=== PATIENT | female | born 1935 | race Caucasian/White ===

== ENCOUNTER 2020-02-12 13:34 | Inpatient (IN) | payer OTHER ==
--- NOTE | 2020-02-12 14:19 | PDOC ---
History of Present Illness - General Chief Complaint: Altered Mental Status Stated Complaint: Altered Mental Status Time Seen by Provider: 02/12/20 13:43 - History of Present Illness Initial Comments: 02/12/20 14:18 HPI: 85 y/o F with hx of Parkinson's, Alzheimer's, HLD, HTN, CAD, CHF, CKD, liver disease and DM and recent aortic valve replacement at [facility] on 01/25/20 DCd on with hospital course c/b by intubation and PNA presenting from [facility] with 2 days of AMS and lethargy. Patient reported to have PNa and being treated with ceftriaxone. No other collateral info can be obtained. PMHx: as noted above ROS: as noted SHx: Denies tobacco use; no alcohol use; no rec drugs Allergies: NKDA ROS: unable to obtain 2/2 mental stauts PE: GENERAL: obtunded, grimacing to pain HEAD: No signs of trauma, normocephalic, atraumatic EYES: EOMI, sclera anicteric, conjunctiva clear, PERRLA ENT: Auricles normal inspection, hearing grossly normal, nares patent, oropharynx clear without exudates. Moist mucosa NECK: Normal ROM, no lymphadenopathy LUNGS: +increased work of breathing, with intermittent apnic episodes followed by tachypnea, symmetrical chest rise, clear to auscultation bilaterally, no wheezes, crackles or rhonchi HEART: Regular rate, regular rhythm, normal S1 and S2, no murmur, peripheral pulses 2+ and equal bilaterally. ABDOMEN: Soft, suprapubic fullness. No guarding, no rebound. No masses. No CVAT MUSCULOSKELETAL: FROM NEUROLOGICAL: unresponsive SKIN: Warm, Dry, normal turgor, no rashes or lesions noted Past History - Medical History Allergies/Adverse Reactions: Allergies Allergy/AdvReac Type Severity Reaction Status Date / Time pregabalin [From Lyrica] Allergy Verified 02/12/20 13:40 Home Medications: Ambulatory Orders Carvedilol Phosphate [Coreg Cr] 40 mg PO DAILY 08/27/13 Gabapentin 100 mg PO TID 08/27/13 Losartan/Hydrochlorothiazide [Losartan-Hctz 100-25 mg Tab] 1 tab PO DAILY 08/27/13 Saxagliptin HCl [Onglyza] 5 mg PO DAILY 08/27/13 metFORMIN HCL [Glucophage] 1,000 mg PO BID 08/27/13 Acetaminophen [Tylenol .Regular Strength -] 650 mg PO Q6H PRN #0 tablet 09/02/13 Atorvastatin Ca [Lipitor] 40 mg PO HS #0 tablet 09/02/13 Levothyroxine [Synthroid -] 50 mcg PO DAILY@0700 #0 tablet 09/02/13 Insulin Regular [Novolin R Vial -] 0 units SQ TID 09/05/13 Magnesium Oxide 400 mg PO BID 09/05/13 Memantine HCl [Namenda -] 5 mg PO BID 09/05/13 Saccharomyces Boulardii [Florastor] 250 mg PO BID 09/05/13 Allopurinol [Zyloprim -] 100 mg PO DAILY 02/12/20 Amlodipine Besylate [Norvasc -] 5 mg PO DAILY 02/12/20 Aspirin 81 mg PO 02/12/20 Atorvastatin Ca [Lipitor] 20 mg PO HS 02/12/20 Bisacodyl 5 mg PO 02/12/20 Ceftriaxone 1 G/50 ml Premix [Ceftriaxone 1 gm-D5w Bag] 1 gm IV 02/12/20 Clopidogrel Bisulfate [Clopidogrel] 75 mg PO 02/12/20 Furosemide [Lasix -] 20 mg PO DAILY 02/12/20 Glimepiride 4 mg PO 02/12/20 Pantoprazole Sodium [Protonix -] 20 mg PO DAILY 02/12/20 Polyethylene Glycol 3350 17 gm PO 02/12/20 Senna [place] Extract [Senna] 176 mg PO 02/12/20 Vitamin B Complex 1 each PO 02/12/20 Cardiac Disorders: Yes (non obstructive CAD) COPD: No Diabetes: Yes HTN: Yes Hypercholesterolemia: Yes Thyroid Disease: Yes (hypo) Other medical history: cardiac cath done recently w/no stents 02/04/2020 - Surgical History Abdominal Surgery: Yes (HERNIA REPAIR) Appendectomy: Yes - Immunization History Immunization Up to Date: No - Psycho-Social/Smoking History Smoking Status: No Smoking History: Unknown if ever smoked Have you smoked in the past 12 months: No Number of Cigarettes Smoked Daily: 0 Information on smoking cessation initiated: No - Substance Abuse Hx (Audit-C & DAST Scrn) How often the patient has a drink containing alcohol: Never Score: In Men: 4 or > Positive; In Women: 3 or > Positive: 0 Screen Result (Pos requires Nsg. Audit-10AR): Negative In the last yr the pt used illegal drug/Rx for NonMed reason: No Score: Yes response is considered Positive: 0 Screen Result (Positive result requires Nsg. DAST-10): Negative *Physical Exam - Vital Signs Last Vital Signs Temp Pulse Resp BP Pulse Ox 111 H 32 H 128/81 99 02/12/20 13:35 02/12/20 13:35 02/12/20 13:35 02/12/20 13:35 ED Treatment Course - LABORATORY CBC & Chemistry Diagram: 02/12/20 14:00 02/12/20 18:00 - ADDITIONAL ORDERS Additional order review: Laboratory Results 02/12/20 13:51 POC Glucometer 199 02/12/20 13:51 POC Glucometer 199 - RADIOLOGY Radiology Studies Ordered: Category Date Time Status HEAD CT WITHOUT CONTRAST [CT] Stat CT Scan 02/12/20 13:58 Ordered CHEST X-RAY PORTABLE* [RAD] Stat Radiology 02/12/20 13:57 Ordered Medical Decision Making - Medical Decision Making 02/12/20 19:19 85 y/o F with hx of Parkinson's, Alzheimer's, HLD, HTN, CAD, CHF, CKD, liver disease and DM and recent aortic valve replacement at [facility] on 01/25/20 DCd on with hospital course c/b by intubation and PNA presenting from [facility] with 2 days of AMS and lethargy. VSS, AF. PE with suprapubic fullness and lethargic with labored breathing -sepsis order set with CT head; grajeda -ivf, tylenol 02/12/20 19:20 grajeda with 2L urine 02/12/20 19:20 Laboratory Tests 02/12/20 02/12/20 02/12/20 14:00 14:00 14:00 WBC 11.0 H VBG pH Sodium 163 H* Creatinine 4.6 H Troponin I 0.36 H B-Natriuretic Peptide 2016.4 H 02/12/20 17:20 WBC VBG pH 7.192 L* Sodium Creatinine Troponin I B-Natriuretic Peptide elevated Na renal failure with Cr 4.6 acidiosis; will put on bipap admitted to icu signed out to ngt team Discharge - Discharge Information Problems reviewed: Yes Clinical Impression/Diagnosis: Tyrosinemia, Acidosis, Urinary retention, AMS (altered mental status) Condition: Guarded - Follow up/Referral - Patient Discharge Instructions - Post Discharge Activity
--- NOTE | 2020-02-12 14:21 | PDOC ---
Attending Attestation - Resident Resident Name: Emilee Choi - ED Attending Attestation I have performed the following: I have examined & evaluated the patient, The case was reviewed & discussed with the resident, I agree w/resident's findings & plan, Exceptions are as noted - HPI HPI: 02/12/20 14:54 The patient is a 85y/o F with a PMH of Parkinson's, Alzheimer's, HLD, HTN, CAD, CHF, CKD, liver disease and DM, recent TAVR who presents to the ED BIBA from [facility] for AMS and lethargy x2 days. Per [facility] the patient has been on abx for the past 2 day. Pt was COVID negative on 02/05/20. Pt is a poor historian and unable to contribute to further history. Allergies: Pregabalin PCP: Dr. Calvo/ Dr. Canseco - Physicial Exam PE: Agree with resident exam, with exception that pt is resposive to loud voice and noxious stimuli - Critical Care Time Total Critical Care Time: 60 Critical Care Statement: The care of this patient involved high complexity decision making to prevent further life threatening deterioration of the patient's condition and/or to evaluate & treat vital organ system(s) failure or risk of failure. - Medical Decision Making 85yo F with MMP including recent TAVR, dementia presents from the ED with AMS and lethargy On arrival to ED, pt is lethargic, responsive to only loud voice and noxious stimuli Has intermittent apneic episodes for a few seconds but quickly resumes normal respirations with 100% O2 sat Initial blood gas mildly acidotic but after repeating blood gas, pt found to be developing hypercarbic resp failure Family unsure about intubation initially (pt has had recent decline since TAVR) but amenable to placing pt on bipap Of note, pt found to be retaining urine, quickly voiding 1.5L after grajeda placement at which point grajeda was clamped COncern for UTI, even though UA negative here as pt has been on ceftriaxone at [facility] for leukocytosis. UA negative likely due to partial tx with ctx ICU team evaluating Will attempt trial of bipap, repeat a blood gas, and if no improvement in hypercarbia, pt will likely need intubation Case signed out to Dr. Davila pending trial of bipap. This clinical encounter is taking place during a federal and state health care emergency attributable to the novel Berry Virus pandemic. The [place] of the Department of Health and Human Services has declared, pursuant to the Public Health Service Act 319F-3 (42 U.S.C. 247d-6d), that a covered persons activities related to medical countermeasures against COVID-19 will be immune from liability under Federal and State law. Discharge - Discharge Information Problems reviewed: Yes Clinical Impression/Diagnosis: Tyrosinemia, Acidosis, Urinary retention, AMS (altered mental status) Condition: Improved Disposition: LONGTERM FACILITY - Follow up/Referral - Patient Discharge Instructions - Post Discharge Activity
[2020-02-12 14:31] LABS: VENOUS BASE EXCESS -2.5 mmol/L (-2-2); VENOUS O2 SATURATION 48.4 % (70-80); VENOUS PCO2 49.3 mmHg (38-52); VENOUS PH 7.306 (7.310-7.410)
[2020-02-12] MEDS ORDERED: ACETAMINOPHEN 1000 MG/100 ML VIAL (NON FORMULARY) IVPB ONE (14:32)
[2020-02-12] MEDS ORDERED: ACETAMINOPHEN INJECTION 100 ML IVPB ONE (14:44)
[2020-02-12 14:59] LABS: BASO % 0.7 % (0-2.0); EOS % 0.1 % (0-4.5); HEMATOCRIT 34.9 % (32.4-45.2); HEMOGLOBIN 10.2 GM/dL (10.7-15.3); MCH 25.4 pg (25.7-33.7); MCHC 29.2 g/dl (32.0-36.0); MEAN CELL VOLUME 86.9 fl (80-96); MEAN PLT VOLUME 8.9 fl (7.5-11.1); MONO % 7.6 % (3.8-10.2); NEUT % 74.6 % (42.8-82.8); PLATELET COUNT 408 K/MM3 (134-434); RBC 4.01 M/mm3 (3.60-5.2); RDW 20.4 % (11.6-15.6)
[2020-02-12 15:01] LABS: INR 1.11 (0.83-1.09); PROTHROMBIN TIME (PATIENT) 13.1 SEC (9.7-13.0)
[2020-02-12 15:03] LABS: ACTIVATED PTT 27.2 SECONDS (25.2-36.5)
[2020-02-12 15:07] LABS: ALBUMIN 3.4 g/dl (3.4-5.0); BILIRUBIN,TOTAL 0.4 mg/dL (0.2-1); BLOOD UREA NITROGEN 97.1 mg/dL (7-18); CALCIUM 8.4 mg/dL (8.5-10.1); CREATININE 4.6 mg/dL (0.55-1.3); POTASSIUM 4.8 mmol/L (3.5-5.1); TOT PROT 8.3 g/dl (6.4-8.2)
[2020-02-12 15:29] LABS: EPI CELLS 6 /uL (0-25.1); HYALINE CASTS 1 /uL (0-3.1); PH,URINE 5.5 (5.0-8.0); URINE APPEARANCE CLEAR; URINE BACTERIA 8 /uL (0-1359); URINE BILIRUBIN NEGATIVE (NEGATIVE); URINE COLOR YELLOW; URINE GLUCOSE (UA) NEGATIVE (NEGATIVE); URINE KETONE NEGATIVE (NEGATIVE); URINE LEUK ESTERASE NEGATIVE (NEGATIVE); URINE NITRITE NEGATIVE (NEGATIVE); URINE PROTEIN 2+ (NEGATIVE); URINE RBC 30 /uL (0-23.9); URINE UROBILINOGEN 0.2 mg/dL (0.2-1.0); URINE WBC 3 /uL (0-25.8)
[2020-02-12] MEDS: SODIUM CHLORIDE 0.45% 1,000 ML IV SCH (16:04)
--- NOTE | 2020-02-12 16:15 | CONSULT ---
Consult Consult Specialty:: Nephrology Reason for Consultation:: KYLER - History of Present Illness Chief Complaint: sent in for lethargy History of Present Illness: Pt is an 85 year old female with pmhx of parkinsons, dementia, hld, htn, cad, chf, ckd, dm and recent TAVR who was sent in for lethargy and altered mental status. Her son is at bedside and was able to assist with history. She is lethargic and unable to give history. She normally is able to converse. Chart and records were reviewed. Her son says that her renal function was normal on discharge from the hospital. Grajeda was placed and she was found to have urinary obstruction. 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) - Alcohol/Substance Use Hx Alcohol Use: No - Smoking History Smoking history: Unknown if ever smoked Have you smoked in the past 12 months: No Aproximately how many cigarettes per day: 0 Home Medications - Allergies Allergies/Adverse Reactions: Allergies Allergy/AdvReac Type Severity Reaction Status Date / Time pregabalin [From Lyrica] Allergy Verified 02/12/20 13:40 - Home Medications Home Medications: Ambulatory Orders Carvedilol Phosphate [Coreg Cr] 40 mg PO DAILY 08/27/13 Gabapentin 100 mg PO TID 08/27/13 Losartan/Hydrochlorothiazide [Losartan-Hctz 100-25 mg Tab] 1 tab PO DAILY 08/27/13 Saxagliptin HCl [Onglyza] 5 mg PO DAILY 08/27/13 metFORMIN HCL [Glucophage] 1,000 mg PO BID 08/27/13 Acetaminophen [Tylenol .Regular Strength -] 650 mg PO Q6H PRN #0 tablet 09/02/13 Amlodipine Besylate [Norvasc -] 2.5 mg PO DAILY #0 tablet 09/02/13 Atorvastatin Ca [Lipitor] 40 mg PO HS #0 tablet 09/02/13 Levothyroxine [Synthroid -] 50 mcg PO DAILY@0700 #0 tablet 09/02/13 Insulin Regular [Novolin R Vial -] 0 units SQ TID 09/05/13 Magnesium Oxide 400 mg PO BID 09/05/13 Memantine HCl [Namenda -] 5 mg PO BID 09/05/13 Saccharomyces Boulardii [Florastor] 250 mg PO BID 09/05/13 Family Medical History Family History: Unable to Obtain Review of Systems Unable to obtain ROS, reason: lethargy Physical Exam Vital Signs: Vital Signs Temperature 99.6 F 02/12/20 16:00 Pulse Rate 110 H 02/12/20 16:00 Respiratory Rate 32 H 02/12/20 16:00 Blood Pressure 144/68 02/12/20 16:00 O2 Sat by Pulse Oximetry (%) 100 02/12/20 16:00 Constitutional: Yes: Calm, Cachectic Eyes: Yes: Conjunctiva Clear Cardiovascular: Yes: Tachycardia, S1, S2 Respiratory: Yes: On Venti-Mask Gastrointestinal: Yes: Soft Renal/: Yes: Grajeda Present Labs: CBC, BMP 02/12/20 14:00 02/12/20 14:00 Imaging - Results Chest X-ray: Report Reviewed Cat Scan: Report Reviewed Problem List - Problems (1) KYLER (acute kidney injury) Code(s): N17.9 - ACUTE KIDNEY FAILURE, UNSPECIFIED (2) Hypernatremia Code(s): E87.0 - HYPEROSMOLALITY AND HYPERNATREMIA (3) Altered mental state Code(s): R41.82 - ALTERED MENTAL STATUS, UNSPECIFIED Assessment/Plan Current Medications Generic Name Dose Route Start Last Admin Trade Name Freq PRN Reason Stop Dose Admin Sodium Chloride 1,000 mls @ 100 mls/hr 02/12/20 16:00 02/12/20 16:04 1/2 Normal Saline IV 100 mls/hr [facility] Administration Laboratory Tests 02/12/20 02/12/20 02/12/20 14:00 14:00 14:00 WBC 11.0 H Hgb 10.2 L Sodium Potassium BUN Creatinine Random Glucose Troponin I 0.36 H B-Natriuretic Peptide Urine Protein 2+ H 02/12/20 14:00 WBC Hgb Sodium 163 H* Potassium 4.8 BUN 97.1 H Creatinine 4.6 H Random Glucose 225 H Troponin I B-Natriuretic Peptide 2016.4 H Urine Protein Impression 1. KYLER 2. urinary obstruction 3. hypernatremia 4. altered mental status 5. dm 6. hx htn 7. cad 8. chf 9. ckd 10/ s/p tavr Plan - grajeda in place - monitor urine output and monitor for post obstructive diuresis - cont 1/2 ns and monitor sodium - avoid a change of greater than 8 meq in 24 hours - kyler likely in part from obstruction - renal ultrasound - check urine lytes and internal controls consultant - check pts weight in order to calc free water defecit - monitor pulse ox - discussed with family - discussed with ICU team
--- NOTE | 2020-02-12 16:19 | EKG ---
Test Reason : Blood Pressure : / mmHG Vent. Rate : 108 BPM Atrial Rate : 108 BPM P-R Int : 130 ms QRS Dur : 124 ms QT Int : 384 ms P-R-T Axes : 050 -39 117 degrees QTc Int : 514 ms SINUS TACHYCARDIA LEFT AXIS DEVIATION LEFT BUNDLE BRANCH BLOCK ABNORMAL ECG WHEN COMPARED WITH ECG OF 05-SEP-2013 03:33, VENT. RATE HAS INCREASED BY 40 BPM QRS DURATION HAS DECREASED Confirmed by JONI GAINES MD ([id number]) on 02/12/2020 4:19:11 PM Referred By: Confirmed By:JONI GAINES MD
[2020-02-12] MEDS ORDERED: VANCOMYCIN 1 GM in D5W (PRE-DOCKED) 1,000 MG/250 ML IVPB ONE (17:22)
[2020-02-12] MEDS ORDERED: VANCOMYCIN 1 GRAM (PRE-DOCKED) 1,000 MG/250 ML BAG IVPB ONE (17:44)
[2020-02-12 18:21] LABS: VENOUS BASE EXCESS -4.2 mmol/L (-2-2); VENOUS O2 SATURATION 98.7 % (70-80); VENOUS PCO2 66.4 mmHg (38-52)
[2020-02-12 18:26] LABS: VENOUS PH 7.192 (7.310-7.410)
[2020-02-12 18:54] LABS: BLOOD UREA NITROGEN 100.7 mg/dL (7-18); CREATININE 4.5 mg/dL (0.55-1.3); POTASSIUM 5.3 mmol/L (3.5-5.1)
--- NOTE | 2020-02-12 18:55 | CONSULT ---
Consultation: REQUESTING PROVIDER: CONSULT REQUEST: We have been asked to medically evaluate this patient for (specify). HISTORY OF PRESENT ILLNESS: Per patient's son: patient was taken to surgery for aortic valve replacement on January 26 2020 at [facility]. Patient did not recover from anesthesia and remaine d intubated and barely responsive. Post extubation patient remained groggy but was able to identify her relatives. Was also treated with abx for pneumonia during her ICU stay. On February 03 she was transferred to the floors and on February 04 she was transferred to [facility] rehabilitation facility after passing a swallow evaluation. Events at rehab facility are unclear since family was unable to visit patient. Also, after I spoke to facility hx remains unclear but per son the patient received another round of abx for pneumonia. There was never any treatment for a UTI. Son was also unaware of any liver disease or other heart disease. Before surgery, patient was at baseline: could walk with assistance "20 baby steps", able to eat/drink/urinate/defecate independently, hold "some" conversation, recognize people by name. When outside patient used transport chair due to her fall risk. Today, patient was brought in to the ED from the rehab facility due to continued AMS and fever. 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 Dawson PCP - [phone] Dr. Cartagena accounting administrative assistant - [phone] Dr. Mednoza Neurologist - [phone], Meds - metamorphine 1000mg one tab BID - oglyza 5mg q tab BID - carvedilil 1 tab daily 40mg - amlodipine 2.5mg 1 tab daily - losartan 100mg 1 dily - HCTZ 25mg 1 daily - glimepiride 2mg 1 daily - memantine 14mg 1 daily - lipitor 20mg 1 daily - ASA 81mg daily - zyloprin 1 tab 100mg PRN for gout SurgHx - aortic heart walve replacement 2019 - shoulder surgery -15-20 years ago - shingles 5y ago - hospitalized then in rehab 60 days - eye surgery FamHx - sister in same state: dementia and difficulties walking Social Hx denied tobacco, drugs, EtOH lives with and sister REVIEW OF SYSTEMS: patient was non-responsive. PHYSICAL EXAMINATION Vital Signs - 24 hr 02/12/20 02/12/20 02/12/20 13:35 13:50 14:00 Temperature 101.1 F H Pulse Rate 111 H Pulse Rate [ Apical] Respiratory 32 H Rate Blood Pressure 128/81 Blood Pressure [Right Arm] O2 Sat by Pulse 99 86 L Oximetry (%) 02/12/20 02/12/20 14:56 16:00 Temperature 99.6 F Pulse Rate Pulse Rate [ 110 H 110 H Apical] Respiratory 36 H 32 H Rate Blood Pressure Blood Pressure 141/70 144/68 [Right Arm] O2 Sat by Pulse 100 100 Oximetry (%) GENERAL: patient was non-resonive. HEAD: Normal with no signs of trauma. LUNGS: Breath sounds equal, clear to auscultation bilaterally, no wheezes, no crackles, mild accessory muscle use. HEART: Regular rate and rhythm, S1, S2, faint systolic murmur. ABDOMEN: Soft, nondistended, hypoactive bowel sounds, no hepatosplenomegaly, reducible hernia on R hemiabdomen, multiple scattered caicedo angiomas, echhymosis on L hemiabdomen, seborrheic keratosis on both L and R breast. EXTREMITIES: 2+ pulses, warm, well-perfused, no edema. SKIN: Warm, dry, normal turgor, no other rashes or lesions noted Laboratory Results - last 24 hr 02/12/20 02/12/20 02/12/20 13:51 14:00 14:00 WBC RBC Hgb Hct MCV MCH MCHC RDW Plt Count MPV Absolute Neuts (auto) Neutrophils % Lymphocytes % Monocytes % Eosinophils % Basophils % Nucleated RBC % PT with INR 13.10 H INR 1.11 H PTT (Actin FS) 27.2 VBG pH POC VBG pCO2 POC VBG pO2 VBG HCO3 VBG O2 Sat (Chris) VBG Base Excess Sodium Potassium Chloride Carbon Dioxide Anion Gap BUN Creatinine Est GFR (CKD-EPI)AfAm Est GFR (CKD-EPI)NonAf POC Glucometer 199 Random Glucose Lactic Acid Calcium Total Bilirubin AST ALT Alkaline Phosphatase Troponin I 0.36 H B-Natriuretic Peptide Total Protein Albumin Urine Color Urine Appearance Urine pH Ur Specific [place] Urine Protein Urine Glucose (UA) Urine Ketones Urine Blood Urine Nitrite Urine Bilirubin Urine Urobilinogen Ur Leukocyte Esterase Urine WBC (Auto) Urine RBC (Auto) Urine Casts (Auto) U Epithel Cells (Auto) Urine Bacteria (Auto) 02/12/20 02/12/20 02/12/20 14:00 14:00 14:00 WBC 11.0 H RBC 4.01 Hgb 10.2 L Hct 34.9 MCV 86.9 MCH 25.4 L MCHC 29.2 L RDW 20.4 H Plt Count 408 D MPV 8.9 Absolute Neuts (auto) 8.2 H Neutrophils % 74.6 D Lymphocytes % 17.0 D Monocytes % 7.6 Eosinophils % 0.1 D Basophils % 0.7 Nucleated RBC % 0 PT with INR INR PTT (Actin FS) VBG pH 7.306 L POC VBG pCO2 49.3 POC VBG pO2 28.9 VBG HCO3 24.0 VBG O2 Sat (Chris) 48.4 L VBG Base Excess -2.5 L Sodium Potassium Chloride Carbon Dioxide Anion Gap BUN Creatinine Est GFR (CKD-EPI)AfAm Est GFR (CKD-EPI)NonAf POC Glucometer Random Glucose Lactic Acid Calcium Total Bilirubin AST ALT Alkaline Phosphatase Troponin I B-Natriuretic Peptide Total Protein Albumin Urine Color Yellow Urine Appearance Clear Urine pH 5.5 Ur Specific [place] 1.017 Urine Protein 2+ H Urine Glucose (UA) Negative Urine Ketones Negative Urine Blood Negative Urine Nitrite Negative Urine Bilirubin Negative Urine Urobilinogen 0.2 Ur Leukocyte Esterase Negative Urine WBC (Auto) 3 Urine RBC (Auto) 30 Urine Casts (Auto) 1 U Epithel Cells (Auto) 6 Urine Bacteria (Auto) 8 02/12/20 02/12/20 02/12/20 14:00 14:00 17:20 WBC RBC Hgb Hct MCV MCH MCHC RDW Plt Count MPV Absolute Neuts (auto) Neutrophils % Lymphocytes % Monocytes % Eosinophils % Basophils % Nucleated RBC % PT with INR INR PTT (Actin FS) VBG pH 7.192 L* POC VBG pCO2 66.4 H POC VBG pO2 171.1 H VBG HCO3 24.9 VBG O2 Sat (Chris) 98.7 H VBG Base Excess -4.2 L Sodium 163 H* Potassium 4.8 Chloride 129 H Carbon Dioxide 27 Anion Gap 6 L BUN 97.1 H Creatinine 4.6 H Est GFR (CKD-EPI)AfAm 9.40 Est GFR (CKD-EPI)NonAf 8.11 POC Glucometer Random Glucose 225 H Lactic Acid 1.4 Calcium 8.4 L Total Bilirubin 0.4 AST 25 ALT 28 Alkaline Phosphatase 64 Troponin I B-Natriuretic Peptide 2016.4 H Total Protein 8.3 H Albumin 3.4 Urine Color Urine Appearance Urine pH Ur Specific [place] Urine Protein Urine Glucose (UA) Urine Ketones Urine Blood Urine Nitrite Urine Bilirubin Urine Urobilinogen Ur Leukocyte Esterase Urine WBC (Auto) Urine RBC (Auto) Urine Casts (Auto) U Epithel Cells (Auto) Urine Bacteria (Auto) Active Medications Generic Name Dose Route Start Last Admin Trade Name Freq PRN Reason Stop Dose Admin Sodium Chloride 1,000 mls @ 100 mls/hr 02/12/20 16:00 02/12/20 16:04 1 Normal Saline IV 100 mls/hr ASDIR [facility] Administration ASSESSMENT/PLAN: Code status/Family conversation: Telephone conversation with son Parrish. He reports that his mother does not have a health care proxy but he is her acting health care surrogate. Does not want chest compression attempted but would like a trial of intubation. He stated that he was more comfotable of a terminal extubation that not attempting intubation. His conversation was witnessed by TIGHT ROPE WALKER Jasbir. The son will come to the unit tomorrow to complete the paperwork. 85yo F with PMHx of HTN, DM2 with LE peripheral neuropathy, mild dementia, CKD, HF, and recent aortic valve replacement at [facility] who was brought to the ED catie to AMS and fever. ED course was remarkable for worsening MS, respiratory acidosis, hypernatremia, and urinary retention. In the ICU, patient was sedated and intubated due to persistent hypercarbic respiratory acidosis. #neuro AMS Parkinson's dementia - continue home dose dementia meds - head CT negative #cardio HTN recent aortic valve replacement HFrEF (30%) elevated troponin I -- demand ischemia in setting of sepsis prolongued QTC -continue home dose ASA, plavix, statin - trend trops - EKG with old LBBB - avoid QT prolonging agents - cardiology consulted #pulm acute hypercapneic respiratory failure #ID sepsis - ediology to be determined, liekly urinary source - febrile, tachypneic, tachycardic - ED course: IVF, olfirmev, vaco, sozyn - leukocytosis resolving - started on ceftriaxone @ [facility] - r/o COVID (low suspicion) - follow up cultures - ID consulted #Endo DM2, peripheral neuropathy - ISS, BGM, ACHS #GI continue home pantoprazole (clarification about reflux?) #renal urinary retention + abdominal distension KYLER on CKD hyperkalemia hypernatremia -1/2 NS @ 100 - 2L output s/p Oliveros placement (pre-renal vs. post-renal KYLER) - monitor sodium q12h - nephro consulted - kiney/renal US - CT a/p unrevealing of infectious source - moniotr I/Os, daily weights #Heme - trend H&H #FEN -1/2 NS @ 100 - NPO - replete lytes PRN #PPX - DVT: SQH DNR Dispo: We will continue to follow the patient. Thank you for this consultative opportunity. Visit type - Emergency Visit Emergency Visit: Yes ED Registration Date: 02/12/20 Care time: The patient presented to the Emergency Department on the above date and was hospitalized for further evaluation of their emergent condition. - New Patient This patient is new to me today: Yes Date on this admission: 02/15/20 - Critical Care Critical Care patient: Yes Total Critical Care Time (in minutes): 36 Critical Care Statement: The care of this patient involved high complexity decision making to prevent further life threatening deterioration of the patient's condition and/or to evaluate & treat vital organ system(s) failure or risk of failure. ATTENDING PHYSICIAN STATEMENT I saw and evaluated the patient. I reviewed the resident's note and discussed the case with the resident. I agree with the resident's findings and plan as documented. SUBJECTIVE: OBJECTIVE: ASSESSMENT AND PLAN:
[2020-02-12 20:51] LABS: ARTERIAL BLD GAS O2 SATURATION 96.3 mmHg (95-98); ARTERIAL BLOOD GAS PO2 106.2 mmHg (80-100)
[2020-02-12 20:55] LABS: ALLENS TEST POSITIVE
[2020-02-12 20:56] LABS: VENT MODE S/T; VENT RATE 12
[2020-02-12 20:59] LABS: ARTERIAL BLOOD GAS pH 7.171 (7.350-7.450)
[2020-02-12] MEDS: MUPIROCIN 2% TOPICAL OINTMENT FOR DECOLONIZATION NS SCH (21:49)
[2020-02-12] MEDS: CHLORHEXIDINE GLUCONATE 4% CLEANSER FOR DECOLONIZATION TP SCH (21:49)
[2020-02-12] MEDS: HEPARIN NA (PORCINE) 5,000 UNITS/ML 1ML VIAL SQ SCH (21:49)
[2020-02-12 22:51] LABS: VENOUS BASE EXCESS -7.1 mmol/L (-2-2); VENOUS O2 SATURATION 73.8 % (70-80); VENOUS PCO2 69.6 mmHg (38-52)
[2020-02-12 22:53] LABS: VENOUS PH 7.127 (7.310-7.410)
[2020-02-12] MEDS ORDERED: RAPID SEQUENCE INTUBATION KIT NR ONE (23:07)
[2020-02-12] MEDS ORDERED: ETOMIDATE 20 MG/10 ML AMPUL IVPUSH ONE (23:18)
[2020-02-12] MEDS ORDERED: ROCURONIUM BROMIDE 50 MG/5 ML VIAL IVPUSH ONE (23:18)
[2020-02-12] MEDS ORDERED: ROCURONIUM BROMIDE 50 MG/5 ML VIAL IV ONE (23:18)
[2020-02-12 23:22] LABS: BLOOD UREA NITROGEN 95.9 mg/dL (7-18); CALCIUM 7.8 mg/dL (8.5-10.1); CREATININE 4.5 mg/dL (0.55-1.3); POTASSIUM 5.1 mmol/L (3.5-5.1)
--- NOTE | 2020-02-12 23:38 | PROC ---
Procedure Note Procedure: PROCEDURE NOTE: Endotracheal Intubation PROCEDURE [employer] OPERATOR SUPERVISOR: Ino Callahan M.D., PGY3 ATTENDING PHYSICIAN: Dr. Wan of anesthesia service was in attendance; Case was discussed and need for intubation agreed upon via telephone with ICU Attending Dr. Redding INDICATION: Hypercarbic respiratory failure CONSENT: The procedure emergent and performed with implied permission. PROCEDURE SUMMARY: A time out was performed. My hands were washed immediately prior to the procedure. I wore a mask with protective eyewear, gown, and gloves throughout the procedure. The patient was placed on continuous cardiac and pulse oximetry monitoring. Rapid Sequence Intubation was conducted. The patient received E tomidate for induction and Rocuronium for adequate paralysis. Using a GlideScope for video laryngoscopy and an endotracheal tube (size 7.0) with stylet, the patient was intubated on the 1st attempt. The stylet was removed and cuff balloon was inflated. Appropriate endotracheal tube position was confirmed by direct visualization of vocal cord passage, fogging of the tube, CO2 return on continuous waveform capnography, and symmetric breath sounds. The tube was secured at 22 cm at the lips. Post intubation chest x-ray is pending at this time. COMPLICATIONS: None.
[2020-02-12] MEDS ORDERED: FENTANYL NS IVPB 500 MCG/100 ML BAG IVPB SCH (23:45)
[2020-02-12] MEDS ORDERED: MIDAZOLAM HCL 2 MG/2 ML SINGLE DOSE VIAL IVPUSH ONE (23:53)
[2020-02-12] MEDS ORDERED: MIDAZOLAM HCL 2 MG/2 ML SINGLE DOSE VIAL ONE (23:54)
[2020-02-13] MEDS ORDERED: MIDAZOLAM HCL 2 MG/2 ML SINGLE DOSE VIAL IVPUSH ONE (00:20)
--- NOTE | 2020-02-13 00:29 | PN ---
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 (short form) - Note 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: ICU Night Float 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: Pt found unresponsive while on BPAP. STAT VBG revealed persistent hypercarbic respiratory acidosis. Case discussed with ICU Attending Dr. Redding via telephone. Pt no longer BPAP candidate. Acidosis not likely to improve with high flow. Decisi on was made to intubate the pt. Please see separate procedure note. PCO2 on VBG was 70. Initial EtCO2 after intubation was 45. Will target EtCO2 of 30 and f/u post-intubation ABG. Pts son Parrish was contacted via telephone and made aware of the intubation. Noted pt was started on Ceftriaxone on 02/10 for elevated WBC. Recent labs requested from [facility]. Concern for acute cystitis causing urinary retention and dehydration. Ordered Ceftriaxone. Home meds reviewed and ordered as appropriate. Ino Callahan M.D., PGY3 ICU Service 13 February 2020
[2020-02-13 00:58] LABS: ARTERIAL BLD GAS O2 SATURATION 98.6 mmHg (95-98); ARTERIAL BLOOD GAS BASE EXCESS -2.8 mmol/L (-2-2); ARTERIAL BLOOD GAS PO2 142.5 mmHg (80-100); ARTERIAL BLOOD GAS pH 7.306 (7.350-7.450)
[2020-02-13 00:59] LABS: ALLENS TEST POSITIVE
[2020-02-13 01:00] LABS: VENT MODE A/C; VENT RATE 16
[2020-02-13] MEDS: DEXMEDETOMIDINE IN 0.9 % NACL 400 MCG/100 ML VIAL IVPB SCH (01:00)
[2020-02-13] MEDS ORDERED: BISACODYL 5 MG TABLET.DR (FP) PO SCH (01:45)
[2020-02-13 06:39] LABS: ARTERIAL BLD GAS O2 SATURATION 98.3 mmHg (95-98); ARTERIAL BLOOD GAS BASE EXCESS -4.1 mmol/L (-2-2); ARTERIAL BLOOD GAS PO2 123.3 mmHg (80-100); ARTERIAL BLOOD GAS pH 7.344 (7.350-7.450)
[2020-02-13] MEDS: HEPARIN NA (PORCINE) 5,000 UNITS/ML 1ML VIAL SQ SCH ×3 (06:42→21:14)
[2020-02-13 06:48] LABS: ALLENS TEST POSITIVE
[2020-02-13 06:49] LABS: VENT MODE A/C; VENT RATE 16
[2020-02-13] MEDS ORDERED: LEVOTHYROXINE NA 50 MCG TABLET (FP) PO SCH (07:00)
[2020-02-13 07:10] LABS: BASO % 0.6 % (0-2.0); EOS % 0.6 % (0-4.5); HEMATOCRIT 27.9 % (32.4-45.2); LYMPH % 20.6 % (8-40); MCH 25.5 pg (25.7-33.7); MCHC 28.9 g/dl (32.0-36.0); MEAN CELL VOLUME 88.2 fl (80-96); MEAN PLT VOLUME 8.8 fl (7.5-11.1); MONO % 6.6 % (3.8-10.2); NEUT % 71.6 % (42.8-82.8); PLATELET COUNT 272 K/MM3 (134-434); RBC 3.16 M/mm3 (3.60-5.2); RDW 20.1 % (11.6-15.6); WHITE BLOOD COUNT 9.6 K/mm3 (4.0-10.0)
[2020-02-13 07:38] LABS: ALBUMIN 2.9 g/dl (3.4-5.0); BILIRUBIN,TOTAL 0.8 mg/dL (0.2-1); CALCIUM 7.5 mg/dL (8.5-10.1); CREATININE 4.4 mg/dL (0.55-1.3); PHOSPHOROUS 8.3 mg/dL (2.5-4.9); POTASSIUM 4.1 mmol/L (3.5-5.1); TOT PROT 6.8 g/dl (6.4-8.2)
[2020-02-13] MEDS: INSULIN SLIDING SCALE (NOVOLOG) 1 VIAL SQ SCH ×4 (07:45→21:26)
[2020-02-13] MEDS ORDERED: SODIUM CHLORIDE 0.45% 1,000 ML IV SCH ×2 (08:00→08:03)
[2020-02-13 08:10] LABS: URINE UREA NITROGEN 796 mg/dL (350-1000)
[2020-02-13] MEDS ORDERED: CEFTRIAXONE 1 GM in DEXTROSE 5%-WATER - 50 ML IVPB SCH (10:00)
[2020-02-13] MEDS ORDERED: [UNRECOGNIZED DRUG - OTHER] IV SCH (10:00)
[2020-02-13] MEDS ORDERED: CEFTRIAXONE 1,000 MG in DEXTROSE 5%-WATER - 50 ML IVPB SCH (10:00)
[2020-02-13] MEDS ORDERED: CEFTRIAXONE 1 GM/50 ML IV SCH (10:00)
[2020-02-13] MEDS ORDERED: cefTRIAXone SODIUM 1 GM VIAL ONE (10:09)
[2020-02-13] MEDS ORDERED: DEXTROSE 5%-WATER - 50 ML IVPB ONE ×3 (10:09→16:12)
[2020-02-13] MEDS ORDERED: PT OWN MED DRAWER 7, Y5N ONE (10:09)
[2020-02-13] MEDS: POLYETHYLENE GLYCOL 3350 119 GM BTL PO SCH ×2 (10:14→21:16)
[2020-02-13] MEDS: CLOPIDOGREL BISULFATE 75 MG TABLET (FP) PO SCH (10:14)
[2020-02-13] MEDS: PANTOPRAZOLE 20 MG TABLET PO SCH (10:14)
[2020-02-13] MEDS: ASPIRIN 81 MG CHEWABLE TABLETS PO SCH (10:14)
[2020-02-13] MEDS: ALLOPURINOL 100 MG TABLET (FP) PO SCH (10:15)
[2020-02-13] MEDS: LEVOTHYROXINE SODIUM 100 MCG VIAL IVPUSH SCH (10:15)
[2020-02-13] MEDS: MUPIROCIN 2% TOPICAL OINTMENT FOR DECOLONIZATION NS SCH ×2 (10:15→21:16)
--- NOTE | 2020-02-13 10:22 | PN ---
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 (short form) - Note 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: ID consult dictated 85 yo female sent from [place] with change in mental status and lethrgy s/p recent TAVR- history of parkinsonsons disease and CKD stage 4 recent TAVR 01/25- was hospitalized from 01/24 to 02/03 at [facility]- TAVR performed on 01/25, she was intubatd and treated with vanco/cefepime 01/26, switched to unasyn, extubated 01/27. she developed kyler (ckd stage 4 at baseline), she completed 5 days of unasyn , had swallowing evaluation and noted to have oropharyngeal dysphagia at baseline ct scan done during admission showed severe parenchymal volume loss and chronic microvascular ischemic changes she was started on ceftriaxone on 02/10 at the [place] in the ED noted to be in renal failure with urinary retention, intubated for hypercapneic resp failure now on vent sedated acute resp failure- hypercapneic resp falure KYLER/CKD r/o pneumonia-bibasilar infiltrates s/p TAVR 01/25 Parkinsons disease cultures- blood, urine, sputum urinary antige given vanco last night switch to zosyn over 35 minutes spent on the care of this critically ill ICU patient Problem List - Problems (1) Acute respiratory failure with hypoxia and hypercarbia Code(s): J96.01 - ACUTE RESPIRATORY FAILURE WITH HYPOXIA; J96.02 - ACUTE RESPIRATORY FAILURE WITH HYPERCAPNIA (2) Acute kidney injury superimposed on chronic kidney disease Code(s): N17.9 - ACUTE KIDNEY FAILURE, UNSPECIFIED; N18.9 - CHRONIC KIDNEY DISEASE, UNSPECIFIED (3) Aspiration pneumonia Code(s): J69.0 - PNEUMONITIS DUE TO INHALATION OF FOOD AND VOMIT (4) H/O aortic valve replacement Code(s): Z95.2 - PRESENCE OF PROSTHETIC HEART VALVE (5) Parkinson disease Code(s): G20 - PARKINSON'S DISEASE
[2020-02-13] MEDS: MEMANTINE HCL 5 MG TABLET (UD) PO SCH (10:27)
[2020-02-13] MEDS ORDERED: PIPERACILLIN/TAZOBACTAM 2.25 GM VIAL IVPB ONE ×2 (11:15→16:12)
[2020-02-13] MEDS: PIPERACILLIN/TAZOB 2.25 GM 2.25 GM in DEXTROSE 5%-WATER - 50 ML IVPB SCH ×2 (11:18→17:14)
--- NOTE | 2020-02-13 12:10 | CON.CARD ---
Cardiology Consult (text) - Consultation Consultation Note: cc: ams hx from charts, pt intubated/sedated hpi: 85 f hx dementia, parkinsons, ckd (baseline cr 1.9), syst chf (lvef 33%), htn, hld, dm, non obs cad on cath 09/2019, s/p tavr 01/2020 at [facility] [place]. Intubated now. Being evaluated for sepsis. pmh: per hpi psh: tavr social: no tob fam: unknown ros: unable to obtain 09/07 ams meds: Ambulatory Orders Acetaminophen [Tylenol .Regular Strength -] 650 mg PO Q6H PRN #0 tablet 09/02/13 Levothyroxine [Synthroid -] 50 mcg PO DAILY@0700 #0 tablet 09/02/13 Memantine HCl [Namenda -] 5 mg PO BID 09/05/13 Allopurinol [Zyloprim -] 100 mg PO DAILY 02/12/20 Amlodipine Besylate [Norvasc -] 5 mg PO DAILY 02/12/20 Aspirin 81 mg PO DAILY 02/12/20 Atorvastatin Ca [Lipitor] 20 mg PO HS 02/12/20 Bisacodyl 5 mg PO PRN 02/12/20 Ceftriaxone 1 G/50 ml Premix [Ceftriaxone 1 gm-D5w Bag] 1 gm IV DAILY 02/12/20 Clopidogrel Bisulfate [Clopidogrel] 75 mg PO DAILY 02/12/20 Furosemide [Lasix -] 20 mg PO DAILY 02/12/20 Glimepiride 4 mg PO DAILY 02/12/20 Pantoprazole Sodium [Protonix -] 20 mg PO DAILY 02/12/20 Polyethylene Glycol 3350 17 gm PO BID 02/12/20 Senna [place] Extract [Senna] 176 mg PO HS 02/12/20 Vitamin B Complex 1 each PO DAILY 02/12/20 pE: Vital Signs Temp 98.1 F 02/12/20 20:18 Pulse 76 02/13/20 10:43 Resp 17 02/13/20 11:28 BP 116/62 02/13/20 10:43 Pulse Ox 100 02/13/20 11:32 Intake & Output 02/12/20 02/13/20 02/13/20 23:59 11:59 23:59 Intake Total 100 Output Total 1700 Balance -1600 Weight 129 lb 130 lb Intake: IVPB 100 Output: Urine 1700 Oliveros 1700 Other: Voiding Method Diaper Diaper Height 5 ft 4 in Body Mass Index (BMI) 22.1 Weight Measurement Method Built in [facility] nad no jvd intubated sedated cta bl anteriorly, vented rrr s1s2 no mrg abd nd pos bs no jaundice diaphoresis pos dp pt no le e/c/c Laboratory Last Values WBC 9.6 K/mm3 (4.0-10.0) 02/13/20 05:28 RBC 3.16 M/mm3 (3.60-5.2) L 02/13/20 05:28 Hgb 8.0 GM/dL (10.7-15.3) L 02/13/20 05:28 Hct 27.9 % (32.4-45.2) L D 02/13/20 05:28 MCV 88.2 fl (80-96) 02/13/20 05:28 MCH 25.5 pg (25.7-33.7) L 02/13/20 05:28 MCHC 28.9 g/dl (32.0-36.0) L 02/13/20 05:28 RDW 20.1 % (11.6-15.6) H 02/13/20 05:28 Plt Count 272 K/MM3 (134-434) D 02/13/20 05:28 MPV 8.8 fl (7.5-11.1) 02/13/20 05:28 Absolute Neuts (auto) 6.9 K/mm3 (1.5-8.0) 02/13/20 05:28 Neutrophils % 71.6 % (42.8-82.8) 02/13/20 05:28 Lymphocytes % 20.6 % (8-40) D 02/13/20 05:28 Monocytes % 6.6 % (3.8-10.2) 02/13/20 05:28 Eosinophils % 0.6 % (0-4.5) D 02/13/20 05:28 Basophils % 0.6 % (0-2.0) 02/13/20 05:28 Nucleated RBC % 0 % (0-0) 02/13/20 05:28 PT with INR 13.10 SEC (9.7-13.0) H 02/12/20 14:00 INR 1.11 (0.83-1.09) H 02/12/20 14:00 PTT (Actin FS) 27.2 SECONDS (25.2-36.5) 02/12/20 14:00 Anticoagulation Therapy No Result Required. 02/13/20 06:15 Puncture Site Right radial 02/13/20 06:15 Patient Temperature No Result Required. 02/13/20 06:15 ABG pH 7.344 (7.350-7.450) L 02/13/20 06:15 ABG pCO2 39.90 mmHg (35-45) 02/13/20 06:15 ABG pO2 123.3 mmHg (80-100) H 02/13/20 06:15 ABG HCO3 21.2 mmol/L (22-27) L 02/13/20 06:15 ABG O2 Sat (Measured) 98.3 mmHg (95-98) H 02/13/20 06:15 ABG O2 Content No Result Required. 02/13/20 06:15 ABG Base Excess -4.1 mmol/L (-2-2) L 02/13/20 06:15 Prabhjot Test Positive 02/13/20 06:15 VBG pH 7.127 (7.310-7.410) L* 02/12/20 22:30 POC VBG pCO2 69.6 mmHg (38-52) H 02/12/20 22:30 POC VBG pO2 51.8 mmHg (28-48) H 02/12/20 22:30 VBG HCO3 22.5 mmol/L (23-29) L 02/12/20 22:30 VBG O2 Sat (Chris) 73.8 % (70-80) 02/12/20 22:30 VBG Base Excess -7.1 mmol/L (-2-2) L 02/12/20 22:30 Patient On Oxygen Yes 02/13/20 06:15 O2 Delivery Device Vent 02/13/20 06:15 Oxygen Flow Rate 40% 02/13/20 06:15 Vent Mode A/c 02/13/20 06:15 Vent Rate 16 02/13/20 06:15 Mechanical Rate No Result Required. 02/13/20 06:15 PEEP 5.0 cmH2O 02/13/20 06:15 Pressure Support Vent 330 02/13/20 06:15 Sodium 160 mmol/L (136-145) H 02/13/20 05:28 Potassium 4.1 mmol/L (3.5-5.1) 02/13/20 05:28 Chloride 128 mmol/L (98-107) H 02/13/20 05:28 Carbon Dioxide 23 mmol/L (21-32) 02/13/20 05:28 Anion Gap 10 MMOL/L (8-16) 02/13/20 05:28 BUN 105.0 mg/dL (7-18) H* 02/13/20 05:28 Creatinine 4.4 mg/dL (0.55-1.3) H 02/13/20 05:28 Est GFR (CKD-EPI)AfAm 9.92 02/13/20 05:28 Est GFR (CKD-EPI)NonAf 8.56 02/13/20 05:28 POC Glucometer 142 UNITS (80-120) 02/13/20 11:13 Random Glucose 159 mg/dL (74-106) H 02/13/20 05:28 Lactic Acid 0.8 mmol/L (0.4-2.0) 02/12/20 22:30 Calcium 7.5 mg/dL (8.5-10.1) L 02/13/20 05:28 Phosphorus 8.3 mg/dL (2.5-4.9) H 02/13/20 05:28 Magnesium 3.0 mg/dL (1.8-2.4) H 02/13/20 05:28 Ferritin 143.0 ng/ml (8-388) 02/13/20 05:28 Total Bilirubin 0.8 mg/dL (0.2-1) 02/13/20 05:28 AST 20 U/L (15-37) 02/13/20 05:28 ALT 22 U/L (13-61) 02/13/20 05:28 Alkaline Phosphatase 51 U/L (45-117) 02/13/20 05:28 LD Total 313 U/L (84-246) H 02/13/20 05:28 Troponin I 0.35 ng/ml (0.00-0.05) H 02/13/20 05:28 C-Reactive Protein < 0.3 MG/DL (0.00-0.3) 02/13/20 05:28 B-Natriuretic Peptide 2016.4 pg/ml (5-450) H 02/12/20 14:00 Total Protein 6.8 g/dl (6.4-8.2) 02/13/20 05:28 Albumin 2.9 g/dl (3.4-5.0) L 02/13/20 05:28 Thyroxine (T4) 4.9 ug/dl (4.5-13.9) 02/13/20 05:28 Urine Color Yellow 02/12/20 14:00 Urine Appearance Clear 02/12/20 14:00 Urine pH 5.5 (5.0-8.0) 02/12/20 14:00 Ur Specific [place] 1.017 (1.010-1.035) 02/12/20 14:00 Urine Protein 2+ (NEGATIVE) H 02/12/20 14:00 Urine Glucose (UA) Negative (NEGATIVE) 02/12/20 14:00 Urine Ketones Negative (NEGATIVE) 02/12/20 14:00 Urine Blood Negative (NEGATIVE) 02/12/20 14:00 Urine Nitrite Negative (NEGATIVE) 02/12/20 14:00 Urine Bilirubin Negative (NEGATIVE) 02/12/20 14:00 Urine Urobilinogen 0.2 mg/dL (0.2-1.0) 02/12/20 14:00 Ur Leukocyte Esterase Negative (NEGATIVE) 02/12/20 14:00 Urine WBC (Auto) 3 /uL (0-25.8) 02/12/20 14:00 Urine RBC (Auto) 30 /uL (0-23.9) 02/12/20 14:00 Urine Casts (Auto) 1 /uL (0-3.1) 02/12/20 14:00 U Epithel Cells (Auto) 6 /uL (0-25.1) 02/12/20 14:00 Urine Bacteria (Auto) 8 /uL (0-1359) 02/12/20 14:00 Ur Random Creatinine 169.0 mg/dL (30-150) H 02/13/20 05:45 Ur Random Sodium 18 MMOL/L (40-220) L 02/13/20 05:45 Ur Random Potassium 73.0 MMOL/L (25-125) 02/13/20 05:45 Ur Random Chloride < 11 MMOL/L (110-250) L 02/13/20 05:45 Ur Random Urea Nitrogn 796 mg/dL (350-1000) 02/13/20 05:45 tele: sr cxr: bibasilar changes echo 01/2020: lvef 33%, nl rv, no sig valve path, mild phtn ecg: 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 ams, resp failure, sepsis: -intubated, wean per crit care -infectious w/u kody on ckd: -baseline cr 1.9, now in 4s -cont ivfs, monitor cr. given chf hx monitor vol status closely. chronic syst chf: -fluids as above -holding po lasix (was on 20 qod) htn: -holding meds, bp on lower side, monitor for now cad: -non obs cad on recent cath -borderline trop elevation here with flat trend, not c/w acs, likely from kody, sepsis -cont dapt, statin as s/p tavr: -recent tavr with post op echo 01/2020 showing good valve fcn -cont dapt for 6 mos post tavr
--- NOTE | 2020-02-13 13:06 | PN ---
Teaching Attending Note Name of Resident: Ida Amaya ATTENDING PHYSICIAN STATEMENT I saw and evaluated the patient. I reviewed the resident's note and discussed the case with the resident. I agree with the resident's findings and plan as documented. SUBJECTIVE: Patient seen and examined in the ICU. Intubated and sedated. No pressors. Good urine output. Intake & Output 02/10/20 02/11/20 02/12/20 02/13/20 23:59 23:59 23:59 23:59 Intake Total 100 Output Total 1700 Balance -1600 Weight 129 lb 130 lb Last Vital Signs Temp Pulse Resp BP Pulse Ox 98.1 F 74 22 H 103/56 L 100 02/12/20 20:18 02/13/20 12:00 02/13/20 12:00 02/13/20 12:00 02/13/20 11:32 Active Medications Allopurinol (Zyloprim -) 100 mg PO DAILY [facility] Last Admin: 02/13/20 10:15 Dose: 100 mg Documented by: Aspirin (Asa -) 81 mg PO DAILY [facility] Last Admin: 02/13/20 10:14 Dose: 81 mg Documented by: Atorvastatin Calcium (Lipitor -) 20 mg PO HS [facility] Bisacodyl (Dulcolax -) 5 mg PO PRN [facility] Chlorhexidine Gluconate (Hibiclens For Decolonization -) 1 applic TP HS [facility] Last Admin: 02/12/20 21:49 Dose: 1 applic Documented by: Clopidogrel Bisulfate (Plavix -) 75 mg PO DAILY [facility] Last Admin: 02/13/20 10:14 Dose: 75 mg Documented by: Heparin Sodium (Porcine) (Heparin -) 5,000 unit SQ TID [facility] Last Admin: 02/13/20 06:42 Dose: 5,000 unit Documented by: Sodium Chloride (1/2 Normal Saline) 1,000 mls @ 100 mls/hr IV ASDIR [facility] Last Admin: 02/12/20 16:04 Dose: 100 mls/hr Documented by: Fentanyl (Sublimaze Ivpb) 500 mcg in 100 mls @ 16.329 mls/hr IVPB TITR [facility]; Protocol Dexmedetomidine/Sodium Chloride (Precedex 400 Mcg/100 Ml Inject) 400 mcg in 100 mls @ 4.082 mls/hr IVPB TITR [facility] Last Infusion: 02/13/20 06:43 Dose: 0.3 mcg/kg/hr, 6.124 mls/hr Documented by: Sodium Chloride (1/2 Normal Saline) 1,000 mls @ 150 mls/hr IV ASDIR [facility] Last Admin: 02/13/20 08:09 Dose: 150 mls/hr Documented by: Piperacillin Sod/Tazobactam (Sod 2.25 gm/ Dextrose) 50 mls @ 100 mls/hr IVPB Q8H-IV [facility]; Protocol Last Admin: 02/13/20 11:18 Dose: 100 mls/hr Documented by: Insulin Aspart (Novolog Vial Sliding Scale -) 1 vial SQ ACHS [facility]; Protocol Last Admin: 02/13/20 11:14 Dose: Not Given Documented by: Levothyroxine Sodium (Synthroid -) 50 mcg PO DAILY@0700 [facility] Levothyroxine Sodium (Synthroid Injection -) 40 mcg IVPUSH DAILY [facility] Last Admin: 02/13/20 10:15 Dose: 40 mcg Documented by: Memantine (Namenda -) 5 mg PO DAILY [facility] Last Admin: 02/13/20 10:27 Dose: 5 mg Documented by: Mupirocin (Bactroban Ointment (For Decolonization) -) 1 applic NS BID [facility] Stop: 02/17/20 21:59 Last Admin: 02/13/20 10:15 Dose: 1 applic Documented by: Pantoprazole Sodium (Protonix -) 20 mg PO DAILY [facility] Last Admin: 02/13/20 10:14 Dose: 20 mg Documented by: Polyethylene Glycol (Miralax (For Daily Use) -) 17 gm PO BID [facility] Last Admin: 02/13/20 10:14 Dose: 17 gm Documented by: GENERAL: Intubated and sedated HEAD: Normal with no signs of trauma. EYES: sclera anicteric, conjunctiva clear. EARS, NOSE, THROAT: Ears normal, nares patent, oropharynx clear without exudates. Moist mucous membranes. NECK: Normal range of motion, supple without lymphadenopathy, JVD, or masses. LUNGS: Vented, few scattered rhonchi HEART: Regular rate and rhythm, normal S1 and S2 without murmur, rub or gallop. ABDOMEN: Soft, nontender, not distended, normoactive bowel sounds, no guarding, no rebound, no masses. No hepatomegaly or splenomegaly. MUSCULOSKELETAL: No bony deformities or tenderness. No CVA tenderness. UPPER EXTREMITIES: 2+ pulses, warm, well-perfused. No cyanosis. No clubbing. Cap refill <2 seconds. No peripheral edema. LOWER EXTREMITIES: 2+ pulses, warm, well-perfused. No calf tenderness. No peripheral edema. NEUROLOGICAL: Sedated PSYCHIATRIC: Sedated SKIN: Warm, dry, normal turgor, no rashes or lesions noted. Laboratory Results - last 24 hr 02/12/20 02/12/20 02/12/20 13:51 14:00 14:00 WBC RBC Hgb Hct MCV MCH MCHC RDW Plt Count MPV Absolute Neuts (auto) Neutrophils % Lymphocytes % Monocytes % Eosinophils % Basophils % Nucleated RBC % PT with INR 13.10 H INR 1.11 H PTT (Actin FS) 27.2 Anticoagulation Therapy Puncture Site Patient Temperature ABG pH ABG pCO2 ABG pO2 ABG HCO3 ABG O2 Sat (Measured) ABG O2 Content ABG Base Excess Prabhjot Test VBG pH POC VBG pCO2 POC VBG pO2 VBG HCO3 VBG O2 Sat (Chris) VBG Base Excess Patient On Oxygen O2 Delivery Device Oxygen Flow Rate Vent Mode Vent Rate Mechanical Rate PEEP Pressure Support Vent Sodium Potassium Chloride Carbon Dioxide Anion Gap BUN Creatinine Est GFR (CKD-EPI)AfAm Est GFR (CKD-EPI)NonAf POC Glucometer 199 Random Glucose Lactic Acid Calcium Phosphorus Magnesium Ferritin Total Bilirubin AST ALT Alkaline Phosphatase LD Total Troponin I 0.36 H C-Reactive Protein B-Natriuretic Peptide Total Protein Albumin Thyroxine (T4) Urine Color Urine Appearance Urine pH Ur Specific [place] Urine Protein Urine Glucose (UA) Urine Ketones Urine Blood Urine Nitrite Urine Bilirubin Urine Urobilinogen Ur Leukocyte Esterase Urine WBC (Auto) Urine RBC (Auto) Urine Casts (Auto) U Epithel Cells (Auto) Urine Bacteria (Auto) Ur Random Creatinine Ur Random Sodium Ur Random Potassium Ur Random Chloride Ur Random Urea Nitrogn 02/12/20 02/12/20 02/12/20 14:00 14:00 14:00 WBC 11.0 H RBC 4.01 Hgb 10.2 L Hct 34.9 MCV 86.9 MCH 25.4 L MCHC 29.2 L RDW 20.4 H Plt Count 408 D MPV 8.9 Absolute Neuts (auto) 8.2 H Neutrophils % 74.6 D Lymphocytes % 17.0 D Monocytes % 7.6 Eosinophils % 0.1 D Basophils % 0.7 Nucleated RBC % 0 PT with INR INR PTT (Actin FS) Anticoagulation Therapy Puncture Site Patient Temperature ABG pH ABG pCO2 ABG pO2 ABG HCO3 ABG O2 Sat (Measured) ABG O2 Content ABG Base Excess Prabhjot Test VBG pH 7.306 L POC VBG pCO2 49.3 POC VBG pO2 28.9 VBG HCO3 24.0 VBG O2 Sat (Chris) 48.4 L VBG Base Excess -2.5 L Patient On Oxygen O2 Delivery Device Oxygen Flow Rate Vent Mode Vent Rate Mechanical Rate PEEP Pressure Support Vent Sodium Potassium Chloride Carbon Dioxide Anion Gap BUN Creatinine Est GFR (CKD-EPI)AfAm Est GFR (CKD-EPI)NonAf POC Glucometer Random Glucose Lactic Acid Calcium Phosphorus Magnesium Ferritin Total Bilirubin AST ALT Alkaline Phosphatase LD Total Troponin I C-Reactive Protein B-Natriuretic Peptide Total Protein Albumin Thyroxine (T4) Urine Color Yellow Urine Appearance Clear Urine pH 5.5 Ur Specific [place] 1.017 Urine Protein 2+ H Urine Glucose (UA) Negative Urine Ketones Negative Urine Blood Negative Urine Nitrite Negative Urine Bilirubin Negative Urine Urobilinogen 0.2 Ur Leukocyte Esterase Negative Urine WBC (Auto) 3 Urine RBC (Auto) 30 Urine Casts (Auto) 1 U Epithel Cells (Auto) 6 Urine Bacteria (Auto) 8 Ur Random Creatinine Ur Random Sodium Ur Random Potassium Ur Random Chloride Ur Random Urea Nitrogn 02/12/20 02/12/20 02/12/20 14:00 14:00 17:20 WBC RBC Hgb Hct MCV MCH MCHC RDW Plt Count MPV Absolute Neuts (auto) Neutrophils % Lymphocytes % Monocytes % Eosinophils % Basophils % Nucleated RBC % PT with INR INR PTT (Actin FS) Anticoagulation Therapy Puncture Site Patient Temperature ABG pH ABG pCO2 ABG pO2 ABG HCO3 ABG O2 Sat (Measured) ABG O2 Content ABG Base Excess Prabhjot Test VBG pH 7.192 L* POC VBG pCO2 66.4 H POC VBG pO2 171.1 H VBG HCO3 24.9 VBG O2 Sat (Chris) 98.7 H VBG Base Excess -4.2 L Patient On Oxygen O2 Delivery Device Oxygen Flow Rate Vent Mode Vent Rate Mechanical Rate PEEP Pressure Support Vent Sodium 163 H* Potassium 4.8 Chloride 129 H Carbon Dioxide 27 Anion Gap 6 L BUN 97.1 H Creatinine 4.6 H Est GFR (CKD-EPI)AfAm 9.40 Est GFR (CKD-EPI)NonAf 8.11 POC Glucometer Random Glucose 225 H Lactic Acid 1.4 Calcium 8.4 L Phosphorus Magnesium Ferritin Total Bilirubin 0.4 AST 25 ALT 28 Alkaline Phosphatase 64 LD Total Troponin I C-Reactive Protein B-Natriuretic Peptide 2016.4 H Total Protein 8.3 H Albumin 3.4 Thyroxine (T4) Urine Color Urine Appearance Urine pH Ur Specific [place] Urine Protein Urine Glucose (UA) Urine Ketones Urine Blood Urine Nitrite Urine Bilirubin Urine Urobilinogen Ur Leukocyte Esterase Urine WBC (Auto) Urine RBC (Auto) Urine Casts (Auto) U Epithel Cells (Auto) Urine Bacteria (Auto) Ur Random Creatinine Ur Random Sodium Ur Random Potassium Ur Random Chloride Ur Random Urea Nitrogn 02/12/20 02/12/20 02/12/20 18:00 20:25 22:30 WBC RBC Hgb Hct MCV MCH MCHC RDW Plt Count MPV Absolute Neuts (auto) Neutrophils % Lymphocytes % Monocytes % Eosinophils % Basophils % Nucleated RBC % PT with INR INR PTT (Actin FS) Anticoagulation Therapy No Result Required. Puncture Site Right radial Patient Temperature No Result Required. ABG pH 7.171 L* ABG pCO2 63.50 H ABG pO2 106.2 H ABG HCO3 22.7 ABG O2 Sat (Measured) 96.3 ABG O2 Content No Result Required. ABG Base Excess -6.0 L Prabhjot Test Positive VBG pH 7.127 L* POC VBG pCO2 69.6 H POC VBG pO2 51.8 H VBG HCO3 22.5 L VBG O2 Sat (Chris) 73.8 VBG Base Excess -7.1 L Patient On Oxygen Yes O2 Delivery Device Bipap Oxygen Flow Rate 40% Vent Mode S/t Vent Rate 12 Mechanical Rate No Result Required. PEEP No Result Required. Pressure Support Vent 12/5 Sodium 159 H Potassium 5.3 H Chloride 129 H Carbon Dioxide 26 Anion Gap 5 L BUN 100.7 H Creatinine 4.5 H Est GFR (CKD-EPI)AfAm 9.65 Est GFR (CKD-EPI)NonAf 8.33 POC Glucometer Random Glucose 204 H Lactic Acid Calcium 8.0 L Phosphorus Magnesium Ferritin Total Bilirubin AST ALT Alkaline Phosphatase LD Total Troponin I C-Reactive Protein B-Natriuretic Peptide Total Protein Albumin Thyroxine (T4) Urine Color Urine Appearance Urine pH Ur Specific [place] Urine Protein Urine Glucose (UA) Urine Ketones Urine Blood Urine Nitrite Urine Bilirubin Urine Urobilinogen Ur Leukocyte Esterase Urine WBC (Auto) Urine RBC (Auto) Urine Casts (Auto) U Epithel Cells (Auto) Urine Bacteria (Auto) Ur Random Creatinine Ur Random Sodium Ur Random Potassium Ur Random Chloride Ur Random Urea Nitrogn 02/12/20 02/12/20 02/13/20 22:30 22:30 00:00 WBC RBC Hgb Hct MCV MCH MCHC RDW Plt Count MPV Absolute Neuts (auto) Neutrophils % Lymphocytes % Monocytes % Eosinophils % Basophils % Nucleated RBC % PT with INR INR PTT (Actin FS) Anticoagulation Therapy No Result Required. Puncture Site Right radial Patient Temperature No Result Required. ABG pH 7.306 L ABG pCO2 48.30 H ABG pO2 142.5 H ABG HCO3 23.6 ABG O2 Sat (Measured) 98.6 H ABG O2 Content No Result Required. ABG Base Excess -2.8 L Prabhjot Test Positive VBG pH POC VBG pCO2 POC VBG pO2 VBG HCO3 VBG O2 Sat (Chris) VBG Base Excess Patient On Oxygen Yes O2 Delivery Device Vent Oxygen Flow Rate 60% Vent Mode A/c Vent Rate 16 Mechanical Rate Yes PEEP 5.0 Pressure Support Vent 330 Sodium 158 H Potassium 5.1 Chloride 126 H Carbon Dioxide 27 Anion Gap 5 L BUN 95.9 H Creatinine 4.5 H Est GFR (CKD-EPI)AfAm 9.65 Est GFR (CKD-EPI)NonAf 8.33 POC Glucometer Random Glucose 225 H Lactic Acid 0.8 Calcium 7.8 L Phosphorus Magnesium Ferritin Total Bilirubin AST ALT Alkaline Phosphatase LD Total Troponin I 0.58 H C-Reactive Protein B-Natriuretic Peptide Total Protein Albumin Thyroxine (T4) Urine Color Urine Appearance Urine pH Ur Specific [place] Urine Protein Urine Glucose (UA) Urine Ketones Urine Blood Urine Nitrite Urine Bilirubin Urine Urobilinogen Ur Leukocyte Esterase Urine WBC (Auto) Urine RBC (Auto) Urine Casts (Auto) U Epithel Cells (Auto) Urine Bacteria (Auto) Ur Random Creatinine Ur Random Sodium Ur Random Potassium Ur Random Chloride Ur Random Urea Nitrogn 02/13/20 02/13/20 02/13/20 05:28 05:28 05:28 WBC 9.6 RBC 3.16 L Hgb 8.0 L Hct 27.9 L D MCV 88.2 MCH 25.5 L MCHC 28.9 L RDW 20.1 H Plt Count 272 D MPV 8.8 Absolute Neuts (auto) 6.9 Neutrophils % 71.6 Lymphocytes % 20.6 D Monocytes % 6.6 Eosinophils % 0.6 D Basophils % 0.6 Nucleated RBC % 0 PT with INR INR PTT (Actin FS) Anticoagulation Therapy Puncture Site Patient Temperature ABG pH ABG pCO2 ABG pO2 ABG HCO3 ABG O2 Sat (Measured) ABG O2 Content ABG Base Excess Prabhjot Test VBG pH POC VBG pCO2 POC VBG pO2 VBG HCO3 VBG O2 Sat (Chris) VBG Base Excess Patient On Oxygen O2 Delivery Device Oxygen Flow Rate Vent Mode Vent Rate Mechanical Rate PEEP Pressure Support Vent Sodium 160 H Potassium 4.1 Chloride 128 H Carbon Dioxide 23 Anion Gap 10 BUN 105.0 H* Creatinine 4.4 H Est GFR (CKD-EPI)AfAm 9.92 Est GFR (CKD-EPI)NonAf 8.56 POC Glucometer Random Glucose 159 H Lactic Acid Calcium 7.5 L Phosphorus 8.3 H Magnesium 3.0 H Ferritin 143.0 Total Bilirubin 0.8 AST 20 ALT 22 Alkaline Phosphatase 51 LD Total 313 H Troponin I C-Reactive Protein < 0.3 B-Natriuretic Peptide Total Protein 6.8 Albumin 2.9 L Thyroxine (T4) 4.9 Urine Color Urine Appearance Urine pH Ur Specific [place] Urine Protein Urine Glucose (UA) Urine Ketones Urine Blood Urine Nitrite Urine Bilirubin Urine Urobilinogen Ur Leukocyte Esterase Urine WBC (Auto) Urine RBC (Auto) Urine Casts (Auto) U Epithel Cells (Auto) Urine Bacteria (Auto) Ur Random Creatinine Ur Random Sodium Ur Random Potassium Ur Random Chloride Ur Random Urea Nitrogn 02/13/20 02/13/20 02/13/20 05:28 05:45 06:15 WBC RBC Hgb Hct MCV MCH MCHC RDW Plt Count MPV Absolute Neuts (auto) Neutrophils % Lymphocytes % Monocytes % Eosinophils % Basophils % Nucleated RBC % PT with INR INR PTT (Actin FS) Anticoagulation Therapy No Result Required. Puncture Site Right radial Patient Temperature No Result Required. ABG pH 7.344 L ABG pCO2 39.90 ABG pO2 123.3 H ABG HCO3 21.2 L ABG O2 Sat (Measured) 98.3 H ABG O2 Content No Result Required. ABG Base Excess -4.1 L Prabhjot Test Positive VBG pH POC VBG pCO2 POC VBG pO2 VBG HCO3 VBG O2 Sat (Chris) VBG Base Excess Patient On Oxygen Yes O2 Delivery Device Vent Oxygen Flow Rate 40% Vent Mode A/c Vent Rate 16 Mechanical Rate No Result Required. PEEP 5.0 Pressure Support Vent 330 Sodium Potassium Chloride Carbon Dioxide Anion Gap BUN Creatinine Est GFR (CKD-EPI)AfAm Est GFR (CKD-EPI)NonAf POC Glucometer Random Glucose Lactic Acid Calcium Phosphorus Magnesium Ferritin Total Bilirubin AST ALT Alkaline Phosphatase LD Total Troponin I 0.35 H C-Reactive Protein B-Natriuretic Peptide Total Protein Albumin Thyroxine (T4) Urine Color Urine Appearance Urine pH Ur Specific [place] Urine Protein Urine Glucose (UA) Urine Ketones Urine Blood Urine Nitrite Urine Bilirubin Urine Urobilinogen Ur Leukocyte Esterase Urine WBC (Auto) Urine RBC (Auto) Urine Casts (Auto) U Epithel Cells (Auto) Urine Bacteria (Auto) Ur Random Creatinine 169.0 H Ur Random Sodium 18 L Ur Random Potassium 73.0 Ur Random Chloride < 11 L Ur Random Urea Nitrogn 796 02/13/20 02/13/20 07:50 11:13 WBC RBC Hgb Hct MCV MCH MCHC RDW Plt Count MPV Absolute Neuts (auto) Neutrophils % Lymphocytes % Monocytes % Eosinophils % Basophils % Nucleated RBC % PT with INR INR PTT (Actin FS) Anticoagulation Therapy Puncture Site Patient Temperature ABG pH ABG pCO2 ABG pO2 ABG HCO3 ABG O2 Sat (Measured) ABG O2 Content ABG Base Excess Prabhjot Test VBG pH POC VBG pCO2 POC VBG pO2 VBG HCO3 VBG O2 Sat (Chris) VBG Base Excess Patient On Oxygen O2 Delivery Device Oxygen Flow Rate Vent Mode Vent Rate Mechanical Rate PEEP Pressure Support Vent Sodium Potassium Chloride Carbon Dioxide Anion Gap BUN Creatinine Est GFR (CKD-EPI)AfAm Est GFR (CKD-EPI)NonAf POC Glucometer 133 142 Random Glucose Lactic Acid Calcium Phosphorus Magnesium Ferritin Total Bilirubin AST ALT Alkaline Phosphatase LD Total Troponin I C-Reactive Protein B-Natriuretic Peptide Total Protein Albumin Thyroxine (T4) Urine Color Urine Appearance Urine pH Ur Specific [place] Urine Protein Urine Glucose (UA) Urine Ketones Urine Blood Urine Nitrite Urine Bilirubin Urine Urobilinogen Ur Leukocyte Esterase Urine WBC (Auto) Urine RBC (Auto) Urine Casts (Auto) U Epithel Cells (Auto) Urine Bacteria (Auto) Ur Random Creatinine Ur Random Sodium Ur Random Potassium Ur Random Chloride Ur Random Urea Nitrogn ASSESSMENT/PLAN: Acute Hypercapneic and Hypoxic Respiratory Failure ARF due to Obstructive Uropathy Metabolic Encephalopathy Parkinson's dementia HTN Recent TAVR HFrEF (30%) Elevated troponin I -- demand ischemia in settin gof sepsis Prolonged QTC Sepsis AC Mode of vent Sedation vacation to assess mental status ABX per ID Strict I & O Continue IVF resuscitation ASA Plavix Statin Follow cultures VTE prophylaxis Require ICU monitoring Dr Renteria Critical care time spent in reviewing chart, evaluating patient and formulating plan - 36 minutes.
--- NOTE | 2020-02-13 14:56 | PN ---
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, Physician History of Present Illness: Pt seen and examined at bedside. She is in the ICU. Pt is now intubated. - Current Medication List Current Medications: Active Medications Allopurinol (Zyloprim -) 100 mg PO DAILY [facility] Last Admin: 02/13/20 10:15 Dose: 100 mg Documented by: Aspirin (Asa -) 81 mg PO DAILY [facility] Last Admin: 02/13/20 10:14 Dose: 81 mg Documented by: Atorvastatin Calcium (Lipitor -) 20 mg PO HS [facility] Bisacodyl (Dulcolax -) 5 mg PO PRN [facility] Chlorhexidine Gluconate (Hibiclens For Decolonization -) 1 applic TP HS [facility] Last Admin: 02/12/20 21:49 Dose: 1 applic Documented by: Clopidogrel Bisulfate (Plavix -) 75 mg PO DAILY [facility] Last Admin: 02/13/20 10:14 Dose: 75 mg Documented by: Heparin Sodium (Porcine) (Heparin -) 5,000 unit SQ TID [facility] Last Admin: 02/13/20 06:42 Dose: 5,000 unit Documented by: Sodium Chloride (1/2 Normal Saline) 1,000 mls @ 100 mls/hr IV ASDIR [facility] Last Admin: 02/12/20 16:04 Dose: 100 mls/hr Documented by: Fentanyl (Sublimaze Ivpb) 500 mcg in 100 mls @ 16.329 mls/hr IVPB TITR [facility]; Protocol Dexmedetomidine/Sodium Chloride (Precedex 400 Mcg/100 Ml Inject) 400 mcg in 100 mls @ 4.082 mls/hr IVPB TITR [facility] Last Infusion: 02/13/20 06:43 Dose: 0.3 mcg/kg/hr, 6.124 mls/hr Documented by: Sodium Chloride (1/2 Normal Saline) 1,000 mls @ 150 mls/hr IV ASDIR [facility] Last Admin: 02/13/20 08:09 Dose: 150 mls/hr Documented by: Piperacillin Sod/Tazobactam (Sod 2.25 gm/ Dextrose) 50 mls @ 100 mls/hr IVPB Q8H-IV [facility]; Protocol Last Admin: 02/13/20 11:18 Dose: 100 mls/hr Documented by: Insulin Aspart (Novolog Vial Sliding Scale -) 1 vial SQ ACHS [facility]; Protocol Last Admin: 02/13/20 11:14 Dose: Not Given Documented by: Levothyroxine Sodium (Synthroid -) 50 mcg PO DAILY@0700 [facility] Levothyroxine Sodium (Synthroid Injection -) 40 mcg IVPUSH DAILY [facility] Last Admin: 02/13/20 10:15 Dose: 40 mcg Documented by: Memantine (Namenda -) 5 mg PO DAILY [facility] Last Admin: 02/13/20 10:27 Dose: 5 mg Documented by: Mupirocin (Bactroban Ointment (For Decolonization) -) 1 applic NS BID [facility] Stop: 02/17/20 21:59 Last Admin: 02/13/20 10:15 Dose: 1 applic Documented by: Pantoprazole Sodium (Protonix -) 20 mg PO DAILY [facility] Last Admin: 02/13/20 10:14 Dose: 20 mg Documented by: Polyethylene Glycol (Miralax (For Daily Use) -) 17 gm PO BID [facility] Last Admin: 02/13/20 10:14 Dose: 17 gm Documented by: - Objective Vital Signs: Vital Signs Temperature 98.1 F 02/12/20 20:18 Pulse Rate 74 02/13/20 12:00 Respiratory Rate 22 H 02/13/20 12:00 Blood Pressure 103/56 L 02/13/20 12:00 O2 Sat by Pulse Oximetry (%) 100 02/13/20 11:32 Constitutional: Yes: Calm Eyes: Yes: Conjunctiva Clear Cardiovascular: Yes: S1, S2 Respiratory: Yes: Mechanically Ventilated Gastrointestinal: Yes: Soft Genitourinary: Yes: Oliveros Present Musculoskeletal: Yes: Muscle Weakness Edema: No Integumentary: Yes: WNL Neurological: Yes: Lethargy Labs: CBC, BMP 02/13/20 05:28 02/13/20 05:28 INR, PTT INR 1.11 (0.83-1.09) H 02/12/20 14:00 - ....Imaging Chest X-ray: Report Reviewed Problem List - Problems (1) KYLER (acute kidney injury) Code(s): N17.9 - ACUTE KIDNEY FAILURE, UNSPECIFIED (2) Hypernatremia Code(s): E87.0 - HYPEROSMOLALITY AND HYPERNATREMIA (3) Altered mental state Code(s): R41.82 - ALTERED MENTAL STATUS, UNSPECIFIED Assessment/Plan Current Medications Generic Name Dose Route Start Last Admin Trade Name Jewell PRN Reason Stop Dose Admin Allopurinol 100 mg 02/13/20 10:00 02/13/20 10:15 Zyloprim - PO 100 mg DAILY [facility] Administration Aspirin 81 mg 02/13/20 10:00 02/13/20 10:14 Asa - PO 81 mg DAILY [facility] Administration Atorvastatin Calcium 20 mg 02/13/20 22:00 Lipitor - PO HS [facility] Bisacodyl 5 mg 02/13/20 01:45 Dulcolax - PO PRN [facility] Chlorhexidine Gluconate 1 applic 02/12/20 22:00 02/12/20 21:49 Hibiclens For Decolonization - TP 1 applic HS [facility] Administration Clopidogrel Bisulfate 75 mg 02/13/20 10:00 02/13/20 10:14 Plavix - PO 75 mg DAILY [facility] Administration Heparin Sodium (Porcine) 5,000 unit 02/12/20 22:00 02/13/20 06:42 Heparin - SQ 5,000 unit TID [facility] Administration Sodium Chloride 1,000 mls @ 100 mls/hr 02/12/20 16:00 02/12/20 16:04 1/2 Normal Saline IV 100 mls/hr ASDIR [facility] Administration Fentanyl 500 mcg in 100 mls @ 16.329 mls/hr 02/12/20 23:45 Sublimaze Ivpb IVPB TITR [facility] Protocol 1 MCG/KG/HR Dexmedetomidine/Sodium Chloride 400 mcg in 100 mls @ 4.082 mls/hr 02/13/20 0 0:30 02/13/20 06:43 Precedex 400 Mcg/100 Ml Inject IVPB 0.3 mcg/kg/hr TITR [facility] 6.124 mls/hr Infusion 0.2 MCG/KG/HR Sodium Chloride 1,000 mls @ 150 mls/hr 02/13/20 08:03 02/13/20 08:09 1/2 Normal Saline IV 150 mls/hr ASDIR [facility] Administration Piperacillin Sod/Tazobactam 50 mls @ 100 mls/hr 02/13/20 10:30 02/13/20 11:18 Sod 2.25 gm/ Dextrose IVPB 100 mls/hr Q8H-IV [facility] Administration Protocol Insulin Aspart 1 vial 02/13/20 07:00 02/13/20 11:14 Novolog Vial Sliding Scale - SQ Not Given ACHS [facility] Protocol Levothyroxine Sodium 50 mcg 02/13/20 07:00 Synthroid - PO DAILY@0700 [facility] Levothyroxine Sodium 40 mcg 02/13/20 10:00 02/13/20 10:15 Synthroid Injection - IVPUSH 40 mcg DAILY [facility] Administration Memantine 5 mg 02/13/20 10:00 02/13/20 10:27 Namenda - PO 5 mg DAILY [facility] Administration Mupirocin 1 applic 02/12/20 22:00 02/13/20 10:15 Bactroban Ointment (For Decolonization) - NS 02/17/20 21:59 1 applic BID [facility] Administration Pantoprazole Sodium 20 mg 02/13/20 10:00 02/13/20 10:14 Protonix - PO 20 mg DAILY [facility] Administration Polyethylene Glycol 17 gm 02/13/20 10:00 02/13/20 10:14 Miralax (For Daily Use) - PO 17 gm BID [facility] Administration Impression 1. KYLER 2. urinary obstruction 3. hypernatremia 4. altered mental status 5. dm 6. hx htn 7. cad 8. chf 9. ckd 10/ s/p tavr Plan - cont hypotonic fluids - unclear why fluids were stopped overnight - cont feeds with free water - avoid change in sodium of greater than 8 meq in 24 hours - monitor for post obstructive diuresis - monitor renal function - discussed with ICU team - her total free water deficit is about 3.8 liters - renal ultrasound reviewed - daily cxr
[2020-02-13] MEDS: SODIUM CHLORIDE 0.45% 1,000 ML IV SCH ×2 (15:31→19:40)
--- NOTE | 2020-02-13 16:10 | CONS ---
DATE OF CONSULTATION: DATE OF DICTATION: 02/13/2020 CHIEF COMPLAINT/HISTORY OF PRESENT ILLNESS: This is an 85-year-old female who was [facility] with change in mental status and lethargy, status post recent TAVR. She has a history of Parkinson's disease and CKD stage 4 as well. She had a recent TAVR done January 25. She was hospitalized from the to February 03 at [facility]. The TAVR was performed on the . She was intubated for the procedure. She was extubated on the . She was originally treated with vancomycin and cefepime and then Unasyn for 5 days. While there, she developed KYLER. As well, she had some change in mental status, had a CAT scan that showed severe parenchymal volume loss and chronic microvascular ischemic changes. She had a swallowing evaluation, was noted to have oropharyngeal dysphagia at baseline. She was started on a puree diet and discharged to the [facility]. At the [facility] on the she was started on ceftriaxone. In the ER she was noted to be in renal failure with urinary retention; 2 L of urine was removed when the Oliveros was placed. She was intubated for hypercapnic respiratory failure. She is now on the ventilator and sedated. I am asked to see her for possible sepsis. PAST MEDICAL HISTORY: Notable for Parkinson's disease, dementia, hypertension, hyperlipidemia, CHF, CKD, diabetes. She has a history of COPD. She has had herpes zoster in the past. She has a history of gout as well, according to the patient's son. PAST SURGICAL HISTORY: Notable for the recent TAVR. SOCIAL HISTORY: There is no history of cigarette or substance use. She has 2 children. ALLERGIES: PREGABALIN. PRIMARY CARE PHYSICIAN: Esequiel Dawson MD MARKETING DEVELOPMENT REPRESENTATIVE: Danny Saez MD NEUROLOGIST: Bridger Kellogg MD MEDICATIONS: Her medications at the [facility] include atorvastatin; ceftriaxone, which was started on the ; Synthroid; glimepiride; Norvasc; vitamin B; senna; Zyloprim; Protonix; Namenda; Lasix; Plavix; aspirin. REVIEW OF SYSTEMS: Not available. FAMILY HISTORY: Not available as well. PHYSICAL EXAMINATION: General: She is intubated. Vital Signs: T-max was 101.1 on admission. Her pulse is 74. Blood pressure is 103/56. Respiratory rate is 22. She is saturating 100% on 40% FiO2. HEENT: She is normocephalic. She is orally intubated. She is sedated. Respiratory: Her lungs have diminished breath sounds at the bases. Heart: Regular rate and rhythm. Abdomen: Soft, nontender. Extremities: Without edema. Genitourinary: Oliveros is in place. LABORATORY: Her white count on admission was 11, this morning is 9.6. Hemoglobin is 8. Platelets are 272. Her BUN is 105 and creatinine 44. On admission they were 97 and 4.6. Sodium of 160, chloride of 128. Magnesium is 3. Troponin is 0.35. Urinalysis has 3 white cells. COVID PCR is pending. Cultures are pending. SUMMARY: This is an 85-year-old woman admitted with acute respiratory failure secondary to hypercapnia, acute kidney injury on top of chronic kidney disease, possible pneumonia, a chest x-ray with bibasilar infiltrates, recent TAVR January 25, and Parkinson's disease. Aspiration as well is a possibility for her pneumonia. Cultures have been sent, blood and urine. Would add sputum and urinary antigens. She was given vancomycin last night. Would stop her ceftriaxone and switch to Zosyn given her recent admission to the hospital for her TAVR. She would qualify as hospital-acquired pneumonia. Over 35 minutes were spent in the care of this critically ill patient. DMITRY NEGRETE M.D. [id number]
--- NOTE | 2020-02-13 17:38 | PN ---
Physical Exam: SUBJECTIVE: Patient seen and examined. Intubated overnight and sedated. Was on minimal vent settings 16/330/40/5. OBJECTIVE: Vital Signs Period Temp Pulse Resp BP Sys/Coyne Pulse Ox Last 24 Hr 98.1 F-98.1 F 66-100 16-30 100-128/51-68 99-100 GENERAL: Sedated and intubated HEAD: Normal with no signs of trauma. LUNGS: Breath sounds equal, clear to auscultation bilaterally, no wheezes, no crackles, mild accessory muscle use. HEART: Regular rate and rhythm, S1, S2, faint systolic murmur. ABDOMEN: Soft, nondistended, hypoactive bowel sounds, no hepatosplenomegaly, reducible hernia on R hemiabdomen, multiple scattered caicedo angiomas, echhymosis on L hemiabdomen, seborrheic keratosis on both L and R breast. EXTREMITIES: 2+ pulses, warm, well-perfused, no edema. SKIN: Warm, dry, normal turgor, no other rashes or lesions noted Laboratory Results - last 24 hr 02/12/20 02/12/20 02/12/20 17:20 18:00 20:25 WBC RBC Hgb Hct MCV MCH MCHC RDW Plt Count MPV Absolute Neuts (auto) Neutrophils % Lymphocytes % Monocytes % Eosinophils % Basophils % Nucleated RBC % Anticoagulation Therapy No Result Required. Puncture Site Right radial Patient Temperature No Result Required. ABG pH 7.171 L* ABG pCO2 63.50 H ABG pO2 106.2 H ABG HCO3 22.7 ABG O2 Sat (Measured) 96.3 ABG O2 Content No Result Required. ABG Base Excess -6.0 L Prabhjot Test Positive VBG pH 7.192 L* POC VBG pCO2 66.4 H POC VBG pO2 171.1 H VBG HCO3 24.9 VBG O2 Sat (Chris) 98.7 H VBG Base Excess -4.2 L Patient On Oxygen Yes O2 Delivery Device Bipap Oxygen Flow Rate 40% Vent Mode S/t Vent Rate 12 Mechanical Rate No Result Required. PEEP No Result Required. Pressure Support Vent 12/5 Sodium 159 H Potassium 5.3 H Chloride 129 H Carbon Dioxide 26 Anion Gap 5 L BUN 100.7 H Creatinine 4.5 H Est GFR (CKD-EPI)AfAm 9.65 Est GFR (CKD-EPI)NonAf 8.33 POC Glucometer Random Glucose 204 H Lactic Acid Calcium 8.0 L Phosphorus Magnesium Ferritin Total Bilirubin AST ALT Alkaline Phosphatase LD Total Troponin I C-Reactive Protein Total Protein Albumin Thyroxine (T4) Ur Random Creatinine Ur Random Sodium Ur Random Potassium Ur Random Chloride Ur Random Urea Nitrogn 02/12/20 02/12/20 02/12/20 22:30 22:30 22:30 WBC RBC Hgb Hct MCV MCH MCHC RDW Plt Count MPV Absolute Neuts (auto) Neutrophils % Lymphocytes % Monocytes % Eosinophils % Basophils % Nucleated RBC % Anticoagulation Therapy Puncture Site Patient Temperature ABG pH ABG pCO2 ABG pO2 ABG HCO3 ABG O2 Sat (Measured) ABG O2 Content ABG Base Excess Prabhjot Test VBG pH 7.127 L* POC VBG pCO2 69.6 H POC VBG pO2 51.8 H VBG HCO3 22.5 L VBG O2 Sat (Chris) 73.8 VBG Base Excess -7.1 L Patient On Oxygen O2 Delivery Device Oxygen Flow Rate Vent Mode Vent Rate Mechanical Rate PEEP Pressure Support Vent Sodium 158 H Potassium 5.1 Chloride 126 H Carbon Dioxide 27 Anion Gap 5 L BUN 95.9 H Creatinine 4.5 H Est GFR (CKD-EPI)AfAm 9.65 Est GFR (CKD-EPI)NonAf 8.33 POC Glucometer Random Glucose 225 H Lactic Acid 0.8 Calcium 7.8 L Phosphorus Magnesium Ferritin Total Bilirubin AST ALT Alkaline Phosphatase LD Total Troponin I 0.58 H C-Reactive Protein Total Protein Albumin Thyroxine (T4) Ur Random Creatinine Ur Random Sodium Ur Random Potassium Ur Random Chloride Ur Random Urea Nitrogn 02/13/20 02/13/20 02/13/20 00:00 05:28 05:28 WBC 9.6 RBC 3.16 L Hgb 8.0 L Hct 27.9 L D MCV 88.2 MCH 25.5 L MCHC 28.9 L RDW 20.1 H Plt Count 272 D MPV 8.8 Absolute Neuts (auto) 6.9 Neutrophils % 71.6 Lymphocytes % 20.6 D Monocytes % 6.6 Eosinophils % 0.6 D Basophils % 0.6 Nucleated RBC % 0 Anticoagulation Therapy No Result Required. Puncture Site Right radial Patient Temperature No Result Required. ABG pH 7.306 L ABG pCO2 48.30 H ABG pO2 142.5 H ABG HCO3 23.6 ABG O2 Sat (Measured) 98.6 H ABG O2 Content No Result Required. ABG Base Excess -2.8 L Prabhjot Test Positive VBG pH POC VBG pCO2 POC VBG pO2 VBG HCO3 VBG O2 Sat (Chris) VBG Base Excess Patient On Oxygen Yes O2 Delivery Device Vent Oxygen Flow Rate 60% Vent Mode A/c Vent Rate 16 Mechanical Rate Yes PEEP 5.0 Pressure Support Vent 330 Sodium 160 H Potassium 4.1 Chloride 128 H Carbon Dioxide 23 Anion Gap 10 BUN 105.0 H* Creatinine 4.4 H Est GFR (CKD-EPI)AfAm 9.92 Est GFR (CKD-EPI)NonAf 8.56 POC Glucometer Random Glucose 159 H Lactic Acid Calcium 7.5 L Phosphorus 8.3 H Magnesium 3.0 H Ferritin Total Bilirubin 0.8 AST 20 ALT 22 Alkaline Phosphatase 51 LD Total 313 H Troponin I C-Reactive Protein Total Protein 6.8 Albumin 2.9 L Thyroxine (T4) 4.9 Ur Random Creatinine Ur Random Sodium Ur Random Potassium Ur Random Chloride Ur Random Urea Nitrogn 02/13/20 02/13/20 02/13/20 05:28 05:28 05:45 WBC RBC Hgb Hct MCV MCH MCHC RDW Plt Count MPV Absolute Neuts (auto) Neutrophils % Lymphocytes % Monocytes % Eosinophils % Basophils % Nucleated RBC % Anticoagulation Therapy Puncture Site Patient Temperature ABG pH ABG pCO2 ABG pO2 ABG HCO3 ABG O2 Sat (Measured) ABG O2 Content ABG Base Excess Prabhjot Test VBG pH POC VBG pCO2 POC VBG pO2 VBG HCO3 VBG O2 Sat (Chris) VBG Base Excess Patient On Oxygen O2 Delivery Device Oxygen Flow Rate Vent Mode Vent Rate Mechanical Rate PEEP Pressure Support Vent Sodium Potassium Chloride Carbon Dioxide Anion Gap BUN Creatinine Est GFR (CKD-EPI)AfAm Est GFR (CKD-EPI)NonAf POC Glucometer Random Glucose Lactic Acid Calcium Phosphorus Magnesium Ferritin 143.0 Total Bilirubin AST ALT Alkaline Phosphatase LD Total Troponin I 0.35 H C-Reactive Protein < 0.3 Total Protein Albumin Thyroxine (T4) Ur Random Creatinine 169.0 H Ur Random Sodium 18 L Ur Random Potassium 73.0 Ur Random Chloride < 11 L Ur Random Urea Nitrogn 796 02/13/20 02/13/20 02/13/20 06:15 07:50 11:13 WBC RBC Hgb Hct MCV MCH MCHC RDW Plt Count MPV Absolute Neuts (auto) Neutrophils % Lymphocytes % Monocytes % Eosinophils % Basophils % Nucleated RBC % Anticoagulation Therapy No Result Required. Puncture Site Right radial Patient Temperature No Result Required. ABG pH 7.344 L ABG pCO2 39.90 ABG pO2 123.3 H ABG HCO3 21.2 L ABG O2 Sat (Measured) 98.3 H ABG O2 Content No Result Required. ABG Base Excess -4.1 L Prabhjot Test Positive VBG pH POC VBG pCO2 POC VBG pO2 VBG HCO3 VBG O2 Sat (Chris) VBG Base Excess Patient On Oxygen Yes O2 Delivery Device Vent Oxygen Flow Rate 40% Vent Mode A/c Vent Rate 16 Mechanical Rate No Result Required. PEEP 5.0 Pressure Support Vent 330 Sodium Potassium Chloride Carbon Dioxide Anion Gap BUN Creatinine Est GFR (CKD-EPI)AfAm Est GFR (CKD-EPI)NonAf POC Glucometer 133 142 Random Glucose Lactic Acid Calcium Phosphorus Magnesium Ferritin Total Bilirubin AST ALT Alkaline Phosphatase LD Total Troponin I C-Reactive Protein Total Protein Albumin Thyroxine (T4) Ur Random Creatinine Ur Random Sodium Ur Random Potassium Ur Random Chloride Ur Random Urea Nitrogn 02/13/20 15:27 WBC RBC Hgb Hct MCV MCH MCHC RDW Plt Count MPV Absolute Neuts (auto) Neutrophils % Lymphocytes % Monocytes % Eosinophils % Basophils % Nucleated RBC % Anticoagulation Therapy Puncture Site Patient Temperature ABG pH ABG pCO2 ABG pO2 ABG HCO3 ABG O2 Sat (Measured) ABG O2 Content ABG Base Excess Prabhjot Test VBG pH POC VBG pCO2 POC VBG pO2 VBG HCO3 VBG O2 Sat (Chris) VBG Base Excess Patient On Oxygen O2 Delivery Device Oxygen Flow Rate Vent Mode Vent Rate Mechanical Rate PEEP Pressure Support Vent Sodium Potassium Chloride Carbon Dioxide Anion Gap BUN Creatinine Est GFR (CKD-EPI)AfAm Est GFR (CKD-EPI)NonAf POC Glucometer 146 Random Glucose Lactic Acid Calcium Phosphorus Magnesium Ferritin Total Bilirubin AST ALT Alkaline Phosphatase LD Total Troponin I C-Reactive Protein Total Protein Albumin Thyroxine (T4) Ur Random Creatinine Ur Random Sodium Ur Random Potassium Ur Random Chloride Ur Random Urea Nitrogn Active Medications Generic Name Dose Route Start Last Admin Trade Name Freq PRN Reason Stop Dose Admin Allopurinol 100 mg 02/13/20 10:00 02/13/20 10:15 Zyloprim - PO 100 mg DAILY MITRA Administration Aspirin 81 mg 02/13/20 10:00 02/13/20 10:14 Asa - PO 81 mg DAILY MITRA Administration Atorvastatin Calcium 20 mg 02/13/20 22:00 Lipitor - PO HS MITRA Bisacodyl 5 mg 02/13/20 01:45 Dulcolax - PO PRN MITRA Chlorhexidine Gluconate 1 applic 02/12/20 22:00 02/12/20 21:49 Hibiclens For Decolonization - TP 1 applic HS MITRA Administration Clopidogrel Bisulfate 75 mg 02/13/20 10:00 02/13/20 10:14 Plavix - PO 75 mg DAILY MITRA Administration Heparin Sodium (Porcine) 5,000 unit 02/12/20 22:00 02/13/20 13:55 Heparin - SQ 5,000 unit TID MITRA Administration Sodium Chloride 1,000 mls @ 100 mls/hr 02/12/20 16:00 02/13/20 15:31 1/2 Normal Saline IV 100 mls/hr ASDIR MITRA Administration Fentanyl 500 mcg in 100 mls @ 16.329 mls/hr 02/12/20 23:45 Sublimaze Ivpb IVPB TITR MITRA Protocol 1 MCG/KG/HR Dexmedetomidine/Sodium Chloride 400 mcg in 100 mls @ 4.082 mls/hr 02/13/20 00:30 02/13/20 06:43 Precedex 400 Mcg/100 Ml Inject IVPB 0.3 mcg/kg/hr TITR MITRA 6.124 mls/hr Infusion 0.2 MCG/KG/HR Sodium Chloride 1,000 mls @ 150 mls/hr 02/13/20 08:03 02/13/20 08:09 1/2 Normal Saline IV 150 mls/hr ASDIR MITRA Administration Piperacillin Sod/Tazobactam 50 mls @ 100 mls/hr 02/13/20 10:30 02/13/20 17:14 Sod 2.25 gm/ Dextrose IVPB 100 mls/hr Q8H-IV MITRA Administration Protocol Insulin Aspart 1 vial 02/13/20 07:00 02/13/20 15:29 Novolog Vial Sliding Scale - SQ Not Given ACHS [facility] Protocol Levothyroxine Sodium 50 mcg 02/13/20 07:00 Synthroid - PO DAILY@0700 MITRA Levothyroxine Sodium 40 mcg 02/13/20 10:00 02/13/20 10:15 Synthroid Injection - IVPUSH 40 mcg DAILY MITRA Administration Memantine 5 mg 02/13/20 10:00 02/13/20 10:27 Namenda - PO 5 mg DAILY MITRA Administration Mupirocin 1 applic 02/12/20 22:00 02/13/20 10:15 Bactroban Ointment (For Decolonization) - NS 02/17/20 21:59 1 applic BID MITRA Administration Pantoprazole Sodium 20 mg 02/13/20 10:00 02/13/20 10:14 Protonix - PO 20 mg DAILY MITRA Administration Polyethylene Glycol 17 gm 02/13/20 10:00 02/13/20 10:14 Miralax (For Daily Use) - PO 17 gm BID MITRA Administration ASSESSMENT/PLAN: 85yo F with PMHx of HTN, DM2 with LE peripheral neuropathy, mild dementia, CKD, HF and recent aortic valve replacement at [facility] who was brought to the ED catie to AMS and fever. ED course was remarkable for worsening MS, respiratory acidosis, hypernatremia, and urinary retention. In the ICU, patient was sedated and intubated due to persistent hypercarbic respiratory acidosis. Overnight, repeat ABGs improved (pH 7.3), patient was hemodynamically stable, on half NS 150cc/h, urine 1700cc, and tolerated sedation vacation. #neuro AMS Parkinson's dementia - tolerating sedation vacation - continue monitoring for agitation - continue home dose dementia meds - head CT negative #cardio HTN recent aortic valve replacement HFrEF (30%) elevated troponin I -- demand ischemia in setting of sepsis prolonged QTC -continue home dose ASA, plavix, statin - trend trops - EKG with old LBBB - avoid QT prolonging agents - cardiology consulted #pulm acute hypercapneic respiratory failure - continue trending ABGs - vent settings are minimal 16/330/40 - can consider extubation in the near future #ID sepsis - ediology likely urinary source -- urine culture growing pseudomonas and strep - febrile, tachypneic, tachycardic - ED course: IVF, olfirmev, vaco, sozyn - leukocytosis resolving - started on ceftriaxone at [facility] - r/o COVID (low suspicion, tested negative 02/05/2020) - follow up cultures - ID consulted #Endo DM2, peripheral neuropathy - ISS, BGM, ACHS #GI continue home pantoprazole (clarification about reflux?) #renal urinary retention + abdominal distension KYLER on CKD hyperkalemia hypernatremia -1/2 NS @ 100 - 2L output s/p Oliveros placement (pre-renal vs. post-renal KYLER) - monitor sodium q12h - nephro consulted - kiney/renal US - CT a/p unrevealing of infectious source - moniotr I/Os, daily weights #Heme - trend H&H #FEN -1/2 NS @ 100 - NPO - replete lytes PRN #PPX - DVT: SQH DNR Dispo continue ICU monitoring Visit type - Emergency Visit Emergency Visit: Yes ED Registration Date: 02/12/20 Care time: The patient presented to the Emergency Department on the above date and was hospitalized for further evaluation of their emergent condition. - New Patient This patient is new to me today: No - Critical Care Critical Care patient: Yes Total Critical Care Time (in minutes): 36 Critical Care Statement: The care of this patient involved high complexity decision making to prevent further life threatening deterioration of the patient's condition and/or to evaluate & treat vital organ system(s) failure or risk of failure. ATTENDING PHYSICIAN STATEMENT I saw and evaluated the patient. I reviewed the resident's note and discussed the case with the resident. I agree with the resident's findings and plan as documented. SUBJECTIVE: OBJECTIVE: ASSESSMENT AND PLAN:
[2020-02-13 18:06] LABS: BASO % 0.7 % (0-2.0); EOS % 0.9 % (0-4.5); HEMATOCRIT 25.2 % (32.4-45.2); HEMOGLOBIN 7.5 GM/dL (10.7-15.3); MCH 25.9 pg (25.7-33.7); MCHC 29.8 g/dl (32.0-36.0); MEAN CELL VOLUME 86.9 fl (80-96); MEAN PLT VOLUME 8.6 fl (7.5-11.1); MONO % 5.5 % (3.8-10.2); NEUT % 75.9 % (42.8-82.8); PLATELET COUNT 207 K/MM3 (134-434); RDW 19.2 % (11.6-15.6); WHITE BLOOD COUNT 8.6 K/mm3 (4.0-10.0)
[2020-02-13 18:35] LABS: ALBUMIN 2.6 g/dl (3.4-5.0); BILIRUBIN,TOTAL 0.3 mg/dL (0.2-1); BLOOD UREA NITROGEN 99.4 mg/dL (7-18); CALCIUM 7.1 mg/dL (8.5-10.1); TOT PROT 6.4 g/dl (6.4-8.2)
[2020-02-13] MEDS: CHLORHEXIDINE GLUCONATE 4% CLEANSER FOR DECOLONIZATION TP SCH (21:14)
[2020-02-13] MEDS: ATORVASTATIN CA 20 MG TABLET (FP) PO SCH (21:14)
[2020-02-14 00:53] LABS: BLOOD UREA NITROGEN 100.7 mg/dL (7-18); CREATININE 3.9 mg/dL (0.55-1.3); POTASSIUM 4.1 mmol/L (3.5-5.1)
[2020-02-14] MEDS: DEXMEDETOMIDINE IN 0.9 % NACL 400 MCG/100 ML VIAL IVPB SCH (01:18)
[2020-02-14] MEDS ORDERED: PIPERACILLIN/TAZOBACTAM 2.25 GM VIAL IVPB ONE ×3 (01:22→17:08)
[2020-02-14] MEDS ORDERED: DEXTROSE 5%-WATER - 50 ML IVPB ONE ×3 (01:22→17:08)
[2020-02-14] MEDS: PIPERACILLIN/TAZOB 2.25 GM 2.25 GM in DEXTROSE 5%-WATER - 50 ML IVPB SCH ×3 (01:23→17:09)
[2020-02-14] MEDS: HEPARIN NA (PORCINE) 5,000 UNITS/ML 1ML VIAL SQ SCH ×3 (05:41→21:07)
[2020-02-14] MEDS: INSULIN SLIDING SCALE (NOVOLOG) 1 VIAL SQ SCH ×4 (06:13→21:10)
[2020-02-14 06:59] LABS: BASO % 0.5 % (0-2.0); EOS % 1.2 % (0-4.5); HEMATOCRIT 24.8 % (32.4-45.2); HEMOGLOBIN 7.5 GM/dL (10.7-15.3); LYMPH % 18.8 % (8-40); MCH 26.1 pg (25.7-33.7); MCHC 30.2 g/dl (32.0-36.0); MEAN CELL VOLUME 86.4 fl (80-96); MEAN PLT VOLUME 8.6 fl (7.5-11.1); MONO % 6.5 % (3.8-10.2); PLATELET COUNT 178 K/MM3 (134-434); RBC 2.87 M/mm3 (3.60-5.2); RDW 19.4 % (11.6-15.6); WHITE BLOOD COUNT 8.2 K/mm3 (4.0-10.0)
[2020-02-14 07:24] LABS: ALBUMIN 2.4 g/dl (3.4-5.0); BILIRUBIN,TOTAL 0.3 mg/dL (0.2-1); BLOOD UREA NITROGEN 99.4 mg/dL (7-18); CREATININE 3.7 mg/dL (0.55-1.3); MAGNESIUM 2.6 mg/dL (1.8-2.4); PHOSPHOROUS 7.6 mg/dL (2.5-4.9); POTASSIUM 4.2 mmol/L (3.5-5.1); TOT PROT 5.9 g/dl (6.4-8.2)
[2020-02-14] MEDS ORDERED: PT OWN MED DRAWER 7, Y5N ONE (08:54)
[2020-02-14] MEDS: LEVOTHYROXINE SODIUM 100 MCG VIAL IVPUSH SCH (08:59)
[2020-02-14] MEDS: CLOPIDOGREL BISULFATE 75 MG TABLET (FP) PO SCH (09:00)
[2020-02-14] MEDS: MEMANTINE HCL 5 MG TABLET (UD) PO SCH (09:00)
[2020-02-14] MEDS: ALLOPURINOL 100 MG TABLET (FP) PO SCH (09:00)
[2020-02-14] MEDS: PANTOPRAZOLE 20 MG TABLET PO SCH (09:00)
[2020-02-14] MEDS: ASPIRIN 81 MG CHEWABLE TABLETS PO SCH (09:00)
[2020-02-14] MEDS: POLYETHYLENE GLYCOL 3350 119 GM BTL PO SCH ×2 (09:01→21:07)
[2020-02-14] MEDS: MUPIROCIN 2% TOPICAL OINTMENT FOR DECOLONIZATION NS SCH ×2 (09:01→21:06)
--- NOTE | 2020-02-14 10:27 | PN ---
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 (short form) - Note 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: remains intubated and sedated Vital Signs Period Temp Pulse Resp BP Sys/Coyne Pulse Ox Last 24 Hr 96.2 F-98.5 F 52-76 14-22 94-111/42-56 95-100 cor-rrr lungs decreased bs at bases abd soft,nt ext no edema CBC, BMP 02/14/20 06:20 02/14/20 06:20 Microbiology 02/13/20 12:00 Sputum - Endotrachea Suction/Ventilator Sputum Culture - Preliminary NORMAL RESPIRATORY HORACIO 02/13/20 12:00 Urine For Antigen Detection Legionella Antigen - Final 02/13/20 12:00 Urine For Antigen Detection Streptococcus pneumoniae Antigen (M - Final 02/12/20 14:00 Blood - Peripheral Venous Blood Culture - Preliminary NO GROWTH OBTAINED AFTER 24 HOURS, INCUBATION TO CONTINUE FOR 4 DAYS. 02/12/20 14:00 Blood - Peripheral Venous Blood Culture - Preliminary NO GROWTH OBTAINED AFTER 24 HOURS, INCUBATION TO CONTINUE FOR 4 DAYS. 02/12/20 14:00 Urine - Urine Oliveros Urine Culture - Final NO GROWTH OBTAINED a/p acute resp failure- hypercapneic resp falure KYLER/CKD r/o pneumonia-bibasilar infiltrates s/p TAVR 01/25 Parkinsons disease continue zosyn f/u cultures overall prognosis is poor
--- NOTE | 2020-02-14 11:11 | EKG ---
Test Reason : Blood Pressure : / mmHG Vent. Rate : 057 BPM Atrial Rate : 057 BPM P-R Int : 140 ms QRS Dur : 136 ms QT Int : 548 ms P-R-T Axes : 052 -38 109 degrees QTc Int : 533 ms SINUS BRADYCARDIA LEFT AXIS DEVIATION LEFT BUNDLE BRANCH BLOCK ABNORMAL ECG WHEN COMPARED WITH ECG OF 12-FEB-2020 20:13, VENT. RATE HAS DECREASED BY 41 BPM T WAVE AMPLITUDE HAS DECREASED IN ANTERIOR LEADS Confirmed by JONI GAINES MD ([id number]) on 02/14/2020 11:11:18 AM Referred By: Confirmed By:JONI GAINES MD
--- NOTE | 2020-02-14 11:13 | PN ---
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, Physician Chief Complaint: Acute kidney injury History of Present Illness: Seen and examined in the ICU awake s/p extubation this morning making urine vitals stable pt not answering questions but alert - Current Medication List Current Medications: Active Medications Allopurinol (Zyloprim -) 100 mg PO DAILY [facility] Last Admin: 02/14/20 09:00 Dose: 100 mg Documented by: Aspirin (Asa -) 81 mg PO DAILY [facility] Last Admin: 02/14/20 09:00 Dose: 81 mg Documented by: Atorvastatin Calcium (Lipitor -) 20 mg PO HS [facility] Last Admin: 02/13/20 21:14 Dose: 20 mg Documented by: Bisacodyl (Dulcolax -) 5 mg PO PRN [facility] Chlorhexidine Gluconate (Hibiclens For Decolonization -) 1 applic TP [facility] Last Admin: 02/13/20 21:14 Dose: 1 applic Documented by: Clopidogrel Bisulfate (Plavix -) 75 mg PO DAILY [facility] Last Admin: 02/14/20 09:00 Dose: 75 mg Documented by: Heparin Sodium (Porcine) (Heparin -) 5,000 unit SQ TID [facility] Last Admin: 02/14/20 05:41 Dose: 5,000 unit Documented by: Fentanyl (Sublimaze Ivpb) 500 mcg in 100 mls @ 16.329 mls/hr IVPB TITR [facility]; Protocol Dexmedetomidine/Sodium Chloride (Precedex 400 Mcg/100 Ml Inject) 400 mcg in 100 mls @ 4.082 mls/hr IVPB TITR [facility] Last Admin: 02/14/20 01:18 Dose: Not Given Documented by: Piperacillin Sod/Tazobactam (Sod 2.25 gm/ Dextrose) 50 mls @ 100 mls/hr IVPB Q8H-IV [facility]; Protocol Last Admin: 02/14/20 09:00 Dose: 100 mls/hr Documented by: Sodium Chloride (1/2 Normal Saline) 1,000 mls @ 100 mls/hr IV ASDIR [facility] Last Admin: 02/13/20 19:40 Dose: 100 mls/hr Documented by: Insulin Aspart (Novolog Vial Sliding Scale -) 1 vial SQ ACHS [facility]; Protocol Last Admin: 02/14/20 06:13 Dose: Not Given Documented by: Levothyroxine Sodium (Synthroid -) 50 mcg PO DAILY@0700 [facility] Levothyroxine Sodium (Synthroid Injection -) 40 mcg IVPUSH DAILY [facility] Last Admin: 02/14/20 08:59 Dose: 40 mcg Documented by: Memantine (Namenda -) 5 mg PO DAILY [facility] Last Admin: 02/14/20 09:00 Dose: 5 mg Documented by: Mupirocin (Bactroban Ointment (For Decolonization) -) 1 applic NS BID [facility] Stop: 02/17/20 21:59 Last Admin: 02/14/20 09:01 Dose: 1 applic Documented by: Pantoprazole Sodium (Protonix -) 20 mg PO DAILY [facility] Last Admin: 02/14/20 09:00 Dose: 20 mg Documented by: Polyethylene Glycol (Miralax (For Daily Use) -) 17 gm PO BID [facility] Last Admin: 02/14/20 09:01 Dose: 17 gm Documented by: - Objective Vital Signs: Vital Signs Temperature 96.2 F L 02/14/20 06:00 Pulse Rate 60 02/14/20 10:00 Respiratory Rate 20 02/14/20 10:00 Blood Pressure 102/45 L 02/14/20 10:00 O2 Sat by Pulse Oximetry (%) 100 02/14/20 09:00 Constitutional: Yes: No Distress Neck: Yes: Supple Cardiovascular: Yes: Regular Rate and Rhythm Respiratory: Yes: Diminished, On Venti-Mask Gastrointestinal: Yes: Soft Extremities: No: Cold, Cyanosis Edema: No Neurological: Yes: Alert Labs: CBC, BMP 02/14/20 06:20 02/14/20 06:20 INR, PTT INR 1.11 (0.83-1.09) H 02/12/20 14:00 Assessment/Plan Impression 1. KYLER 2. urinary obstruction 3. hypernatremia 4. altered mental status 5. dm 6. hx htn 7. cad 8. chf 9. ckd 10/ s/p tavr Plan Renal function gradually improving. No acidosis/hyperkaleia to warrant HAND CLOTH EXAMINER Continue 1/2 NS Add free water via NGT trend renal function and electrolytes daily Monitor urine output Khadar Restrepo DO
--- NOTE | 2020-02-14 11:15 | PN ---
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 (short form) - Note 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: Seen and examined in the ICU afebrile, BP stable Extubated this AM to Venti-mask 35% Active Medications Allopurinol (Zyloprim -) 100 mg PO DAILY [facility] Last Admin: 02/14/20 09:00 Dose: 100 mg Documented by: Aspirin (Asa -) 81 mg PO DAILY [facility] Last Admin: 02/14/20 09:00 Dose: 81 mg Documented by: Atorvastatin Calcium (Lipitor -) 20 mg PO HS [facility] Last Admin: 02/13/20 21:14 Dose: 20 mg Documented by: Bisacodyl (Dulcolax -) 5 mg PO PRN [facility] Chlorhexidine Gluconate (Hibiclens For Decolonization -) 1 applic TP HS [facility] Last Admin: 02/13/20 21:14 Dose: 1 applic Documented by: Clopidogrel Bisulfate (Plavix -) 75 mg PO DAILY [facility] Last Admin: 02/14/20 09:00 Dose: 75 mg Documented by: Heparin Sodium (Porcine) (Heparin -) 5,000 unit SQ TID [facility] Last Admin: 02/14/20 05:41 Dose: 5,000 unit Documented by: Fentanyl (Sublimaze Ivpb) 500 mcg in 100 mls @ 16.329 mls/hr IVPB TITR [facility]; Protocol Dexmedetomidine/Sodium Chloride (Precedex 400 Mcg/100 Ml Inject) 400 mcg in 100 mls @ 4.082 mls/hr IVPB TITR [facility] Last Admin: 02/14/20 01:18 Dose: Not Given Documented by: Piperacillin Sod/Tazobactam (Sod 2.25 gm/ Dextrose) 50 mls @ 100 mls/hr IVPB Q8H-IV [facility]; Protocol Last Admin: 02/14/20 09:00 Dose: 100 mls/hr Documented by: Sodium Chloride (1/2 Normal Saline) 1,000 mls @ 100 mls/hr IV ASDIR [facility] Last Admin: 02/13/20 19:40 Dose: 100 mls/hr Documented by: Insulin Aspart (Novolog Vial Sliding Scale -) 1 vial SQ ACHS [facility]; Protocol Last Admin: 02/14/20 06:13 Dose: Not Given Documented by: Levothyroxine Sodium (Synthroid -) 50 mcg PO DAILY@0700 [facility] Levothyroxine Sodium (Synthroid Injection -) 40 mcg IVPUSH DAILY [facility] Last Admin: 02/14/20 08:59 Dose: 40 mcg Documented by: Memantine (Namenda -) 5 mg PO DAILY [facility] Last Admin: 02/14/20 09:00 Dose: 5 mg Documented by: Mupirocin (Bactroban Ointment (For Decolonization) -) 1 applic NS BID [facility] Stop: 02/17/20 21:59 Last Admin: 02/14/20 09:01 Dose: 1 applic Documented by: Pantoprazole Sodium (Protonix -) 20 mg PO DAILY [facility] Last Admin: 02/14/20 09:00 Dose: 20 mg Documented by: Polyethylene Glycol (Miralax (For Daily Use) -) 17 gm PO BID [facility] Last Admin: 02/14/20 09:01 Dose: 17 gm Documented by: Vital Signs Period Temp Pulse Resp BP Sys/Coyne Pulse Ox Last 24 Hr 96.2 F-98.5 F 52-76 14-22 94-111/42-56 95-100 Intake & Output 02/11/20 02/12/20 02/13/20 02/14/20 23:59 23:59 23:59 23:59 Intake Total 100 1600 1204 Output Total 1700 300 600 Balance -1600 1300 604 Weight 58.513 kg 59.6 kg 57.788 kg Exam: awake, tracking, agitated at times HEENT: PERRL, no JVD CV: RRR Pulm: CTA Ext: WWP, no edema Neuro: awake, tracking, not following commands, PRETTY spont ABG Results ABG pH 7.344 (7.350-7.450) L 02/13/20 06:15 ABG HCO3 21.2 mmol/L (22-27) L 02/13/20 06:15 ABG O2 Sat (Measured) 98.3 mmHg (95-98) H 02/13/20 06:15 ABG O2 Content No Result Required. 02/13/20 06:15 ABG Base Excess -4.1 mmol/L (-2-2) L 02/13/20 06:15 CBC, BMP 02/14/20 06:20 02/14/20 06:20 ASSESSMENT/PLAN: Acute Hypercapneic and Hypoxic Respiratory Failure ARF due to Obstructive Uropathy Metabolic Encephalopathy Parkinson's dementia HTN Recent TAVR HFrEF (30%) Elevated troponin I -- demand ischemia in settin gof sepsis Prolonged QTC Sepsis - s/p extubation - O2 for sat 90-95% - ABX per ID - Strict I & O -Renal following Continue IVF resuscitation - ASA Plavix, Statin - Follow cultures - VTE prophylaxis - Cont ICU montioring, if resp status stable tomorrow can transfer to floor [facility] Pulm/CCM CCT: 45m
--- NOTE | 2020-02-14 11:33 | PN ---
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 (short form) - Note 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: s: remains intubated, sedated Current Medications Generic Name Dose Route Start Last Admin Trade Name Freq PRN Reason Stop Dose Admin Allopurinol 100 mg 02/13/20 10:00 02/14/20 09:00 Zyloprim - PO 100 mg DAILY [facility] Administration Aspirin 81 mg 02/13/20 10:00 02/14/20 09:00 Asa - PO 81 mg DAILY [facility] Administration Atorvastatin Calcium 20 mg 02/13/20 22:00 02/13/20 21:14 Lipitor - PO 20 mg HS [facility] Administration Bisacodyl 5 mg 02/13/20 01:45 Dulcolax - PO PRN [facility] Chlorhexidine Gluconate 1 applic 02/12/20 22:00 02/13/20 21:14 Hibiclens For Decolonization - TP 1 applic HS [facility] Administration Clopidogrel Bisulfate 75 mg 02/13/20 10:00 02/14/20 09:00 Plavix - PO 75 mg DAILY [facility] Administration Heparin Sodium (Porcine) 5,000 unit 02/12/20 22:00 02/14/20 05:41 Heparin - SQ 5,000 unit TID [facility] Administration Fentanyl 500 mcg in 100 mls @ 16.329 mls/hr 02/12/20 23:45 Sublimaze Ivpb IVPB TITR [facility] Protocol 1 MCG/KG/HR Dexmedetomidine/Sodium Chloride 400 mcg in 100 mls @ 4.082 mls/hr 02/13/20 00:30 02/14/20 01:18 Precedex 400 Mcg/100 Ml Inject IVPB Not Given TITR [facility] 0.2 MCG/KG/HR Piperacillin Sod/Tazobactam 50 mls @ 100 mls/hr 02/13/20 10:30 02/14/20 09:00 Sod 2.25 gm/ Dextrose IVPB 100 mls/hr Q8H-IV [facility] Administration Protocol Sodium Chloride 1,000 mls @ 100 mls/hr 02/13/20 18:41 02/13/20 19:40 1/2 Normal Saline IV 100 mls/hr ASDIR [facility] Administration Insulin Aspart 1 vial 02/13/20 07:00 02/14/20 06:13 Novolog Vial Sliding Scale - SQ Not Given ACHS [facility] Protocol Levothyroxine Sodium 50 mcg 02/13/20 07:00 Synthroid - PO DAILY@0700 [facility] Levothyroxine Sodium 40 mcg 02/13/20 10:00 02/14/20 08:59 Synthroid Injection - IVPUSH 40 mcg DAILY [facility] Administration Memantine 5 mg 02/13/20 10:00 02/14/20 09:00 Namenda - PO 5 mg DAILY [facility] Administration Mupirocin 1 applic 02/12/20 22:00 02/14/20 09:01 Bactroban Ointment (For Decolonization) - NS 02/17/20 21:59 1 applic BID [facility] Administration Pantoprazole Sodium 20 mg 02/13/20 10:00 02/14/20 09:00 Protonix - PO 20 mg DAILY [facility] Administration Polyethylene Glycol 17 gm 02/13/20 10:00 02/14/20 09:01 Miralax (For Daily Use) - PO 17 gm BID [facility] Administration Vital Signs Temp 96.2 F L 02/14/20 06:00 Pulse 60 02/14/20 10:00 Resp 20 02/14/20 10:00 BP 102/45 L 02/14/20 10:00 Pulse Ox 100 02/14/20 09:00 Intake & Output 02/13/20 02/13/20 02/14/20 11:59 23:59 11:59 Intake Total 1600 1204 Output Total 300 600 Balance 1300 604 Weight 130 lb 131 lb 6.328 oz 127 lb 6.4 oz Intake: IV 1500 1154 1/2 Normal Saline 1,941 324 4885 ml @ 100 mls/hr IV ASDIR [facility] Rx#:[id number] 1/2 Normal Saline 1,000 900 ml @ 150 mls/hr IV ASDIR [facility] Rx#:[id number] PRECEDEX 400 MCG/100 ML 54 INJECT 400 mcg In 100 ml @ 0.2 MCG/KG/HR 4.082 mls /hr IVPB TITR [facility] Rx#: [id number] IVPB 100 50 Output: Urine 300 600 Oliveros 300 600 Other: Voiding Method Diaper Diaper Diaper Bowel Movement No nad no jvd intubated sedated cta bl anteriorly, vented rrr s1s2 no mrg abd nd pos bs no jaundice diaphoresis pos dp pt no le e/c/c Laboratory Last Values WBC 8.2 K/mm3 (4.0-10.0) 02/14/20 06:20 RBC 2.87 M/mm3 (3.60-5.2) L 02/14/20 06:20 Hgb 7.5 GM/dL (10.7-15.3) L 02/14/20 06:20 Hct 24.8 % (32.4-45.2) L 02/14/20 06:20 MCV 86.4 fl (80-96) 02/14/20 06:20 MCH 26.1 pg (25.7-33.7) 02/14/20 06:20 MCHC 30.2 g/dl (32.0-36.0) L 02/14/20 06:20 RDW 19.4 % (11.6-15.6) H 02/14/20 06:20 Plt Count 178 K/MM3 (134-434) 02/14/20 06:20 MPV 8.6 fl (7.5-11.1) 02/14/20 06:20 Absolute Neuts (auto) 6.0 K/mm3 (1.5-8.0) 02/14/20 06:20 Neutrophils % 73.0 % (42.8-82.8) 02/14/20 06:20 Lymphocytes % 18.8 % (8-40) 02/14/20 06:20 Monocytes % 6.5 % (3.8-10.2) 02/14/20 06:20 Eosinophils % 1.2 % (0-4.5) 02/14/20 06:20 Basophils % 0.5 % (0-2.0) 02/14/20 06:20 Nucleated RBC % 1 % (0-0) H 02/14/20 06:20 PT with INR 13.10 SEC (9.7-13.0) H 02/12/20 14:00 INR 1.11 (0.83-1.09) H 02/12/20 14:00 PTT (Actin FS) 27.2 SECONDS (25.2-36.5) 02/12/20 14:00 Anticoagulation Therapy No Result Required. 02/13/20 06:15 Puncture Site Right radial 02/13/20 06:15 Patient Temperature No Result Required. 02/13/20 06:15 ABG pH 7.344 (7.350-7.450) L 02/13/20 06:15 ABG pCO2 39.90 mmHg (35-45) 02/13/20 06:15 ABG pO2 123.3 mmHg (80-100) H 02/13/20 06:15 ABG HCO3 21.2 mmol/L (22-27) L 02/13/20 06:15 ABG O2 Sat (Measured) 98.3 mmHg (95-98) H 02/13/20 06:15 ABG O2 Content No Result Required. 02/13/20 06:15 ABG Base Excess -4.1 mmol/L (-2-2) L 02/13/20 06:15 Prabhjot Test Positive 02/13/20 06:15 VBG pH 7.127 (7.310-7.410) L* 02/12/20 22:30 POC VBG pCO2 69.6 mmHg (38-52) H 02/12/20 22:30 POC VBG pO2 51.8 mmHg (28-48) H 02/12/20 22:30 VBG HCO3 22.5 mmol/L (23-29) L 02/12/20 22:30 VBG O2 Sat (Chris) 73.8 % (70-80) 02/12/20 22:30 VBG Base Excess -7.1 mmol/L (-2-2) L 02/12/20 22:30 Patient On Oxygen Yes 02/13/20 06:15 O2 Delivery Device Vent 02/13/20 06:15 Oxygen Flow Rate 40% 02/13/20 06:15 Vent Mode A/c 02/13/20 06:15 Vent Rate 16 02/13/20 06:15 Mechanical Rate No Result Required. 02/13/20 06:15 PEEP 5.0 cmH2O 02/13/20 06:15 Pressure Support Vent 330 02/13/20 06:15 Sodium 155 mmol/L (136-145) H 02/14/20 06:20 Potassium 4.2 mmol/L (3.5-5.1) 02/14/20 06:20 Chloride 125 mmol/L (98-107) H 02/14/20 06:20 Carbon Dioxide 19 mmol/L (21-32) L 02/14/20 06:20 Anion Gap 11 MMOL/L (8-16) 02/14/20 06:20 BUN 99.4 mg/dL (7-18) H 07/11/20 06:20 Creatinine 3.7 mg/dL (0.55-1.3) H 02/14/20 06:20 Est GFR (CKD-EPI)AfAm 12.23 02/14/20 06:20 Est GFR (CKD-EPI)NonAf 10.55 02/14/20 06:20 POC Glucometer 118 UNITS (80-120) 02/14/20 05:32 Random Glucose 127 mg/dL (74-106) H 02/14/20 06:20 Lactic Acid 0.8 mmol/L (0.4-2.0) 02/12/20 22:30 Calcium 7.0 mg/dL (8.5-10.1) L 02/14/20 06:20 Phosphorus 7.6 mg/dL (2.5-4.9) H 02/14/20 06:20 Magnesium 2.6 mg/dL (1.8-2.4) H 02/14/20 06:20 Ferritin 143.0 ng/ml (8-388) 02/13/20 05:28 Total Bilirubin 0.3 mg/dL (0.2-1) 02/14/20 06:20 AST 66 U/L (15-37) H 02/14/20 06:20 ALT 26 U/L (13-61) 02/14/20 06:20 Alkaline Phosphatase 45 U/L (45-117) 02/14/20 06:20 LD Total 313 U/L (84-246) H 02/13/20 05:28 Troponin I 0.35 ng/ml (0.00-0.05) H 02/13/20 05:28 C-Reactive Protein < 0.3 MG/DL (0.00-0.3) 02/13/20 05:28 B-Natriuretic Peptide 2016.4 pg/ml (5-450) H 02/12/20 14:00 Total Protein 5.9 g/dl (6.4-8.2) L 02/14/20 06:20 Albumin 2.4 g/dl (3.4-5.0) L 02/14/20 06:20 TSH 0.73 uIU/ml (0.358-3.74) 02/14/20 06:20 Thyroxine (T4) 4.9 ug/dl (4.5-13.9) 02/13/20 05:28 Urine Color Yellow 02/12/20 14:00 Urine Appearance Clear 02/12/20 14:00 Urine pH 5.5 (5.0-8.0) 02/12/20 14:00 Ur Specific [place] 1.017 (1.010-1.035) 02/12/20 14:00 Urine Protein 2+ (NEGATIVE) H 02/12/20 14:00 Urine Glucose (UA) Negative (NEGATIVE) 02/12/20 14:00 Urine Ketones Negative (NEGATIVE) 02/12/20 14:00 Urine Blood Negative (NEGATIVE) 02/12/20 14:00 Urine Nitrite Negative (NEGATIVE) 02/12/20 14:00 Urine Bilirubin Negative (NEGATIVE) 02/12/20 14:00 Urine Urobilinogen 0.2 mg/dL (0.2-1.0) 02/12/20 14:00 Ur Leukocyte Esterase Negative (NEGATIVE) 02/12/20 14:00 Urine WBC (Auto) 3 /uL (0-25.8) 02/12/20 14:00 Urine RBC (Auto) 30 /uL (0-23.9) 02/12/20 14:00 Urine Casts (Auto) 1 /uL (0-3.1) 02/12/20 14:00 U Epithel Cells (Auto) 6 /uL (0-25.1) 02/12/20 14:00 Urine Bacteria (Auto) 8 /uL (0-1359) 02/12/20 14:00 Ur Random Creatinine 169.0 mg/dL (30-150) H 02/13/20 05:45 Ur Random Sodium 18 MMOL/L (40-220) L 02/13/20 05:45 Ur Random Potassium 73.0 MMOL/L (25-125) 02/13/20 05:45 Ur Random Chloride < 11 MMOL/L (110-250) L 02/13/20 05:45 Ur Random Urea Nitrogn 796 mg/dL (350-1000) 02/13/20 05:45 Random Vancomycin 9.9 ug/ml (5-26) 02/14/20 06:20 tele: sr, sinus marleen 40s-50s, no pathologic bradycardia or pauses cxr: bibasilar changes echo 01/2020: lvef 33%, nl rv, no sig valve path, mild phtn ecg: 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 ams, resp failure, sepsis: -intubated, wean per crit care -infectious w/u kody on ckd: -baseline cr 1.9, now in 4s on admit -cont ivfs, monitor cr, improving. given chf hx monitor vol status closely. chronic syst chf: -fluids as above -holding po lasix (was on 20 qod) htn: -holding meds, bp on lower side, monitor for now cad: -non obs cad on recent cath -borderline trop elevation here with flat trend, not c/w acs, likely from kody, sepsis -cont dapt, statin as s/p tavr: -recent tavr with post op echo 01/2020 showing good valve fcn -cont dapt for 6 mos post tavr bradycardia: -ecg and tele showing sinus marleen, no pathologic bradycardia/pauses seen on tele. possibly related to sedation. cont tele.
--- NOTE | 2020-02-14 11:36 | EKG ---
Test Reason : Blood Pressure : / mmHG Vent. Rate : 098 BPM Atrial Rate : 098 BPM P-R Int : 130 ms QRS Dur : 134 ms QT Int : 412 ms P-R-T Axes : 071 -39 102 degrees QTc Int : 525 ms NORMAL SINUS RHYTHM LEFT AXIS DEVIATION LEFT BUNDLE BRANCH BLOCK ABNORMAL ECG WHEN COMPARED WITH ECG OF 12-FEB-2020 13:55, NO SIGNIFICANT CHANGE WAS FOUND Confirmed by JONI GAINES MD ([id number]) on 02/14/2020 11:35:45 AM Referred By: Confirmed By:JONI GAINES MD
[2020-02-14] MEDS: SODIUM CHLORIDE 0.45% 1,000 ML IV SCH (21:06)
[2020-02-14] MEDS: CHLORHEXIDINE GLUCONATE 4% CLEANSER FOR DECOLONIZATION TP SCH (21:07)
[2020-02-14] MEDS: ATORVASTATIN CA 20 MG TABLET (FP) PO SCH (21:07)
[2020-02-15] MEDS ORDERED: PIPERACILLIN/TAZOBACTAM 2.25 GM VIAL IVPB ONE (00:18)
[2020-02-15] MEDS ORDERED: DEXTROSE 5%-WATER - 50 ML IVPB ONE ×2 (00:18→10:38)
[2020-02-15] MEDS: PIPERACILLIN/TAZOB 2.25 GM 2.25 GM in DEXTROSE 5%-WATER - 50 ML IVPB SCH (01:01)
[2020-02-15] MEDS: HEPARIN NA (PORCINE) 5,000 UNITS/ML 1ML VIAL SQ SCH (05:51)
[2020-02-15] MEDS: INSULIN SLIDING SCALE (NOVOLOG) 1 VIAL SQ SCH ×4 (06:20→21:29)
--- NOTE | 2020-02-15 07:29 | PN ---
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 (short form) - Note 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: 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: CCM/PULM Seen and examined in the ICU afebrile, BP stable Up for tx to tele Extubated (02/13), currently on RA Active Medications Allopurinol (Zyloprim -) 100 mg PO DAILY [facility] Last Admin: 02/14/20 09:00 Dose: 100 mg Documented by: Aspirin (Asa -) 81 mg PO DAILY [facility] Last Admin: 02/14/20 09:00 Dose: 81 mg Documented by: Atorvastatin Calcium (Lipitor -) 20 mg PO HS [facility] Last Admin: 02/14/20 21:07 Dose: Not Given Documented by: Bisacodyl (Dulcolax -) 5 mg PO PRN [facility] Chlorhexidine Gluconate (Hibiclens For Decolonization -) 1 applic TP [facility] Last Admin: 02/14/20 21:07 Dose: 1 applic Documented by: Clopidogrel Bisulfate (Plavix -) 75 mg PO DAILY [facility] Last Admin: 02/14/20 09:00 Dose: 75 mg Documented by: Heparin Sodium (Porcine) (Heparin -) 5,000 unit SQ TID [facility] Last Admin: 02/15/20 05:51 Dose: 5,000 unit Documented by: Fentanyl (Sublimaze Ivpb) 500 mcg in 100 mls @ 16.329 mls/hr IVPB TITR [facility]; Protocol Piperacillin Sod/Tazobactam (Sod 2.25 gm/ Dextrose) 50 mls @ 100 mls/hr IVPB Q8H-IV [facility]; Protocol Last Admin: 02/15/20 01:01 Dose: 100 mls/hr Documented by: Sodium Chloride (1/2 Normal Saline) 1,000 mls @ 100 mls/hr IV ASDIR [facility] Last Admin: 02/14/20 21:06 Dose: 100 mls/hr Documented by: Insulin Aspart (Novolog Vial Sliding Scale -) 1 vial SQ ACHS [facility]; Protocol Last Admin: 02/15/20 06:20 Dose: Not Given Documented by: Levothyroxine Sodium (Synthroid -) 50 mcg PO DAILY@0700 [facility] Levothyroxine Sodium (Synthroid Injection -) 40 mcg IVPUSH DAILY [facility] Last Admin: 02/14/20 08:59 Dose: 40 mcg Documented by: Memantine (Namenda -) 5 mg PO DAILY [facility] Last Admin: 02/14/20 09:00 Dose: 5 mg Documented by: Mupirocin (Bactroban Ointment (For Decolonization) -) 1 applic NS BID [facility] Stop: 02/17/20 21:59 Last Admin: 02/14/20 21:06 Dose: 1 applic Documented by: Pantoprazole Sodium (Protonix -) 20 mg PO DAILY [facility] Last Admin: 02/14/20 09:00 Dose: 20 mg Documented by: Polyethylene Glycol (Miralax (For Daily Use) -) 17 gm PO BID [facility] Last Admin: 02/14/20 21:07 Dose: Not Given Documented by: Vital Signs Period Temp Pulse Resp BP Sys/Coyne Pulse Ox Last 24 Hr 97 F-97.7 F 54-64 14-32 102-147/44-83 100-100 Intake & Output 02/12/20 02/13/20 02/14/20 02/15/20 23:59 23:59 23:59 23:59 Intake Total 100 1600 2604 1200 Output Total 5077 706 6332 500 Balance -1600 1300 1104 700 Weight 58.513 kg 59.6 kg 57.606 kg 58.423 kg Exam: awake, not in distress HEENT: PERRL, no JVD CV: RRR Pulm: CTA Ext: WWP, no edema Neuro: awake, alert to name CBC, BMP 02/15/20 09:05 02/15/20 09:05 Microbiology 02/12/20 14:00 Blood - Peripheral Venous Blood Culture - Preliminary NO GROWTH OBTAINED AFTER 48 HOURS, INCUBATION TO CONTINUE FOR 3 DAYS. 02/12/20 14:00 Blood - Peripheral Venous Blood Culture - Preliminary NO GROWTH OBTAINED AFTER 48 HOURS, INCUBATION TO C ONTINUE FOR 3 DAYS. 02/13/20 12:00 Sputum - Endotrachea Suction/Ventilator Gram Stain - Final 02/13/20 12:00 Sputum - Endotrachea Suction/Ventilator Sputum Culture - Preliminary NORMAL RESPIRATORY HORACIO 02/13/20 12:00 Urine For Antigen Detection Legionella Antigen - Final 02/13/20 12:00 Urine For Antigen Detection Streptococcus pneumoniae Antigen (M - Final 02/12/20 14:00 Urine - Urine Oliveros Urine Culture - Final NO GROWTH OBTAINED ASSESSMENT/PLAN: Acute Hypercapneic and Hypoxic Respiratory Failure ARF due to Obstructive Uropathy Metabolic Encephalopathy Parkinson's dementia HTN Recent TAVR HFrEF (30%) Elevated troponin I -- demand ischemia in setting of sepsis Prolonged QTC Sepsis Hypernatremia - Titrate FiO2 for sat 90-95% - Continue ABX as per ID - Appreciate ID recs - Strict I & O - Trend and replete electrolytes, keep K>4, Mg>2 - 1 g Calcium gluconate (corrected Ca 7.7) - Switch IVF to D5 1/3 NS at 100 ml/hr due to persistent hyperchloremia and hypernatremia - Renal following Continue IVF resuscitation - ASA Plavix, Statin - D/c Heparin SQ - Follow cultures - VTE prophylaxis - Swallow eval Dispo: DNR/DNI, transfer to telemetry Yuly Shaikh ACNP Pulm/CCM
--- NOTE | 2020-02-15 09:27 | PN ---
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 (short form) - Note 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: extubated yesterday NAD lethargic Vital Signs Period Temp Pulse Resp BP Sys/Coyne Pulse Ox Last 24 Hr 97 F-97.7 F 55-64 14-32 102-147/44-83 96-100 cor-rrr llungs decreased bs at bases abd soft,nt ext no edema CBC, BMP 02/14/20 06:20 02/14/20 06:20 Microbiology 02/12/20 14:00 Blood - Peripheral Venous Blood Culture - Preliminary NO GROWTH OBTAINED AFTER 48 HOURS, INCUBATION TO CONTINUE FOR 3 DAYS. 02/12/20 14:00 Blood - Peripheral Venous Blood Culture - Preliminary NO GROWTH OBTAINED AFTER 48 HOURS, INCUBATION TO CONTINUE FOR 3 DAYS. 02/13/20 12:00 Sputum - Endotrachea Suction/Ventilator Gram Stain - Final 02/13/20 12:00 Sputum - Endotrachea Suction/Ventilator Sputum Culture - Preliminary NORMAL RESPIRATORY BELLA 02/13/20 12:00 Urine For Antigen Detection Legionella Antigen - Final 02/13/20 12:00 Urine For Antigen Detection Streptococcus pneumoniae Antigen (M - Final 02/12/20 14:00 Urine - Urine Oliveros Urine Culture - Final NO GROWTH OBTAINED a/p acute resp failure- hypercapneic resp falure -extubated, doing well KYLER/CKD r/o pneumonia-bibasilar infiltrates s/p TAVR 01/25 Parkinsons disease sputum normal bella, switch to rocephin day #3 antiibotics
[2020-02-15 09:40] LABS: HEMATOCRIT 23.5 % (32.4-45.2); HEMOGLOBIN 7.2 GM/dL (10.7-15.3); MCH 26.1 pg (25.7-33.7); MCHC 30.9 g/dl (32.0-36.0); MEAN CELL VOLUME 84.5 fl (80-96); MEAN PLT VOLUME 8.9 fl (7.5-11.1); PLATELET COUNT 186 K/MM3 (134-434); RBC 2.78 M/mm3 (3.60-5.2); RDW 19.5 % (11.6-15.6); WHITE BLOOD COUNT 8.1 K/mm3 (4.0-10.0)
[2020-02-15 10:00] LABS: ALBUMIN 2.3 g/dl (3.4-5.0); BILIRUBIN,TOTAL 0.4 mg/dL (0.2-1); BLOOD UREA NITROGEN 72.1 mg/dL (7-18); CREATININE 2.9 mg/dL (0.55-1.3); MAGNESIUM 2.2 mg/dL (1.8-2.4); PHOSPHOROUS 4.3 mg/dL (2.5-4.9); POTASSIUM 3.1 mmol/L (3.5-5.1); TOT PROT 5.7 g/dl (6.4-8.2)
[2020-02-15] MEDS ORDERED: CEFTRIAXONE 1 GM in DEXTROSE 5%-WATER - 50 ML IVPB SCH (10:00)
[2020-02-15 10:02] LABS: CALCIUM 6.7 mg/dL (8.5-10.1)
[2020-02-15] MEDS ORDERED: CALCIUM GLUCONATE 10% - 1,000 MG/10 ML VIAL IVPB ONE (10:04)
[2020-02-15] MEDS ORDERED: DEXTROSE 5%-1/3 NS - 500 ML IV SCH ×2 (10:15→15:48)
--- NOTE | 2020-02-15 10:16 | PN ---
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, Physician Chief Complaint: Acute kidney injury History of Present Illness: Seen and examined in the ICU awake but not talking on NC O2 making urine, UO 1500 vitals stable - Current Medication List Current Medications: Active Medications Allopurinol (Zyloprim -) 100 mg PO DAILY [facility] Last Admin: 02/14/20 09:00 Dose: 100 mg Documented by: Aspirin (Asa -) 81 mg PO DAILY [facility] Last Admin: 02/14/20 09:00 Dose: 81 mg Documented by: Atorvastatin Calcium (Lipitor -) 20 mg PO HS [facility] Last Admin: 02/14/20 21:07 Dose: Not Given Documented by: Bisacodyl (Dulcolax -) 5 mg PO PRN [facility] Chlorhexidine Gluconate (Hibiclens For Decolonization -) 1 applic TP HS [facility] Last Admin: 02/14/20 21:07 Dose: 1 applic Documented by: Clopidogrel Bisulfate (Plavix -) 75 mg PO DAILY [facility] Last Admin: 02/14/20 09:00 Dose: 75 mg Documented by: Ceftriaxone Sodium 1 gm/ (Dextrose) 50 mls @ 200 mls/hr IVPB DAILY [facility]; Protocol Metronidazole (Flagyl 500mg Premixed Ivpb -) 500 mg in 100 mls @ 100 mls/hr IVPB Q8H-IV [facility] Potassium Chloride (Potassium Chloride 10 Meq Premix Ivpb -) 10 meq in 100 mls @ 100 mls/hr IVPB Q60M [facility] Stop: 02/15/20 13:14 Dextrose/Sodium Chloride (D5-1/3ns -) 500 mls @ 100 mls/hr IV ASDIR [facility] Insulin Aspart (Novolog Vial Sliding Scale -) 1 vial SQ ACHS [facility]; Protocol Last Admin: 02/15/20 06:20 Dose: Not Given Documented by: Levothyroxine Sodium (Synthroid Injection -) 40 mcg IVPUSH DAILY [facility] Last Admin: 02/14/20 08:59 Dose: 40 mcg Documented by: Memantine (Namenda -) 5 mg PO DAILY [facility] Last Admin: 02/14/20 09:00 Dose: 5 mg Documented by: Mupirocin (Bactroban Ointment (For Decolonization) -) 1 applic NS BID [facility] Stop: 02/17/20 21:59 Last Admin: 02/14/20 21:06 Dose: 1 applic Documented by: Pantoprazole Sodium (Protonix -) 20 mg PO DAILY [facility] Last Admin: 02/14/20 09:00 Dose: 20 mg Documented by: Polyethylene Glycol (Miralax (For Daily Use) -) 17 gm PO BID [facility] Last Admin: 02/14/20 21:07 Dose: Not Given Documented by: - Objective Vital Signs: Vital Signs Temperature 97.7 F 02/15/20 06:00 Pulse Rate 63 02/15/20 08:00 Respiratory Rate 26 H 02/15/20 08:00 Blood Pressure 147/57 L 02/15/20 08:00 O2 Sat by Pulse Oximetry (%) 96 02/15/20 08:51 Constitutional: Yes: No Distress HENT: Yes: Atraumatic Neck: Yes: Supple Cardiovascular: Yes: Regular Rate and Rhythm Respiratory: Yes: Regular Gastrointestinal: Yes: Soft Extremities: No: Cyanosis Edema: No Labs: CBC, BMP 02/15/20 09:05 02/15/20 09:05 INR, PTT INR 1.11 (0.83-1.09) H 02/12/20 14:00 Assessment/Plan Impression 1. KYLER 2. urinary obstruction 3. hypernatremia 4. altered mental status 5. dm 6. hx htn 7. cad 8. chf 9. ckd 10/ s/p tavr Plan Renal function gradually improving. BP at goal No acidosis/hyperkaleia to warrant CHECK CASHIER Change IVF to D5 1/3 NS as serum sodium remains elevated NGT was discontinued and pt is not tolerating oral diet trend renal function and electrolytes daily Monitor urine output Khadar Restrepo DO
[2020-02-15] MEDS ORDERED: cefTRIAXone SODIUM 1 GM VIAL ONE (10:37)
[2020-02-15] MEDS: ALLOPURINOL 100 MG TABLET (FP) PO SCH (11:03)
[2020-02-15] MEDS: PANTOPRAZOLE 20 MG TABLET PO SCH (11:03)
[2020-02-15] MEDS: ASPIRIN 81 MG CHEWABLE TABLETS PO SCH (11:03)
[2020-02-15] MEDS: CLOPIDOGREL BISULFATE 75 MG TABLET (FP) PO SCH (11:03)
[2020-02-15] MEDS: KCL 10 MEQ IVPB 10 MEQ/100 ML INFUS.BAG IVPB SCH ×3 (11:04→12:54)
[2020-02-15] MEDS: MUPIROCIN 2% TOPICAL OINTMENT FOR DECOLONIZATION NS SCH (11:05)
[2020-02-15] MEDS ORDERED: PT OWN MED DRAWER 7, Y5N ONE (11:06)
[2020-02-15] MEDS: LEVOTHYROXINE SODIUM 100 MCG VIAL IVPUSH SCH (11:07)
[2020-02-15] MEDS: MEMANTINE HCL 5 MG TABLET (UD) PO SCH (11:07)
[2020-02-15] MEDS: POLYETHYLENE GLYCOL 3350 119 GM BTL PO SCH ×2 (11:15→21:29)
--- NOTE | 2020-02-15 11:16 | PN ---
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 (short form) - Note 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: s: extubated, confused, off sedation Current Medications Generic Name Dose Route Start Last Admin Trade Name Freq PRN Reason Stop Dose Admin Allopurinol 100 mg 02/13/20 10:00 02/15/20 11:03 Zyloprim - PO 100 mg DAILY MITRA Administration Aspirin 81 mg 02/13/20 10:00 02/15/20 11:03 Asa - PO 81 mg DAILY MITRA Administration Atorvastatin Calcium 20 mg 02/13/20 22:00 02/14/20 21:07 Lipitor - PO Not Given HS MITRA Bisacodyl 5 mg 02/13/20 01:45 Dulcolax - PO PRN MITRA Chlorhexidine Gluconate 1 applic 02/12/20 22:00 02/14/20 21:07 Hibiclens For Decolonization - TP 1 applic HS MITRA Administration Clopidogrel Bisulfate 75 mg 02/13/20 10:00 02/15/20 11:03 Plavix - PO 75 mg DAILY MITRA Administration Ceftriaxone Sodium 1 gm/ 50 mls @ 200 mls/hr 02/15/20 10:00 02/15/20 11:04 Dextrose IVPB 200 mls/hr DAILY MITRA Administration Protocol Metronidazole 500 mg in 100 mls @ 100 mls/hr 02/15/20 10:00 02/15/20 11:05 Flagyl 500mg Premixed Ivpb - IVPB 100 mls/hr Q8H-IV MITRA Administration Potassium Chloride 10 meq in 100 mls @ 100 mls/hr 02/15/20 10:15 02/15/20 11:04 Potassium Chloride 10 Meq Premix Ivpb - IVPB 02/15/20 13:14 100 mls/hr Q60M MITRA Administration Dextrose/Sodium Chloride 500 mls @ 100 mls/hr 02/15/20 10:15 D5-1/3ns - IV ASDIR MITRA Insulin Aspart 1 vial 02/13/20 07:00 02/15/20 06:20 Novolog Vial Sliding Scale - SQ Not Given ACHS MITRA Protocol Levothyroxine Sodium 40 mcg 02/13/20 10:00 02/15/20 11:07 Synthroid Injection - IVPUSH 40 mcg DAILY MITRA Administration Memantine 5 mg 02/13/20 10:00 02/15/20 11:07 Namenda - PO 5 mg DAILY MITRA Administration Mupirocin 1 applic 02/12/20 22:00 02/15/20 11:05 Bactroban Ointment (For Decolonization) - NS 02/17/20 21:59 1 applic BID MITRA Administration Pantoprazole Sodium 20 mg 02/13/20 10:00 02/15/20 11:03 Protonix - PO 20 mg DAILY MITRA Administration Polyethylene Glycol 17 gm 02/13/20 10:00 02/14/20 21:07 Miralax (For Daily Use) - PO Not Given BID MITRA Vital Signs Period Temp Pulse Resp BP Sys/Coyne Pulse Ox Last 24 Hr 97 F-97.7 F 55-64 14-32 111-150/44-83 96-100 nad no jvd cta bl rrr s1s2 no mrg abd nd pos bs no jaundice diaphoresis pos dp pt no le e/c/c awake, confused Laboratory Last Values WBC 8.1 K/mm3 (4.0-10.0) 02/15/20 09:05 RBC 2.78 M/mm3 (3.60-5.2) L 02/15/20 09:05 Hgb 7.2 GM/dL (10.7-15.3) L 02/15/20 09:05 Hct 23.5 % (32.4-45.2) L 02/15/20 09:05 MCV 84.5 fl (80-96) 02/15/20 09:05 MCH 26.1 pg (25.7-33.7) 02/15/20 09:05 MCHC 30.9 g/dl (32.0-36.0) L 02/15/20 09:05 RDW 19.5 % (11.6-15.6) H 02/15/20 09:05 Plt Count 186 K/MM3 (134-434) 02/15/20 09:05 MPV 8.9 fl (7.5-11.1) 02/15/20 09:05 Absolute Neuts (auto) 6.0 K/mm3 (1.5-8.0) 02/14/20 06:20 Neutrophils % 73.0 % (42.8-82.8) 02/14/20 06:20 Lymphocytes % 18.8 % (8-40) 02/14/20 06:20 Monocytes % 6.5 % (3.8-10.2) 02/14/20 06:20 Eosinophils % 1.2 % (0-4.5) 02/14/20 06:20 Basophils % 0.5 % (0-2.0) 02/14/20 06:20 Nucleated RBC % 1 % (0-0) H 02/14/20 06:20 PT with INR 13.10 SEC (9.7-13.0) H 02/12/20 14:00 INR 1.11 (0.83-1.09) H 02/12/20 14:00 PTT (Actin FS) 27.2 SECONDS (25.2-36.5) 02/12/20 14:00 Anticoagulation Therapy No Result Required. 02/13/20 06:15 Puncture Site Right radial 02/13/20 06:15 Patient Temperature No Result Required. 02/13/20 06:15 ABG pH 7.344 (7.350-7.450) L 02/13/20 06:15 ABG pCO2 39.90 mmHg (35-45) 02/13/20 06:15 ABG pO2 123.3 mmHg (80-100) H 02/13/20 06:15 ABG HCO3 21.2 mmol/L (22-27) L 02/13/20 06:15 ABG O2 Sat (Measured) 98.3 mmHg (95-98) H 02/13/20 06:15 ABG O2 Content No Result Required. 02/13/20 06:15 ABG Base Excess -4.1 mmol/L (-2-2) L 02/13/20 06:15 Prabhjot Test Positive 02/13/20 06:15 VBG pH 7.127 (7.310-7.410) L* 02/12/20 22:30 POC VBG pCO2 69.6 mmHg (38-52) H 02/12/20 22:30 POC VBG pO2 51.8 mmHg (28-48) H 02/12/20 22:30 VBG HCO3 22.5 mmol/L (23-29) L 02/12/20 22:30 VBG O2 Sat (Chris) 73.8 % (70-80) 02/12/20 22:30 VBG Base Excess -7.1 mmol/L (-2-2) L 02/12/20 22:30 Patient On Oxygen Yes 02/13/20 06:15 O2 Delivery Device Vent 02/13/20 06:15 Oxygen Flow Rate 40% 02/13/20 06:15 Vent Mode A/c 02/13/20 06:15 Vent Rate 16 02/13/20 06:15 Mechanical Rate No Result Required. 02/13/20 06:15 PEEP 5.0 cmH2O 02/13/20 06:15 Pressure Support Vent 330 02/13/20 06:15 Sodium 151 mmol/L (136-145) H 02/15/20 09:05 Potassium 3.1 mmol/L (3.5-5.1) L 02/15/20 09:05 Chloride 122 mmol/L (98-107) H 02/15/20 09:05 Carbon Dioxide 19 mmol/L (21-32) L 02/15/20 09:05 Anion Gap 10 MMOL/L (8-16) 02/15/20 09:05 BUN 72.1 mg/dL (7-18) H 02/15/20 09:05 Creatinine 2.9 mg/dL (0.55-1.3) H 02/15/20 09:05 Est GFR (CKD-EPI)AfAm 16.42 02/15/20 09:05 Est GFR (CKD-EPI)NonAf 14.17 02/15/20 09:05 POC Glucometer 110 UNITS (80-120) 02/15/20 06:01 Random Glucose 89 mg/dL (74-106) 02/15/20 09:05 Lactic Acid 0.8 mmol/L (0.4-2.0) 02/12/20 22:30 Calcium 6.7 mg/dL (8.5-10.1) L* 02/15/20 09:05 Phosphorus 4.3 mg/dL (2.5-4.9) 02/15/20 09:05 Magnesium 2.2 mg/dL (1.8-2.4) 02/15/20 09:05 Ferritin 143.0 ng/ml (8-388) 02/13/20 05:28 Total Bilirubin 0.4 mg/dL (0.2-1) 02/15/20 09:05 AST 59 U/L (15-37) H 02/15/20 09:05 ALT 28 U/L (13-61) 02/15/20 09:05 Alkaline Phosphatase 46 U/L (45-117) 02/15/20 09:05 LD Total 313 U/L (84-246) H 02/13/20 05:28 Troponin I 0.35 ng/ml (0.00-0.05) H 02/13/20 05:28 C-Reactive Protein < 0.3 MG/DL (0.00-0.3) 02/13/20 05:28 B-Natriuretic Peptide 2016.4 pg/ml (5-450) H 02/12/20 14:00 Total Protein 5.7 g/dl (6.4-8.2) L 02/15/20 09:05 Albumin 2.3 g/dl (3.4-5.0) L 02/15/20 09:05 TSH 0.73 uIU/ml (0.358-3.74) 02/14/20 06:20 Thyroxine (T4) 4.9 ug/dl (4.5-13.9) 02/13/20 05:28 Urine Color Yellow 02/12/20 14:00 Urine Appearance Clear 02/12/20 14:00 Urine pH 5.5 (5.0-8.0) 02/12/20 14:00 Ur Specific [place] 1.017 (1.010-1.035) 02/12/20 14:00 Urine Protein 2+ (NEGATIVE) H 02/12/20 14:00 Urine Glucose (UA) Negative (NEGATIVE) 02/12/20 14:00 Urine Ketones Negative (NEGATIVE) 02/12/20 14:00 Urine Blood Negative (NEGATIVE) 02/12/20 14:00 Urine Nitrite Negative (NEGATIVE) 02/12/20 14:00 Urine Bilirubin Negative (NEGATIVE) 02/12/20 14:00 Urine Urobilinogen 0.2 mg/dL (0.2-1.0) 02/12/20 14:00 Ur Leukocyte Esterase Negative (NEGATIVE) 02/12/20 14:00 Urine WBC (Auto) 3 /uL (0-25.8) 02/12/20 14:00 Urine RBC (Auto) 30 /uL (0-23.9) 02/12/20 14:00 Urine Casts (Auto) 1 /uL (0-3.1) 02/12/20 14:00 U Epithel Cells (Auto) 6 /uL (0-25.1) 02/12/20 14:00 Urine Bacteria (Auto) 8 /uL (0-1359) 02/12/20 14:00 Ur Random Creatinine 169.0 mg/dL (30-150) H 02/13/20 05:45 Ur Random Sodium 18 MMOL/L (40-220) L 02/13/20 05:45 Ur Random Potassium 73.0 MMOL/L (25-125) 02/13/20 05:45 Ur Random Chloride < 11 MMOL/L (110-250) L 02/13/20 05:45 Ur Random Urea Nitrogn 796 mg/dL (350-1000) 02/13/20 05:45 Random Vancomycin 9.9 ug/ml (5-26) 02/14/20 06:20 COVID-19 (MYLA) Not detected (Not Detected) 02/12/20 15:40 tele: sr, sinus marleen 50s, no pathologic bradycardia or pauses cxr reviewed echo 01/2020: lvef 33%, nl rv, no sig valve path, 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 ams, resp failure, sepsis: -now extubated -abx per ID kody on ckd: -baseline cr 1.9, now in 4s on admit -cont ivfs, monitor cr, improving. given chf hx monitor vol status closely. chronic syst chf: -fluids as above -holding po lasix (was on 20 qod) htn: -holding meds, bp on lower side, monitor for now cad: -non obs cad on recent cath -borderline trop elevation here with flat trend, not c/w acs, likely from kody, sepsis -cont dapt, statin as s/p tavr: -recent tavr with post op echo 01/2020 showing good valve fcn -cont dapt for 6 mos post tavr bradycardia: -ecg and tele showing sinus marleen, no pathologic bradycardia/pauses seen on tele. possibly related to sedation, now off and hr improved. cont tele.
[2020-02-15] MEDS ORDERED: BISACODYL 5 MG TABLET.DR (FP) PO PRN (15:48)
[2020-02-15] MEDS: ATORVASTATIN CA 20 MG TABLET (FP) PO SCH (21:29)
[2020-02-16] MEDS ORDERED: DEXTROSE 5%-0.2% SALINE - 1,000 ML IV SCH (03:15)
[2020-02-16] MEDS ORDERED: LEVOTHYROXINE SODIUM 100 MCG VIAL IVPUSH SCH (07:00)
[2020-02-16] MEDS: INSULIN SLIDING SCALE (NOVOLOG) 1 VIAL SQ SCH ×4 (07:02→21:07)
[2020-02-16 07:36] LABS: BASO % 0.6 % (0-2.0); EOS % 2.5 % (0-4.5); HEMATOCRIT 26.7 % (32.4-45.2); HEMOGLOBIN 8.2 GM/dL (10.7-15.3); LYMPH % 23.6 % (8-40); MCH 26.2 pg (25.7-33.7); MCHC 30.7 g/dl (32.0-36.0); MEAN CELL VOLUME 85.3 fl (80-96); MONO % 8.4 % (3.8-10.2); NEUT % 64.9 % (42.8-82.8); PLATELET COUNT 170 K/MM3 (134-434); RBC 3.12 M/mm3 (3.60-5.2); RDW 19.3 % (11.6-15.6); WHITE BLOOD COUNT 6.6 K/mm3 (4.0-10.0)
[2020-02-16 08:02] LABS: ALBUMIN 2.5 g/dl (3.4-5.0); BILIRUBIN,TOTAL 0.5 mg/dL (0.2-1); CALCIUM 7.7 mg/dL (8.5-10.1); CREATININE 2.3 mg/dL (0.55-1.3); MAGNESIUM 2.1 mg/dL (1.8-2.4); PHOSPHOROUS 3.4 mg/dL (2.5-4.9); POTASSIUM 3.3 mmol/L (3.5-5.1); TOT PROT 6.2 g/dl (6.4-8.2)
[2020-02-16] MEDS ORDERED: DEXTROSE 5%-WATER - 50 ML IVPB ONE (09:06)
[2020-02-16] MEDS ORDERED: cefTRIAXone SODIUM 1 GM VIAL ONE (09:06)
[2020-02-16] MEDS: CLOPIDOGREL BISULFATE 75 MG TABLET (FP) PO SCH (09:30)
[2020-02-16] MEDS: PANTOPRAZOLE 20 MG TABLET PO SCH (09:30)
[2020-02-16] MEDS: MEMANTINE HCL 5 MG TABLET (UD) PO SCH (09:30)
[2020-02-16] MEDS: ALLOPURINOL 100 MG TABLET (FP) PO SCH (09:30)
[2020-02-16] MEDS: ASPIRIN 81 MG CHEWABLE TABLETS PO SCH (09:30)
[2020-02-16] MEDS: CEFTRIAXONE 1 GM in DEXTROSE 5%-WATER - 50 ML IVPB SCH (09:31)
--- NOTE | 2020-02-16 09:37 | CONSULT ---
Admitting History and Physical - Primary Care Physician PCP: Dirk Renteria - Admission History of Present Illness: 85 f hx dementia, parkinsons, ckd (baseline cr 1.9), syst chf (lvef 33%), htn, hld, dm, non obs cad on cath 09/2019, s/p tavr 01/2020 at [facility] sent from [place] for ams. was Intubated sec to acute resp failure- hypercapneic resp falure -extubated, doing well KYLER/CKD r/o pneumonia-bibasilar infiltrates s/p TAVR 01/25 Parkinsons disease NPO Per 01/15 nursing note-minimally verbal, Albanian speaking, RN attempted to assess patient's mental status using [employer] phone, pt with no verbal response. RA 02 98%. Pt able to swallow meds with applesauce but started coughing and throat clearing with thin liquids Laboratory Tests 02/12/20 15:40 COVID-19 (MYLA) Not detected Selected Entries 02/16/20 02/16/20 01:42 06:00 Temperature 97.6 F Respiratory 20 20 Rate Blood Pressure 136/55 L 141/53 L Laboratory Tests 02/16/20 06:40 WBC 6.6 Tolerated water for nursing today. Recurrent delayed swallow with puree for me, followed by cough response on thin water. 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) - Advance Directives Advance Directives: Yes: DNR - Smoking History Smoking history: Unknown if ever smoked Have you smoked in the past 12 months: No Aproximately how many cigarettes per day: 0 - Alcohol/Substance Use Hx Alcohol Use: No History - Admission Reason For Visit: ACUTE KIDNEY INJURY HYPERNAT Altered Mental Status - Diagnostics X-ray: Report Reviewed - General Mental Status: Awake and Alert, Vague, Confused, Flat Affect Attention: Distractible Ability to Follow Directions: Fair Head/Neck Control: Fair - Hearing Hearing: Functional Speech Evaluation - Communication Primary Language: KOSOVAN Communication: Yes: Simple Responses (rare verbalization "ok") Oral Expression Ability: Yes: Severe Impairment - Speech Production Intelligibility: Yes: WNL - Speech Characteristics Voice Loudness: Normal, Mildly Soft/Quiet Voice Pitch: Yes: Normal Voice Phonatory-based Quality: Yes: Normal Speech Pattern: Impaired Nasal Resonance: Normal Articulation: Yes: Precise - Language/Auditory Comprehension Observation: Able to respond to yes/no queries: Yes (simple, rare) - Language/Verbal Expression Functional Communication Status: Yes: Moderately Impaired - Swallow Evaluation/Bedside Assessment Current Nutritional Intake: NPO Oral Secretions: Yes: WFL Facial Symmetry at Rest: Symmetrical Jaw Position: Open at Rest Lingual Speed of Movement: Normal Lingual Movement Strgth Against Opposition: Normal Laryngeal Movement: Labored,delay initiation Rate of Intake: Slow/Holding Bolus Size: Small Labial Seal: WFL Oral Prep Time: WFL A-P Transit: WFL Timing of Swallow: Delayed Coughing/Throat Clear: Yes (thin) Recommendations - Speech Evaluation, Impression/Plan Impression: Dementia. Recent extubation. Recurrent delayed swallow with puree for me, followed by cough response on thin water. Suspect pharyngeal stasis, intermittent aspiration - Disposition Discharge to: To be Determined - Dysphagia Impressions/Plan Swallowing Skills: Impaired Dysphagia Impressions: Ongoing Evaluation *Silent aspiration: cannot be R/O at bedside Recommendations: Modified Barium Swallow
[2020-02-16] MEDS: POLYETHYLENE GLYCOL 3350 119 GM BTL PO SCH ×2 (10:18→21:07)
--- NOTE | 2020-02-16 10:32 | PN ---
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 (short form) - Note 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: s: confused. nad Current Medications Generic Name Dose Route Start Last Admin Trade Name Jewell PRN Reason Stop Dose Admin Allopurinol 100 mg 02/16/20 10:00 02/16/20 09:30 Zyloprim - PO 100 mg DAILY MITRA Administration Aspirin 81 mg 02/16/20 10:00 02/16/20 09:30 Asa - PO 81 mg DAILY MITRA Administration Atorvastatin Calcium 20 mg 02/15/20 22:00 02/15/20 21:29 Lipitor - PO 20 mg HS MITRA Administration Bisacodyl 5 mg 02/15/20 15:48 Dulcolax - PO DAILY PRN CONSTIPATION Clopidogrel Bisulfate 75 mg 02/16/20 10:00 02/16/20 09:30 Plavix - PO 75 mg DAILY MITRA Administration Ceftriaxone Sodium 1 gm/ 50 mls @ 200 mls/hr 02/16/20 10:00 02/16/20 09:31 Dextrose IVPB 200 mls/hr DAILY MITRA Administration Protocol Metronidazole 500 mg in 100 mls @ 100 mls/hr 02/15/20 18:00 02/16/20 09:31 Flagyl 500mg Premixed Ivpb - IVPB 100 mls/hr Q8H-IV MITRA Administration Dextrose/Sodium Chloride 1,000 mls @ 75 mls/hr 02/16/20 03:15 02/16/20 07:02 D5-1/4ns - IV 75 mls/hr ASDIR MITRA Administration Insulin Aspart 1 vial 02/15/20 16:30 02/16/20 07:02 Novolog Vial Sliding Scale - SQ Not Given ACHS MITRA Protocol Levothyroxine Sodium 40 mcg 02/16/20 07:00 02/16/20 07:02 Synthroid Injection - IVPUSH 40 mcg DAILY@0700 MITRA Administration Memantine 5 mg 02/16/20 10:00 02/16/20 09:30 Namenda - PO 5 mg DAILY MITRA Administration Pantoprazole Sodium 20 mg 02/16/20 10:00 02/16/20 09:30 Protonix - PO 20 mg DAILY MITRA Administration Polyethylene Glycol 17 gm 02/15/20 22:00 02/15/20 21:29 Miralax (For Daily Use) - PO Not Given BID MITRA Vital Signs Period Temp Pulse Resp BP Sys/Coyne Pulse Ox Last 24 Hr 97.2 F-97.6 F 60-67 19-24 136-163/52-69 97 nad no jvd cta bl rrr s1s2 no mrg abd nd pos bs no jaundice diaphoresis pos dp pt no le e/c/c awake, confused CBC, BMP 02/16/20 06:40 02/16/20 06:40 tele: sr echo 01/2020: lvef 33%, nl rv, no sig valve path, 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 ams, resp failure, sepsis: -now extubated -abx per ID kody on ckd: -baseline cr 1.9, now in 4s on admit -cont ivfs, monitor cr, improving. given chf hx monitor vol status closely. chronic syst chf: -fluids as above -holding po lasix (was on 20 qod) htn: -will resume home norvasc cad: -non obs cad on recent cath -borderline trop elevation here with flat trend, not c/w acs, likely from kody, sepsis -cont dapt, statin as s/p tavr: -recent tavr with post op echo 01/2020 showing good valve fcn -cont dapt for 6 mos post tavr
--- NOTE | 2020-02-16 11:55 | PN ---
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, Physician History of Present Illness: Pt seen and examined at bedside. She is now in the medical [place]. She is awake but not very interactive. - Current Medication List Current Medications: Active Medications Allopurinol (Zyloprim -) 100 mg PO DAILY [facility] Last Admin: 02/16/20 09:30 Dose: 100 mg Documented by: Amlodipine Besylate (Norvasc -) 2.5 mg PO DAILY [facility] Aspirin (Asa -) 81 mg PO DAILY [facility] Last Admin: 02/16/20 09:30 Dose: 81 mg Documented by: Atorvastatin Calcium (Lipitor -) 20 mg PO HS [facility] Last Admin: 02/15/20 21:29 Dose: 20 mg Documented by: Bisacodyl (Dulcolax -) 5 mg PO DAILY PRN PRN Reason: CONSTIPATION Clopidogrel Bisulfate (Plavix -) 75 mg PO DAILY [facility] Last Admin: 02/16/20 09:30 Dose: 75 mg Documented by: Ceftriaxone Sodium 1 gm/ (Dextrose) 50 mls @ 200 mls/hr IVPB DAILY [facility]; Protocol Last Admin: 02/16/20 09:31 Dose: 200 mls/hr Documented by: Metronidazole (Flagyl 500mg Premixed Ivpb -) 500 mg in 100 mls @ 100 mls/hr IVPB Q8H-IV MITRA Last Admin: 02/16/20 09:31 Dose: 100 mls/hr Documented by: Dextrose/Sodium Chloride (D5-1/4ns -) 1,000 mls @ 75 mls/hr IV ASDIR [facility] Last Admin: 02/16/20 07:02 Dose: 75 mls/hr Documented by: Insulin Aspart (Novolog Vial Sliding Scale -) 1 vial SQ ACHS [facility]; Protocol Last Admin: 02/16/20 07:02 Dose: Not Given Documented by: Levothyroxine Sodium (Synthroid Injection -) 40 mcg IVPUSH DAILY@0700 [facility] Last Admin: 02/16/20 07:02 Dose: 40 mcg Documented by: Memantine (Namenda -) 5 mg PO DAILY [facility] Last Admin: 02/16/20 09:30 Dose: 5 mg Documented by: Pantoprazole Sodium (Protonix -) 20 mg PO DAILY [facility] Last Admin: 02/16/20 09:30 Dose: 20 mg Documented by: Polyethylene Glycol (Miralax (For Daily Use) -) 17 gm PO BID [facility] Last Admin: 02/15/20 21:29 Dose: Not Given Documented by: - Objective Vital Signs: Vital Signs Temperature 97.4 F L 02/16/20 10:00 Pulse Rate 66 02/16/20 10:00 Respiratory Rate 20 02/16/20 10:00 Blood Pressure 160/70 02/16/20 10:00 O2 Sat by Pulse Oximetry (%) 97 02/15/20 20:29 Constitutional: Yes: Calm Eyes: Yes: Conjunctiva Clear HENT: Yes: Atraumatic Neck: Yes: Supple Cardiovascular: Yes: S1, S2 Respiratory: Yes: On Nasal O2 Gastrointestinal: Yes: Soft Genitourinary: Yes: Grajeda Present Edema: No Neurological: Yes: Oriented Psychiatric: Yes: Oriented Labs: CBC, BMP 02/16/20 06:40 02/16/20 06:40 INR, PTT INR 1.11 (0.83-1.09) H 02/12/20 14:00 Problem List - Problems (1) KYLER (acute kidney injury) Code(s): N17.9 - ACUTE KIDNEY FAILURE, UNSPECIFIED (2) Hypernatremia Code(s): E87.0 - HYPEROSMOLALITY AND HYPERNATREMIA (3) Altered mental state Code(s): R41.82 - ALTERED MENTAL STATUS, UNSPECIFIED Assessment/Plan Current Medications Generic Name Dose Route Start Last Admin Trade Name Freq PRN Reason Stop Dose Admin Allopurinol 100 mg 02/16/20 10:00 02/16/20 09:30 Zyloprim - PO 100 mg DAILY MITRA Administration Amlodipine Besylate 2.5 mg 02/17/20 10:00 Norvasc - PO DAILY MITRA Aspirin 81 mg 02/16/20 10:00 02/16/20 09:30 Asa - PO 81 mg DAILY MITRA Administration Atorvastatin Calcium 20 mg 02/15/20 22:00 02/15/20 21:29 Lipitor - PO 20 mg HS MITRA Administration Bisacodyl 5 mg 02/15/20 15:48 Dulcolax - PO DAILY PRN CONSTIPATION Clopidogrel Bisulfate 75 mg 02/16/20 10:00 02/16/20 09:30 Plavix - PO 75 mg DAILY MITRA Administration Ceftriaxone Sodium 1 gm/ 50 mls @ 200 mls/hr 02/16/20 10:00 02/16/20 09:31 Dextrose IVPB 200 mls/hr DAILY MITRA Administration Protocol Metronidazole 500 mg in 100 mls @ 100 mls/hr 02/15/20 18:00 02/16/20 09:31 Flagyl 500mg Premixed Ivpb - IVPB 100 mls/hr Q8H-IV MITRA Administration Dextrose/Sodium Chloride 1,000 mls @ 75 mls/hr 02/16/20 03:15 02/16/20 07:02 D5-1/4ns - IV 75 mls/hr ASDIR MITRA Administration Insulin Aspart 1 vial 02/15/20 16:30 02/16/20 07:02 Novolog Vial Sliding Scale - SQ Not Given ACHS MITRA Protocol Levothyroxine Sodium 40 mcg 02/16/20 07:00 02/16/20 07:02 Synthroid Injection - IVPUSH 40 mcg DAILY@0700 MITRA Administration Memantine 5 mg 02/16/20 10:00 02/16/20 09:30 Namenda - PO 5 mg DAILY MITRA Administration Pantoprazole Sodium 20 mg 02/16/20 10:00 02/16/20 09:30 Protonix - PO 20 mg DAILY MITRA Administration Polyethylene Glycol 17 gm 02/15/20 22:00 02/15/20 21:29 Miralax (For Daily Use) - PO Not Given BID MITRA Laboratory Tests 02/16/20 06:40 Sodium 152 H Potassium 3.3 L Creatinine 2.3 H Impression 1. KYLER 2. urinary obstruction 3. hypernatremia 4. altered mental status 5. dm 6. hx htn 7. cad 8. chf 9. ckd 10/ s/p tavr Plan - change fluids to d5w with potassium - cont to monitor lytes - sodium rising - lasix is on hold for now - pt now extubated - renal function improving - grajeda for retention
[2020-02-16] MEDS ORDERED: DEXTROSE 5%-WATER - 1,000 ML with POTASSIUM CHLORIDE 20 MEQ IVPB SCH (12:00)
--- NOTE | 2020-02-16 12:55 | PN ---
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 (short form) - Note 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: PULMONARY Awake but not answering questions. No fevers recorded. Vital Signs Period Temp Pulse Resp BP Sys/Coyne Pulse Ox Last 24 Hr 97.2 F-97.6 F 60-66 20-24 136-163/53-70 97 Gen: NAD at rest Heart: RRR Lung: decreased breath sounds at the bases Abd: soft, nontender Ext: no edema CBC, BMP 02/16/20 06:40 02/16/20 06:40 Active Medications Allopurinol (Zyloprim -) 100 mg PO DAILY [facility] Last Admin: 02/16/20 09:30 Dose: 100 mg Documented by: Amlodipine Besylate (Norvasc -) 2.5 mg PO DAILY [facility]RA Aspirin (Asa -) 81 mg PO DAILY [facility] Last Admin: 02/16/20 09:30 Dose: 81 mg Documented by: Atorvastatin Calcium (Lipitor -) 20 mg PO HS [facility] Last Admin: 02/15/20 21:29 Dose: 20 mg Documented by: Bisacodyl (Dulcolax -) 5 mg PO DAILY PRN PRN Reason: CONSTIPATION Clopidogrel Bisulfate (Plavix -) 75 mg PO DAILY [facility] Last Admin: 02/16/20 09:30 Dose: 75 mg Documented by: Ceftriaxone Sodium 1 gm/ (Dextrose) 50 mls @ 200 mls/hr IVPB DAILY [facility]; Protocol Last Admin: 02/16/20 09:31 Dose: 200 mls/hr Documented by: Metronidazole (Flagyl 500mg Premixed Ivpb -) 500 mg in 100 mls @ 100 mls/hr IVPB Q8H-IV [facility] Last Admin: 02/16/20 09:31 Dose: 100 mls/hr Documented by: Potassium Chloride (Potassium Chloride 10 Meq Premix Ivpb -) 10 meq in 100 mls @ 100 mls/hr IVPB Q60M [facility] Stop: 02/16/20 14:29 Potassium Chloride 20 meq/ (Dextrose) 1,010 mls @ 83 mls/hr IVPB Q12H [facility] Insulin Aspart (Novolog Vial Sliding Scale -) 1 vial SQ ACHS [facility]; Protocol Last Admin: 02/16/20 07:02 Dose: Not Given Documented by: Levothyroxine Sodium (Synthroid Injection -) 40 mcg IVPUSH DAILY@0700 [facility] Last Admin: 02/16/20 07:02 Dose: 40 mcg Documented by: Memantine (Namenda -) 5 mg PO DAILY [facility] Last Admin: 02/16/20 09:30 Dose: 5 mg Documented by: Pantoprazole Sodium (Protonix -) 20 mg PO DAILY [facility] Last Admin: 02/16/20 09:30 Dose: 20 mg Documented by: Polyethylene Glycol (Miralax (For Daily Use) -) 17 gm PO BID [facility] Last Admin: 02/15/20 21:29 Dose: Not Given Documented by: A/P Acute Hypercapneic and Hypoxic Respiratory Failure Pneumonia Sepsis Acute Kidney Injury LV Systolic Dysfunction +Troponins likely Demand Ischemia HTN h/o TAVR Hypernatremia Parkinsons Dementia - continue antibiotics - O2 to keep SpO2 >90% - free water replacement - monitor urine output, creatinine - aspiration precautions - DVT prophylaxis
[2020-02-16] MEDS: KCL 10 MEQ IVPB 10 MEQ/100 ML INFUS.BAG IVPB SCH ×2 (13:13→14:14)
[2020-02-16] MEDS: POTASSIUM CHLORIDE 20 MEQ in DEXTROSE 5%-WATER - 1,000 ML IVPB SCH (13:13)
[2020-02-16] MEDS: ATORVASTATIN CA 20 MG TABLET (FP) PO SCH (21:07)
[2020-02-17] MEDS: POTASSIUM CHLORIDE 20 MEQ in DEXTROSE 5%-WATER - 1,000 ML IVPB SCH ×3 (01:05→23:43)
[2020-02-17] MEDS: INSULIN SLIDING SCALE (NOVOLOG) 1 VIAL SQ SCH ×4 (06:20→21:14)
[2020-02-17] MEDS: LEVOTHYROXINE NA 50 MCG TABLET (FP) PO SCH (06:22)
[2020-02-17 09:36] LABS: ALBUMIN 2.3 g/dl (3.4-5.0); BILIRUBIN,TOTAL 0.3 mg/dL (0.2-1); BLOOD UREA NITROGEN 33.7 mg/dL (7-18); CALCIUM 7.4 mg/dL (8.5-10.1); MAGNESIUM 1.8 mg/dL (1.8-2.4); POTASSIUM 3.4 mmol/L (3.5-5.1); TOT PROT 5.9 g/dl (6.4-8.2)
--- NOTE | 2020-02-17 10:11 | PN ---
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, Physician History of Present Illness: pulmonary awake,non-verbal,-resp distress on nasal o2 - Current Medication List Current Medications: Active Medications Allopurinol (Zyloprim -) 100 mg PO DAILY [facility] Last Admin: 02/16/20 09:30 Dose: 100 mg Documented by: Amlodipine Besylate (Norvasc -) 2.5 mg PO DAILY [facility] Aspirin (Asa -) 81 mg PO DAILY [facility] Last Admin: 02/16/20 09:30 Dose: 81 mg Documented by: Atorvastatin Calcium (Lipitor -) 20 mg PO HS [facility] Last Admin: 02/16/20 21:07 Dose: 20 mg Documented by: Bisacodyl (Dulcolax -) 5 mg PO DAILY PRN PRN Reason: CONSTIPATION Clopidogrel Bisulfate (Plavix -) 75 mg PO DAILY [facility] Last Admin: 02/16/20 09:30 Dose: 75 mg Documented by: Ceftriaxone Sodium 1 gm/ (Dextrose) 50 mls @ 200 mls/hr IVPB DAILY [facility]; Protocol Last Admin: 02/16/20 09:31 Dose: 200 mls/hr Documented by: Metronidazole (Flagyl 500mg Premixed Ivpb -) 500 mg in 100 mls @ 100 mls/hr IVPB Q8H-IV [facility] Last Admin: 02/17/20 01:12 Dose: 100 mls/hr Documented by: Potassium Chloride 20 meq/ (Dextrose) 1,010 mls @ 83 mls/hr IVPB Q12H [facility] Last Admin: 02/17/20 06:26 Dose: 83 mls/hr Documented by: Insulin Aspart (Novolog Vial Sliding Scale -) 1 vial SQ ACHS [facility]; Protocol Last Admin: 02/17/20 06:20 Dose: 2 units Documented by: Levothyroxine Sodium (Synthroid -) 50 mcg PO DAILY@0700 [facility] Last Admin: 02/17/20 06:22 Dose: 50 mcg Documented by: Memantine (Namenda -) 5 mg PO DAILY [facility] Last Admin: 02/16/20 09:30 Dose: 5 mg Documented by: Pantoprazole Sodium (Protonix -) 20 mg PO DAILY [facility] Last Admin: 02/16/20 09:30 Dose: 20 mg Documented by: Polyethylene Glycol (Miralax (For Daily Use) -) 17 gm PO BID [facility] Last Admin: 02/16/20 21:07 Dose: 17 grams Documented by: - Objective Vital Signs: Vital Signs Temperature 98.2 F 02/17/20 05:27 Pulse Rate 69 02/17/20 05:27 Respiratory Rate 18 02/17/20 05:27 Blood Pressure 143/71 02/17/20 05:27 O2 Sat by Pulse Oximetry (%) 93 L 02/16/20 21:00 Constitutional: Yes: Well Nourished, Calm Eyes: Yes: WNL HENT: Yes: WNL Neck: Yes: WNL Cardiovascular: Yes: Regular Rate and Rhythm, S1, S2 Respiratory: Yes: Diminished (poor inspiratory effort) Gastrointestinal: Yes: Normal Bowel Sounds, Soft Extremities: Yes: WNL Edema: No Labs: Problem List - Problems (1) Acute kidney injury superimposed on chronic kidney disease Code(s): N17.9 - ACUTE KIDNEY FAILURE, UNSPECIFIED; N18.9 - CHRONIC KIDNEY DISEASE, UNSPECIFIED (2) Acute respiratory failure with hypoxia and hypercarbia Code(s): J96.01 - ACUTE RESPIRATORY FAILURE WITH HYPOXIA; J96.02 - ACUTE RESPIRATORY FAILURE WITH HYPERCAPNIA (3) Altered mental state Code(s): R41.82 - ALTERED MENTAL STATUS, UNSPECIFIED (4) Hypernatremia Code(s): E87.0 - HYPEROSMOLALITY AND HYPERNATREMIA (5) CAD (coronary artery disease) Code(s): I25.10 - ATHSCL HEART DISEASE OF [place] CORONARY ARTERY W/O ANG PCTRS (6) H/O aortic valve replacement Code(s): Z95.2 - PRESENCE OF PROSTHETIC HEART VALVE (7) HLD (hyperlipidemia) Code(s): E78.5 - HYPERLIPIDEMIA, UNSPECIFIED (8) HTN (hypertension) Code(s): I10 - ESSENTIAL (PRIMARY) HYPERTENSION Assessment/Plan A/P Acute Hypercapneic and Hypoxic Respiratory Failure inproving Pneumonia Sepsis Acute Kidney Injury LV Systolic Dysfunction +Troponins likely Demand Ischemia HTN h/o TAVR Hypernatremia Parkinsons Dementia - continue antibiotics - O2 to keep SpO2 >90% - free water replacement - monitor urine output, creatinine - aspiration precautions - DVT prophylaxis DR RAE
[2020-02-17] MEDS ORDERED: DEXTROSE 5%-WATER - 50 ML IVPB ONE (10:15)
[2020-02-17] MEDS ORDERED: cefTRIAXone SODIUM 1 GM VIAL ONE (10:15)
[2020-02-17] MEDS: CEFTRIAXONE 1 GM in DEXTROSE 5%-WATER - 50 ML IVPB SCH (10:30)
[2020-02-17] MEDS: ALLOPURINOL 100 MG TABLET (FP) PO SCH (10:30)
[2020-02-17] MEDS: CLOPIDOGREL BISULFATE 75 MG TABLET (FP) PO SCH (10:30)
[2020-02-17] MEDS: PANTOPRAZOLE 20 MG TABLET PO SCH (10:30)
[2020-02-17] MEDS: amLODIPine BESYLATE 2.5 MG TABLET (FP) PO SCH (10:31)
[2020-02-17] MEDS: POLYETHYLENE GLYCOL 3350 119 GM BTL PO SCH ×2 (10:31→21:06)
[2020-02-17] MEDS: MEMANTINE HCL 5 MG TABLET (UD) PO SCH (10:31)
[2020-02-17] MEDS: ASPIRIN 81 MG CHEWABLE TABLETS PO SCH (10:31)
--- NOTE | 2020-02-17 11:41 | PN ---
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, [employer]PERATOR - Note 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: Selected Entries 02/16/20 02/17/20 02/17/20 18:00 01:58 05:27 Breakfast Diet Tolerated Well Supper 75% Temperature 98.1 F 98.2 F Pulse Rate 79 69 Blood Pressure 150/67 143/71 02/17/20 11:14 Breakfast 100% Diet Tolerated Well Supper Temperature Pulse Rate Blood Pressure Laboratory Tests 02/16/20 06:40 WBC 6.6 MBS completed with trace intermittent silent aspiration on thin liquid. On puree/nectar with good appetite but reported cough intermittently on nectar Suggest downgrade to honey thick liquid, on tsp,ensure pudding. Monitor tolerance
--- NOTE | 2020-02-17 12:17 | PN ---
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, Physician History of Present Illness: AWAKE BUT LETHARGIC IN BED OFFERS NO COMPLAINTS BREATHING NON LABORED AFEBRILE - Current Medication List Current Medications: Active Medications Allopurinol (Zyloprim -) 100 mg PO DAILY [facility] Last Admin: 02/17/20 10:30 Dose: 100 mg Documented by: Amlodipine Besylate (Norvasc -) 2.5 mg PO DAILY [facility] Last Admin: 02/17/20 10:31 Dose: 2.5 mg Documented by: Aspirin (Asa -) 81 mg PO DAILY [facility] Last Admin: 02/17/20 10:31 Dose: 81 mg Documented by: Atorvastatin Calcium (Lipitor -) 20 mg PO HS [facility] Last Admin: 02/16/20 21:07 Dose: 20 mg Documented by: Bisacodyl (Dulcolax -) 5 mg PO DAILY PRN PRN Reason: CONSTIPATION Clopidogrel Bisulfate (Plavix -) 75 mg PO DAILY [facility] Last Admin: 02/17/20 10:30 Dose: 75 mg Documented by: Ceftriaxone Sodium 1 gm/ (Dextrose) 50 mls @ 200 mls/hr IVPB DAILY [facility]; Protocol Last Admin: 02/17/20 10:30 Dose: 200 mls/hr Documented by: Metronidazole (Flagyl 500mg Premixed Ivpb -) 500 mg in 100 mls @ 100 mls/hr IVPB Q8H-IV [facility] Last Admin: 02/17/20 10:30 Dose: 100 mls/hr Documented by: Potassium Chloride 20 meq/ (Dextrose) 1,010 mls @ 83 mls/hr IVPB Q12H [facility] Last Admin: 02/17/20 06:26 Dose: 83 mls/hr Documented by: Insulin Aspart (Novolog Vial Sliding Scale -) 1 vial SQ ACHS [facility]; Protocol Last Admin: 02/17/20 06:20 Dose: 2 units Documented by: Levothyroxine Sodium (Synthroid -) 50 mcg PO DAILY@0700 [facility] Last Admin: 02/17/20 06:22 Dose: 50 mcg Documented by: Memantine (Namenda -) 5 mg PO DAILY [facility] Last Admin: 02/17/20 10:31 Dose: 5 mg Documented by: Pantoprazole Sodium (Protonix -) 20 mg PO DAILY [facility] Last Admin: 02/17/20 10:30 Dose: 20 mg Documented by: Polyethylene Glycol (Miralax (For Daily Use) -) 17 gm PO BID [facility] Last Admin: 02/17/20 10:31 Dose: 17 grams Documented by: - Objective Vital Signs: Vital Signs Temperature 98.2 F 02/17/20 05:27 Pulse Rate 69 02/17/20 05:27 Respiratory Rate 18 02/17/20 05:27 Blood Pressure 143/71 02/17/20 05:27 O2 Sat by Pulse Oximetry (%) 93 L 02/16/20 21:00 Cardiovascular: Yes: Regular Rate and Rhythm, S1, S2 Respiratory: Yes: Diminished Gastrointestinal: Yes: Normal Bowel Sounds, Soft. No: Tenderness Labs: CBC, BMP 02/16/20 06:40 02/17/20 08:54 INR, PTT INR 1.11 (0.83-1.09) H 02/12/20 14:00 Assessment/Plan S/P RESP FAILURE PNEUMONIA KYLER S/P TAVR PARKINSONISM CONTINUE EMPIRIC CEFTRIAXONE/ FLAGYL
--- NOTE | 2020-02-17 13:23 | PN ---
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 (short form) - Note 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: s: unable to obtain hpi, ros due to mental status, not verbal. appears comfortable Current Medications Generic Name Dose Route Start Last Admin Trade Name Jewell PRN Reason Stop Dose Admin Allopurinol 100 mg 02/16/20 10:00 02/17/20 10:30 Zyloprim - PO 100 mg DAILY [facility] Administration Amlodipine Besylate 2.5 mg 02/17/20 10:00 02/17/20 10:31 Norvasc - PO 2.5 mg DAILY [facility] Administration Aspirin 81 mg 02/16/20 10:00 02/17/20 10:31 Asa - PO 81 mg DAILY [facility] Administration Atorvastatin Calcium 20 mg 02/15/20 22:00 02/16/20 21:07 Lipitor - PO 20 mg HS [facility] Administration Bisacodyl 5 mg 02/15/20 15:48 Dulcolax - PO DAILY PRN CONSTIPATION Clopidogrel Bisulfate 75 mg 02/16/20 10:00 02/17/20 10:30 Plavix - PO 75 mg DAILY [facility] Administration Ceftriaxone Sodium 1 gm/ 50 mls @ 200 mls/hr 02/16/20 10:00 02/17/20 10:30 Dextrose IVPB 200 mls/hr DAILY [facility] Administration Protocol Metronidazole 500 mg in 100 mls @ 100 mls/hr 02/15/20 18:00 02/17/20 10:30 Flagyl 500mg Premixed Ivpb - IVPB 100 mls/hr Q8H-IV [facility] Administration Potassium Chloride 20 meq/ 1,010 mls @ 83 mls/hr 02/16/20 13:00 02/17/20 06 :26 Dextrose IVPB 83 mls/hr Q12H [facility] Administration Insulin Aspart 1 vial 02/15/20 16:30 02/17/20 06:20 Novolog Vial Sliding Scale - SQ 2 units ACHS [facility] Administration Protocol Levothyroxine Sodium 50 mcg 02/17/20 07:00 02/17/20 06:22 Synthroid - PO 50 mcg DAILY@0700 [facility] Administration Memantine 5 mg 02/16/20 10:00 02/17/20 10:31 Namenda - PO 5 mg DAILY [facility] Administration Pantoprazole Sodium 20 mg 02/16/20 10:00 02/17/20 10:30 Protonix - PO 20 mg DAILY [facility] Administration Polyethylene Glycol 17 gm 02/15/20 22:00 02/17/20 10:31 Miralax (For Daily Use) - PO 17 grams BID [facility] Administration Vital Signs Period Temp Pulse Resp BP Sys/[place] Pulse Ox Last 24 Hr 97.4 F-98.2 F 65-79 18-20 138-173/59-81 93-93 nad no jvd cta bl rrr s1s2 no mrg abd nd pos bs no jaundice diaphoresis pos dp pt no le e/c/c awake, confused tele: sr echo 01/2020: lvef 33%, nl rv, no sig valve path, mild 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 ams, resp failure, sepsis: -now extubated -abx per ID kody on ckd: -baseline cr 1.9, now in 4s on admit -cont ivfs, monitor cr, improving. given chf hx monitor vol status closely. chronic syst chf: -fluids as above -holding po lasix (was on 20 qod) htn: - amlodipine resumed, would increase to 5 mg daily if BP remains elevated cad: -non obs cad on recent cath -borderline trop elevation here with flat trend, not c/w acs, likely from kody, sepsis -cont dapt, statin as s/p tavr: -recent tavr with post op echo 01/2020 showing good valve fcn -cont dapt for 6 mos post tavr
--- NOTE | 2020-02-17 14:07 | PN ---
Physical Exam: SUBJECTIVE: Patient seen and examined at bedside. Pt confused, unable to answer questions appropriately OBJECTIVE: The patient is a 85y/o F with a PMH of Parkinson's, Alzheimer's, HLD, HTN, CAD, CHF, CKD, liver disease and DM, who presents to the ED BIBA from [facility] for AMS and lethargy x2 days. Per VT the patient has been on abx for the past 2 day for pneumonia. Pt was COVID negative on 02/05/20. Pt is a poor historian. Pt noted to be septic, hypercapneic, acidotic, intubated on 02/12 in ICU and extubated on 02/13. Overnight Monitor Events: Sinus Madan (39bpm) Vital Signs Period Temp Pulse Resp BP Sys/[place] Pulse Ox Last 24 Hr 97.4 F-98.2 F 68-79 18-20 138-173/59-73 93-93 GENERAL: The patient is awake, alert, confused, in no acute distress. HEAD: Normal with no signs of trauma. EYES: PERRL, extraocular movements intact, sclera anicteric, conjunctiva clear. No ptosis. ENT: Ears normal, nares patent, oropharynx clear without exudates, moist mucous membranes. NECK: Trachea midline, full range of motion, supple. LUNGS: Breath sounds equal, clear to auscultation bilaterally, no wheezes, no crackles, no accessory muscle use. HEART: Regular rate and rhythm, S1, S2 without murmur, rub or gallop. ABDOMEN: Soft, nontender, nondistended, normoactive bowel sounds, no guarding, no rebound, no hepatosplenomegaly, no masses. EXTREMITIES: 2+ pulses, warm, well-perfused, no edema. NEUROLOGICAL: Cranial nerves II through XII grossly intact. Normal speech, gait not observed. PSYCH: Mildly agitated, normal affect. SKIN: Allevyn on sacral area, Warm, dry, normal turgor, no rashes or lesions noted Laboratory Results - last 24 hr 02/16/20 02/16/20 02/17/20 17:43 21:03 05:25 Sodium Potassium Chloride Carbon Dioxide Anion Gap BUN Creatinine Est GFR (CKD-EPI)AfAm Est GFR (CKD-EPI)NonAf POC Glucometer 149 269 159 Random Glucose Calcium Magnesium Total Bilirubin AST ALT Alkaline Phosphatase Total Protein Albumin 02/17/20 02/17/20 08:54 12:11 Sodium 147 H Potassium 3.4 L Chloride 120 H Carbon Dioxide 21 Anion Gap 7 L BUN 33.7 H Creatinine 2.0 H Est GFR (CKD-EPI)AfAm 25.73 Est GFR (CKD-EPI)NonAf 22.20 POC Glucometer 257 Random Glucose 189 H Calcium 7.4 L Magnesium 1.8 Total Bilirubin 0.3 AST 33 ALT 24 Alkaline Phosphatase 48 Total Protein 5.9 L Albumin 2.3 L Active Medications Generic Name Dose Route Start Last Admin Trade Name Freq PRN Reason Stop Dose Admin Allopurinol 100 mg 02/16/20 10:00 02/17/20 10:30 Zyloprim - PO 100 mg DAILY [facility] Administration Amlodipine Besylate 2.5 mg 02/17/20 10:00 02/17/20 10:31 Norvasc - PO 2.5 mg DAILY [facility] Administration Aspirin 81 mg 02/16/20 10:00 02/17/20 10:31 Asa - PO 81 mg DAILY [facility] Administration Atorvastatin Calcium 20 mg 02/15/20 22:00 02/16/20 21:07 Lipitor - PO 20 mg HS [facility] Administration Bisacodyl 5 mg 02/15/20 15:48 Dulcolax - PO DAILY PRN CONSTIPATION Clopidogrel Bisulfate 75 mg 02/16/20 10:00 02/17/20 10:30 Plavix - PO 75 mg DAILY [facility] Administration Ceftriaxone Sodium 1 gm/ 50 mls @ 200 mls/hr 02/16/20 10:00 02/17/20 10:30 Dextrose IVPB 200 mls/hr DAILY [facility] Administration Protocol Metronidazole 500 mg in 100 mls @ 100 mls/hr 02/15/20 18:00 02/17/20 10:30 Flagyl 500mg Premixed Ivpb - IVPB 100 mls/hr Q8H-IV [facility] Administration Potassium Chloride 20 meq/ 1,010 mls @ 83 mls/hr 02/16/20 13:00 02/17/20 06:26 Dextrose IVPB 83 mls/hr Q12H [facility] Administration Insulin Aspart 1 vial 02/15/20 16:30 02/17/20 06:20 Novolog Vial Sliding Scale - SQ 2 units ACHS [facility] Administration Protocol Levothyroxine Sodium 50 mcg 02/17/20 07:00 07/14/20 06:22 Synthroid - PO 50 mcg DAILY@0700 [facility] Administration Memantine 5 mg 02/16/20 10:00 02/17/20 10:31 Namenda - PO 5 mg DAILY [facility] Administration Pantoprazole Sodium 20 mg 02/16/20 10:00 02/17/20 10:30 Protonix - PO 20 mg DAILY [facility] Administration Polyethylene Glycol 17 gm 02/15/20 22:00 02/17/20 10:31 Miralax (For Daily Use) - PO 17 grams BID [facility] Administration ASSESSMENT/PLAN: Problem List - Problems (1) Aspiration pneumonia Assessment/Plan: s/p intubation 02/12 extubated 02/13 MBS done 02/15 - shows silent aspiration - started on dysphagia puree diet w/ thick liquids continue IV abx maintain spo2 >90%, currently on 2L nasal cannula ID following Code(s): J69.0 - PNEUMONITIS DUE TO INHALATION OF FOOD AND VOMIT (2) Acute kidney injury superimposed on chronic kidney disease Assessment/Plan: creatinine today is 2.0 (4.6 on admission), baseline is 1.9 continue to hold lasix continue IV fluids d5w with KCL Code(s): N17.9 - ACUTE KIDNEY FAILURE, UNSPECIFIED; N18.9 - CHRONIC KIDNEY DISEASE, UNSPECIFIED (3) Acute respiratory failure with hypoxia and hypercarbia Code(s): J96.01 - ACUTE RESPIRATORY FAILURE WITH HYPOXIA; J96.02 - ACUTE RESPIRATORY FAILURE WITH HYPERCAPNIA (4) Altered mental state Assessment/Plan: pt with hx of alzhemier's dementia AMS likely d/t infection continue namenda fall precautions Code(s): R41.82 - ALTERED MENTAL STATUS, UNSPECIFIED (5) Hypernatremia Assessment/Plan: downtrending, Na today 147 continue IVF Renal following Code(s): E87.0 - HYPEROSMOLALITY AND HYPERNATREMIA (6) Urinary retention Assessment/Plan: maintain grajeda TOV prior to discharge Code(s): R33.9 - RETENTION OF URINE, UNSPECIFIED (7) CAD (coronary artery disease) Assessment/Plan: continue lipitor, asa, and plavix trop elevation, likely d/t KYLER/sepsis cardiology following Code(s): I25.10 - ATHSCL HEART DISEASE OF [place] CORONARY ARTERY W/O ANG PCTRS (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 Assessment/Plan: continue namenda Code(s): G20 - PARKINSON'S DISEASE; F02.80 - DEMENTIA IN OTH DISEASES CLASSD ELSWHR W/O BEHAVRL DISTURB (9) H/O aortic valve replacement Code(s): Z95.2 - PRESENCE OF PROSTHETIC HEART VALVE (10) HFrEF (heart failure with reduced ejection fraction) Assessment/Plan: continue to hold lasix monitor for s/s fluid overload Code(s): I50.20 - UNSPECIFIED SYSTOLIC (CONGESTIVE) HEART FAILURE (11) HLD (hyperlipidemia) Assessment/Plan: continue lipitor Code(s): E78.5 - HYPERLIPIDEMIA, UNSPECIFIED (12) HTN (hypertension) Assessment/Plan: continue norvasc Code(s): I10 - ESSENTIAL (PRIMARY) HYPERTENSION (13) Non-insulin dependent diabetes mellitus Assessment/Plan: continue BGMs continue ISS Code(s): [id number] - (14) Parkinson disease Code(s): G20 - PARKINSON'S DISEASE (15) DNR (do not resuscitate) Code(s): Z66 - DO NOT RESUSCITATE (16) DVT prophylaxis Assessment/Plan: on asa and plavix oob with PT daily FEN continue IV fluids dysphagia diet w/ thick liquids and ensure spoke to son Parrish to update on pt's status Code(s): Z29.9 - ENCOUNTER FOR PROPHYLACTIC MEASURES, UNSPECIFIED Visit type - Emergency Visit Emergency Visit: Yes ED Registration Date: 02/12/20 Care time: The patient presented to the Emergency Department on the above date and was hospitalized for further evaluation of their emergent condition. - New Patient This patient is new to me today: Yes Date on this admission: 02/17/20 - Critical Care Critical Care patient: No - Discharge Referral Referred to [facility] Med P.C.: No
[2020-02-17] MEDS ORDERED: PT OWN MED DRAWER 7, Y5N ONE (14:54)
[2020-02-17] MEDS ORDERED: POTASSIUM CHLORIDE ORAL LIQUID 20 MEQ/15 ML PO ONE (15:57)
--- NOTE | 2020-02-17 16:00 | PN ---
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, Physician History of Present Illness: Pt seen and examined at bedside. SHe remains confused. She is tolerating diet but needs one to one feeds. - Current Medication List Current Medications: Active Medications Allopurinol (Zyloprim -) 100 mg PO DAILY [facility] Last Admin: 02/17/20 10:30 Dose: 100 mg Documented by: Amlodipine Besylate (Norvasc -) 2.5 mg PO DAILY [facility] Last Admin: 02/17/20 10:31 Dose: 2.5 mg Documented by: Aspirin (Asa -) 81 mg PO DAILY [facility] Last Admin: 02/17/20 10:31 Dose: 81 mg Documented by: Atorvastatin Calcium (Lipitor -) 20 mg PO HS [facility] Last Admin: 02/16/20 21:07 Dose: 20 mg Documented by: Bisacodyl (Dulcolax -) 5 mg PO DAILY PRN PRN Reason: CONSTIPATION Clopidogrel Bisulfate (Plavix -) 75 mg PO DAILY [facility] Last Admin: 02/17/20 10:30 Dose: 75 mg Documented by: Ceftriaxone Sodium 1 gm/ (Dextrose) 50 mls @ 200 mls/hr IVPB DAILY [facility]; Protoco l Last Admin: 02/17/20 10:30 Dose: 200 mls/hr Documented by: Metronidazole (Flagyl 500mg Premixed Ivpb -) 500 mg in 100 mls @ 100 mls/hr IVPB Q8H-IV [facility] Last Admin: 02/17/20 10:30 Dose: 100 mls/hr Documented by: Potassium Chloride 20 meq/ (Dextrose) 1,010 mls @ 83 mls/hr IVPB Q12H [facility] Last Admin: 02/17/20 06:26 Dose: 83 mls/hr Documented by: Insulin Aspart (Novolog Vial Sliding Scale -) 1 vial SQ ACHS [facility]; Protocol Last Admin: 02/17/20 14:43 Dose: 6 units Documented by: Levothyroxine Sodium (Synthroid -) 50 mcg PO DAILY@0700 [facility] Last Admin: 02/17/20 06:22 Dose: 50 mcg Documented by: Memantine (Namenda -) 5 mg PO DAILY [facility] Last Admin: 02/17/20 10:31 Dose: 5 mg Documented by: Pantoprazole Sodium (Protonix -) 20 mg PO DAILY [facility] Last Admin: 02/17/20 10:30 Dose: 20 mg Documented by: Polyethylene Glycol (Miralax (For Daily Use) -) 17 gm PO BID [facility] Last Admin: 02/17/20 10:31 Dose: 17 grams Documented by: Potassium Chloride (Potassium Chloride Oral Liquid) 40 meq PO ONCE ONE Stop: 02/17/20 15:58 - Objective Vital Signs: Vital Signs Temperature 97.5 F L 02/17/20 14:15 Pulse Rate 84 02/17/20 14:15 Respiratory Rate 18 02/17/20 14:15 Blood Pressure 134/72 02/17/20 14:15 O2 Sat by Pulse Oximetry (%) 93 L 02/17/20 10:00 Constitutional: Yes: Calm Eyes: Yes: Conjunctiva Clear HENT: Yes: Atraumatic Neck: Yes: Supple Cardiovascular: Yes: S1, S2 Respiratory: Yes: CTA Bilaterally Gastrointestinal: Yes: Soft Genitourinary: Yes: Incontinence Musculoskeletal: Yes: Muscle Weakness Edema: No Integumentary: Yes: WNL Neurological: Yes: Confusion Labs: CBC, BMP 02/16/20 06:40 02/17/20 08:54 INR, PTT INR 1.11 (0.83-1.09) H 02/12/20 14:00 Problem List - Problems (1) KYLER (acute kidney injury) Code(s): N17.9 - ACUTE KIDNEY FAILURE, UNSPECIFIED (2) Hypernatremia Code(s): E87.0 - HYPEROSMOLALITY AND HYPERNATREMIA (3) Altered mental state Code(s): R41.82 - ALTERED MENTAL STATUS, UNSPECIFIED Assessment/Plan Current Medications Generic Name Dose Route Start Last Admin Trade Name Jasbirq PRN Reason Stop Dose Admin Allopurinol 100 mg 02/16/20 10:00 02/17/20 10:30 Zyloprim - PO 100 mg DAILY [facility] Administration Amlodipine Besylate 2.5 mg 02/17/20 10:00 02/17/20 10:31 Norvasc - PO 2.5 mg DAILY [facility] Administration Aspirin 81 mg 02/16/20 10:00 02/17/20 10:31 Asa - PO 81 mg DAILY [facility] Administration Atorvastatin Calcium 20 mg 02/15/20 22:00 02/16/20 21:07 Lipitor - PO 20 mg HS [facility] Administration Bisacodyl 5 mg 02/15/20 15:48 Dulcolax - PO DAILY PRN CONSTIPATION Clopidogrel Bisulfate 75 mg 02/16/20 10:00 02/17/20 10:30 Plavix - PO 75 mg DAILY [facility] Administration Ceftriaxone Sodium 1 gm/ 50 mls @ 200 mls/hr 02/16/20 10:00 02/17/20 10:30 Dextrose IVPB 200 mls/hr DAILY [facility] Administration Protocol Metronidazole 500 mg in 100 mls @ 100 mls/hr 02/15/20 18:00 02/17/20 10:30 Flagyl 500mg Premixed Ivpb - IVPB 100 mls/hr Q8H-IV [facility] Administration Potassium Chloride 20 meq/ 1,010 mls @ 83 mls/hr 02/16/20 13:00 02/17/20 06:2 6 Dextrose IVPB 83 mls/hr Q12H [facility] Administration Insulin Aspart 1 vial 02/15/20 16:30 02/17/20 14:43 Novolog Vial Sliding Scale - SQ 6 units ACHS [facility] Administration Protocol Levothyroxine Sodium 50 mcg 02/17/20 07:00 02/17/20 06:22 Synthroid - PO 50 mcg DAILY@0700 [facility] Administration Memantine 5 mg 02/16/20 10:00 02/17/20 10:31 Namenda - PO 5 mg DAILY [facility] Administration Pantoprazole Sodium 20 mg 02/16/20 10:00 02/17/20 10:30 Protonix - PO 20 mg DAILY [facility] Administration Polyethylene Glycol 17 gm 02/15/20 22:00 02/17/20 10:31 Miralax (For Daily Use) - PO 17 grams BID [facility] Administration Potassium Chloride 40 meq 02/17/20 15:57 Potassium Chloride Oral Liquid PO 02/17/20 15:58 ONCE ONE Impression 1. KYLER 2. urinary obstruction 3. hypernatremia 4. altered mental status 5. dm 6. hx htn 7. cad 8. chf 9. ckd 10. s/p tavr 11. hypokalemia Plan - cont fluids, will decrease rate - sodium improving - replace potassium - cont one to one feeds - lasix is on hold for now - grajeda for retention - renal function is improving
[2020-02-17] MEDS: ATORVASTATIN CA 20 MG TABLET (FP) PO SCH (21:06)
[2020-02-17] MEDS ORDERED: INSULIN (NOVOLOG) ASPART 100 UNITS/ML 10ML VIAL ONE (21:13)
[2020-02-17 22:26] VITALS: BMI 24.5
[2020-02-18] MEDS: POTASSIUM CHLORIDE 20 MEQ in DEXTROSE 5%-WATER - 1,000 ML IVPB SCH ×2 (01:05→15:00)
[2020-02-18] MEDS: LEVOTHYROXINE NA 50 MCG TABLET (FP) PO SCH (06:10)
[2020-02-18] MEDS: INSULIN SLIDING SCALE (NOVOLOG) 1 VIAL SQ SCH ×4 (06:10→23:03)
[2020-02-18 06:43] LABS: BASO % 0.8 % (0-2.0); EOS % 3.2 % (0-4.5); HEMATOCRIT 25.3 % (32.4-45.2); HEMOGLOBIN 7.9 GM/dL (10.7-15.3); LYMPH % 28.5 % (8-40); MCH 26.5 pg (25.7-33.7); MCHC 31.2 g/dl (32.0-36.0); MEAN PLT VOLUME 8.9 fl (7.5-11.1); MONO % 7.1 % (3.8-10.2); NEUT % 60.4 % (42.8-82.8); PLATELET COUNT 145 K/MM3 (134-434); RBC 2.98 M/mm3 (3.60-5.2); RDW 20.2 % (11.6-15.6); WHITE BLOOD COUNT 6.5 K/mm3 (4.0-10.0)
[2020-02-18 07:06] LABS: ALBUMIN 2.4 g/dl (3.4-5.0); BILIRUBIN,TOTAL 0.4 mg/dL (0.2-1); BLOOD UREA NITROGEN 27.8 mg/dL (7-18); CALCIUM 7.7 mg/dL (8.5-10.1); CREATININE 1.9 mg/dL (0.55-1.3); MAGNESIUM 1.6 mg/dL (1.8-2.4); POTASSIUM 4.1 mmol/L (3.5-5.1); TOT PROT 5.8 g/dl (6.4-8.2)
[2020-02-18] MEDS ORDERED: MAGNESIUM SULF 50% (8.12 MEQ/2 ML-1 GM VIAL) IVPB ONE ×2 (08:06→11:43)
[2020-02-18] MEDS ORDERED: DEXTROSE 5%-WATER - 50 ML IVPB ONE (09:13)
[2020-02-18] MEDS ORDERED: cefTRIAXone SODIUM 1 GM VIAL ONE (09:13)
--- NOTE | 2020-02-18 10:25 | PN ---
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, MOSHGIACH - Note 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: Selected Entries 02/17/20 02/17/20 02/17/20 11:14 15:54 18:00 Breakfast 100% Lunch 75% Supper 100% Temperature Pulse Rate Blood Pressure 02/18/20 02/18/20 01:49 05:52 Breakfast Lunch Supper Temperature 97.9 F 98.2 F Pulse Rate 77 84 Blood Pressure 142/64 138/62 Laboratory Tests 02/18/20 05:50 WBC 6.5 Swallow onset is effortful.Tip of tongue dry. Downgraded to Puree/honey thick liquid for now, as [employer] M[employer]ER reported cough response with nectar thick liquid. Aspiration precautions Monitor tolerance
[2020-02-18] MEDS ORDERED: PT OWN MED DRAWER 7, Y5N ONE ×2 (10:48→11:27)
[2020-02-18] MEDS: CEFTRIAXONE 1 GM in DEXTROSE 5%-WATER - 50 ML IVPB SCH (10:53)
--- NOTE | 2020-02-18 10:59 | PN ---
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, Physician History of Present Illness: pulmonary awake,alert,non-verbal,comfortable,-resp distress on nasal o2 2l - Current Medication List Current Medications: Active Medications Allopurinol (Zyloprim -) 100 mg PO DAILY [facility] Last Admin: 02/17/20 10:30 Dose: 100 mg Documented by: Amlodipine Besylate (Norvasc -) 2.5 mg PO DAILY [facility] Last Admin: 02/17/20 10:31 Dose: 2.5 mg Documented by: Aspirin (Asa -) 81 mg PO DAILY [facility] Last Admin: 02/17/20 10:31 Dose: 81 mg Documented by: Atorvastatin Calcium (Lipitor -) 20 mg PO HS [facility] Last Admin: 02/17/20 21:06 Dose: 20 mg Documented by: Bisacodyl (Dulcolax -) 5 mg PO DAILY PRN PRN Reason: CONSTIPATION Clopidogrel Bisulfate (Plavix -) 75 mg PO DAILY [facility] Last Admin: 02/17/20 10:30 Dose: 75 mg Documented by: Ceftriaxone Sodium 1 gm/ (Dextrose) 50 mls @ 200 mls/hr IVPB DAILY [facility]; Protocol Last Admin: 02/17/20 10:30 Dose: 200 mls/hr Documented by: Metronidazole (Flagyl 500mg Premixed Ivpb -) 500 mg in 100 mls @ 100 mls/hr IVPB Q8H-IV [facility] Last Admin: 02/18/20 01:17 Dose: 100 mls/hr Documented by: Potassium Chloride 20 meq/ (Dextrose) 1,010 mls @ 83 mls/hr IVPB Q12H [facility] Last Admin: 02/18/20 01:05 Dose: Not Given Documented by: Insulin Aspart (Novolog Vial Sliding Scale -) 1 vial SQ ACHS [facility]; Protocol Last Admin: 02/18/20 06:10 Dose: 4 units Documented by: Levothyroxine Sodium (Synthroid -) 50 mcg PO DAILY@0700 [facility] Last Admin: 02/18/20 06:10 Dose: 50 mcg Documented by: Magnesium Sulfate (Magnesium Sulf 2 G/50 Ml Bag) 2 gm IVPB ONCE ONE Stop: 02/18/20 11:01 Memantine (Namenda -) 5 mg PO DAILY [facility] Last Admin: 02/17/20 10:31 Dose: 5 mg Documented by: Pantoprazole Sodium (Protonix -) 20 mg PO DAILY [facility] Last Admin: 02/17/20 10:30 Dose: 20 mg Documented by: Polyethylene Glycol (Miralax (For Daily Use) -) 17 gm PO BID [facility] Last Admin: 02/17/20 21:06 Dose: 17 grams Documented by: - Objective Vital Signs: Vital Signs Temperature 97.9 F 02/18/20 10:00 Pulse Rate 101 H 02/18/20 10:00 Respiratory Rate 18 02/18/20 10:00 Blood Pressure 130/71 02/18/20 10:00 O2 Sat by Pulse Oximetry (%) 100 02/18/20 10:00 Constitutional: Yes: Well Nourished, Calm Eyes: Yes: WNL HENT: Yes: WNL Neck: Yes: WNL Cardiovascular: Yes: Regular Rate and Rhythm, S1, S2 Respiratory: Yes: Other (poor inspiratory effort) Gastrointestinal: Yes: Normal Bowel Sounds, Soft Extremities: Yes: WNL Edema: No Labs: CBC, BMP 02/18/20 05:50 02/18/20 05:50 INR, PTT INR 1.11 (0.83-1.09) H 02/12/20 14:00 Problem List - Problems (1) Acute kidney injury superimposed on chronic kidney disease Code(s): N17.9 - ACUTE KIDNEY FAILURE, UNSPECIFIED; N18.9 - CHRONIC KIDNEY DISEASE, UNSPECIFIED (2) Acute respiratory failure with hypoxia and hypercarbia Code(s): J96.01 - ACUTE RESPIRATORY FAILURE WITH HYPOXIA; J96.02 - ACUTE RESPIRATORY FAILURE WITH HYPERCAPNIA (3) Altered mental state Code(s): R41.82 - ALTERED MENTAL STATUS, UNSPECIFIED (4) Hypernatremia Code(s): E87.0 - HYPEROSMOLALITY AND HYPERNATREMIA (5) CAD (coronary artery disease) Code(s): I25.10 - ATHSCL HEART DISEASE OF [place] CORONARY ARTERY W/O ANG PCTRS (6) H/O aortic valve replacement Code(s): Z95.2 - PRESENCE OF PROSTHETIC HEART VALVE (7) HLD (hyperlipidemia) Code(s): E78.5 - HYPERLIPIDEMIA, UNSPECIFIED (8) HTN (hypertension) Code(s): I10 - ESSENTIAL (PRIMARY) HYPERTENSION Assessment/Plan A/P Acute Hypercapneic and Hypoxic Respiratory Failure improving Pneumonia Sepsis Acute Kidney Injury LV Systolic Dysfunction +Troponins likely Demand Ischemia HTN h/o TAVR Hypernatremia Parkinsons Dementia - continue antibiotics - O2 to keep SpO2 >90% - free water replacement - monitor urine output, creatinine,na. - aspiration precautions - DVT prophylaxis DR RAE
[2020-02-18] MEDS ORDERED: MAGNESIUM 2GM/50ML STERILE WATER IVPB IVPB ONE (11:00)
[2020-02-18] MEDS: ALLOPURINOL 100 MG TABLET (FP) PO SCH (11:02)
[2020-02-18] MEDS: CLOPIDOGREL BISULFATE 75 MG TABLET (FP) PO SCH (11:02)
[2020-02-18] MEDS: amLODIPine BESYLATE 2.5 MG TABLET (FP) PO SCH (11:02)
[2020-02-18] MEDS: ASPIRIN 81 MG CHEWABLE TABLETS PO SCH (11:02)
[2020-02-18] MEDS: PANTOPRAZOLE 20 MG TABLET PO SCH (11:02)
[2020-02-18] MEDS: MEMANTINE HCL 5 MG TABLET (UD) PO SCH (11:02)
[2020-02-18] MEDS: POLYETHYLENE GLYCOL 3350 119 GM BTL PO SCH ×2 (11:03→23:00)
[2020-02-18] MEDS ORDERED: MAGNESIUM SULFATE IN WATER 2 GM/50 ML IVPB IVPB ONE (11:45)
--- NOTE | 2020-02-18 11:46 | PN ---
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, Physician History of Present Illness: Pt seen and examined at bedside. She does wake up to eat. She needs assistance with feeding. She remains confused. - Current Medication List Current Medications: Active Medications Allopurinol (Zyloprim -) 100 mg PO DAILY [facility] Last Admin: 02/18/20 11:02 Dose: 100 mg Documented by: Amlodipine Besylate (Norvasc -) 2.5 mg PO DAILY [facility] Last Admin: 02/18/20 11:02 Dose: 2.5 mg Documented by: Aspirin (Asa -) 81 mg PO DAILY [facility] Last Admin: 02/18/20 11:02 Dose: 81 mg Documented by: Atorvastatin Calcium (Lipitor -) 20 mg PO HS [facility] Last Admin: 02/17/20 21:06 Dose: 20 mg Documented by: Bisacodyl (Dulcolax -) 5 mg PO DAILY PRN PRN Reason: CONSTIPATION Clopidogrel Bisulfate (Plavix -) 75 mg PO DAILY [facility] Last Admin: 02/18/20 11:02 Dose: 75 mg Documented by: Ceftriaxone Sodium 1 gm/ (Dextrose) 50 mls @ 200 mls/hr IVPB DAILY [facility]; Protocol Last Admin: 02/18/20 10:53 Dose: 200 mls/hr Documented by: Metronidazole (Flagyl 500mg Premixed Ivpb -) 500 mg in 100 mls @ 100 mls/hr IVPB Q8H-IV [facility] Last Admin: 02/18/20 10:54 Dose: 100 mls/hr Documented by: Potassium Chloride 20 meq/ (Dextrose) 1,010 mls @ 83 mls/hr IVPB Q12H [facility] Last Admin: 02/18/20 01:05 Dose: Not Given Documented by: Insulin Aspart (Novolog Vial Sliding Scale -) 1 vial SQ ACHS [facility]; Protocol Last Admin: 02/18/20 11:16 Dose: 6 units Documented by: Levothyroxine Sodium (Synthroid -) 50 mcg PO DAILY@0700 [facility] Last Admin: 02/18/20 06:10 Dose: 50 mcg Documented by: Magnesium Sulfate (Magnesium Sulfate) 2 gm IVPB ONCE ONE Stop: 02/18/20 11:44 Memantine (Namenda -) 5 mg PO DAILY [facility] Last Admin: 02/18/20 11:02 Dose: 5 mg Documented by: Pantoprazole Sodium (Protonix -) 20 mg PO DAILY [facility] Last Admin: 02/18/20 11:02 Dose: 20 mg Documented by: Polyethylene Glycol (Miralax (For Daily Use) -) 17 gm PO BID [facility] Last Admin: 02/18/20 11:03 Dose: Not Given Documented by: - Objective Vital Signs: Vital Signs Temperature 97.9 F 02/18/20 10:00 Pulse Rate 101 H 02/18/20 10:00 Respiratory Rate 18 02/18/20 10:00 Blood Pressure 130/71 02/18/20 10:00 O2 Sat by Pulse Oximetry (%) 100 02/18/20 10:00 Constitutional: Yes: Calm Eyes: Yes: Conjunctiva Clear HENT: Yes: Atraumatic Neck: Yes: Supple Cardiovascular: Yes: S1, S2 Respiratory: Yes: CTA Bilaterally Gastrointestinal: Yes: Soft Genitourinary: Yes: Incontinence Musculoskeletal: Yes: Muscle Weakness Edema: No Neurological: Yes: Confusion Labs: CBC, BMP 02/18/20 05:50 02/18/20 05:50 INR, PTT INR 1.11 (0.83-1.09) H 02/12/20 14:00 Problem List - Problems (1) KYLER (acute kidney injury) Code(s): N17.9 - ACUTE KIDNEY FAILURE, UNSPECIFIED (2) Hypernatremia Code(s): E87.0 - HYPEROSMOLALITY AND HYPERNATREMIA (3) Altered mental state Code(s): R41.82 - ALTERED MENTAL STATUS, UNSPECIFIED Assessment/Plan Current Medications Generic Name Dose Route Start Last Admin Trade Name Freq PRN Reason Stop Dose Admin Allopurinol 100 mg 02/16/20 10:00 02/18/20 11:02 Zyloprim - PO 100 mg DAILY [facility] Administration Amlodipine Besylate 2.5 mg 02/17/20 10:00 02/18/20 11:02 Norvasc - PO 2.5 mg DAILY [facility] Administration Aspirin 81 mg 02/16/20 10:00 02/18/20 11:02 Asa - PO 81 mg DAILY [facility] Administration Atorvastatin Calcium 20 mg 02/15/20 22:00 02/17/20 21:06 Lipitor - PO 20 mg HS [facility] Administration Bisacodyl 5 mg 02/15/20 15:48 Dulcolax - PO DAILY PRN CONSTIPATION Clopidogrel Bisulfate 75 mg 02/16/20 10:00 02/18/20 11:02 Plavix - PO 75 mg DAILY [facility] Administration Ceftriaxone Sodium 1 gm/ 50 mls @ 200 mls/hr 02/16/20 10:00 02/18/20 10:53 Dextrose IVPB 200 mls/hr DAILY [facility] Administration Protocol Metronidazole 500 mg in 100 mls @ 100 mls/hr 02/15/20 18:00 02/18/20 10:54 Flagyl 500mg Premixed Ivpb - IVPB 100 mls/hr Q8H-IV [facility] Administration Potassium Chloride 20 meq/ 1,010 mls @ 83 mls/hr 02/16/20 13:00 02/18/20 01:05 Dextrose IVPB Not Given Q12H [facility] Magnesium Sulfate 2 gm in 50 mls @ 50 mls/hr 02/18/20 11:45 Magnesium Sulf 2 G/50 Ml Bag IVPB 02/18/20 12:44 ONCE ONE Insulin Aspart 1 vial 02/15/20 16:30 02/18/20 11:16 Novolog Vial Sliding Scale - SQ 6 units ACHS [facility] Administration Protocol Levothyroxine Sodium 50 mcg 02/17/20 07:00 02/18/20 06:10 Synthroid - PO 50 mcg DAILY@0700 [facility] Administration Memantine 5 mg 02/16/20 10:00 02/18/20 11:02 Namenda - PO 5 mg DAILY [facility] Administration Pantoprazole Sodium 20 mg 02/16/20 10:00 02/18/20 11:02 Protonix - PO 20 mg DAILY [facility] Administration Polyethylene Glycol 17 gm 02/15/20 22:00 02/18/20 11:03 Miralax (For Daily Use) - PO Not Given BID [facility] Impression 1. KYLER 2. urinary obstruction 3. hypernatremia 4. altered mental status 5. dm 6. hx htn 7. cad 8. chf 9. ckd 10. s/p tavr 11. 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
--- NOTE | 2020-02-18 11:57 | PN ---
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 (short form) - Note 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: s: unable to obtain hpi, ros due to mental status, not verbal. appears comfortable Current Medications Generic Name Dose Route Start Last Admin Trade Name Jewell PRN Reason Stop Dose Admin Allopurinol 100 mg 02/16/20 10:00 02/18/20 11:02 Zyloprim - PO 100 mg DAILY [facility] Administration Amlodipine Besylate 2.5 mg 02/17/20 10:00 02/18/20 11:02 Norvasc - PO 2.5 mg DAILY [facility] Administration Aspirin 81 mg 02/16/20 10:00 02/18/20 11:02 Asa - PO 81 mg DAILY [facility] Administration Atorvastatin Calcium 20 mg 02/15/20 22:00 02/17/20 21:06 Lipitor - PO 20 mg HS [facility] Administration Bisacodyl 5 mg 02/15/20 15:48 Dulcolax - PO DAILY PRN CONSTIPATION Clopidogrel Bisulfate 75 mg 02/16/20 10:00 02/18/20 11:02 Plavix - PO 75 mg DAILY [facility] Administration Ceftriaxone Sodium 1 gm/ 50 mls @ 200 mls/hr 02/16/20 10:00 02/18/20 10:53 Dextrose IVPB 200 mls/hr DAILY [facility] Administration Protocol Metronidazole 500 mg in 100 mls @ 100 mls/hr 02/15/20 18:00 02/18/20 10:54 Flagyl 500mg Premixed Ivpb - IVPB 100 mls/hr Q8H-IV [facility] Administration Potassium Chloride 20 meq/ 1,010 mls @ 83 mls/hr 02/16/20 13:00 02/18/20 01 :05 Dextrose IVPB Not Given Q12H [facility] Magnesium Sulfate 2 gm in 50 mls @ 50 mls/hr 02/18/20 11:45 Magnesium Sulf 2 G/50 Ml Bag IVPB 02/18/20 12:44 ONCE ONE Insulin Aspart 1 vial 02/15/20 16:30 02/18/20 11:16 Novolog Vial Sliding Scale - SQ 6 units ACHS [facility] Administration Protocol Levothyroxine Sodium 50 mcg 02/17/20 07:00 02/18/20 06:10 Synthroid - PO 50 mcg DAILY@0700 [facility] Administration Memantine 5 mg 02/16/20 10:00 02/18/20 11:02 Namenda - PO 5 mg DAILY [facility] Administration Pantoprazole Sodium 20 mg 02/16/20 10:00 02/18/20 11:02 Protonix - PO 20 mg DAILY [facility] Administration Polyethylene Glycol 17 gm 02/15/20 22:00 02/18/20 11:03 Miralax (For Daily Use) - PO Not Given BID [facility] Vital Signs Period Temp Pulse Resp BP Sys/[place] Pulse Ox Last 24 Hr 97.5 F-98.2 F 74-101 18-20 130-142/62-72 95-100 nad no jvd cta bl rrr s1s2 no mrg abd nd pos bs no jaundice diaphoresis pos dp pt no le e/c/c awake, confused tele: sr, PVCs echo 01/2020: lvef 33%, nl rv, no sig valve path, mild phtn ecg: 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 ams, resp failure, sepsis: -now extubated -abx per ID kody on ckd: -baseline cr 1.9, now in 4s on admit -Cr improved with IVF. given chf hx monitor vol status closely - renal following chronic syst chf: -fluids as above -holding po lasix (was on 20 qod) htn: - amlodipine resumed, would increase to 5 mg daily if BP remains elevated cad: -non obs cad on recent cath -borderline trop elevation here with flat trend, not c/w acs, likely from kody, sepsis -cont dapt, statin as s/p tavr: -recent tavr with post op echo 01/2020 showing good valve fcn -cont dapt for 6 mos post tavr
--- NOTE | 2020-02-18 12:49 | PN ---
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 (short form) - Note 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: on modified diet after swalloing evaluation lethargic Vital Signs Period Temp Pulse Resp BP Sys/[place] Pulse Ox Last 24 Hr 97.5 F-98.2 F 74-101 18-20 130-142/62-72 95-100 cor-rrr lungs decreased bs at bases abd soft,nt ext no edema CBC, BMP 02/18/20 05:50 02/18/20 05:50 Microbiology 02/12/20 14:00 Blood - Peripheral Venous Blood Culture - Final NO GROWTH AFTER 5 DAYS INCUBATION 02/12/20 14:00 Blood - Peripheral Venous Blood Culture - Final NO GROWTH AFTER 5 DAYS INCUBATION 02/13/20 12:00 Sputum - Endotrachea Suction/Ventilator Gram Stain - Final 02/13/20 12:00 Sputum - Endotrachea Suction/Ventilator Sputum Culture - Final NORMAL RESPIRATORY HORACIO 02/13/20 12:00 Urine For Antigen Detection Legionella Antigen - Final 02/13/20 12:00 Urine For Antigen Detection Streptococcus pneumoniae Antigen (M - Final 02/12/20 14:00 Urine - Urine Oliveros Urine Culture - Final NO GROWTH OBTAINED a/p acute resp failure- hypercapneic resp falure -extubated now KYLER/CKD-improving r/o pneumonia-bibasilar infiltrates-day #5 antibiotics would complete 7 days total s/p TAVR 01/25 Parkinsons disease
--- NOTE | 2020-02-18 14:13 | DS ---
Physical Exam: SUBJECTIVE: Patient seen and examined. Appears comfortable at rest. In no acute distress. Per RN, patient ate full lunch (total feed) and tolerated it well. OBJECTIVE: The patient is a 85 year old female with a significant past medical history of Parkinson's, Alzheimer's dementia, HLD, HTN, CAD, CHF, CKD, liver disease and DM, who presents to the ED BIBA from [facility] for AMS and lethargy x2 days. Per MI the patient has been on abx for the past 2 day for pneumonia. Pt was COVID negative on 02/05/20. Pt is a poor historian. Pt noted to be septic, hypercapneic, acidotic, intubated on 02/12 in ICU and extubated on 02/13. Patient has been monitored on [facility] telemonitoring and followed by pulmonary, cardiology and nephrology. She is now tolerating 2-3 liter of nasal cannula and is stable for discharge back to [facility] with close monitoring of her kidney function which as improved since her hospital stay. per ID, can continue Augmentin for 2 more days, no further need for IV antibiotics Cleared by pulmonary for d/c home Discussed with Dr. Zee, recommends close monitoring of kidney function at MI per cardiology: hold lasix PO until renal function improves, can increase amlodopine if bp is elevated (currently stable.) Patient for discharge back to [facility] today. SEE HOSPITAL PROBLEM LIST BELOW Period Temp Pulse Resp BP Sys/[place] Pulse Ox Last 24 Hr 97.5 F-98.2 F 74-101 18-20 130-146/62-73 95-100 PHYSICAL EXAM GENERAL: The patient is awake, alert, confused, in no acute distress. HEAD: Normal with no signs of trauma. EYES: PERRL, extraocular movements intact, sclera anicteric, conjunctiva clear. No ptosis. ENT: Ears normal, nares patent, oropharynx clear without exudates, moist mucous membranes. NECK: Trachea midline, full range of motion, supple. LUNGS: Breath sounds equal, no wheezes, no crackles, no accessory muscle use. HEART: Regular rate and rhythm, nsr ABDOMEN: Soft, nontender, nondistended, normoactive bowel sounds EXTREMITIES: no edema. NEUROLOGICAL: Normal speech, gait not observed. PSYCH: Mildly agitated, normal affect. SKIN: Allevyn on sacral area, Warm, dry, normal turgor, no rashes or lesions noted - blanchable sacrum. turn and position q2 LABS Laboratory Results - last 24 hr 02/17/20 02/17/20 02/18/20 16:45 21:08 05:50 WBC 6.5 RBC 2.98 L Hgb 7.9 L Hct 25.3 L MCV 85.0 MCH 26.5 MCHC 31.2 L RDW 20.2 H Plt Count 145 MPV 8.9 Absolute Neuts (auto) 3.9 Neutrophils % 60.4 Lymphocytes % 28.5 D Monocytes % 7.1 Eosinophils % 3.2 Basophils % 0.8 Nucleated RBC % 0 Sodium Potassium Chloride Carbon Dioxide Anion Gap BUN Creatinine Est GFR (CKD-EPI)AfAm Est GFR (CKD-EPI)NonAf POC Glucometer 300 282 Random Glucose Calcium Magnesium Iron TIBC Iron Saturation Unsaturated IBC Total Bilirubin AST ALT Alkaline Phosphatase Total Protein Albumin Vitamin B12 Serum Folate 02/18/20 02/18/20 02/18/20 05:50 05:50 11:12 WBC RBC Hgb Hct MCV MCH MCHC RDW Plt Count MPV Absolute Neuts (auto) Neutrophils % Lymphocytes % Monocytes % Eosinophils % Basophils % Nucleated RBC % Sodium 146 H Potassium 4.1 Chloride 119 H Carbon Dioxide 20 L Anion Gap 8 BUN 27.8 H Creatinine 1.9 H Est GFR (CKD-EPI)AfAm 27.38 Est GFR (CKD-EPI)NonAf 23.62 POC Glucometer 207 288 Random Glucose 223 H Calcium 7.7 L Magnesium 1.6 L Iron 29 L TIBC 186 L Iron Saturation 15 L Unsaturated IBC 157 L Total Bilirubin 0.4 AST 28 ALT 22 Alkaline Phosphatase 52 Total Protein 5.8 L Albumin 2.4 L Vitamin B12 1381 H Serum Folate 29 H HOSPITAL COURSE: Date of Admission:02/12/20 Date of Discharge: 02/18/20 Minutes to complete discharge: 45 Discharge Summary Problems reviewed: Yes Reason For Visit: ACUTE KIDNEY INJURY HYPERNAT Altered Mental Status Current Active Problems Acute kidney injury superimposed on chronic kidney disease (Acute) Acute respiratory failure with hypoxia and hypercarbia (Acute) Altered mental state (Acute) Aspiration pneumonia (Acute) DNR (do not resuscitate) (Acute) DVT prophylaxis (Acute) Hypernatremia (Acute) Urinary retention (Acute) CAD (coronary artery disease) (Chronic) CKD (chronic kidney disease), stage IV (Chronic) Carotid stenosis, bilateral (Chronic) 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) Gout (Chronic) H/O aortic valve replacement (Chronic) HFrEF (heart failure with reduced ejection fraction) (Chronic) HLD (hyperlipidemia) (Chronic) HTN (hypertension) (Chronic) Hypothyroidism (Chronic) Non-insulin dependent diabetes mellitus (Chronic) Parkinson disease (Chronic) Condition: Guarded - Instructions Referrals: Blake Calvo MD [Primary Care Provider] - - Home Medications Comprehensive Discharge Medication List: Ambulatory Orders Acetaminophen [Tylenol .Regular Strength -] 650 mg PO Q6H PRN #0 tablet 09/02/13 Levothyroxine [Synthroid -] 50 mcg PO DAILY@0700 #0 tablet 09/02/13 Memantine HCl [Namenda -] 5 mg PO BID 09/05/13 Allopurinol [Zyloprim -] 100 mg PO DAILY 02/12/20 Amlodipine Besylate [Norvasc -] 5 mg PO DAILY 02/12/20 Aspirin 81 mg PO DAILY 02/12/20 Atorvastatin Ca [Lipitor] 20 mg PO HS 02/12/20 Bisacodyl 5 mg PO PRN 02/12/20 Ceftriaxone 1 G/50 ml Premix [Ceftriaxone 1 gm-D5w Bag] 1 gm IV DAILY 02/12/20 Clopidogrel Bisulfate [Clopidogrel] 75 mg PO DAILY 02/12/20 Furosemide [Lasix -] 20 mg PO DAILY 02/12/20 Glimepiride 4 mg PO DAILY 02/12/20 Pantoprazole Sodium [Protonix -] 20 mg PO DAILY 02/12/20 Polyethylene Glycol 3350 17 gm PO BID 02/12/20 Senna [place] Extract [Senna] 176 mg PO HS 02/12/20 Vitamin B Complex 1 each PO DAILY 02/12/20 Problem List - Problems (1) Aspiration pneumonia Assessment/Plan: s/p intubation 02/12 extubated 02/13 MBS done 02/15 - shows silent aspiration - started on dysphagia puree diet w/ thick liquids and should continue at facility with aspiration precautions will need Augmentin suspension for 2 more days maintain spo2 >90%, currently on 2L nasal cannula with stable oxygen sats ID following Code(s): J69.0 - PNEUMONITIS DUE TO INHALATION OF FOOD AND VOMIT (2) Acute kidney injury superimposed on chronic kidney disease Assessment/Plan: creatine improved since admission, currently 1.9, admitted with creat of 4.6. baseline 1.0 will need outpatient follow up. hold lasix Code(s): N17.9 - ACUTE KIDNEY FAILURE, UNSPECIFIED; N18.9 - CHRONIC KIDNEY DISEASE, UNSPECIFIED (3) Acute respiratory failure with hypoxia and hypercarbia Assessment/Plan: s/p extubation 02/13 continue nasal cannula 2L, oxygen stable cleared by pulmonary for outpatient follow up Code(s): J96.01 - ACUTE RESPIRATORY FAILURE WITH HYPOXIA; J96.02 - ACUTE RESPIRATORY FAILURE WITH HYPERCAPNIA (4) Altered mental state Assessment/Plan: pt with hx of alzhemier's dementia AMS likely d/t infection and multiple hospitalizations continue namenda fall precautions Code(s): R41.82 - ALTERED MENTAL STATUS, UNSPECIFIED (5) Hypernatremia Assessment/Plan: downtrending, Na today 146 will need close monitoring of oral intake at MI Renal following, cleared for d/c with monitoring of electrolytes Code(s): E87.0 - HYPEROSMOLALITY AND HYPERNATREMIA (6) Urinary retention Assessment/Plan: incontinent/uses diaper. monitor skin Code(s): R33.9 - RETENTION OF URINE, UNSPECIFIED (7) CAD (coronary artery disease) Assessment/Plan: continue lipitor, asa, and plavix trop elevation, likely d/t KYLER/sepsis per cards borderline elevated trops with flat trend not consistent with ACS continue statin therapy Code(s): I25.10 - ATHSCL HEART DISEASE OF [place] CORONARY ARTERY W/O ANG PCTRS (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 Assessment/Plan: continue namenda Code(s): G20 - PARKINSON'S DISEASE; F02.80 - DEMENTIA IN OTH DISEASES CLASSD ELSWHR W/O BEHAVRL DISTURB (9) H/O aortic valve replacement Code(s): Z95.2 - PRESENCE OF PROSTHETIC HEART VALVE (10) HFrEF (heart failure with reduced ejection fraction) Assessment/Plan: continue to hold lasix monitor for s/s fluid overload resume lasix once renal function improves Code(s): I50.20 - UNSPECIFIED SYSTOLIC (CONGESTIVE) HEART FAILURE (11) HLD (hyperlipidemia) Assessment/Plan: continue lipitor Code(s): E78.5 - HYPERLIPIDEMIA, UNSPECIFIED (12) HTN (hypertension) Assessment/Plan: continue norvasc Code(s): I10 - ESSENTIAL (PRIMARY) HYPERTENSION (13) Non-insulin dependent diabetes mellitus Assessment/Plan: continue BGMs continue ISS Code(s): [id number] - (14) Parkinson disease Code(s): G20 - PARKINSON'S DISEASE (15) DNR (do not resuscitate) Code(s): Z66 - DO NOT RESUSCITATE (16) DVT prophylaxis Assessment/Plan: on asa and plavix oob with PT daily FEN dysphagia diet w/ thick liquids and ensure Code(s): Z29.9 - ENCOUNTER FOR PROPHYLACTIC MEASURES, UNSPECIFIED This patient is new to me today: No Emergency Visit: Yes ED Registration Date: 02/12/20 Care time: The patient presented to the Emergency Department on the above date and was hospitalized for further evaluation of their emergent condition. Critical Care patient: No - Discharge Referral Referred to [facility] No
[2020-02-18] MEDS ORDERED: AMOX TR/POTASSIUM CLAVULANATE 600 MG/5 ML PO SCH (17:30)
[2020-02-18] MEDS: AMOX TR/POT CLAV 500MG/125MG TABLETS (FP) PO SCH (17:34)
[2020-02-18] MEDS: ATORVASTATIN CA 20 MG TABLET (FP) PO SCH (23:03)
[2020-02-19] MEDS: POTASSIUM CHLORIDE 20 MEQ in DEXTROSE 5%-WATER - 1,000 ML IVPB SCH (01:25)
[2020-02-19] MEDS ORDERED: PT OWN MED DRAWER 7, Y5N ONE (03:09)
[2020-02-19] MEDS: LEVOTHYROXINE NA 50 MCG TABLET (FP) PO SCH (06:37)
[2020-02-19] MEDS: INSULIN SLIDING SCALE (NOVOLOG) 1 VIAL SQ SCH ×4 (06:40→21:30)
[2020-02-19] MEDS: AMOX TR/POT CLAV 500MG/125MG TABLETS (FP) PO SCH ×2 (09:37→16:57)
[2020-02-19] MEDS: ALLOPURINOL 100 MG TABLET (FP) PO SCH (09:37)
[2020-02-19] MEDS: ASPIRIN 81 MG CHEWABLE TABLETS PO SCH (09:37)
[2020-02-19] MEDS: amLODIPine BESYLATE 2.5 MG TABLET (FP) PO SCH (09:37)
[2020-02-19] MEDS: PANTOPRAZOLE 20 MG TABLET PO SCH (09:37)
[2020-02-19] MEDS: CLOPIDOGREL BISULFATE 75 MG TABLET (FP) PO SCH (09:37)
[2020-02-19] MEDS: MEMANTINE HCL 5 MG TABLET (UD) PO SCH (09:37)
[2020-02-19] MEDS: POLYETHYLENE GLYCOL 3350 119 GM BTL PO SCH ×2 (09:44→21:27)
--- NOTE | 2020-02-19 10:56 | PN ---
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, Physician History of Present Illness: Pt seen and examined at bedside. No great change in status. - Current Medication List Current Medications: Active Medications Allopurinol (Zyloprim -) 100 mg PO DAILY [facility] Last Admin: 02/19/20 09:37 Dose: 100 mg Documented by: Amlodipine Besylate (Norvasc -) 2.5 mg PO DAILY [facility] Last Admin: 02/19/20 09:37 Dose: 2.5 mg Documented by: Amoxicillin/Clavulanate Potassium (Augmentin - 500mg Tablet) 1 tab PO BID@0800,1730 [facility] Stop: 02/20/20 08:01 Last Admin: 02/19/20 09:37 Dose: 1 tab Documented by: Aspirin (Asa -) 81 mg PO DAILY [facility] Last Admin: 02/19/20 09:37 Dose: 81 mg Documented by: Atorvastatin Calcium (Lipitor -) 20 mg PO HS [facility] Last Admin: 02/18/20 23:03 Dose: 20 mg Documented by: Bisacodyl (Dulcolax -) 5 mg PO DAILY PRN PRN Reason: CONSTIPATION Clopidogrel Bisulfate (Plavix -) 75 mg PO DAILY [facility] Last Admin: 02/19/20 09:37 Dose: 75 mg Documented by: Potassium Chloride 20 meq/ (Dextrose) 1,010 mls @ 83 mls/hr IVPB Q12H [facility] Last Admin: 02/19/20 01:25 Dose: Not Given Documented by: Insulin Aspart (Novolog Vial Sliding Scale -) 1 vial SQ ACHS [facility]; Protocol Last Admin: 02/19/20 06:40 Dose: 2 units Documented by: Levothyroxine Sodium (Synthroid -) 50 mcg PO DAILY@0700 [facility] Last Admin: 02/19/20 06:37 Dose: 50 mcg Documented by: Memantine (Namenda -) 5 mg PO DAILY [facility] Last Admin: 02/19/20 09:37 Dose: 5 mg Documented by: Pantoprazole Sodium (Protonix -) 20 mg PO DAILY [facility] Last Admin: 02/19/20 09:37 Dose: 20 mg Documented by: Polyethylene Glycol (Miralax (For Daily Use) -) 17 gm PO BID [facility] Last Admin: 02/19/20 09:44 Dose: Not Given Documented by: - Objective Vital Signs: Vital Signs Temperature 97.7 F 02/19/20 09:58 Pulse Rate 79 02/19/20 09:58 Respiratory Rate 18 02/19/20 09:58 Blood Pressure 159/72 02/19/20 09:58 O2 Sat by Pulse Oximetry (%) 100 02/19/20 09:58 Constitutional: Yes: Calm Eyes: Yes: Conjunctiva Clear HENT: Yes: Atraumatic Neck: Yes: Supple Cardiovascular: Yes: S1, S2 Respiratory: Yes: On Nasal O2 Gastrointestinal: Yes: Normal Bowel Sounds, Soft Genitourinary: Yes: Incontinence Musculoskeletal: Yes: Muscle Weakness Edema: No Neurological: Yes: Confusion Labs: CBC, BMP 02/18/20 05:50 02/18/20 05:50 INR, PTT INR 1.11 (0.83-1.09) H 02/12/20 14:00 Problem List - Problems (1) KYLER (acute kidney injury) Code(s): N17.9 - ACUTE KIDNEY FAILURE, UNSPECIFIED (2) Hypernatremia Code(s): E87.0 - HYPEROSMOLALITY AND HYPERNATREMIA (3) Altered mental state Code(s): R41.82 - ALTERED MENTAL STATUS, UNSPECIFIED Assessment/Plan Current Medications Generic Name Dose Route Start Last Admin Trade Name Freq PRN Reason Stop Dose Admin Allopurinol 100 mg 02/16/20 10:00 02/19/20 09:37 Zyloprim - PO 100 mg DAILY [facility] Administration Amlodipine Besylate 2.5 mg 02/17/20 10:00 02/19/20 09:37 Norvasc - PO 2.5 mg DAILY [facility] Administration Amoxicillin/Clavulanate Potassium 1 tab 02/18/20 17:30 02/19/20 09:37 Augmentin - 500mg Tablet PO 02/20/20 08:01 1 tab BID@0800,1730 [facility] Administration Aspirin 81 mg 02/16/20 10:00 02/19/20 09:37 Asa - PO 81 mg DAILY [facility] Administration Atorvastatin Calcium 20 mg 02/15/20 22:00 02/18/20 23:03 Lipitor - PO 20 mg HS [facility] Administration Bisacodyl 5 mg 02/15/20 15:48 Dulcolax - PO DAILY PRN CONSTIPATION Clopidogrel Bisulfate 75 mg 02/16/20 10:00 02/19/20 09:37 Plavix - PO 75 mg DAILY [facility] Administration Potassium Chloride 20 meq/ 1,010 mls @ 83 mls/hr 02/16/20 13:00 02/19/20 01:25 Dextrose IVPB Not Given Q12H [facility] Insulin Aspart 1 vial 02/15/20 16:30 02/19/20 06:40 Novolog Vial Sliding Scale - SQ 2 units ACHS [facility] Administration Protocol Levothyroxine Sodium 50 mcg 02/17/20 07:00 02/19/20 06:37 Synthroid - PO 50 mcg DAILY@0700 [facility] Administration Memantine 5 mg 02/16/20 10:00 02/19/20 09:37 Namenda - PO 5 mg DAILY [facility] Administration Pantoprazole Sodium 20 mg 02/16/20 10:00 02/19/20 09:37 Protonix - PO 20 mg DAILY [facility] Administration Polyethylene Glycol 17 gm 02/15/20 22:00 02/19/20 09:44 Miralax (For Daily Use) - PO Not Given BID [facility] Impression 1. KYLER 2. urinary obstruction 3. hypernatremia 4. altered mental status 5. dm 6. hx htn 7. cad 8. chf 9. ckd 10. s/p tavr 11. hypokalemia Plan - no new labs - cont one to one feeds - will need to monitor lytes and volume status in rehab - pt off of lasix - if she stays on fluids we will need to check labs - monitor output
--- NOTE | 2020-02-19 11:05 | PN ---
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 (short form) - Note 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: s: unable to obtain hpi, ros due to mental status, not verbal. appears comfortable Current Medications Generic Name Dose Route Start Last Admin Trade Name Jewell PRN Reason Stop Dose Admin Allopurinol 100 mg 02/16/20 10:00 02/19/20 09:37 Zyloprim - PO 100 mg DAILY [facility] Administration Amlodipine Besylate 2.5 mg 02/17/20 10:00 02/19/20 09:37 Norvasc - PO 2.5 mg DAILY [facility] Administration Amoxicillin/Clavulanate Potassium 1 tab 02/18/20 17:30 02/19/20 09:37 Augmentin - 500mg Tablet PO 02/20/20 08:01 1 tab BID@0800,1730 [facility] Administration Aspirin 81 mg 02/16/20 10:00 02/19/20 09:37 Asa - PO 81 mg DAILY [facility] Administration Atorvastatin Calcium 20 mg 02/15/20 22:00 02/18/20 23:03 Lipitor - PO 20 mg HS [facility] Administration Bisacodyl 5 mg 02/15/20 15:48 Dulcolax - PO DAILY PRN CONSTIPATION Clopidogrel Bisulfate 75 mg 02/16/20 10:00 02/19/20 09:37 Plavix - PO 75 mg DAILY [facility] Administration Potassium Chloride 20 meq/ 1,010 mls @ 83 mls/hr 02/16/20 13:00 02/19/20 01:25 Dextrose IVPB Not Given Q12H [facility] Insulin Aspart 1 vial 02/15/20 16:30 02/19/20 06:40 Novolog Vial Sliding Scale - SQ 2 units ACHS [facility] Administration Protocol Levothyroxine Sodium 50 mcg 02/17/20 07:00 02/19/20 06:37 Synthroid - PO 50 mcg DAILY@0700 [facility] Administration Memantine 5 mg 02/16/20 10:00 02/19/20 09:37 Namenda - PO 5 mg DAILY [facility] Administration Pantoprazole Sodium 20 mg 02/16/20 10:00 02/19/20 09:37 Protonix - PO 20 mg DAILY [facility] Administration Polyethylene Glycol 17 gm 02/15/20 22:00 02/19/20 09:44 Miralax (For Daily Use) - PO Not Given BID [facility] Vital Signs Period Temp Pulse Resp BP Sys/[place] Pulse Ox Last 24 Hr 97.4 F-98 F 73-81 18-20 135-159/66-74 98-100 nad no jvd cta bl rrr s1s2 no mrg abd nd pos bs no jaundice diaphoresis pos dp pt no le e/c/c awake, confused CBC, BMP 02/18/20 05:50 02/18/20 05:50 tele: sr echo 01/2020: lvef 33%, nl rv, no sig valve path, 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 ams, resp failure, sepsis: -now extubated -abx per ID kody on ckd: -baseline cr 1.9, was in 4s on admit -Cr improved with IVF. - renal following chronic syst chf: -fluids as above -holding po lasix (was on 20 qod) htn: - cont norvasc cad: -non obs cad on recent cath -borderline trop elevation here with flat trend, not c/w acs, likely from kody, sepsis -cont dapt, statin as s/p tavr: -recent tavr with post op echo 01/2020 showing good valve fcn -cont dapt for 6 mos post tavr
--- NOTE | 2020-02-19 11:16 | PN ---
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, [employer]ER - Note 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: Selected Entries 02/18/20 02/18/20 02/18/20 01:49 05:52 10:00 Breakfast Diet Tolerated Supper Temperature 97.9 F 98.2 F 97.9 F Blood Pressure 142/64 138/62 130/71 Oxygen Delivery Method Oxygen Flow Rate 02/18/20 02/18/20 02/18/20 11:57 12:07 13:28 Breakfast 100% 100% Diet Tolerated Fair Supper Temperature 98 F Blood Pressure 146/73 Oxygen Delivery Method Oxygen Flow Rate 02/18/20 02/18/20 02/19/20 20:45 21:00 01:00 Breakfast Diet Tolerated Fair Supper 50% Temperature 97.4 F L 97.6 F Blood Pressure 135/66 135/70 Oxygen Delivery Method Oxygen Flow Rate 02/19/20 02/19/20 02/19/20 06:30 09:00 09:58 Breakfast Diet Tolerated Supper Temperature 97.5 F L 97.7 F Blood Pressure 141/74 159/72 Oxygen Delivery Nasal Cannula Method Oxygen Flow 3 Rate Laboratory Tests 02/18/20 05:50 WBC 6.5 Tolerating puree/honey thick liquid For possible out pt MBS in future for diet/liquid upgrade.
[2020-02-19] MEDS ORDERED: INSULIN (NOVOLOG) ASPART 100 UNITS/ML 10ML VIAL ONE ×2 (11:17→17:07)
--- NOTE | 2020-02-19 12:08 | PN ---
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 (short form) - Note 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: PULMONARY Awake, nonverbal. No fevers recorded. Vital Signs Period Temp Pulse Resp BP Sys/[place]ne Pulse Ox Last 24 Hr 97.4 F-98 F 73-81 18-20 135-159/66-74 98-100 Gen: NAD at rest Heart: RRR Lung: decreased breath sounds at the bases Abd: soft, nontender Ext: no edema CBC, BMP 02/18/20 05:50 02/18/20 05:50 Active Medications Allopurinol (Zyloprim -) 100 mg PO DAILY [facility] Last Admin: 02/19/20 09:37 Dose: 100 mg Documented by: Amlodipine Besylate (Norvasc -) 2.5 mg PO DAILY [facility] Last Admin: 02/19/20 09:37 Dose: 2.5 mg Documented by: Amoxicillin/Clavulanate Potassium (Augmentin - 500mg Tablet) 1 tab PO BID@0800,1730 [facility] Stop: 02/20/20 08:01 Last Admin: 02/19/20 09:37 Dose: 1 tab Documented by: Aspirin (Asa -) 81 mg PO DAILY [facility] Last Admin: 02/19/20 09:37 Dose: 81 mg Documented by: Atorvastatin Calcium (Lipitor -) 20 mg PO HS [facility] Last Admin: 02/18/20 23:03 Dose: 20 mg Documented by: Bisacodyl (Dulcolax -) 5 mg PO DAILY PRN PRN Reason: CONSTIPATION Clopidogrel Bisulfate (Plavix -) 75 mg PO DAILY [facility] Last Admin: 02/19/20 09:37 Dose: 75 mg Documented by: Potassium Chloride 20 meq/ (Dextrose) 1,010 mls @ 83 mls/hr IVPB Q12H [facility] Last Admin: 02/19/20 01:25 Dose: Not Given Documented by: Insulin Aspart (Novolog Vial Sliding Scale -) 1 vial SQ [facility]; Protocol Last Admin: 02/19/20 11:18 Dose: 4 units Documented by: Levothyroxine Sodium (Synthroid -) 50 mcg PO DAILY@0700 [facility] Last Admin: 02/19/20 06:37 Dose: 50 mcg Documented by: Memantine (Namenda -) 5 mg PO DAILY [facility] Last Admin: 02/19/20 09:37 Dose: 5 mg Documented by: Pantoprazole Sodium (Protonix -) 20 mg PO DAILY [facility] Last Admin: 02/19/20 09:37 Dose: 20 mg Documented by: Polyethylene Glycol (Miralax (For Daily Use) -) 17 gm PO BID [facility] Last Admin: 02/19/20 09:44 Dose: Not Given Documented by: A/P Acute Hypercapneic and Hypoxic Respiratory Failure Pneumonia Sepsis Acute Kidney Injury LV Systolic Dysfunction +Troponins likely Demand Ischemia HTN h/o TAVR Hypernatremia Parkinsons Dementia - continue antibiotics - O2 to keep SpO2 >90% - free water replacement - monitor urine output, creatinine - aspiration precautions - DVT prophylaxis
[2020-02-19 14:25] LABS: ALBUMIN 2.3 g/dl (3.4-5.0); BILIRUBIN,TOTAL 0.3 mg/dL (0.2-1); BLOOD UREA NITROGEN 16.8 mg/dL (7-18); CALCIUM 7.4 mg/dL (8.5-10.1); CREATININE 1.7 mg/dL (0.55-1.3); MAGNESIUM 2.4 mg/dL (1.8-2.4); POTASSIUM 4.3 mmol/L (3.5-5.1); TOT PROT 5.7 g/dl (6.4-8.2)
--- NOTE | 2020-02-19 16:01 | PN ---
Physical Exam: SUBJECTIVE: Patient seen and examined OBJECTIVE: The patient is a 85 year old female with a significant past medical history of Parkinson's, Alzheimer's dementia, HLD, HTN, CAD, CHF, CKD, liver disease and DM, who presents to the ED BIBA from [facility] for AMS and lethargy x2 days. Per AL the patient has been on abx for the past 2 day for pneumonia. Pt was COVID negative on 02/05/20. Pt is a poor historian. Pt noted to be septic, hypercapneic, acidotic, intubated on 02/12 in ICU and extubated on 02/13. Patient has been monitored on [facility] telemonitoring and followed by pulmonary, cardiology and nephrology. She is now tolerating 2-3 liter of nasal cannula and is stable for discharge back to [facility] with close monitoring of her kidney function which as improved since her hospital stay. per ID, can continue Augmentin for 2 more days, no further need for IV antibiotics Cleared by pulmonary for d/c home Discussed with Dr. Zee, recommends close monitoring of kidney function at AL per cardiology: hold lasix PO until renal function improves, can increase amlodopine if bp is elevated (currently stable.) Patient for discharge back to [facility] Vital Signs Period Temp Pulse Resp BP Sys/Coyne Pulse Ox Last 24 Hr 97.4 F-97.9 F 73-80 18-20 135-159/66-75 98-100 GENERAL: The patient is awake,confused, in no acute distress. HEAD: Normal with no signs of trauma. EYES: PERRL, extraocular movements intact, sclera anicteric, conjunctiva clear. No ptosis. ENT: Ears normal, nares patent, oropharynx clear without exudates, moist mucous membranes. NECK: Trachea midline, full range of motion, supple. LUNGS: Breath sounds equal, no wheezes, no crackles, no accessory muscle use. HEART: Regular rate and rhythm, nsr ABDOMEN: Soft, nontender, nondistended, normoactive bowel sounds EXTREMITIES: no edema. NEUROLOGICAL: Normal speech, gait not observed. PSYCH: Mildly agitated, normal affect. SKIN: Allevyn on sacral area, Warm, dry, normal turgor, no rashes or lesions noted - blanchable sacrum. turn and position q2 Laboratory Results - last 24 hr 02/18/20 02/18/20 02/19/20 16:51 23:01 06:40 Sodium Potassium Chloride Carbon Dioxide Anion Gap BUN Creatinine Est GFR (CKD-EPI)AfAm Est GFR (CKD-EPI)NonAf POC Glucometer 214 186 187 Random Glucose Calcium Magnesium Total Bilirubin AST ALT Alkaline Phosphatase Total Protein Albumin 02/19/20 02/19/20 11:14 13:27 Sodium 140 Potassium 4.3 Chloride 114 H Carbon Dioxide 20 L Anion Gap 6 L BUN 16.8 Creatinine 1.7 H Est GFR (CKD-EPI)AfAm 31.32 Est GFR (CKD-EPI)NonAf 27.03 POC Glucometer 216 Random Glucose 221 H Calcium 7.4 L Magnesium 2.4 Total Bilirubin 0.3 AST 19 ALT 20 Alkaline Phosphatase 50 Total Protein 5.7 L Albumin 2.3 L Active Medications Generic Name Dose Route Start Last Admin Trade Name Freq PRN Reason Stop Dose Admin Allopurinol 100 mg 02/16/20 10:00 02/19/20 09:37 Zyloprim - PO 100 mg DAILY [facility] Administration Amlodipine Besylate 2.5 mg 02/17/20 10:00 02/19/20 09:37 Norvasc - PO 2.5 mg DAILY [facility] Administration Amoxicillin/Clavulanate Potassium 1 tab 02/18/20 17:30 02/19/20 09:37 Augmentin - 500mg Tablet PO 02/20/20 08:01 1 tab BID@0800,1730 [facility] Administration Aspirin 81 mg 02/16/20 10:00 02/19/20 09:37 Asa - PO 81 mg DAILY [facility] Administration Atorvastatin Calcium 20 mg 02/15/20 22:00 02/18/20 23:03 Lipitor - PO 20 mg HS [facility] Administration Bacitracin 1 applic 02/19/20 14:45 Bacitracin - TP DAILY [facility] Bisacodyl 5 mg 02/15/20 15:48 Dulcolax - PO DAILY PRN CONSTIPATION Clopidogrel Bisulfate 75 mg 02/16/20 10:00 02/19/20 09:37 Plavix - PO 75 mg DAILY [facility] Administration Insulin Aspart 1 vial 02/15/20 16:30 02/19/20 11:18 Novolog Vial Sliding Scale - SQ 4 units ACHS [facility] Administration Protocol Levothyroxine Sodium 50 mcg 02/17/20 07:00 02/19/20 06:37 Synthroid - PO 50 mcg DAILY@0700 [facility] Administration Memantine 5 mg 02/16/20 10:00 02/19/20 09:37 Namenda - PO 5 mg DAILY [facility] Administration Pantoprazole Sodium 20 mg 02/16/20 10:00 02/19/20 09:37 Protonix - PO 20 mg DAILY [facility] Administration Polyethylene Glycol 17 gm 02/15/20 22:00 02/19/20 09:44 Miralax (For Daily Use) - PO Not Given BID [facility] ASSESSMENT/PLAN: Problem List - Problems (1) Aspiration pneumonia Assessment/Plan: s/p intubation 02/12 extubated 02/13 MBS done 02/15 - shows silent aspiration - started on dysphagia puree diet w/ thick liquids and should continue at facility with aspiration precautions will need Augmentin suspension for 2 more days maintain spo2 >90%, currently on 2L nasal cannula with stable oxygen sats ID following Code(s): J69.0 - PNEUMONITIS DUE TO INHALATION OF FOOD AND VOMIT (2) Acute kidney injury superimposed on chronic kidney disease Assessment/Plan: creatine improved since admission, currently 1.9, admitted with creat of 4.6. baseline 1.0 will need outpatient follow up. hold lasix Code(s): N17.9 - ACUTE KIDNEY FAILURE, UNSPECIFIED; N18.9 - CHRONIC KIDNEY DISEASE, UNSPECIFIED (3) Acute respiratory failure with hypoxia and hypercarbia Assessment/Plan: s/p extubation 02/13 continue nasal cannula 2L, oxygen stable cleared by pulmonary for outpatient follow up Code(s): J96.01 - ACUTE RESPIRATORY FAILURE WITH HYPOXIA; J96.02 - ACUTE RESPIRATORY FAILURE WITH HYPERCAPNIA (4) Altered mental state Assessment/Plan: pt with hx of alzhemier's dementia AMS likely d/t infection and multiple hospitalizations continue namenda fall precautions Code(s): R41.82 - ALTERED MENTAL STATUS, UNSPECIFIED (5) Hypernatremia Assessment/Plan: downtrending, Na today 146 will need close monitoring of oral intake at AL Renal following, cleared for d/c with monitoring of electrolytes Code(s): E87.0 - HYPEROSMOLALITY AND HYPERNATREMIA (6) Urinary retention Assessment/Plan: incontinent/uses diaper. 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 Assessment/Plan: continue namenda Code(s): G20 - PARKINSON'S DISEASE; F02.80 - DEMENTIA IN OTH DISEASES CLASSD ELSWHR W/O BEHAVRL DISTURB (9) H/O aortic valve replacement Code(s): Z95.2 - PRESENCE OF PROSTHETIC HEART VALVE (10) HFrEF (heart failure with reduced ejection fraction) Assessment/Plan: continue to hold lasix monitor for s/s fluid overload resume lasix once renal function improves Code(s): I50.20 - UNSPECIFIED SYSTOLIC (CONGESTIVE) HEART FAILURE (11) HLD (hyperlipidemia) Assessment/Plan: continue lipitor Code(s): E78.5 - HYPERLIPIDEMIA, UNSPECIFIED (12) HTN (hypertension) Assessment/Plan: continue norvasc Code(s): I10 - ESSENTIAL (PRIMARY) HYPERTENSION (13) Non-insulin dependent diabetes mellitus Assessment/Plan: continue BGMs continue ISS Code(s): [id number] - (14) Parkinson disease Code(s): G20 - PARKINSON'S DISEASE (15) DNR (do not resuscitate) Code(s): Z66 - DO NOT RESUSCITATE (16) DVT prophylaxis Assessment/Plan: on asa and plavix oob with PT daily FEN dysphagia diet w/ thick liquids and ensure Code(s): Z29.9 - ENCOUNTER FOR PROPHYLACTIC MEASURES, UNSPECIFIED Visit type - Emergency Visit Emergency Visit: Yes ED Registration Date: 02/12/20 Care time: The patient presented to the Emergency Department on the above date and was hospitalized for further evaluation of their emergent condition. - New Patient This patient is new to me today: No - Critical Care Critical Care patient: No - Discharge Referral Referred to [facility] No
[2020-02-19] MEDS: BACITRACIN 15 GM TUBE TOPICAL OINTMENT TP SCH (17:23)
[2020-02-19] MEDS: ATORVASTATIN CA 20 MG TABLET (FP) PO SCH (21:28)
[2020-02-20 02:15] VITALS: PULSE 79
--- NOTE | 2020-02-20 06:23 | PN ---
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, Physician Chief Complaint: TELE: NSR, short NSVT Unable to provide hx History of Present Illness: Dementia TAVR Altered MS Resp failure - Current Medication List Current Medications: Active Medications Allopurinol (Zyloprim -) 100 mg PO DAILY [facility] Last Admin: 02/19/20 09:37 Dose: 100 mg Documented by: Amlodipine Besylate (Norvasc -) 2.5 mg PO DAILY [facility] Last Admin: 02/19/20 09:37 Dose: 2.5 mg Documented by: Amoxicillin/Clavulanate Potassium (Augmentin - 500mg Tablet) 1 tab PO BID@0800,1730 [facility] Stop: 02/20/20 08:01 Last Admin: 02/19/20 16:57 Dose: 1 tab Documented by: Aspirin (Asa -) 81 mg PO DAILY [facility] Last Admin: 02/19/20 09:37 Dose: 81 mg Documented by: Atorvastatin Calcium (Lipitor -) 20 mg PO HS [facility] Last Admin: 02/19/20 21:28 Dose: 20 mg Documented by: Bacitracin (Bacitracin -) 1 applic TP DAILY [facility] Last Admin: 02/19/20 17:23 Dose: 1 applic Documented by: Bisacodyl (Dulcolax -) 5 mg PO DAILY PRN PRN Reason: CONSTIPATION Clopidogrel Bisulfate (Plavix -) 75 mg PO DAILY [facility] Last Admin: 02/19/20 09:37 Dose: 75 mg Documented by: Insulin Aspart (Novolog Vial Sliding Scale -) 1 vial SQ [facility]; Protocol Last Admin: 02/19/20 21:30 Dose: 2 units Documented by: Levothyroxine Sodium (Synthroid -) 50 mcg PO DAILY@0700 [facility] Last Admin: 02/19/20 06:37 Dose: 50 mcg Documented by: Memantine (Namenda -) 5 mg PO DAILY [facility] Last Admin: 02/19/20 09:37 Dose: 5 mg Documented by: Pantoprazole Sodium (Protonix -) 20 mg PO DAILY [facility] Last Admin: 02/19/20 09:37 Dose: 20 mg Documented by: Polyethylene Glycol (Miralax (For Daily Use) -) 17 gm PO BID [facility] Last Admin: 02/19/20 21:27 Dose: Not Given Documented by: - Objective Vital Signs: Vital Signs Temperature 97.9 F 02/20/20 02:00 Pulse Rate 79 02/20/20 02:00 Respiratory Rate 02/20/20 02:00 Blood Pressure 147/71 02/20/20 02:00 O2 Sat by Pulse Oximetry (%) 98 02/20/20 02:00 Constitutional: Yes: No Distress, Calm Eyes: Yes: Conjunctiva Clear Cardiovascular: Yes: Regular Rate and Rhythm Respiratory: Yes: Other (= breath sounds b/l, no wheezing.) Gastrointestinal: Yes: Soft Edema: No Labs: CBC, BMP 02/18/20 05:50 02/19/20 13:27 INR, PTT INR 1.11 (0.83-1.09) H 02/12/20 14:00 Assessment/Plan echo 01/2020: lvef 33%, nl rv, no sig valve path, 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 ams, resp failure, sepsis: -now extubated -abx per ID kody on ckd: -baseline cr 1.9 -Cr improved with IVF. - renal following chronic syst chf: -stable -holding po lasix (was on 20 qod), can resume upon discharge with periodic monitoring in [place] htn: - cont norvasc cad: -non obs cad on recent cath -borderline trop elevation here with flat trend, not c/w acs, likely from kody, sepsis -cont dapt, statin as s/p tavr: -recent tavr with post op echo 01/2020 showing good valve fcn -cont dapt for 6 mos post tavr NSVT: -known CM, -Keep Lytes repleted -Pt advanced directive: DNR\ -D/C tele
[2020-02-20] MEDS: INSULIN SLIDING SCALE (NOVOLOG) 1 VIAL SQ SCH (06:25)
[2020-02-20] MEDS: LEVOTHYROXINE NA 50 MCG TABLET (FP) PO SCH (06:26)
[2020-02-20] MEDS: MEMANTINE HCL 5 MG TABLET (UD) PO SCH (09:30)
[2020-02-20] MEDS: AMOX TR/POT CLAV 500MG/125MG TABLETS (FP) PO SCH (09:30)
[2020-02-20] MEDS: CLOPIDOGREL BISULFATE 75 MG TABLET (FP) PO SCH (09:30)
[2020-02-20] MEDS: PANTOPRAZOLE 20 MG TABLET PO SCH (09:30)
[2020-02-20] MEDS: ASPIRIN 81 MG CHEWABLE TABLETS PO SCH (09:30)
[2020-02-20] MEDS: ALLOPURINOL 100 MG TABLET (FP) PO SCH (09:30)
[2020-02-20] MEDS: POLYETHYLENE GLYCOL 3350 119 GM BTL PO SCH (09:31)
[2020-02-20] MEDS: BACITRACIN 15 GM TUBE TOPICAL OINTMENT TP SCH (09:31)
[2020-02-20] MEDS: amLODIPine BESYLATE 2.5 MG TABLET (FP) PO SCH (09:31)
[2020-02-20 10:01] VITALS: BP 119/72; TEMP 96.8
--- NOTE | 2020-02-20 10:30 | PN ---
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, Physician - Current Medication List Current Medications: Active Medications Allopurinol (Zyloprim -) 100 mg PO DAILY [facility] Last Admin: 02/20/20 09:30 Dose: 100 mg Documented by: Amlodipine Besylate (Norvasc -) 2.5 mg PO DAILY [facility] Last Admin: 02/20/20 09:31 Dose: 2.5 mg Documented by: Aspirin (Asa -) 81 mg PO DAILY [facility] Last Admin: 02/20/20 09:30 Dose: 81 mg Documented by: Atorvastatin Calcium (Lipitor -) 20 mg PO HS [facility] Last Admin: 02/19/20 21:28 Dose: 20 mg Documented by: Bacitracin (Bacitracin -) 1 applic TP DAILY [facility] Last Admin: 02/20/20 09:31 Dose: 1 applic Documented by: Bisacodyl (Dulcolax -) 5 mg PO DAILY PRN PRN Reason: CONSTIPATION Clopidogrel Bisulfate (Plavix -) 75 mg PO DAILY [facility] Last Admin: 02/20/20 09:30 Dose: 75 mg Documented by: Insulin Aspart (Novolog Vial Sliding Scale -) 1 vial SQ [facility]; Protocol Last Admin: 02/20/20 06:25 Dose: Not Given Documented by: Levothyroxine Sodium (Synthroid -) 50 mcg PO DAILY@0700 [facility] Last Admin: 02/20/20 06:26 Dose: 50 mcg Documented by: Memantine (Namenda -) 5 mg PO DAILY [facility] Last Admin: 02/20/20 09:30 Dose: 5 mg Documented by: Pantoprazole Sodium (Protonix -) 20 mg PO DAILY [facility] Last Admin: 02/20/20 09:30 Dose: 20 mg Documented by: Polyethylene Glycol (Miralax (For Daily Use) -) 17 gm PO BID [facility] Last Admin: 02/20/20 09:31 Dose: Not Given Documented by: - Objective Vital Signs: Vital Signs Temperature 96.8 F L 02/20/20 10:00 Pulse Rate 79 02/20/20 10:00 Respiratory Rate 18 02/20/20 10:00 Blood Pressure 119/72 02/20/20 10:00 O2 Sat by Pulse Oximetry (%) 100 02/20/20 09:00 Labs: CBC, BMP 02/18/20 05:50 02/19/20 13:27 INR, PTT INR 1.11 (0.83-1.09) H 02/12/20 14:00 Problem List - Problems (1) Acute kidney injury superimposed on chronic kidney disease Code(s): N17.9 - ACUTE KIDNEY FAILURE, UNSPECIFIED; N18.9 - CHRONIC KIDNEY DISEASE, UNSPECIFIED (2) Acute respiratory failure with hypoxia and hypercarbia Code(s): J96.01 - ACUTE RESPIRATORY FAILURE WITH HYPOXIA; J96.02 - ACUTE RESPIRATORY FAILURE WITH HYPERCAPNIA (3) Altered mental state Code(s): R41.82 - ALTERED MENTAL STATUS, UNSPECIFIED (4) Hypernatremia Code(s): E87.0 - HYPEROSMOLALITY AND HYPERNATREMIA (5) CAD (coronary artery disease) Code(s): I25.10 - ATHSCL HEART DISEASE OF [place] CORONARY ARTERY W/O ANG PCTRS (6) H/O aortic valve replacement Code(s): Z95.2 - PRESENCE OF PROSTHETIC HEART VALVE (7) HLD (hyperlipidemia) Code(s): E78.5 - HYPERLIPIDEMIA, UNSPECIFIED (8) HTN (hypertension) Code(s): I10 - ESSENTIAL (PRIMARY) HYPERTENSION Assessment/Plan A/P Acute Hypercapneic and Hypoxic Respiratory Failure improving Pneumonia Sepsis Acute Kidney Injury LV Systolic Dysfunction +Troponins likely Demand Ischemia HTN h/o TAVR Hypernatremia Parkinsons Dementia - continue antibiotics - O2 to keep SpO2 >90% - free water replacement - monitor urine output, creatinine,na. - aspiration precautions - DVT prophylaxis DR RAE
== END 2020-02-20 10:39 | DRG 871 ==
LOC: JER 13:34 → JERBED 18:57 → JICU 19:58 → J4W 02-15 15:30
PROVIDERS: ADMIT Internal Medicine Pulmonary Disease; ATTEND Nurse Practitioner Family
PROC: 5A1945Z Respiratory Ventilation, 24-96 Consecutive Hours (ICD-10-PCS; principal; 2020-02-12)
PROC: 0BH17EZ Insertion of Endotracheal Airway into Trachea, Via Natural or Artificial Opening (ICD-10-PCS; 2020-02-12)
PROC: 0DH67UZ Insertion of Feeding Device into Stomach, Via Natural or Artificial Opening (ICD-10-PCS; 2020-02-12)
DX: A41.9 Sepsis, unspecified organism (principal); J96.02 Acute respiratory failure with hypercapnia; J69.0 Pneumonitis due to inhalation of food and vomit; G93.41 Metabolic encephalopathy; J96.01 Acute respiratory failure with hypoxia; N18.4 Chronic kidney disease, stage 4 (severe); N17.9 Acute kidney failure, unspecified; E87.2 Acidosis; N30.00 Acute cystitis without hematuria; I13.0 Hypertensive heart and chronic kidney disease with heart failure and stage 1 through stage 4 chronic kidney disease, or unspecified chronic kidney disease; E87.0 Hyperosmolality and hypernatremia; I50.22 Chronic systolic (congestive) heart failure; R64 Cachexia; I47.2 Ventricular tachycardia; G31.83 Neurocognitive disorder with Lewy bodies; E11.40 Type 2 diabetes mellitus with diabetic neuropathy, unspecified; E78.00 Pure hypercholesterolemia, unspecified; E87.5 Hyperkalemia; R33.9 Retention of urine, unspecified; E78.5 Hyperlipidemia, unspecified; I25.10 Atherosclerotic heart disease of native coronary artery without angina pectoris; Z68.22 Body mass index [BMI] 22.0-22.9, adult; E03.9 Hypothyroidism, unspecified; R00.1 Bradycardia, unspecified; G20 Parkinson's disease; F02.80 Dementia in other diseases classified elsewhere, unspecified severity, without behavioral disturbance, psychotic disturbance, mood disturbance, and anxiety; R41.82 Altered mental status, unspecified; E87.6 Hypokalemia; E86.0 Dehydration
CPT/HCPCS: 36415; 36600; 70450-TC; 71045-TC-FY; 74176-TC; 74230-TC-FY; 76775-TC; 80048; 80053; 81003; 82436; 82565; 82607; 82728; 82746; 82803; 82962; 83540; 83550; 83605; 83615; 83735; 83880; 84100; 84133; 84300; 84436; 84443; 84484; 84540; 85025; 85027; 85610; 85730; 86140; 87040; 87070; 87086; 87205; 87899; 92611-GN; 93005; 93010; 94002; 94660; 97161-GP; 99285-25; G0480; J0131; J1644; U0003

== ENCOUNTER 2020-03-28 17:00 | Inpatient (IN) | payer OTHER ==
--- NOTE | 2020-03-28 17:17 | PDOC ---
History of Present Illness - General Chief Complaint: Respiratory Distress Stated Complaint: BRADYCARDIA Time Seen by Provider: 03/28/20 17:15 History Source: EMS, Skilled Nursing Records Exam Limitations: Clinical Condition - History of Present Illness Initial Comments: 03/28/20 17:15 Britta Orellana is a DNR 85F with PMH Parkinson's Disease, Alzheimer's Disease, HLD, HTN, CAD, CHF, CKD, NIDDM, aortic valve replacement from [facility] for respiratory distress. Per EMS report, on arrival patient was unresponsive, tachypnic to 50s with desaturation to 80s, intubated in the field with 20mg etomidate and 50mg rocuronium, 7.0 ETT @24 at the lip, large amount of brown chunky substance in airway, bilateral breath sounds and ETCO2 present, initially 7. Carotid pulses intact. Given 100mg IV ketamine post-intubation for sedation. BP 30/23 on arrival. 03/28/20 19:10 Son Parrish at bedside, reports patient had aortic valve replacement in January and did not wake up after anesthesia, intubated for a week, discharged to [facility]. Sent back to [facility] for AMS and lethargy, admitted again. Discharged back to [facility] and is back today. Per son, patient and her agree DNR. Would like more information before agreeing to CVC. Past History - Medical History Allergies/Adverse Reactions: Allergies Allergy/AdvReac Type Severity Reaction Status Date / Time pregabalin [From Lyrica] Allergy Verified 02/12/20 13:40 Home Medications: Ambulatory Orders Acetaminophen [Tylenol .Regular Strength -] 650 mg PO Q6H PRN #0 tablet 09/02/13 Levothyroxine [Synthroid -] 50 mcg PO DAILY@0700 #0 tablet 09/02/13 Allopurinol [Zyloprim -] 100 mg PO DAILY 02/12/20 Amlodipine Besylate [Norvasc -] 5 mg PO DAILY 02/12/20 Aspirin 81 mg PO DAILY 02/12/20 Atorvastatin Ca [Lipitor] 20 mg PO HS 02/12/20 Bisacodyl 5 mg PO PRN 02/12/20 Clopidogrel Bisulfate [Clopidogrel] 75 mg PO DAILY 02/12/20 Polyethylene Glycol 3350 17 gm PO BID 02/12/20 Senna [place] Extract [Senna] 176 mg PO HS 02/12/20 Vitamin B Complex 1 each PO DAILY 02/12/20 Amox-Tr/K Cl [Augmentin 500-125mg Tablet -] 1 tab PO BID@0800,1730 tablet 02/19/20 Ascorbate Calcium [Vitamin C] 500 mg PO BID 03/28/20 Glipizide [Glipizide ER] 5 mg PO DAILY 03/28/20 Insulin Lispro [Admelog Solostar] 100 unit SQ TID 03/28/20 Memantine HCl [Namenda -] 5 mg PO HS 03/28/20 Omeprazole Pediatric Solution [Omeprazole Pediatric Oral Solution] 10 ml PO DAILY 03/28/20 Zinc 50 mg PO BID 03/28/20 Cardiac Disorders: Yes (non obstructive CAD) COPD: No Diabetes: Yes HTN: Yes Hypercholesterolemia: Yes Thyroid Disease: Yes (hypo) - Surgical History Abdominal Surgery: Yes (HERNIA REPAIR) Appendectomy: Yes - Immunization History Immunization Up to Date: No - Psycho-Social/Smoking History Smoking Status: No Smoking History: Unknown if ever smoked Have you smoked in the past 12 months: No Number of Cigarettes Smoked Daily: 0 Review of Systems - Review of Systems Able to Perform ROS?: No (unresponsive) *Physical Exam - Physical Exam General Appearance: Yes: Nourished, Appropriately Dressed, Obese, Other (patient intubated and on ventilator, unresponsive) HEENT: positive: EOMI, AGA, Symmetrical, Other (ETT in place). negative: Scleral Icterus (R), Scleral Icterus (L) Neck: positive: Supple. negative: Rigid, Stridor, Lymphadenopathy (R), Lymphadenopathy (L) Respiratory/Chest: positive: Lungs Clear, Normal Breath Sounds (ventilated breath sounds), Other (carotid pulses intact). negative: Accessory Muscle Use, Decreased Breath Sounds, Crackles, Rales, Rhonchi, Stridor, Wheezing Cardiovascular: positive: Regular Rhythm, Regular Rate. negative: Murmur Gastrointestinal/Abdominal: positive: Normal Bowel Sounds, Soft Musculoskeletal: positive: Normal Inspection. negative: CVA Tenderness, Decreased Range of Motion, Vertebral Tenderness Extremity: positive: Normal Capillary Refill, Normal Inspection. negative: Pedal Edema, Swelling, Calf Tenderness Integumentary: positive: Normal Color, Dry, Warm Neurologic: negative: Fully Oriented, Alert, Normal Mood/Affect, Normal Response ED Treatment Course - LABORATORY CBC & Chemistry Diagram: 03/31/20 06:35 03/31/20 06:35 - ADDITIONAL ORDERS Additional order review: Laboratory Results 03/28/20 17:09 POC Glucometer 159 03/28/20 17:09 POC Glucometer 159 Medical Decision Making - Medical Decision Making 03/28/20 17:47 Patient intubated in the field and BIBA for respiratory distress. Unclear etiology, but likely respiratory failure 2/2 aspiration vs. PNA given hypoxia and brown substance in the airway. Recently discharged from [facility] back to [facility], per son Parrish has been intubated 3 times in the past year. Getting complete se t of labs, CXR to confirm ETT, placing OGT, on ventilator, getting ABG for evaluation of respiratory causes. Bedside US shows good cardiac activity and squeeze, collapsible IVC. BP highly responsive to IVF fluids, got 2L NS bolus in ED already and BP improved to 100/80 from 70/40. Will ultimately need ICU admission for respiratory failure requiring intubation. Vent settings: 500/14/5/100% 03/28/20 18:58 Labs notable for: - WBC 10.8 - Coags WNL - LA 2.7, giving fluid resuscitation - trop 0.66 - Cr 1.9, WNL from priors Rectal temp 102F, giving Ofirmev and startin on vanc/Zosyn. Ordering CT head for AMS and time down. ICU consulted, pending callback. 03/28/20 19:23 CXR shows ETT ~1cm too far. OGT not in stomach. Patient satting well. ETT pulled back ~1cm Replaced OGT, has good gastric content return. Confirmatory XR ordered. 03/28/20 20:04 Discussed case with Yuly from ICU, accepts for admission with CT on the way. Getting repeat BMP given hypernatremia after 2L NS. Replacing Oliveros, appears old and unclean, consider as source of fever. UA shows +LE/nitrate and >9000 bacteria, already getting Zosyn. 03/28/20 20:30 ABG O2 >200 with CO2 30, decreasing FiO2 to 90% and wean down as tolerated every hour. BMP pending. 03/28/20 23:40 DNR order placed as per discussion with abraham Senior at bedside. Discharge - Discharge Information Problems reviewed: Yes Clinical Impression/Diagnosis: Troponin level elevated Respiratory failure Qualifiers: Chronicity: acute Respiratory failure complication: hypoxia Qualified Code(s): J96.01 - Acute respiratory failure with hypoxia CKD (chronic kidney disease) Qualifiers: Chronic kidney disease stage: unspecified stage Qualified Code(s): N18.9 - Chronic kidney disease, unspecified Condition: Stable - Admission Yes - Follow up/Referral - Patient Discharge Instructions - Post Discharge Activity
[2020-03-28] MEDS ORDERED: ETOMIDATE 40 MG/20 ML VIAL IVPUSH ONE (17:19)
[2020-03-28] MEDS ORDERED: ROCURONIUM BROMIDE 100 MG/10 ML VIAL ONE (17:19)
[2020-03-28] MEDS ORDERED: SODIUM CHLORIDE 2,028 ML IV ONE (17:24)
[2020-03-28] MEDS ORDERED: KETAMINE HCL 200 MG/20 ML VIAL IVPUSH ONE (17:31)
[2020-03-28] MEDS ORDERED: SODIUM CHLORIDE 0.9% 500 ML INFUS.BAG IV ONE (17:32)
[2020-03-28] MEDS ORDERED: FENTANYL IVPB 500 MCG/100 ML BAG IVPB SCH (17:45)
[2020-03-28 17:46] LABS: INR 1.2 (0.83-1.09); PROTHROMBIN TIME (PATIENT) 14.2 SEC (9.7-13.0)
[2020-03-28 17:49] LABS: ACTIVATED PTT 25.9 SECONDS (25.2-36.5)
[2020-03-28 17:56] LABS: BASO % 0.3 % (0-2.0); HEMATOCRIT 28.3 % (32.4-45.2); HEMOGLOBIN 8.7 GM/dL (10.7-15.3); LYMPH % 7.5 % (8-40); MCH 25.7 pg (25.7-33.7); MCHC 30.8 g/dl (32.0-36.0); MEAN CELL VOLUME 83.6 fl (80-96); MEAN PLT VOLUME 8.9 fl (7.5-11.1); NEUT % 87.2 % (42.8-82.8); PLATELET COUNT 293 K/MM3 (134-434); RBC 3.39 M/mm3 (3.60-5.2); RDW 18.8 % (11.6-15.6); WHITE BLOOD COUNT 10.8 K/mm3 (4.0-10.0)
[2020-03-28] MEDS ORDERED: MIDAZOLAM IN 0.9 % SOD.CHLORID 1 MG/1 ML PLAST..BAG ONE (17:59)
[2020-03-28] MEDS ORDERED: MIDAZOLAM 100 MG in SODIUM CHLORIDE 100 ML IVPB SCH (18:00)
[2020-03-28 18:18] LABS: ALBUMIN 2.1 g/dl (3.4-5.0); BILIRUBIN,TOTAL 0.3 mg/dL (0.2-1); BLOOD UREA NITROGEN 55.6 mg/dL (7-18); CALCIUM 7.7 mg/dL (8.5-10.1); CREATININE 1.9 mg/dL (0.55-1.3); POTASSIUM 4.2 mmol/L (3.5-5.1); TOT PROT 6.2 g/dl (6.4-8.2)
[2020-03-28] MEDS ORDERED: ACETAMINOPHEN 1000 MG/100 ML VIAL (NON FORMULARY) IVPB ONE (18:39)
[2020-03-28] MEDS ORDERED: VANCOMYCIN 1 GM in D5W (PRE-DOCKED) 1,000 MG/250 ML IVPB ONE (18:39)
[2020-03-28] MEDS ORDERED: PIPERACILLIN/TAZOB 3.375 GM 3.375 GM in DEXTROSE 5%-WATER - 50 ML IVPB ONE (18:39)
[2020-03-28] MEDS ORDERED: VANCOMYCIN 1 GRAM (PRE-DOCKED) 1,000 MG/250 ML BAG IVPB ONE ×2 (18:51→19:23)
[2020-03-28] MEDS ORDERED: ACETAMINOPHEN INJECTION 100 ML IVPB ONE (18:51)
[2020-03-28] MEDS ORDERED: PIPERACILLIN/TAZOB 3.375 GM 3.375 GM/50 ML BAG IVPB ONE (18:52)
[2020-03-28 19:01] LABS: EPI CELLS 33 /uL (0-25.1); HYALINE CASTS 9 /uL (0-3.1); URINE APPEARANCE TURBID; URINE BACTERIA >9,000 /uL (0-1359); URINE BILIRUBIN NEGATIVE (NEGATIVE); URINE COLOR YELLOW; URINE GLUCOSE (UA) NEGATIVE (NEGATIVE); URINE KETONE NEGATIVE (NEGATIVE); URINE LEUK ESTERASE 2+ (NEGATIVE); URINE NITRITE NEGATIVE (NEGATIVE); URINE PROTEIN 3+ (NEGATIVE); URINE WBC 2059 /uL (0-25.8)
[2020-03-28 19:20] LABS: URINE RBC 88 /uL (0-23.9); YEAST NEGATIVE (NEGATIVE)
[2020-03-28 20:15] LABS: ARTERIAL BLD GAS O2 SATURATION 99.6 mmHg (95-98); ARTERIAL BLOOD GAS BASE EXCESS -3.5 mmol/L (-2-2); ARTERIAL BLOOD GAS pH 7.436 (7.350-7.450)
[2020-03-28 20:50] LABS: BLOOD UREA NITROGEN 49.9 mg/dL (7-18); CREATININE 1.6 mg/dL (0.55-1.3); POTASSIUM 3.6 mmol/L (3.5-5.1)
[2020-03-28 21:37] LABS: CALCIUM 6.7 mg/dL (8.5-10.1)
[2020-03-28] MEDS ORDERED: CALCIUM GLUCONATE 10% - 1,000 MG/10 ML VIAL IVPB ONE (22:40)
--- NOTE | 2020-03-28 23:18 | PDOC ---
Documentation entered by Ashutosh Bermudez SCRIBE, acting as scribe for Andrews Arreguin DO. Andrews Arreguin DO: This documentation has been prepared by the kelly, Ashutosh Bermudez SCRIBE, under my direction and personally reviewed by me in its entirety. I confirm that the documentation accurately reflects all work, treatment, procedures, and medical decision making performed by me. Attending Attestation - Resident Resident Name: Jose G Long - ED Attending Attestation I have performed the following: I have examined & evaluated the patient, The case was reviewed & discussed with the resident, I agree w/resident's findings & plan, Exceptions are as noted - HPI HPI: 03/28/20 17:58 The patient is an 85 year old female with a significant past medical history of chronic respiratory failure, CAD, heart failure, Parkinsons, DM, here today for AMSS found in nursing facility to be tachypneic, altered, and hypotensive. Intubated by EMS in the field. DNR but not DNI. History is limited. - Physicial Exam PE: 03/28/20 17:59 Blood sugar within normal limits Initially sedated intubated tachycardic hypotensive systolic pressure in the 60s lungs clear equal breath sounds bilaterally with ventilation bagging ETT shows condensation in tube Abdomen mildly distended - Critical Care Time Total Critical Care Time: 35 Critical Care Statement: The care of this patient involved high complexity decision making to prevent further life threatening deterioration of the patient's condition and/or to evaluate & treat vital organ system(s) failure or risk of failure. - Medical Decision Making 03/28/20 17:59 85 year old female initially intubated for respiratory distress, hypotension, a nd AMS Differential diagnosis: Sesis Dehydration Atypical ACS Metabolic encephalopathy Plan for labs: Chest x ray Ua Blood cultures CT head Admission to ICU Fluid responsive Reassessment: 2 liters of fluid with normalization of bp Improvement of tachy to 130 to 103 Will plan for antibiotics Icu admission and reassessment EKG: Sinus tachycardia Left bundle branch block No acute ischemia Similar to prior Time: 17:39 03/28/20 18:41 Blood pressure improved Dehydrated with prerenal KYLER Found to be febrile to 101.2 on rectal temperature Will cover with broad spectrum antibiotics and IV tylenol for fever Discharge - Discharge Information Problems reviewed: Yes Clinical Impression/Diagnosis: Troponin level elevated Respiratory failure Qualifiers: Chronicity: acute Respiratory failure complication: hypoxia Qualified Code(s): J96.01 - Acute respiratory failure with hypoxia CKD (chronic kidney disease) Qualifiers: Chronic kidney disease stage: unspecified stage Qualified Code(s): N18.9 - Chronic kidney disease, unspecified Condition: Stable - Follow up/Referral - Patient Discharge Instructions - Post Discharge Activity
--- NOTE | 2020-03-28 23:28 | CONSULT ---
Consult Consult Specialty:: PULM/CCM Referred by:: Jose G Long MD Reason for Consultation:: Acute hypoxic respiratory failure - History of Present Illness Chief Complaint: SOB/unrespinsiveness History of Present Illness: 85F with PMH Parkinson's Disease, Alzheimer's Disease, HLD, HTN, CAD, CHF, CKD, NIDDM, aortic valve replacement admitted to ICU from ED for hypoxic respiratory failure requiring intubation, on the field and sepsis likely secondary to aspiration pneumonia +/- urosepsis (patient came in with grajeda cath from MD). As per medical records patient was found unresponsive, tachypneic to 50s, desaturation to 80% and hypotensive to SBP 50s. In ED treated with empiric antibiotics and IVF with positive response in BP. 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 Cardio/Vascular: Yes: CAD, HTN Pulmonary: Yes: COPD Renal/: Yes: Other (CKD) ...: No Infectious Disease: Yes: Other (Recent shingles ) - Past Surgical History Additional Surgical History: Aortic valve repair - Alcohol/Substance Use Hx Alcohol Use: No - Smoking History Smoking history: Unknown if ever smoked Have you smoked in the past 12 months: No Aproximately how many cigarettes per day: 0 Home Medications - Allergies Allergies/Adverse Reactions: Allergies Allergy/AdvReac Type Severity Reaction Status Date / Time pregabalin [From Lyrica] Allergy Verified 02/12/20 13:40 - Home Medications Home Medications: Ambulatory Orders Acetaminophen [Tylenol .Regular Strength -] 650 mg PO Q6H PRN #0 tablet 09/02/13 Levothyroxine [Synthroid -] 50 mcg PO DAILY@0700 #0 tablet 09/02/13 Allopurinol [Zyloprim -] 100 mg PO DAILY 02/12/20 Amlodipine Besylate [Norvasc -] 5 mg PO DAILY 02/12/20 Aspirin 81 mg PO DAILY 02/12/20 Atorvastatin Ca [Lipitor] 20 mg PO HS 02/12/20 Bisacodyl 5 mg PO PRN 02/12/20 Clopidogrel Bisulfate [Clopidogrel] 75 mg PO DAILY 02/12/20 Polyethylene Glycol 3350 17 gm PO BID 02/12/20 Senna [place] Extract [Senna] 176 mg PO HS 02/12/20 Vitamin B Complex 1 each PO DAILY 02/12/20 Amox-Tr/K Cl [Augmentin 500-125mg Tablet -] 1 tab PO BID@0800,1730 tablet 02/19/20 Ascorbate Calcium [Vitamin C] 500 mg PO BID 03/28/20 Glipizide [Glipizide ER] 5 mg PO DAILY 03/28/20 Insulin Lispro [Admelog Solostar] 100 unit SQ TID 03/28/20 Memantine HCl [Namenda -] 5 mg PO HS 03/28/20 Omeprazole Pediatric Solution [Omeprazole Pediatric Oral Solution] 10 ml PO DAILY 03/28/20 Zinc 50 mg PO BID 03/28/20 Family Medical History Family History: Unable to Obtain Review of Systems Unable to obtain ROS, reason: intubated, sedated - Review of Systems Constitutional: reports: Lethargy Eyes: reports: No Symptoms HENT: reports: No Symptoms Neck: reports: No Symptoms Cardiovascular: reports: Shortness of Breath Respiratory: reports: SOB Gastrointestinal: reports: No Symptoms Genitourinary: reports: No Symptoms Breasts: reports: No Symptoms Reported Musculoskeletal: reports: No Symptoms Integumentary: reports: No Symptoms Neurological: reports: Confusion Endocrine: reports: No Symptoms Hematology/Lymphatic: reports: No Symptoms Psychiatric: reports: No Symptoms Physical Exam Vital Signs: Vital Signs Temperature 100.8 F H 03/28/20 19:27 Pulse Rate 88 03/28/20 20:26 Respiratory Rate 14 03/28/20 20:50 Blood Pressure 114/58 L 03/28/20 20:26 O2 Sat by Pulse Oximetry (%) 100 03/28/20 20:50 Constitutional: Yes: Pallor (not in distress) Eyes: Yes: WNL, Conjunctiva Clear, EOM Intact HENT: Yes: WNL, Atraumatic, Normocephalic Neck: Yes: WNL, Supple, Trachea Midline Cardiovascular: Yes: Regular Rate and Rhythm, S1, S2 Respiratory: Yes: Regular, CTA Bilaterally, Diminished, Mechanically Ventilated Gastrointestinal: Yes: Normal Bowel Sounds, Soft ...Rectal Exam: Yes: Deferred Renal/: Yes: Other (grajeda changed in ED) Breast(s): Yes: WNL Musculoskeletal: Yes: Muscle Weakness Extremities: Yes: WNL Edema: No Peripheral Pulses WNL: Yes Integumentary: Yes: Erythema (under breasts), Pressure Ulcer (sacral pressure ulcer) Neurological: Yes: Lethargy Psychiatric: Yes: Other (sedated RASS -3) Labs: CBC, BMP 03/28/20 17:00 03/28/20 20:06 Imaging - Results Chest X-ray: Image Reviewed (Personal read: Bilateral opacities, L>R, ETT readjusted, pulled 3 cm out, <>23 cm currently, repeat CXR inconclusive (patient rotated), will epeat in am.) EKG: Image Reviewed (Sinus tachycardia with PAC, QTc 539, no ST elevation or depression) Problem List - Problems (1) Sepsis with acute hypoxic respiratory failure Code(s): A41.9 - SEPSIS, UNSPECIFIED ORGANISM; R65.20 - SEVERE SEPSIS WITHOUT SEPTIC SHOCK; J96.01 - ACUTE RESPIRATORY FAILURE WITH HYPOXIA (2) CKD (chronic kidney disease) Code(s): N18.9 - CHRONIC KIDNEY DISEASE, UNSPECIFIED Qualifiers: Chronic kidney disease stage: unspecified stage Qualified Code(s): N18.9 - Chronic kidney disease, unspecified (3) Aspiration pneumonia Code(s): J69.0 - PNEUMONITIS DUE TO INHALATION OF FOOD AND VOMIT (4) Hypernatremia Code(s): E87.0 - HYPEROSMOLALITY AND HYPERNATREMIA (5) Hypothyroidism Code(s): E03.9 - HYPOTHYROIDISM, UNSPECIFIED (6) Non-insulin dependent diabetes mellitus Code(s): [id number] - (7) UTI (urinary tract infection) Code(s): N39.0 - URINARY TRACT INFECTION, SITE NOT SPECIFIED Assessment/Plan 85 y.o. F with medical history of Parkinson's Disease, Alzheimer's Disease, HLD, HTN, CAD, CHF, CKD, NIDDM, aortic valve replacement admitted to ICU from ED for hypoxic respiratory failure requiring intubation, on the field and sepsis likely secondary to aspiration pneumonia +/- urosepsis, hypernatremia likley secondary to dehydration -Fentanyl for sedation, RASS goal -2, will d/c versed -Vent support, AC mode -Follow up on ABG in am -Titrate FiO2 to saO2 >92% -Pulmonary toileting -Start Meropemen 1 g q 24 hours, renally dose medications -ID consult -Follow up on cultures -No indications for pressors at this time, HDS, responded to IVF -IVF 1/2 NS at 75 ml/hr -Strict I/O, maintain grajeda -Trend Cre/BUN, trend and replete lytes, keep Mg>2, K>4 -Insulin coverage scale and BGM q 6 hrs -Levothyroxine Dispo: patient is DNR, but not DNI. Continue ICU level of care. Yuly Shaikh ACNP [id number]
[2020-03-29] MEDS: FENTANYL IVPB 500 MCG/100 ML BAG IVPB SCH (01:00)
[2020-03-29] MEDS: INSULIN SLIDING SCALE (NOVOLOG) 1 VIAL SQ SCH ×4 (01:31→19:22)
[2020-03-29] MEDS: SODIUM CHLORIDE 0.45% 1,000 ML IV SCH (01:32)
[2020-03-29] MEDS ORDERED: DEXTROSE 5%-WATER 100 ML IVPB ONE ×2 (01:43→08:52)
[2020-03-29] MEDS ORDERED: MEROPENEM 1 GM VIAL (RESTRICTED TO ID) IVPB ONE ×2 (01:43→08:52)
[2020-03-29] MEDS: MEROPENEM 1 GM in DEXTROSE 5%-WATER 100 ML IVPB SCH ×2 (01:47→09:01)
[2020-03-29] MEDS ORDERED: PIPERACILLIN/TAZOB 2.25 GM 2.25 GM in DEXTROSE 5%-WATER - 50 ML IVPB SCH ×3 (03:00)
[2020-03-29] MEDS: LEVOTHYROXINE NA 50 MCG TABLET (FP) PO SCH (06:08)
[2020-03-29 06:09] LABS: ARTERIAL BLD GAS O2 SATURATION 98.8 mmHg (95-98); ARTERIAL BLOOD GAS BASE EXCESS -5.3 mmol/L (-2-2); ARTERIAL BLOOD GAS PO2 140.8 mmHg (80-100); ARTERIAL BLOOD GAS pH 7.404 (7.350-7.450)
[2020-03-29 06:34] LABS: ALLENS TEST POSITIVE
[2020-03-29 06:35] LABS: VENT MODE A/C; VENT RATE 14
[2020-03-29 07:35] LABS: BASO % 0.2 % (0-2.0); EOS % 0.1 % (0-4.5); HEMATOCRIT 23.9 % (32.4-45.2); HEMOGLOBIN 7.2 GM/dL (10.7-15.3); LYMPH % 14.9 % (8-40); MCH 25.1 pg (25.7-33.7); MCHC 30.3 g/dl (32.0-36.0); MEAN CELL VOLUME 82.9 fl (80-96); MEAN PLT VOLUME 8.5 fl (7.5-11.1); MONO % 5.4 % (3.8-10.2); NEUT % 79.4 % (42.8-82.8); PLATELET COUNT 213 K/MM3 (134-434); RBC 2.88 M/mm3 (3.60-5.2); RDW 18.8 % (11.6-15.6); WHITE BLOOD COUNT 11.9 K/mm3 (4.0-10.0)
[2020-03-29 07:53] LABS: ALBUMIN 1.9 g/dl (3.4-5.0); BILIRUBIN,TOTAL 0.3 mg/dL (0.2-1); BLOOD UREA NITROGEN 45.5 mg/dL (7-18); CALCIUM 7.2 mg/dL (8.5-10.1); CREATININE 1.6 mg/dL (0.55-1.3); MAGNESIUM 1.9 mg/dL (1.8-2.4); PHOSPHOROUS 3.7 mg/dL (2.5-4.9); POTASSIUM 3.1 mmol/L (3.5-5.1); TOT PROT 5.5 g/dl (6.4-8.2)
[2020-03-29] MEDS: MUPIROCIN 2% TOPICAL OINTMENT 22 GM TUBE TP SCH ×2 (09:01→21:52)
[2020-03-29] MEDS: PANTOPRAZOLE SODIUM 40 MG VIAL IVPUSH SCH (09:02)
--- NOTE | 2020-03-29 13:05 | PN ---
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 (short form) - Note 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: ID CONSULT DICTATED ACUTE RESP FAILURE SEPSIS/ SEPTIC SHOCK HCAP V. ASP PNEUMONIA UTI R/O SEPSIS SECONDARY TO UTI S/P TAVR 01/23 AZOTEMIA AWAIT SEPSIS W/U EMPIRIC ZOSYN / VANCOMYCIN VENTILATORY SUPPORT CRITICAL CARE TIME 35MIN
[2020-03-29] MEDS ORDERED: DEXTROSE 5%-WATER - 50 ML IVPB ONE ×2 (13:19→16:55)
[2020-03-29] MEDS ORDERED: PIPERACILLIN/TAZOBACTAM 3.375 GM VIAL IVPB ONE ×2 (13:19→16:54)
--- NOTE | 2020-03-29 13:28 | PN ---
Teaching Attending Note Name of Resident: Asael Lawler ATTENDING PHYSICIAN STATEMENT I saw and evaluated the patient. I reviewed the resident's note and discussed the case with the resident. I agree with the resident's findings and plan as documented. SUBJECTIVE: Pt seen and examined in the ICU. Remains intubated, sedated. No pressors. Vented on volume assist control with 40% FiO2. Fevers down. OBJECTIVE: Vital Signs Period Temp Pulse Resp BP Sys/[place] Pulse Ox Last 24 Hr 99.1 F-102.1 F 86-119 14-19 67-125/47-64 98-100 Intake & Output 03/26/20 03/27/20 03/28/20 03/29/20 23:59 23:59 23:59 23:59 Intake Total 1000 970 Output Total 20 250 Balance 980 720 Weight 58.377 kg 58.377 kg Gen: intubated, sedated Heart: RRR Lung: decreased breath sounds at the bases Abd: soft, nontender Ext: no edema CBC, BMP 03/29/20 06:48 03/29/20 06:48 Active Medications Chlorhexidine Gluconate (Hibiclens For Decolonization -) 1 applic TP HS MITRA Sodium Chloride (1/2 Normal Saline) 1,000 mls @ 75 mls/hr IV ASDIR MITRA Last Admin: 03/29/20 01:32 Dose: 75 mls/hr Documented by: Fentanyl (Sublimaze Ivpb) 500 mcg in 100 mls @ 5 mls/hr IVPB TITR [facility]RA; Protocol Last Admin: 03/29/20 01:00 Dose: 50 mcg/hr, 10 mls/hr Documented by: Piperacillin Sod/Tazobactam (Sod 3.375 gm/ Dextrose) 50 mls @ 100 mls/hr IVPB Q8H-IV MITRA; Protocol Vancomycin HCl (Vancomycin (Pre-Docked)) 1,000 mg in 250 mls @ 166.667 mls/hr IVPB ONCE ONE; Protocol Stop: 03/29/20 20:29 Insulin Aspart (Novolog Vial Sliding Scale -) 1 vial SQ Q6HPO [facility]; Protocol Last Admin: 03/29/20 05:58 Dose: Not Given Documented by: Levothyroxine Sodium (Synthroid -) 50 mcg PO DAILY@0700 [facility] Last Admin: 03/29/20 06:08 Dose: Not Given Documented by: Mupirocin (Bactroban 2% Ointment -) 1 applic TP BID [facility] Last Admin: 03/29/20 09:01 Dose: 1 applic Documented by: Pantoprazole Sodium (Protonix Iv) 40 mg IVPUSH DAILY [facility] Last Admin: 03/29/20 09:02 Dose: 40 mg Documented by: ASSESSMENT AND PLAN: Acute Hypoxic Respiratory Failure Pneumonia likely Aspiration UTI CAD CHF HTN Hyperlipidemia DM h/o AVR CKD Hypothyroidism Anemia - continue antibiotics - f/u cultures - IVF, free water replacement - hold all sedation to assess mental status - spontaneous breathing trials as tolerated - enteral feeds if unable to extubate - DVT/GI prophylaxis - continue ICU monitoring critical care time spent in reviewing chart, evaluating patient and formulating plan 35 min
[2020-03-29] MEDS: PIPERACILLIN/TAZOB 3.375 GM 3.375 GM in DEXTROSE 5%-WATER - 50 ML IVPB SCH ×2 (13:42→17:45)
--- NOTE | 2020-03-29 14:16 | CONS ---
INFECTIOUS DISEASE CONSULTATION DATE OF CONSULTATION: DATE OF DICTATION: 03/29/2020 HISTORY: The patient is an 85-year-old half-way resident who is evaluated for septic shock. History was obtained from the chart as she cannot give a history secondary to her present state. She was found at the half-way on March 28, 2020, to be unresponsive. She was taken to the emergency room where she was noted to be tachypneic and hypoxemic with an O2 saturation in the 80s. She developed respiratory failure and required intubation. She is presently in the intensive care unit intubated on mechanical ventilation. Her course has been complicated by fever to 102. Initial evaluation chest x-ray shows increased markings of the bases bilaterally. Urine analysis showed many white cells. She was empirically treated with vancomycin, Zosyn and meropenem. At the present time she is intubated. She responds to tactile and verbal stimulus. The patient recently underwent a TAVR in January 2020. Her postoperative course was complicated by respiratory failure and pneumonia requiring a hospitalization at [facility] in February 2020. She clinically improved on empiric antibiotic therapy. Cultures were negative at that time. PAST MEDICAL HISTORY: Positive for parkinsonism, dementia, hypertension, hyperlipidemia, coronary artery disease, congestive heart failure, chronic kidney disease with indwelling Oliveros catheter, noninsulin-dependent diabetes mellitus, history of herpes zoster. PAST SURGICAL HISTORY: Status post TAVR January 2020. ALLERGIES: To LYRICA, nature of the allergy not documented. MEDICATIONS: Include Zosyn, vancomycin, Tylenol, fentanyl, Protonix, insulin, Synthroid. SOCIAL HISTORY: She resides in a halfway facility, suffers from dementia. Nonsmoker, nondrinker. SYSTEMS REVIEW: Neurologic: Positive for parkinsonism and dementia. Cardiac: Status post aortic valve replacement. Respiratory: As per HPI. Gastrointestinal: Negative vomiting or diarrhea. Genitourinary: Positive for urinary tract infection. LABORATORY DATA: White count 11.9, neutrophils 79, lymphocytes 14, monocytes 5, hematocrit 23.9, platelets 213. Creatinine 1.6, sodium 154. Liver enzymes within normal limits. Urine analysis 9 white cells. COVID-19 PCR pending. PHYSICAL EXAMINATION: General: She is awake on the ventilator. She is responsive to tactile stimulus. Vital Signs: Temperature 99.1, T-max 102, blood pressure 118/57, pulse 87 regular, respirations 14 per minute. HEENT: Sclerae are anicteric. Patient is orally intubated. Heart: Sounds S1, S2, a 2/6 pansystolic murmur. Lungs: Air entry bilaterally. Abdomen: Soft, nontender. Extremities: Negative for edema. Genitourinary: Oliveros catheter is in place. IMPRESSION: 1. Acute respiratory failure. 2. Sepsis/septic shock. 3. Rule out healthcare-acquired versus aspiration pneumonia. 4. Urinary tract infection, rule out sepsis secondary to urinary tract infection. 5. Azotemia. 6. Status post aortic valve replacement. 7. Dementia. 8. Hypernatremia.Pending sepsis workup, empiric antibiotic coverage for nosocomial pathogens of the respiratory and urinary tract with vancomycin and Zosyn. Continue ventilatory support. Prognosis is guarded. Critical care time spent 35 minutes. REJI DEL TORO M.D. [id number]
[2020-03-29] MEDS: HEPARIN NA (PORCINE) 5,000 UNITS/ML 1ML VIAL SQ SCH ×2 (16:58→21:52)
[2020-03-29] MEDS: KCL 10 MEQ IVPB 10 MEQ/100 ML INFUS.BAG IVPB SCH ×3 (16:58→23:00)
--- NOTE | 2020-03-29 18:23 | EKG ---
Test Reason : Blood Pressure : / mmHG Vent. Rate : 103 BPM Atrial Rate : 103 BPM P-R Int : 124 ms QRS Dur : 126 ms QT Int : 412 ms P-R-T Axes : 063 -55 129 degrees QTc Int : 539 ms SINUS TACHYCARDIA WITH PREMATURE ATRIAL COMPLEXES LEFT AXIS DEVIATION LEFT BUNDLE BRANCH BLOCK ABNORMAL ECG WHEN COMPARED WITH ECG OF 13-FEB-2020 22:07, PREMATURE ATRIAL COMPLEXES ARE NOW PRESENT VENT. RATE HAS INCREASED BY 46 BPM Confirmed by MARNIE CHI MD ([id number]) on 03/29/2020 6:23:16 PM Referred By: Confirmed By:MARNIE CHI MD
[2020-03-29] MEDS ORDERED: VANCOMYCIN 1 GRAM (PRE-DOCKED) 1,000 MG/250 ML BAG IVPB ONE (19:00)
--- NOTE | 2020-03-29 19:37 | PN ---
Physical Exam: SUBJECTIVE: Patient seen and examined. Pt is minimally responsive and intubated. OBJECTIVE: Vital Signs Period Temp Pulse Resp BP Sys/Coyne Pulse Ox Last 24 Hr 99.0 F-99.2 F 83-103 14-25 107-136/56-67 98-100 GENERAL: The patient is minimally responsive and intubated. HEAD: Normal with no signs of trauma. EYES: PERRL. ENT: Ears normal, nares patent, pt intubated NECK: Trachea midline LUNGS: Ventilated breath sounds cta bilaterally HEART: Regular rate and rhythm, S1, S2 without murmur, rub or gallop. ABDOMEN: Soft, nondistendended, nongrimacing to tender to palpation. Hooked to grajeda cath EXTREMITIES: 2+ pulses, warm, well-perfused, no edema. SKIN: Warm, dry, normal turgor, no rashes or lesions noted Laboratory Results - last 24 hr 03/28/20 03/28/20 03/28/20 19:24 20:06 21:12 WBC RBC Hgb Hct MCV MCH MCHC RDW Plt Count MPV Absolute Neuts (auto) Neutrophils % Lymphocytes % Monocytes % Eosinophils % Basophils % Nucleated RBC % Anticoagulation Therapy No Result Required. Puncture Site Right radial Patient Temperature No Result Required. ABG pH 7.436 ABG pCO2 30.70 L ABG pO2 265.0 H ABG HCO3 20.2 L ABG O2 Sat (Measured) 99.6 H ABG O2 Content No Result Required. ABG Base Excess -3.5 L Prabhjot Test No Result Required. Patient On Oxygen No Result Required. O2 Delivery Device No Result Required. Oxygen Flow Rate No Result Required. Vent Mode No Result Required. Vent Rate No Result Required. Mechanical Rate No Result Required. PEEP No Result Required. Pressure Support Vent No Result Required. Sodium 156 H Potassium 3.6 Chloride 126 H Carbon Dioxide 19 L Anion Gap 11 BUN 49.9 H Creatinine 1.6 H Est GFR (CKD-EPI)AfAm 33.70 Est GFR (CKD-EPI)NonAf 29.08 POC Glucometer Random Glucose 214 H Lactic Acid 1.3 Calcium 6.7 L* Phosphorus Magnesium Total Bilirubin AST ALT Alkaline Phosphatase Troponin I Total Protein Albumin 03/29/20 03/29/20 03/29/20 01:29 05:40 05:57 WBC RBC Hgb Hct MCV MCH MCHC RDW Plt Count MPV Absolute Neuts (auto) Neutrophils % Lymphocytes % Monocytes % Eosinophils % Basophils % Nucleated RBC % Anticoagulation Therapy No Result Required. Puncture Site No Result Required. Patient Temperature No Result Required. ABG pH 7.404 ABG pCO2 30.70 L ABG pO2 140.8 H ABG HCO3 18.8 L ABG O2 Sat (Measured) 98.8 H ABG O2 Content No Result Required. ABG Base Excess -5.3 L Prabhjot Test Positive Patient On Oxygen Yes O2 Delivery Device Vent Oxygen Flow Rate 60% Vent Mode A/c Vent Rate 14 Mechanical Rate Yes PEEP 5.0 Pressure Support Vent 400 Sodium Potassium Chloride Carbon Dioxide Anion Gap BUN Creatinine Est GFR (CKD-EPI)AfAm Est GFR (CKD-EPI)NonAf POC Glucometer 178 167 Random Glucose Lactic Acid Calcium Phosphorus Magnesium Total Bilirubin AST ALT Alkaline Phosphatase Troponin I Total Protein Albumin 03/29/20 03/29/20 03/29/20 06:48 06:48 13:44 WBC 11.9 H RBC 2.88 L Hgb 7.2 L Hct 23.9 L D MCV 82.9 MCH 25.1 L MCHC 30.3 L RDW 18.8 H Plt Count 213 D MPV 8.5 Absolute Neuts (auto) 9.5 H Neutrophils % 79.4 Lymphocytes % 14.9 D Monocytes % 5.4 Eosinophils % 0.1 D Basophils % 0.2 Nucleated RBC % 0 Anticoagulation Therapy Puncture Site Patient Temperature ABG pH ABG pCO2 ABG pO2 ABG HCO3 ABG O2 Sat (Measured) ABG O2 Content ABG Base Excess Prabhjot Test Patient On Oxygen O2 Delivery Device Oxygen Flow Rate Vent Mode Vent Rate Mechanical Rate PEEP Pressure Support Vent Sodium 154 H Potassium 3.1 L Chloride 124 H Carbon Dioxide 22 Anion Gap 8 BUN 45.5 H Creatinine 1.6 H Est GFR (CKD-EPI)AfAm 33.70 Est GFR (CKD-EPI)NonAf 29.08 POC Glucometer 156 Random Glucose 186 H Lactic Acid Calcium 7.2 L Phosphorus 3.7 Magnesium 1.9 Total Bilirubin 0.3 AST 25 ALT 23 Alkaline Phosphatase 60 Troponin I 0.59 H Total Protein 5.5 L Albumin 1.9 L 03/29/20 19:21 WBC RBC Hgb Hct MCV MCH MCHC RDW Plt Count MPV Absolute Neuts (auto) Neutrophils % Lymphocytes % Monocytes % Eosinophils % Basophils % Nucleated RBC % Anticoagulation Therapy Puncture Site Patient Temperature ABG pH ABG pCO2 ABG pO2 ABG HCO3 ABG O2 Sat (Measured) ABG O2 Content ABG Base Excess Prabhjot Test Patient On Oxygen O2 Delivery Device Oxygen Flow Rate Vent Mode Vent Rate Mechanical Rate PEEP Pressure Support Vent Sodium Potassium Chloride Carbon Dioxide Anion Gap BUN Creatinine Est GFR (CKD-EPI)AfAm Est GFR (CKD-EPI)NonAf POC Glucometer 145 Random Glucose Lactic Acid Calcium Phosphorus Magnesium Total Bilirubin AST ALT Alkaline Phosphatase Troponin I Total Protein Albumin Active Medications Generic Name Dose Route Start Last Admin Trade Name Frecaitlin PRN Reason Stop Dose Admin Chlorhexidine Gluconate 1 applic 03/29/20 22:00 Hibiclens For Decolonization - TP HS MITRA Heparin Sodium (Porcine) 5,000 unit 03/29/20 14:30 03/29/20 16:58 Heparin - SQ 5,000 unit TID MITRA Administration Sodium Chloride 1,000 mls @ 75 mls/hr 03/29/20 01:00 03/29/20 01:32 1/2 Normal Saline IV 75 mls/hr ASDIR MITRA Administration Fentanyl 500 mcg in 100 mls @ 5 mls/hr 03/29/20 01:00 03/29/20 10:25 Sublimaze Ivpb IVPB 0 mcg/hr TITR MITRA 0 mls/hr Titration Protocol 25 MCG/HR Piperacillin Sod/Tazobactam 50 mls @ 100 mls/hr 03/29/20 11:30 03/29/20 17:45 Sod 3.375 gm/ Dextrose IVPB 100 mls/hr Q8H-IV MITRA Administration Protocol Vancomycin HCl 1,000 mg in 250 mls @ 166.667 mls/hr 03/29/20 19:00 Vancomycin (Pre-Docked) IVPB 03/29/20 20:29 ONCE ONE Protocol Insulin Aspart 1 vial 03/29/20 00:00 03/29/20 19:22 Novolog Vial Sliding Scale - SQ Not Given Q6HPO MITRA Protocol Levothyroxine Sodium 50 mcg 03/29/20 07:00 03/29/20 06:08 Synthroid - PO Not Given DAILY@0700 MITRA Mupirocin 1 applic 03/29/20 10:00 03/29/20 09:01 Bactroban 2% Ointment - TP 1 applic BID MITRA Administration Pantoprazole Sodium 40 mg 03/29/20 10:00 03/29/20 09:02 Protonix Iv IVPUSH 40 mg DAILY MITRA Administration ASSESSMENT/PLAN: 85 yo female DNR pmh PD, AD, HLD, HTN, CAD, CHF, CKD, NIDDM< aortic valve replacement from [facility] brought in for resp distress. Intubated 03/28 in field for tachypnea in 50s desat to 80s. Pt sepsis/ septic shock due to HCAP vs asp pna possible secondary UTI secondary sepsis UTI Neuro: -hold sedation of Fentanyl 25 micrograms/ hr Resp: - wean off intubation. Took pt off assited volume control put pt on cpap - Pt was intubated in the field on 03/28/2020 with 7 tube due to tacypnic in 50s and desaturating to 80s - Pt will be put back on AC volume control due to CPAP not being able to hold throughout night. ID - sepsis/septic shock - HCAP vs Asp PNA - UTI r/p secondary sepsis UTI - empiric zoxyn/vanco Endo - NIDDM- sliding scale - hypothyroidism- levothyroxine CKD - monitor lytes and adequeate fluid hydration / NS 45ml/hr Cardio - Monitor troponin. Troponin trending downward Prophylaxis - heparin 5000 TID - protonix 40 mg Visit type - Emergency Visit Emergency Visit: Yes ED Registration Date: 03/28/20 Care time: The patient presented to the Emergency Department on the above date and was hospitalized for further evaluation of their emergent condition. - New Patient This patient is new to me today: Yes Date on this admission: 03/30/20 - Critical Care Critical Care patient: Yes Total Critical Care Time (in minutes): 36 Critical Care Statement: The care of this patient involved high complexity decision making to prevent further life threatening deterioration of the patient's condition and/or to evaluate & treat vital organ system(s) failure or risk of failure. - Medication Review Med list reviewed for High Risk Meds patients 65 and older: Yes ATTENDING PHYSICIAN STATEMENT I saw and evaluated the patient. I reviewed the resident's note and discussed the case with the resident. I agree with the resident's findings and plan as documented. SUBJECTIVE: OBJECTIVE: ASSESSMENT AND PLAN:
[2020-03-29] MEDS: CHLORHEXIDINE GLUCONATE 4% CLEANSER FOR DECOLONIZATION TP SCH (21:52)
[2020-03-29] MEDS ORDERED: MEROPENEM 1 GM in DEXTROSE 5%-WATER 100 ML IVPB SCH (22:00)
[2020-03-30] MEDS ORDERED: DEXTROSE 5%-WATER - 50 ML IVPB ONE ×4 (02:45→17:31)
[2020-03-30] MEDS ORDERED: PIPERACILLIN/TAZOBACTAM 3.375 GM VIAL IVPB ONE ×4 (02:45→17:31)
[2020-03-30] MEDS: SODIUM CHLORIDE 0.45% 1,000 ML IV SCH ×2 (02:58→17:48)
[2020-03-30] MEDS: INSULIN SLIDING SCALE (NOVOLOG) 1 VIAL SQ SCH ×4 (02:58→17:46)
[2020-03-30] MEDS: PIPERACILLIN/TAZOB 3.375 GM 3.375 GM in DEXTROSE 5%-WATER - 50 ML IVPB SCH ×3 (02:59→17:46)
[2020-03-30] MEDS: FENTANYL IVPB 500 MCG/100 ML BAG IVPB SCH (02:59)
[2020-03-30] MEDS: LEVOTHYROXINE NA 50 MCG TABLET (FP) PO SCH (06:39)
[2020-03-30] MEDS: HEPARIN NA (PORCINE) 5,000 UNITS/ML 1ML VIAL SQ SCH ×3 (06:39→21:44)
[2020-03-30 06:46] LABS: MCH 25.2 pg (25.7-33.7); MCHC 30.4 g/dl (32.0-36.0); MEAN PLT VOLUME 8.6 fl (7.5-11.1); PLATELET COUNT 205 K/MM3 (134-434); RBC 2.65 M/mm3 (3.60-5.2); RDW 19.1 % (11.6-15.6); WHITE BLOOD COUNT 11.5 K/mm3 (4.0-10.0)
[2020-03-30 07:07] LABS: ALBUMIN 1.7 g/dl (3.4-5.0); BILIRUBIN,TOTAL 0.4 mg/dL (0.2-1); BLOOD UREA NITROGEN 41.5 mg/dL (7-18); CALCIUM 7.2 mg/dL (8.5-10.1); CREATININE 1.6 mg/dL (0.55-1.3); MAGNESIUM 1.7 mg/dL (1.8-2.4); PHOSPHOROUS 2.9 mg/dL (2.5-4.9); POTASSIUM 3.4 mmol/L (3.5-5.1); TOT PROT 5.4 g/dl (6.4-8.2)
[2020-03-30 07:11] LABS: HEMOGLOBIN 6.7 GM/dL (10.7-15.3)
[2020-03-30] MEDS ORDERED: MAGNESIUM SULF 50% (8.12 MEQ/2 ML-1 GM VIAL) IVPB ONE (08:35)
[2020-03-30] MEDS: PANTOPRAZOLE SODIUM 40 MG VIAL IVPUSH SCH (09:07)
[2020-03-30] MEDS: MUPIROCIN 2% TOPICAL OINTMENT 22 GM TUBE TP SCH ×2 (10:59→21:44)
[2020-03-30] MEDS: LEVOTHYROXINE SODIUM 100 MCG VIAL IVPUSH SCH (10:59)
[2020-03-30] MEDS ORDERED: ALBUTEROL SO4 0.083% IH SOL 2.5 MG/3 ML VIAL.NEB. NEB PRN (11:23)
[2020-03-30] MEDS: KCL 10 MEQ IVPB 10 MEQ/100 ML INFUS.BAG IVPB SCH ×3 (11:45→15:54)
--- NOTE | 2020-03-30 12:13 | CONSULT ---
Admitting History and Physical - Admission History of Present Illness: Per EMR - 85F with PMH Parkinson's Disease, Alzheimer's Disease, HLD, HTN, CAD, CHF, CKD, NIDDM, aortic valve replacement admitted to ICU from ED for hypoxic respiratory failure requiring intubation, in the field and BIBA for respiratory distress. Unclear etiology, but likely respiratory failure 2/2 aspiration vs. PNA given hypoxia and brown substance in the airway. Recently discharged from [facility] back to [facility], per son Parrish has been intubated 3 times in the past year Intubated 03/28, Extubated today, 03/30 Known to me from February 2020 admission- 02/16/20 MBS completed with trace intermittent silent aspiration on thin liquid. 02/17/20 On puree/nectar with good appetite but reported cough intermittently on nectar 02/18/20 Swallow onset is effortful.Tip of tongue dry. Downgraded to Puree/honey thick liquid for now, as GEOSPATIAL INTELLIGENCE ANALYST reported cough response with nectar thick liquid. d/c'd on puree/honey Selected Entries 03/29/20 03/29/20 03/29/20 00:25 00:44 01:00 Temperature Pulse Rate Respiratory 14 14 14 Rate Respiratory Depth Respiratory Effort Blood Pressure O2 Sat by Pulse Oximetry (%) Oxygen Delivery Method Fraction of Inspired Oxygen (FIO2) Oxygen Flow Rate 03/29/20 03/29/20 03/29/20 03:00 04:30 05:00 Temperature Pulse Rate Respiratory 14 14 14 Rate Respiratory Depth Respiratory Effort Blood Pressure O2 Sat by Pulse Oximetry (%) Oxygen Delivery Method Fraction of Inspired Oxygen (FIO2) Oxygen Flow Rate 03/29/20 03/29/20 03/29/20 06:58 08:00 08:31 Temperature Pulse Rate Respiratory 14 14 14 Rate Respiratory Depth Respiratory Effort Blood Pressure O2 Sat by Pulse Oximetry (%) Oxygen Delivery Method Fraction of Inspired Oxygen (FIO2) Oxygen Flow Rate 03/29/20 03/29/20 03/29/20 09:00 10:00 12:00 Temperature Pulse Rate Respiratory 16 14 16 Rate Respiratory Normal Depth Respiratory Mechanically Effort Ventilated Blood Pressure O2 Sat by Pulse Oximetry (%) Oxygen Delivery Method Fraction of Inspired Oxygen (FIO2) Oxygen Flow Rate 03/29/20 03/29/20 03/29/20 12:10 14:00 16:10 Temperature Pulse Rate Respiratory 16 25 H 19 Rate Respiratory Depth Respiratory Effort Blood Pressure O2 Sat by Pulse Oximetry (%) Oxygen Delivery Method Fraction of Inspired Oxygen (FIO2) Oxygen Flow Rate 03/29/20 03/29/20 03/29/20 17:00 19:00 20:15 Temperature Pulse Rate Respiratory 18 23 H 20 Rate Respiratory Depth Respiratory Effort Blood Pressure O2 Sat by Pulse Oximetry (%) Oxygen Delivery Method Fraction of Inspired Oxygen (FIO2) Oxygen Flow Rate 03/29/20 03/29/20 03/30/20 21:00 23:00 00:25 Temperature Pulse Rate Respiratory 24 H 24 H 20 Rate Respiratory Normal Depth Respiratory Mechanically Effort Ventilated Blood Pressure O2 Sat by Pulse Oximetry (%) Oxygen Delivery Method Fraction of 40 Inspired Oxygen (FIO2) Oxygen Flow Rate 03/30/20 03/30/20 03/30/20 01:00 03:00 03:46 Temperature 99.3 F 99.3 F Pulse Rate 90 89 Respiratory 20 20 Rate Respiratory Depth Respiratory Effort Blood Pressure 119/68 119/68 O2 Sat by Pulse 100 100 100 Oximetry (%) Oxygen Delivery Mechanical Method Ventilator Fraction of 60 Inspired Oxygen (FIO2) Oxygen Flow 50 Rate 03/30/20 03/30/20 03/30/20 03:50 04:20 05:00 Temperature 99.1 F Pulse Rate 90 Respiratory 14 14 13 Rate Respiratory Depth Respiratory Effort Blood Pressure 110/62 O2 Sat by Pulse 100 99 Oximetry (%) Oxygen Delivery Method Fraction of 60 40 Inspired Oxygen (FIO2) Oxygen Flow Rate 03/30/20 03/30/20 03/30/20 06:53 08:00 10:00 Temperature 99 F 96.8 F L Pulse Rate 79 84 77 Respiratory 14 16 13 Rate Respiratory Depth Respiratory Effort Blood Pressure 113/52 L 117/50 L 118/65 O2 Sat by Pulse 99 100 100 Oximetry (%) Oxygen Delivery Method Fraction of Inspired Oxygen (FIO2) Oxygen Flow Rate 03/30/20 12:00 Temperature Pulse Rate 95 H Respiratory 34 H Rate Respiratory Depth Respiratory Effort Blood Pressure 124/71 O2 Sat by Pulse 99 Oximetry (%) Oxygen Delivery Method Fraction of Inspired Oxygen (FIO2) Oxygen Flow Rate Laboratory Tests 03/28/20 03/28/20 03/29/20 17:00 20:30 06:48 WBC 10.8 H 11.9 H COVID-19 (MYLA) Not detected 03/30/20 06:00 WBC 11.5 H COVID-19 (MYLA) - Past Medical History [place] MGR: Yes: Dementia Cardiovascular: Yes: CAD, HTN Pulmonary: Yes: COPD Renal/: Yes: Other (CKD) ...: No Infectious Disease: Yes: Other (Recent shingles ) - Past Surgical History Past Surgical History: Yes: None (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 Required intubation after respiratory failure with "brown chunky" substance found in airway. (food? mucous plug?). Intubated 3 times this year, per emr/son's report - Dysphagia Impressions/Plan Swallowing Skills: Impaired Dysphagia Impressions: Too Lethargic to Assess (Too acute for po trials at bedside,as extubated today, and especially with h/o silent aspiration, Brown chunky material in airway noted when intubated, and h/o 3 intubations.) Recommendations: Modified Barium Swallow (when medically satable before po trials) - Recommendations Diet Consistency: NPO (strict, including medication) Liquids: NPO
--- NOTE | 2020-03-30 12:25 | PN ---
Teaching Attending Note Name of Resident: Asael Lawler ATTENDING PHYSICIAN STATEMENT I saw and evaluated the patient. I reviewed the resident's note and discussed the case with the resident. I agree with the resident's findings and plan as documented. SUBJECTIVE: Pt seen and examined in the ICU. Remains intubated, more awake off sedation. No pressors. Placed on CPAP/PS with good RSBI and respiratory effort and subsequently extubated during rounds. OBJECTIVE: Vital Signs Period Temp Pulse Resp BP Sys/Coyne Pulse Ox Last 24 Hr 96.8 F-99.7 F 77-103 13-34 110-136/50-98 97-100 Intake & Output 03/27/20 03/28/20 03/29/20 03/30/20 23:59 23:59 23:59 23:59 Intake Total 7720 492 8302 Output Total 20 450 300 Balance 980 520 900 Weight 58.377 kg 58.377 kg 58.377 kg Gen: extubated Heart: RRR Lung: decreased breath sounds at the bases Abd: soft, nontender Ext: no edema CBC, BMP 03/30/20 06:00 03/30/20 06:00 Active Medications Albuterol Sulfate (Ventolin 0.083% Nebulizer Soln -) 1 amp NEB Q4H PRN PRN Reason: SHORT OF BREATH/WHEEZING Albuterol/Ipratropium (Duoneb -) 1 amp NEB RQID MITRA Chlorhexidine Gluconate (Hibiclens For Decolonization -) 1 applic TP HS [facility] Last Admin: 03/29/20 21:52 Dose: 1 applic Documented by: Heparin Sodium (Porcine) (Heparin -) 5,000 unit SQ TID MITRA Last Admin: 03/30/20 06:39 Dose: 5,000 unit Documented by: Sodium Chloride (1/2 Normal Saline) 1,000 mls @ 75 mls/hr IV ASDIR MITRA Last Admin: 03/30/20 02:58 Dose: Not Given Documented by: Fentanyl (Sublimaze Ivpb) 500 mcg in 100 mls @ 5 mls/hr IVPB TITR MITRA; Protocol Last Admin: 03/30/20 02:59 Dose: Not Given Documented by: Piperacillin Sod/Tazobactam (Sod 3.375 gm/ Dextrose) 50 mls @ 100 mls/hr IVPB Q8H-IV MITRA; Protocol Last Admin: 03/30/20 09:06 Dose: 100 mls/hr Documented by: Potassium Chloride (Potassium Chloride 10 Meq Premix Ivpb -) 10 meq in 100 mls @ 100 mls/hr IVPB Q60M [facility] Stop: 03/30/20 13:59 Last Admin: 03/30/20 12:22 Dose: 100 mls/hr Documented by: Insulin Aspart (Novolog Vial Sliding Scale -) 1 vial SQ Q6HPO [facility]; Protocol Last Admin: 03/30/20 06:39 Dose: Not Given Documented by: Levothyroxine Sodium (Synthroid Injection -) 25 mcg IVPUSH DAILY [facility] Last Admin: 03/30/20 10:59 Dose: 25 mcg Documented by: Mupirocin (Bactroban 2% Ointment -) 1 applic TP BID [facility] Last Admin: 03/30/20 10:59 Dose: 1 applic Documented by: Pantoprazole Sodium (Protonix Iv) 40 mg IVPUSH DAILY [facility] Last Admin: 03/30/20 09:07 Dose: 40 mg Documented by: ASSESSMENT AND PLAN: Acute Hypoxic Respiratory Failure Pneumonia likely Aspiration UTI CAD CHF HTN Hyperlipidemia DM h/o AVR CKD Hypothyroidism Anemia - pt extubated - transfuse PRBC - monitor H/H - continue antibiotics - f/u cultures - IVF, free water replacement - aspiration precautions - DVT/GI prophylaxis - continue ICU monitoring critical care time spent in reviewing chart, evaluating patient and formulating plan 35 min
--- NOTE | 2020-03-30 15:50 | PN ---
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, Physician History of Present Illness: AWAKE, RESPONSIVE EXTUBATED ON HIGH FLOW O2 AFEBRILE WBC SL ELEVATED BC (-) SPUTUM LF VANCO T 22 - Current Medication List Current Medications: Active Medications Albuterol Sulfate (Ventolin 0.083% Nebulizer Soln -) 1 amp NEB Q4H PRN PRN Reason: SHORT OF BREATH/WHEEZING Albuterol/Ipratropium (Duoneb -) 1 amp NEB RQID MITRA Chlorhexidine Gluconate (Hibiclens For Decolonization -) 1 applic TP HS MITRA Last Admin: 03/29/20 21:52 Dose: 1 applic Documented by: Heparin Sodium (Porcine) (Heparin -) 5,000 unit SQ TID MITRA Last Admin: 03/30/20 06:39 Dose: 5,000 unit Documented by: Sodium Chloride (1/2 Normal Saline) 1,000 mls @ 75 mls/hr IV ASDIR MITRA Last Admin: 03/30/20 02:58 Dose: Not Given Documented by: Fentanyl (Sublimaze Ivpb) 500 mcg in 100 mls @ 5 mls/hr IVPB TITR MITRA; Protocol Last Admin: 03/30/20 02:59 Dose: Not Given Documented by: Piperacillin Sod/Tazobactam (Sod 3.375 gm/ Dextrose) 50 mls @ 100 mls/hr IVPB Q8H-IV MITRA; Protocol Last Admin: 03/30/20 09:06 Dose: 100 mls/hr Documented by: Insulin Aspart (Novolog Vial Sliding Scale -) 1 vial SQ Q6HPO MITRA; Protocol Last Admin: 03/30/20 12:29 Dose: Not Given Documented by: Levothyroxine Sodium (Synthroid Injection -) 25 mcg IVPUSH DAILY MITRA Last Admin: 03/30/20 10:59 Dose: 25 mcg Documented by: Mupirocin (Bactroban 2% Ointment -) 1 applic TP BID MITRA Last Admin: 03/30/20 10:59 Dose: 1 applic Documented by: Pantoprazole Sodium (Protonix Iv) 40 mg IVPUSH DAILY [facility] Last Admin: 03/30/20 09:07 Dose: 40 mg Documented by: - Objective Vital Signs: Vital Signs Temperature 97.5 F L 03/30/20 14:00 Pulse Rate 90 03/30/20 14:00 Respiratory Rate 31 H 03/30/20 14:00 Blood Pressure 130/66 03/30/20 14:00 O2 Sat by Pulse Oximetry (%) 99 03/30/20 14:00 Constitutional: Yes: No Distress Cardiovascular: Yes: Regular Rate and Rhythm, S1, S2 Respiratory: Yes: Diminished Gastrointestinal: Yes: Normal Bowel Sounds, Soft. No: Tenderness Labs: CBC, BMP 03/30/20 06:00 03/30/20 06:00 INR, PTT INR 1.20 (0.83-1.09) H 03/28/20 17:00 Assessment/Plan S/P ACUTE RESP FAILURE S/P EXTUBATION ON HIGH FLOW O2 SEPSIS PNEUMOMNIA UTI S/P TAVR AWAIT C/S CONTINUE ZOSYN
--- NOTE | 2020-03-30 16:13 | PN ---
Physical Exam: SUBJECTIVE: Patient seen and examined. Pt nonverbal at baseline. OBJECTIVE: Vital Signs Period Temp Pulse Resp BP Sys/Conye Pulse Ox Last 24 Hr 96.8 F-99.7 F 77-95 13-34 110-130/50-98 97-100 GENERAL: The patient is awake alert and nonverbal at baseline. HEAD: Normal with no signs of trauma. EYES: PERRL EOMI ENT: Ears normal, nares patent NECK: Trachea midline, no JVD, or lymphadenopathy LUNGS:Breath sounds CTA bilaterally HEART: Regular rate and rhythm, S1, S2 without murmur, rub or gallop. ABDOMEN: Soft, nondistendended, Tender to palpation on suprapubic region. Hooked to grajeda cath EXTREMITIES: 2+ pulses, warm, well-perfused, no edema. SKIN: Warm, dry, normal turgor, no rashes or lesions noted Laboratory Results - last 24 hr 03/28/20 03/29/20 03/30/20 20:30 19:21 02:38 WBC RBC Hgb Hct MCV MCH MCHC RDW Plt Count MPV Sodium Potassium Chloride Carbon Dioxide Anion Gap BUN Creatinine Est GFR (CKD-EPI)AfAm Est GFR (CKD-EPI)NonAf POC Glucometer 145 134 Random Glucose Calcium Phosphorus Magnesium Total Bilirubin AST ALT Alkaline Phosphatase Total Protein Albumin Random Vancomycin COVID-19 (MYLA) Not detected Blood Type Antibody Screen Crossmatch 03/30/20 03/30/20 03/30/20 06:00 06:00 06:00 WBC 11.5 H RBC 2.65 L Hgb 6.7 L* Hct 22.0 L MCV 83.0 MCH 25.2 L MCHC 30.4 L RDW 19.1 H Plt Count 205 MPV 8.6 Sodium 150 H Potassium 3.4 L Chloride 122 H Carbon Dioxide 21 Anion Gap 7 L BUN 41.5 H Creatinine 1.6 H Est GFR (CKD-EPI)AfAm 33.70 Est GFR (CKD-EPI)NonAf 29.08 POC Glucometer Random Glucose 129 H Calcium 7.2 L Phosphorus 2.9 Magnesium 1.7 L Total Bilirubin 0.4 AST 50 H ALT 34 Alkaline Phosphatase 68 Total Protein 5.4 L Albumin 1.7 L Random Vancomycin 22.7 COVID-19 (MYLA) Blood Type Antibody Screen Crossmatch 03/30/20 03/30/20 03/30/20 06:00 06:26 08:20 WBC RBC Hgb Hct MCV MCH MCHC RDW Plt Count MPV Sodium Potassium Chloride Carbon Dioxide Anion Gap BUN Creatinine Est GFR (CKD-EPI)AfAm Est GFR (CKD-EPI)NonAf POC Glucometer 133 Random Glucose Calcium Phosphorus Magnesium Total Bilirubin AST ALT Alkaline Phosphatase Total Protein Albumin Random Vancomycin COVID-19 (MYLA) Blood Type O POSITIVE O POSITIVE Antibody Screen Negative Crossmatch See Detail 03/30/20 12:27 WBC RBC Hgb Hct MCV MCH MCHC RDW Plt Count MPV Sodium Potassium Chloride Carbon Dioxide Anion Gap BUN Creatinine Est GFR (CKD-EPI)AfAm Est GFR (CKD-EPI)NonAf POC Glucometer 139 Random Glucose Calcium Phosphorus Magnesium Total Bilirubin AST ALT Alkaline Phosphatase Total Protein Albumin Random Vancomycin COVID-19 (MYLA) Blood Type Antibody Screen Crossmatch Active Medications Generic Name Dose Route Start Last Admin Trade Name Freq PRN Reason Stop Dose Admin Albuterol Sulfate 1 amp 03/30/20 11:23 Ventolin 0.083% Nebulizer Soln - NEB Q4H PRN SHORT OF BREATH/WHEEZING Albuterol/Ipratropium 1 amp 03/30/20 12:00 Duoneb - NEB RQID [facility] Chlorhexidine Gluconate 1 applic 03/29/20 22:00 03/29/20 21:52 Hibiclens For Decolonization - TP 1 applic HS [facility] Administration Heparin Sodium (Porcine) 5,000 unit 03/29/20 14:30 03/30/20 15:55 Heparin - SQ Not Given TID [facility] Sodium Chloride 1,000 mls @ 75 mls/hr 03/29/20 01:00 03/30/20 02:58 1/2 Normal Saline IV Not Given ASDIR [facility] Fentanyl 500 mcg in 100 mls @ 5 mls/hr 03/29/20 01:00 03/30/20 02:59 Sublimaze Ivpb IVPB Not Given TITR [facility] Protocol 25 MCG/HR Piperacillin Sod/Tazobactam 50 mls @ 100 mls/hr 03/29/20 11:30 03/30/20 09:06 Sod 3.375 gm/ Dextrose IVPB 100 mls/hr Q8H-IV [facility] Administration Protocol Insulin Aspart 1 vial 03/29/20 00:00 03/30/20 12:29 Novolog Vial Sliding Scale - SQ Not Given Q6HPO [facility] Protocol Levothyroxine Sodium 25 mcg 03/30/20 10:00 03/30/20 10:59 Synthroid Injection - IVPUSH 25 mcg DAILY [facility] Administration Mupirocin 1 applic 03/29/20 10:00 03/30/20 10:59 Bactroban 2% Ointment - TP 1 applic BID [facility] Administration Pantoprazole Sodium 40 mg 03/29/20 10:00 03/30/20 09:07 Protonix Iv IVPUSH 40 mg DAILY [facility] Administration ASSESSMENT/PLAN: 85 yo female DNR pmh PD, AD, HLD, HTN, CAD, CHF, CKD, NIDDM< aortic valve replacement from [facility] brought in for resp distress. Intubated 03/28 in field for tachypnea in 50s desat to 80s. Pt sepsis/ septic shock due to HCAP vs asp pna possible secondary UTI secondary sepsis UTI Neuro: -Sedation held. Pt awake and alert. - Speech and swallow consulted. Speech and swallow consulted barium swallow. Pt will be put back on fluids Resp: - Pt extubated today and was put on venti mask FiO2 @40%. Pt started desaturating into low 80s and was put on hi flow nasal canula and saturated to 100% - pt will be monitored for today for resp demise ID - continue zosyn - vancomycin was DC. Pt was on vanco due to valve replacement via Dr. Silva Endo - NIDDM- sliding scale - hypothyroidism- IV levothyroxine Renal - CKD- monitor lytes and adequeate fluid hydration 1/2 NS 45ml/hr Heme - pt hemoglobin dropped to 6.7 will give one unit of blood - stool occult ordered Cardio - no pressors given Prophylaxis - heparin 5000 TID - protonix 40 mg Visit type - Emergency Visit Emergency Visit: Yes ED Registration Date: 03/28/20 Care time: The patient presented to the Emergency Department on the above date and was hospitalized for further evaluation of their emergent condition. - New Patient This patient is new to me today: No - Critical Care Critical Care patient: Yes Total Critical Care Time (in minutes): 36 Critical Care Statement: The care of this patient involved high complexity decision making to prevent further life threatening deterioration of the patient's condition and/or to evaluate & treat vital organ system(s) failure or risk of failure. - Medication Review Med list reviewed for High Risk Meds patients 65 and older: Yes ATTENDING PHYSICIAN STATEMENT I saw and evaluated the patient. I reviewed the resident's note and discussed the case with the resident. I agree with the resident's findings and plan as documented. SUBJECTIVE: OBJECTIVE: ASSESSMENT AND PLAN:
[2020-03-30] MEDS: ALBUTEROL SO4 2.5/IPRATROPIUM 0.5 INH SOL 3 ML VIAL.NEB. NEB SCH ×2 (18:27→20:50)
[2020-03-30] MEDS: CHLORHEXIDINE GLUCONATE 4% CLEANSER FOR DECOLONIZATION TP SCH (21:44)
[2020-03-31] MEDS: FENTANYL IVPB 500 MCG/100 ML BAG IVPB SCH (01:00)
[2020-03-31] MEDS ORDERED: PIPERACILLIN/TAZOBACTAM 3.375 GM VIAL IVPB ONE ×2 (02:19→09:15)
[2020-03-31] MEDS ORDERED: DEXTROSE 5%-WATER - 50 ML IVPB ONE ×2 (02:20→09:15)
[2020-03-31] MEDS: PIPERACILLIN/TAZOB 3.375 GM 3.375 GM in DEXTROSE 5%-WATER - 50 ML IVPB SCH ×3 (02:46→17:10)
[2020-03-31 07:17] LABS: BASO % 0.1 % (0-2.0); EOS % 0.7 % (0-4.5); HEMATOCRIT 29.5 % (32.4-45.2); HEMOGLOBIN 9.2 GM/dL (10.7-15.3); LYMPH % 13.8 % (8-40); MCH 25.9 pg (25.7-33.7); MCHC 31.1 g/dl (32.0-36.0); MEAN CELL VOLUME 83.2 fl (80-96); MEAN PLT VOLUME 8.6 fl (7.5-11.1); MONO % 3.7 % (3.8-10.2); NEUT % 81.7 % (42.8-82.8); PLATELET COUNT 233 K/MM3 (134-434); RBC 3.54 M/mm3 (3.60-5.2); RDW 17.6 % (11.6-15.6); WHITE BLOOD COUNT 12.6 K/mm3 (4.0-10.0)
[2020-03-31 07:37] LABS: ALBUMIN 1.9 g/dl (3.4-5.0); BILIRUBIN,TOTAL 0.8 mg/dL (0.2-1); CALCIUM 7.3 mg/dL (8.5-10.1); CREATININE 1.4 mg/dL (0.55-1.3); POTASSIUM 3.5 mmol/L (3.5-5.1); TOT PROT 5.9 g/dl (6.4-8.2)
[2020-03-31] MEDS: HEPARIN NA (PORCINE) 5,000 UNITS/ML 1ML VIAL SQ SCH ×3 (07:54→21:21)
[2020-03-31] MEDS: INSULIN SLIDING SCALE (NOVOLOG) 1 VIAL SQ SCH ×4 (07:54→21:41)
[2020-03-31] MEDS: ALBUTEROL SO4 2.5/IPRATROPIUM 0.5 INH SOL 3 ML VIAL.NEB. NEB SCH ×4 (08:00→20:22)
[2020-03-31] MEDS: SODIUM CHLORIDE 0.45% 1,000 ML IV SCH (08:09)
[2020-03-31] MEDS ORDERED: PT OWN MED DRAWER 7, Y5N ONE (09:15)
[2020-03-31] MEDS: PANTOPRAZOLE SODIUM 40 MG VIAL IVPUSH SCH (09:19)
[2020-03-31] MEDS: MUPIROCIN 2% TOPICAL OINTMENT 22 GM TUBE TP SCH ×2 (09:24→23:07)
[2020-03-31] MEDS: LEVOTHYROXINE SODIUM 100 MCG VIAL IVPUSH SCH (09:24)
--- NOTE | 2020-03-31 10:24 | PN ---
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: Selected Entries 03/30/20 03/30/20 03/30/20 00:25 01:00 03:00 Temperature Pulse Rate Respiratory 20 20 20 Rate Blood Pressure O2 Sat by Pulse 100 100 Oximetry (%) Oxygen Delivery Method Fraction of Inspired Oxygen (FIO2) 03/30/20 03/30/20 03/30/20 03:46 03:50 04:20 Temperature Pulse Rate Respiratory 14 14 Rate Blood Pressure O2 Sat by Pulse 100 100 Oximetry (%) Oxygen Delivery Method Fraction of Inspired Oxygen (FIO2) 03/30/20 03/30/20 03/30/20 05:00 06:53 08:00 Temperature Pulse Rate Respiratory 13 14 16 Rate Blood Pressure O2 Sat by Pulse 99 99 100 Oximetry (%) Oxygen Delivery Method Fraction of Inspired Oxygen (FIO2) 03/30/20 03/30/20 03/30/20 08:20 09:00 10:00 Temperature Pulse Rate Respiratory 16 25 H 13 Rate Blood Pressure O2 Sat by Pulse 100 99 100 Oximetry (%) Oxygen Delivery Method Fraction of Inspired Oxygen (FIO2) 03/30/20 03/30/20 03/30/20 11:35 12:00 14:00 Temperature Pulse Rate Respiratory 34 H 31 H Rate Blood Pressure O2 Sat by Pulse 99 99 99 Oximetry (%) Oxygen Delivery Method Fraction of Inspired Oxygen (FIO2) 03/30/20 03/30/20 03/30/20 16:00 17:31 18:00 Temperature Pulse Rate Respiratory 31 H 29 H Rate Blood Pressure O2 Sat by Pulse 99 95 100 Oximetry (%) Oxygen Delivery Method Fraction of Inspired Oxygen (FIO2) 03/30/20 03/30/20 03/30/20 20:00 20:20 21:00 Temperature Pulse Rate Respiratory 35 H 34 H Rate Blood Pressure O2 Sat by Pulse 95 97 95 Oximetry (%) Oxygen Delivery Method Fraction of Inspired Oxygen (FIO2) 03/30/20 03/31/20 03/31/20 22:00 00:00 00:14 Temperature Pulse Rate 92 H Respiratory 34 H 34 H Rate Blood Pressure 136/79 O2 Sat by Pulse 93 L 95 97 Oximetry (%) Oxygen Delivery Method Fraction of 46 Inspired Oxygen (FIO2) 03/31/20 03/31/20 03/31/20 02:00 04:00 04:25 Temperature 98.8 F 99.1 F Pulse Rate 93 H 90 92 H Respiratory 35 H 25 H Rate Blood Pressure 142/67 135/73 O2 Sat by Pulse 95 95 94 L Oximetry (%) Oxygen Delivery High Flow O2 Method Fraction of 46 Inspired Oxygen (FIO2) 03/31/20 03/31/20 03/31/20 06:00 08:00 09:31 Temperature 98.9 F 98.7 F Pulse Rate 93 H 95 H 96 H Respiratory 33 H 32 H 24 H Rate Blood Pressure 146/73 151/77 141/97 O2 Sat by Pulse 95 91 L Oximetry (%) Oxygen Delivery Method Fraction of Inspired Oxygen (FIO2) 03/31/20 09:52 Temperature Pulse Rate Respiratory Rate Blood Pressure O2 Sat by Pulse 100 Oximetry (%) Oxygen Delivery Method Fraction of 70 Inspired Oxygen (FIO2) Laboratory Tests 03/28/20 03/29/20 03/30/20 17:00 06:48 06:00 WBC 10.8 H 11.9 H 11.5 H 03/31/20 06:35 WBC 12.6 H CXR-worse. NGT removed. h/o silent aspiration during February 2020 admission. Required intubation after respiratory failure with "brown chunky" substance found in airway. (food? mucous plug?). Intubated 3 times this year Suspect aspiration. Presently on hiflo, congested, desaturates, difficult to suction Continue NPO until mbs, once medically stable Consider- beginning to address wishes regarding PEG insertion
--- NOTE | 2020-03-31 10:55 | PN ---
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, Physician History of Present Illness: REMAINS EXTUBATED ON HIGH FLOW O2 CONGESTED AFEBRILE WBC SL ELEVATED BC (-) SPUTUM KLEBSIELLA - Current Medication List Current Medications: Active Medications Albuterol Sulfate (Ventolin 0.083% Nebulizer Soln -) 1 amp NEB Q4H PRN PRN Reason: SHORT OF BREATH/WHEEZING Albuterol/Ipratropium (Duoneb -) 1 amp NEB RQID [facility] Last Admin: 03/30/20 20:50 Dose: 1 amp Documented by: Chlorhexidine Gluconate (Hibiclens For Decolonization -) 1 applic TP HS [facility] Last Admin: 03/30/20 21:44 Dose: 1 applic Documented by: Heparin Sodium (Porcine) (Heparin -) 5,000 unit SQ TID [facility] Last Admin: 03/31/20 07:54 Dose: 5,000 unit Documented by: Fentanyl (Sublimaze Ivpb) 500 mcg in 100 mls @ 5 mls/hr IVPB TITR [facility]; Protocol Last Admin: 03/31/20 01:00 Dose: Not Given Documented by: Piperacillin Sod/Tazobactam (Sod 3.375 gm/ Dextrose) 50 mls @ 100 mls/hr IVPB Q8H-IV [facility]; Protocol Last Admin: 03/31/20 09:19 Dose: 100 mls/hr Documented by: Sodium Chloride (1/2 Normal Saline) 1,000 mls @ 42 mls/hr IV ASDIR [facility] Last Admin: 03/31/20 08:09 Dose: 42 mls/hr Documented by: Insulin Aspart (Novolog Vial Sliding Scale -) 1 vial SQ Q6HPO [facility]; Protocol Last Admin: 03/31/20 07:54 Dose: Not Given Documented by: Levothyroxine Sodium (Synthroid Injection -) 25 mcg IVPUSH DAILY [facility] Last Admin: 03/31/20 09:24 Dose: 25 mcg Documented by: Mupirocin (Bactroban 2% Ointment -) 1 applic TP BID [facility] Last Admin: 03/31/20 09:24 Dose: 1 applic Documented by: Pantoprazole Sodium (Protonix Iv) 40 mg IVPUSH DAILY [facility] Last Admin: 03/31/20 09:19 Dose: 40 mg Documented by: - Objective Vital Signs: Vital Signs Temperature 98.7 F 03/31/20 08:00 Pulse Rate 96 H 03/31/20 09:31 Respiratory Rate 24 H 03/31/20 09:31 Blood Pressure 141/97 03/31/20 09:31 O2 Sat by Pulse Oximetry (%) 100 03/31/20 09:52 Constitutional: Yes: No Distress Eyes: Yes: Conjunctiva Clear Cardiovascular: Yes: Regular Rate and Rhythm, S1, S2 Respiratory: Yes: Diminished Gastrointestinal: Yes: Normal Bowel Sounds, Soft. No: Tenderness Edema: No Labs: CBC, BMP 03/31/20 06:35 03/31/20 06:35 INR, PTT INR 1.20 (0.83-1.09) H 03/28/20 17:00 Assessment/Plan S/P ACUTE RESP FAILURE S/P EXTUBATION ON HIGH FLOW O2 SEPSIS PNEUMOMNIA UTI S/P TAVR CONTINUE ZOSYN RESP SUPPORT
--- NOTE | 2020-03-31 13:11 | PN ---
Teaching Attending Note Name of Resident: Asael Lawler ATTENDING PHYSICIAN STATEMENT I saw and evaluated the patient. I reviewed the resident's note and discussed the case with the resident. I agree with the resident's findings and plan as documented. SUBJECTIVE: Pt seen and examined in the ICU. Remains on HFOT 60% FiO2. No fevers recorded. OBJECTIVE: Vital Signs Period Temp Pulse Resp BP Sys/Coyne Pulse Ox Last 24 Hr 97.5 F-99.1 F 89-96 24-35 123-151/63-97 91-100 Intake & Output 03/28/20 03/29/20 03/30/20 03/31/20 23:59 23:59 23:59 23:59 Intake Total 1237 584 1139 386 Output Total 20 450 550 550 Balance 428 373 0224 -164 Weight 58.377 kg 58.377 kg 58.06 kg 61.689 kg Gen: extubated Heart: RRR Lung: bilateral rhonchi Abd: soft, nontender Ext: no edema CBC, BMP 03/31/20 06:35 03/31/20 06:35 Active Medications Albuterol Sulfate (Ventolin 0.083% Nebulizer Soln -) 1 amp NEB Q4H PRN PRN Reason: SHORT OF BREATH/WHEEZING Albuterol/Ipratropium (Duoneb -) 1 amp NEB RQID [facility] Last Admin: 03/30/20 20:50 Dose: 1 amp Documented by: Chlorhexidine Gluconate (Hibiclens For Decolonization -) 1 applic TP HS [facility] Last Admin: 03/30/20 21:44 Dose: 1 applic Documented by: Heparin Sodium (Porcine) (Heparin -) 5,000 unit SQ TID [facility] Last Admin: 03/31/20 07:54 Dose: 5,000 unit Documented by: Fentanyl (Sublimaze Ivpb) 500 mcg in 100 mls @ 5 mls/hr IVPB TITR [facility]; Protocol Last Admin: 03/31/20 01:00 Dose: Not Given Documented by: Piperacillin Sod/Tazobactam (Sod 3.375 gm/ Dextrose) 50 mls @ 100 mls/hr IVPB Q8H-IV [facility]; Protocol Last Admin: 03/31/20 09:19 Dose: 100 mls/hr Documented by: Amino Acids (Clinimix -) 1,000 mls @ 42 mls/hr IV Q24H [facility] Insulin Aspart (Novolog Vial Sliding Scale -) 1 vial SQ Q6HPO [facility]; Protocol Last Admin: 03/31/20 07:54 Dose: Not Given Documented by: Levothyroxine Sodium (Synthroid Injection -) 25 mcg IVPUSH DAILY [facility] Last Admin: 03/31/20 09:24 Dose: 25 mcg Documented by: Mupirocin (Bactroban 2% Ointment -) 1 applic TP BID [facility] Last Admin: 03/31/20 09:24 Dose: 1 applic Documented by: ASSESSMENT AND PLAN: Acute Hypoxic Respiratory Failure Pneumonia likely Aspiration UTI CAD CHF HTN Hyperlipidemia DM h/o AVR CKD Hypothyroidism Anemia - continue antibiotics - f/u cultures - start clinimix - titrate HFOT to keep SpO2 >90% - aspiration precautions - DVT/GI prophylaxis - continue ICU monitoring
[2020-03-31] MEDS: AMINO ACIDS 4.25%/D5W 1,000 ML IV SCH (14:33)
--- NOTE | 2020-03-31 18:16 | PN ---
Physical Exam: SUBJECTIVE: Patient seen and examined. Pt nonverbal at baseline OBJECTIVE: GENERAL: The patient is awake alert and nonverbal at baseline. HEAD: Normal with no signs of trauma. EYES: PERRL EOMI ENT: Ears normal, nares patent NECK: Trachea midline, no JVD, or lymphadenopathy LUNGS:Breath sounds rhonchi bilaterally with rhonchi at bases. HEART: Regular rate and rhythm, S1, S2 without murmur, rub or gallop. ABDOMEN: Soft, nondistendended, Nontender to palpation Hooked to grajeda cath EXTREMITIES: 2+ pulses, warm, well-perfused, no edema. SKIN: Warm, dry, normal turgor, no rashes or lesions noted Vital Signs Period Temp Pulse Resp BP Sys/Coyne Pulse Ox Last 24 Hr 98.0 F-99.1 F 86-96 24-35 123-161/63-97 91-100 Laboratory Results - last 24 hr 03/30/20 03/31/20 03/31/20 23:58 06:35 06:35 WBC 12.6 H RBC 3.54 L Hgb 9.2 L Hct 29.5 L D MCV 83.2 MCH 25.9 MCHC 31.1 L RDW 17.6 H Plt Count 233 MPV 8.6 Absolute Neuts (auto) 10.3 H Neutrophils % 81.7 Lymphocytes % 13.8 Monocytes % 3.7 L Eosinophils % 0.7 D Basophils % 0.1 Nucleated RBC % 0 Sodium 149 H Potassium 3.5 Chloride 121 H Carbon Dioxide 19 L Anion Gap 10 BUN 35.0 H Creatinine 1.4 H Est GFR (CKD-EPI)AfAm 39.61 Est GFR (CKD-EPI)NonAf 34.18 POC Glucometer 114 Random Glucose 110 H Calcium 7.3 L Total Bilirubin 0.8 AST 43 H ALT 46 Alkaline Phosphatase 88 Total Protein 5.9 L Albumin 1.9 L 03/31/20 03/31/20 03/31/20 06:37 10:52 16:10 WBC RBC Hgb Hct MCV MCH MCHC RDW Plt Count MPV Absolute Neuts (auto) Neutrophils % Lymphocytes % Monocytes % Eosinophils % Basophils % Nucleated RBC % Sodium Potassium Chloride Carbon Dioxide Anion Gap BUN Creatinine Est GFR (CKD-EPI)AfAm Est GFR (CKD-EPI)NonAf POC Glucometer 107 114 136 Random Glucose Calcium Total Bilirubin AST ALT Alkaline Phosphatase Total Protein Albumin Active Medications Generic Name Dose Route Start Last Admin Trade Name Freq PRN Reason Stop Dose Admin Albuterol Sulfate 1 amp 03/30/20 11:23 Ventolin 0.083% Nebulizer Soln - NEB Q4H PRN SHORT OF BREATH/WHEEZING Albuterol/Ipratropium 1 amp 03/30/20 12:00 03/31/20 17:54 Duoneb - NEB 1 amp RQID [facility] Administration Chlorhexidine Gluconate 1 applic 03/29/20 22:00 03/30/20 21:44 Hibiclens For Decolonization - TP 1 applic HS [facility] Administration Heparin Sodium (Porcine) 5,000 unit 03/29/20 14:30 03/31/20 14:07 Heparin - SQ 5,000 unit TID [facility] Administration Piperacillin Sod/Tazobactam 50 mls @ 100 mls/hr 03/29/20 11:30 03/31/20 17:10 Sod 3.375 gm/ Dextrose IVPB 100 mls/hr Q8H-IV [facility] Administration Protocol Amino Acids 1,000 mls @ 42 mls/hr 03/31/20 13:15 03/31/20 14:33 Clinimix - IV 42 mls/hr Q24H [facility] Administration Insulin Aspart 1 vial 03/29/20 00:00 03/31/20 14:06 Novolog Vial Sliding Scale - SQ Not Given Q6HPO [facility] Protocol Levothyroxine Sodium 25 mcg 03/30/20 10:00 03/31/20 09:24 Synthroid Injection - IVPUSH 25 mcg DAILY [facility] Administration Mupirocin 1 applic 03/29/20 10:00 03/31/20 09:24 Bactroban 2% Ointment - TP 1 applic BID [facility] Administration ASSESSMENT/PLAN: 85 yo female DNR pmh PD, AD, HLD, HTN, CAD, CHF, CKD, NIDDM< aortic valve replacement from [facility] brought in for resp distress. Intubated 03/28 in field for tachypnea in 50s desat to 80s. Pt sepsis/ septic shock due to HCAP vs asp pna possible secondary UTI secondary sepsis UTI Neuro: -Sedation held. Pt awake and alert. - Speech and swallow consulted. Speech and swallow consulted barium swallow. Pt will be put back on fluids. Pt unable to tolerate barium swallow. Will consult family on point of care on pt. Possible G tube when pt is more viable surgical candidate. - Paliative care consultation appreciated. Resp: - Pt extubate on 03/30. Pt currently on high flow nasal canula. Pt appears to be aspirating. CXR showed increased infiltrates bilaterally from prior xray. Pt desaturated in afternoon was put on max high flow nasal canula settings and suctioned vigorously. Pt currently was saturating at around 98%. Night team was made aware of possible intubation overnight. ID - continue zosyn for klebsiella - ID consultation appreciated Endo - NIDDM- sliding scale - hypothyroidism- IV levothyroxine Renal - CKD- monitor lytes and adequeate fluid hydration 1/2 NS 45ml/hr Heme - pt hemoglobin stable today will continue monitoring Cardio - no pressors given Prophylaxis - heparin 5000 TID - pt off intubation will stop protonix for now Visit type - Emergency Visit Emergency Visit: Yes ED Registration Date: 03/28/20 Care time: The patient presented to the Emergency Department on the above date and was hospitalized for further evaluation of their emergent condition. - New Patient This patient is new to me today: No - Critical Care Critical Care patient: Yes Total Critical Care Time (in minutes): 36 Critical Care Statement: The care of this patient involved high complexity decision making to prevent further life threatening deterioration of the patient's condition and/or to evaluate & treat vital organ system(s) failure or risk of failure. - Medication Review Med list reviewed for High Risk Meds patients 65 and older: Yes ATTENDING PHYSICIAN STATEMENT I saw and evaluated the patient. I reviewed the resident's note and discussed the case with the resident. I agree with the resident's findings and plan as documented. SUBJECTIVE: OBJECTIVE: ASSESSMENT AND PLAN:
[2020-03-31] MEDS: CHLORHEXIDINE GLUCONATE 4% CLEANSER FOR DECOLONIZATION TP SCH (21:15)
[2020-04-01] MEDS ORDERED: PIPERACILLIN/TAZOBACTAM 3.375 GM VIAL IVPB ONE ×3 (02:20→17:04)
[2020-04-01] MEDS ORDERED: DEXTROSE 5%-WATER - 50 ML IVPB ONE ×3 (02:20→17:04)
[2020-04-01] MEDS: PIPERACILLIN/TAZOB 3.375 GM 3.375 GM in DEXTROSE 5%-WATER - 50 ML IVPB SCH ×3 (02:29→17:18)
[2020-04-01] MEDS: INSULIN SLIDING SCALE (NOVOLOG) 1 VIAL SQ SCH ×4 (02:40→17:25)
[2020-04-01] MEDS: HEPARIN NA (PORCINE) 5,000 UNITS/ML 1ML VIAL SQ SCH ×3 (06:19→22:41)
[2020-04-01 06:28] LABS: ARTERIAL BLOOD GAS BASE EXCESS -7.2 mmol/L (-2-2); ARTERIAL BLOOD GAS PO2 61.5 mmHg (80-100); ARTERIAL BLOOD GAS pH 7.322 (7.350-7.450)
[2020-04-01 06:49] LABS: ALLENS TEST POSITIVE
[2020-04-01 06:56] LABS: INR 1.27 (0.83-1.09)
[2020-04-01 07:14] LABS: ALBUMIN 1.7 g/dl (3.4-5.0); BILIRUBIN,TOTAL 0.5 mg/dL (0.2-1); BLOOD UREA NITROGEN 35.3 mg/dL (7-18); CALCIUM 7.3 mg/dL (8.5-10.1); CREATININE 1.3 mg/dL (0.55-1.3); MAGNESIUM 1.8 mg/dL (1.8-2.4); PHOSPHOROUS 3.3 mg/dL (2.5-4.9); POTASSIUM 3.5 mmol/L (3.5-5.1); TOT PROT 5.5 g/dl (6.4-8.2)
[2020-04-01 07:51] LABS: ACTIVATED PTT 18.3 SECONDS (25.2-36.5)
[2020-04-01] MEDS: ALBUTEROL SO4 2.5/IPRATROPIUM 0.5 INH SOL 3 ML VIAL.NEB. NEB SCH ×4 (08:10→20:10)
[2020-04-01] MEDS ORDERED: PT OWN MED DRAWER 7, Y5N ONE ×2 (09:58→16:05)
[2020-04-01] MEDS: LEVOTHYROXINE SODIUM 100 MCG VIAL IVPUSH SCH (10:03)
--- NOTE | 2020-04-01 11:06 | PN ---
Teaching Attending Note Name of Resident: Asael Lawler ATTENDING PHYSICIAN STATEMENT I saw and evaluated the patient. I reviewed the resident's note and discussed the case with the resident. I agree with the resident's findings and plan as documented. SUBJECTIVE: Pt seen and examined in the ICU. Remains on HFOT 70% FiO2. No fevers recorded. OBJECTIVE: Vital Signs Period Temp Pulse Resp BP Sys/Coyne Pulse Ox Last 24 Hr 97.6 F-98.7 F 82-99 28-36 133-161/59-89 90-100 Intake & Output 03/29/20 03/30/20 03/31/20 04/01/20 23:59 23:59 23:59 23:59 Intake Total 970 2068 986 470 Output Total 450 550 850 700 Balance 520 1518 136 -230 Weight 58.377 kg 58.06 kg 61.689 kg 61.008 kg Gen: mildly tachypneic on HFOT Heart: RRR Lung: bilateral rhonchi Abd: soft, nontender Ext: no edema CBC, BMP 04/01/20 06:10 Active Medications Albuterol Sulfate (Ventolin 0.083% Nebulizer Soln -) 1 amp NEB Q4H PRN PRN Reason: SHORT OF BREATH/WHEEZING Last Admin: 04/01/20 03:16 Dose: 1 amp Documented by: Albuterol/Ipratropium (Duoneb -) 1 amp NEB RQID [facility] Last Admin: 04/01/20 08:10 Dose: 1 amp Documented by: Chlorhexidine Gluconate (Hibiclens For Decolonization -) 1 applic TP HS [facility] Last Admin: 03/31/20 21:15 Dose: 1 applic Documented by: Heparin Sodium (Porcine) (Heparin -) 5,000 unit SQ TID [facility] Last Admin: 04/01/20 06:19 Dose: 5,000 unit Documented by: Piperacillin Sod/Tazobactam (Sod 3.375 gm/ Dextrose) 50 mls @ 100 mls/hr IVPB Q8H-IV [facility]; Protocol Last Admin: 04/01/20 10:03 Dose: 100 mls/hr Documented by: Amino Acids (Clinimix -) 1,000 mls @ 42 mls/hr IV Q24H [facility] Last Admin: 03/31/20 14:33 Dose: 42 mls/hr Documented by: Insulin Aspart (Novolog Vial Sliding Scale -) 1 vial SQ Q6HPO [facility]; Protocol Last Admin: 04/01/20 06:22 Dose: Not Given Documented by: Levothyroxine Sodium (Synthroid Injection -) 25 mcg IVPUSH DAILY [facility] Last Admin: 04/01/20 10:03 Dose: 25 mcg Documented by: Mupirocin (Bactroban 2% Ointment -) 1 applic TP BID [facility] Last Admin: 03/31/20 23:07 Dose: 1 applic Documented by: ASSESSMENT AND PLAN: Acute Hypoxic Respiratory Failure Pneumonia likely Aspiration UTI CAD CHF HTN Hyperlipidemia DM h/o AVR CKD Hypothyroidism Anemia - continue antibiotics - continue clinimix - titrate HFOT to keep SpO2 >90% - aspiration precautions - DVT/GI prophylaxis - continue ICU monitoring
--- NOTE | 2020-04-01 11:12 | PN ---
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
--- NOTE | 2020-04-01 14:03 | PN ---
Physical Exam: SUBJECTIVE: Patient seen and examined. Pt nonverbal at baseline. OBJECTIVE: GENERAL: The patient is awake alert and nonverbal at baseline. HEAD: Normal with no signs of trauma. EYES: PERRL EOMI ENT: Ears normal, nares patent NECK: Trachea midline, no JVD, or lymphadenopathy LUNGS:Breath sounds mild rhonchi at bases. (improved since 03/31) HEART: Regular rate and rhythm, S1, S2 without murmur, rub or gallop. ABDOMEN: Soft, nondistendended, Nontender to palpation Hooked to grajeda cath EXTREMITIES: 2+ pulses, warm, well-perfused, no edema. SKIN: Warm, dry, normal turgor, no rashes or lesions noted Vital Signs Period Temp Pulse Resp BP Sys/Coyne Pulse Ox Last 24 Hr 97.6 F-98.7 F 82-99 28-36 134-151/59-83 90-100 Laboratory Results - last 24 hr 03/31/20 03/31/20 04/01/20 16:10 21:24 02:23 WBC Corrected WBC (auto) RBC Hgb Hct MCV MCH MCHC RDW Plt Count MPV Absolute Neuts (auto) Absolute Lymphs (auto) Absolute Monos (auto) Absolute Eos (auto) Absolute Basos (auto) Add Manual Diff Neutrophils % Lymphocytes % Monocytes % Eosinophils % Basophils % Nucleated RBC % Platelet Estimate Platelet Comment Normal RBC Morphology PT with INR INR PTT (Actin FS) Anticoagulation Therapy Puncture Site Patient Temperature ABG pH ABG pCO2 ABG pO2 ABG HCO3 ABG O2 Sat (Measured) ABG O2 Content ABG Base Excess Prabhjot Test Patient On Oxygen O2 Delivery Device Oxygen Flow Rate Vent Mode Vent Rate Mechanical Rate PEEP Pressure Support Vent Sodium Potassium Chloride Carbon Dioxide Anion Gap BUN Creatinine Est GFR (CKD-EPI)AfAm Est GFR (CKD-EPI)NonAf POC Glucometer 136 148 158 Random Glucose Calcium Phosphorus Magnesium Total Bilirubin AST ALT Alkaline Phosphatase Total Protein Albumin 04/01/20 04/01/20 04/01/20 05:44 05:45 06:10 WBC Cancelled Corrected WBC (auto) Cancelled RBC Cancelled Hgb Cancelled Hct Cancelled MCV Cancelled MCH Cancelled MCHC Cancelled RDW Cancelled Plt Count Cancelled MPV Cancelled Absolute Neuts (auto) Cancelled Absolute Lymphs (auto) Cancelled Absolute Monos (auto) Cancelled Absolute Eos (auto) Cancelled Absolute Basos (auto) Cancelled Add Manual Diff Cancelled Neutrophils % Cancelled Lymphocytes % Cancelled Monocytes % Cancelled Eosinophils % Cancelled Basophils % Cancelled Nucleated RBC % Cancelled Platelet Estimate Cancelled Platelet Comment Cancelled Normal RBC Morphology Cancelled PT with INR INR PTT (Actin FS) Anticoagulation Therapy No Result Required. Puncture Site Right radial Patient Temperature No Result Required. ABG pH 7.322 L ABG pCO2 35.80 ABG pO2 61.5 L ABG HCO3 18.1 L ABG O2 Sat (Measured) 90.0 L ABG O2 Content No Result Required. ABG Base Excess -7.2 L Prabhjot Test Positive Patient On Oxygen Yes O2 Delivery Device Hfnc Oxygen Flow Rate 70% Vent Mode N/a Vent Rate N/a Mechanical Rate Yes PEEP No Result Required. Pressure Support Vent 60l Sodium Potassium Chloride Carbon Dioxide Anion Gap BUN Creatinine Est GFR (CKD-EPI)AfAm Est GFR (CKD-EPI)NonAf POC Glucometer 167 Random Glucose Calcium Phosphorus Magnesium Total Bilirubin AST ALT Alkaline Phosphatase Total Protein Albumin 04/01/20 04/01/20 04/01/20 06:10 06:10 06:18 WBC Corrected WBC (auto) RBC Hgb Hct MCV MCH MCHC RDW Plt Count MPV Absolute Neuts (auto) Absolute Lymphs (auto) Absolute Monos (auto) Absolute Eos (auto) Absolute Basos (auto) Add Manual Diff Neutrophils % Lymphocytes % Monocytes % Eosinophils % Basophils % Nucleated RBC % Platelet Estimate Platelet Comment Normal RBC Morphology PT with INR 15.00 H INR 1.27 H PTT (Actin FS) 18.3 L Anticoagulation Therapy Puncture Site Patient Temperature ABG pH ABG pCO2 ABG pO2 ABG HCO3 ABG O2 Sat (Measured) ABG O2 Content ABG Base Excess Prabhjot Test Patient On Oxygen O2 Delivery Device Oxygen Flow Rate Vent Mode Vent Rate Mechanical Rate PEEP Pressure Support Vent Sodium 149 H Potassium 3.5 Chloride 121 H Carbon Dioxide 19 L Anion Gap 10 BUN 35.3 H Creatinine 1.3 Est GFR (CKD-EPI)AfAm 43.32 Est GFR (CKD-EPI)NonAf 37.38 POC Glucometer 162 Random Glucose 171 H Calcium 7.3 L Phosphorus 3.3 Magnesium 1.8 Total Bilirubin 0.5 AST 33 ALT 34 Alkaline Phosphatase 87 Total Protein 5.5 L Albumin 1.7 L 04/01/20 04/01/20 10:13 11:23 WBC Corrected WBC (auto) RBC Hgb Hct MCV MCH MCHC RDW Plt Count MPV Absolute Neuts (auto) Absolute Lymphs (auto) Absolute Monos (auto) Absolute Eos (auto) Absolute Basos (auto) Add Manual Diff Neutrophils % Lymphocytes % Monocytes % Eosinophils % Basophils % Nucleated RBC % Platelet Estimate Platelet Comment Normal RBC Morphology PT with INR INR PTT (Actin FS) Anticoagulation Therapy Puncture Site Patient Temperature ABG pH ABG pCO2 ABG pO2 ABG HCO3 ABG O2 Sat (Measured) ABG O2 Content ABG Base Excess Prabhjot Test Patient On Oxygen O2 Delivery Device Oxygen Flow Rate Vent Mode Vent Rate Mechanical Rate PEEP Pressure Support Vent Sodium Potassium 3.2 L Chloride Carbon Dioxide Anion Gap BUN Creatinine Est GFR (CKD-EPI)AfAm Est GFR (CKD-EPI)NonAf POC Glucometer 197 Random Glucose Calcium Phosphorus Magnesium Total Bilirubin AST ALT Alkaline Phosphatase Total Protein Albumin Active Medications Generic Name Dose Route Start Last Admin Trade Name Freq PRN Reason Stop Dose Admin Albuterol Sulfate 1 amp 03/30/20 11:23 04/01/20 03:16 Ventolin 0.083% Nebulizer Soln - NEB 1 amp Q4H PRN Administration SHORT OF BREATH/WHEEZING Albuterol/Ipratropium 1 amp 03/30/20 12:00 04/01/20 08:10 Duoneb - NEB 1 amp RQID [facility] Administration Chlorhexidine Gluconate 1 applic 03/29/20 22:00 03/31/20 21:15 Hibiclens For Decolonization - TP 1 applic HS [facility] Administration Heparin Sodium (Porcine) 5,000 unit 03/29/20 14:30 04/01/20 13:46 Heparin - SQ 5,000 unit TID [facility] Administration Piperacillin Sod/Tazobactam 50 mls @ 100 mls/hr 03/29/20 11:30 04/01/20 10:03 Sod 3.375 gm/ Dextrose IVPB 100 mls/hr Q8H-IV [facility] Administration Protocol Amino Acids 1,000 mls @ 42 mls/hr 03/31/20 13:15 03/31/20 14:33 Clinimix - IV 42 mls/hr Q24H [facility] Administration Insulin Aspart 1 vial 03/29/20 00:00 04/01/20 11:27 Novolog Vial Sliding Scale - SQ Not Given Q6HPO [facility] Protocol Levothyroxine Sodium 25 mcg 03/30/20 10:00 04/01/20 10:03 Synthroid Injection - IVPUSH 25 mcg DAILY [facility] Administration Mupirocin 1 applic 03/29/20 10:00 03/31/20 23:07 Bactroban 2% Ointment - TP 1 applic BID [facility] Administration ASSESSMENT/PLAN: 85 yo female DNR pmh PD, AD, HLD, HTN, CAD, CHF, CKD, NIDDM< aortic valve replacement from [facility] brought in for resp distress. Intubated 03/28 in field for tachypnea in 50s desat to 80s. Pt sepsis/ septic shock due to HCAP vs asp pna possible secondary UTI secondary sepsis UTI Neuro: -Sedation held. Pt awake and alert. Will consult family on point of care on pt. Possible G tube when pt is more viable surgical candidate. - Paliative care consultation appreciated. Pts family ready to sign DNI Resp: - Pt extubate on 03/30. Pt currently on high flow nasal canula. Pt appears to be aspirating. CXR showed increased infiltrates bilaterally from prior xray. Pt has been saturating well on hiflow nasal canula. Pt titrated down on nasal canula to 40 L/min and 58%. - Raise bed of head to greater than 30 degrees - Chest physiotherapy prescribed. ID - continue zosyn for klebsiella - ID consultation appreciated Endo - NIDDM- sliding scale - hypothyroidism- IV levothyroxine Renal - CKD- monitor lytes and adequeate fluid hydration 1/2 NS 45ml/hr Heme - pt hemoglobin stable today will continue monitoring Cardio - no pressors given FEN -cont feeds - k low will replete Prophylaxis - heparin 5000 TID - pt off intubation will stop protonix for now Visit type - Emergency Visit Emergency Visit: Yes ED Registration Date: 03/28/20 Care time: The patient presented to the Emergency Department on the above date and was hospitalized for further evaluation of their emergent condition. - New Patient This patient is new to me today: No - Critical Care Critical Care patient: Yes Total Critical Care Time (in minutes): 36 Critical Care Statement: The care of this patient involved high complexity decision making to prevent further life threatening deterioration of the pa tient's condition and/or to evaluate & treat vital organ system(s) failure or risk of failure. - Medication Review Med list reviewed for High Risk Meds patients 65 and older: Yes ATTENDING PHYSICIAN STATEMENT I saw and evaluated the patient. I reviewed the resident's note and discussed the case with the resident. I agree with the resident's findings and plan as documented. SUBJECTIVE: OBJECTIVE: ASSESSMENT AND PLAN:
[2020-04-01] MEDS: AMINO ACIDS 4.25%/D5W 1,000 ML IV SCH (14:13)
[2020-04-01] MEDS: MUPIROCIN 2% TOPICAL OINTMENT 22 GM TUBE TP SCH ×2 (14:14→22:41)
[2020-04-01 16:20] LABS: BASO % 0.2 % (0-2.0); EOS % 0.4 % (0-4.5); HEMATOCRIT 30.1 % (32.4-45.2); HEMOGLOBIN 9.3 GM/dL (10.7-15.3); MEAN CELL VOLUME 83.7 fl (80-96); MEAN PLT VOLUME 8.6 fl (7.5-11.1); MONO % 3.8 % (3.8-10.2); NEUT % 84.6 % (42.8-82.8); PLATELET COUNT 225 K/MM3 (134-434); RBC 3.59 M/mm3 (3.60-5.2)
[2020-04-01 17:17] LABS: ANISOCYTOSIS 2+; MACROCYTOSIS 0; OVALOCYTE 1+; PLATELET ESTIMATE NORMAL
[2020-04-01] MEDS: KCL 10 MEQ IVPB 10 MEQ/100 ML INFUS.BAG IVPB SCH (22:41)
[2020-04-01] MEDS: CHLORHEXIDINE GLUCONATE 4% CLEANSER FOR DECOLONIZATION TP SCH (22:41)
[2020-04-02] MEDS: KCL 10 MEQ IVPB 10 MEQ/100 ML INFUS.BAG IVPB SCH ×5 (00:12→11:31)
[2020-04-02] MEDS: INSULIN SLIDING SCALE (NOVOLOG) 1 VIAL SQ SCH ×5 (00:47→23:16)
[2020-04-02] MEDS ORDERED: DEXTROSE 5%-WATER - 50 ML IVPB ONE ×3 (02:19→14:30)
[2020-04-02] MEDS ORDERED: PIPERACILLIN/TAZOBACTAM 3.375 GM VIAL IVPB ONE ×3 (02:19→14:30)
[2020-04-02] MEDS: PIPERACILLIN/TAZOB 3.375 GM 3.375 GM in DEXTROSE 5%-WATER - 50 ML IVPB SCH ×3 (03:25→17:11)
[2020-04-02 06:21] LABS: ARTERIAL BLD GAS O2 SATURATION 88.4 mmHg (95-98); ARTERIAL BLOOD GAS BASE EXCESS -6.3 mmol/L (-2-2); ARTERIAL BLOOD GAS pH 7.341 (7.350-7.450)
[2020-04-02 06:44] LABS: ALLENS TEST POSITIVE
[2020-04-02 06:52] LABS: BASO % 0.2 % (0-2.0); EOS % 0.8 % (0-4.5); HEMATOCRIT 28.4 % (32.4-45.2); HEMOGLOBIN 8.9 GM/dL (10.7-15.3); LYMPH % 11.8 % (8-40); MCH 25.8 pg (25.7-33.7); MCHC 31.5 g/dl (32.0-36.0); MEAN PLT VOLUME 8.4 fl (7.5-11.1); NEUT % 83.2 % (42.8-82.8); PLATELET COUNT 229 K/MM3 (134-434); RBC 3.46 M/mm3 (3.60-5.2); RDW 17.8 % (11.6-15.6)
[2020-04-02] MEDS: HEPARIN NA (PORCINE) 5,000 UNITS/ML 1ML VIAL SQ SCH ×3 (06:57→23:12)
[2020-04-02 07:00] LABS: INR 1.28 (0.83-1.09); PROTHROMBIN TIME (PATIENT) 15.1 SEC (9.7-13.0)
[2020-04-02 07:03] LABS: ACTIVATED PTT 30.4 SECONDS (25.2-36.5)
[2020-04-02 07:19] LABS: ALBUMIN 1.8 g/dl (3.4-5.0); BILIRUBIN,TOTAL 0.5 mg/dL (0.2-1); BLOOD UREA NITROGEN 37.5 mg/dL (7-18); CALCIUM 7.6 mg/dL (8.5-10.1); CREATININE 1.3 mg/dL (0.55-1.3); POTASSIUM 3.3 mmol/L (3.5-5.1); TOT PROT 5.8 g/dl (6.4-8.2)
[2020-04-02] MEDS: ALBUTEROL SO4 2.5/IPRATROPIUM 0.5 INH SOL 3 ML VIAL.NEB. NEB SCH ×3 (07:45→15:45)
[2020-04-02] MEDS: MUPIROCIN 2% TOPICAL OINTMENT 22 GM TUBE TP SCH (09:05)
[2020-04-02] MEDS: LEVOTHYROXINE SODIUM 100 MCG VIAL IVPUSH SCH (09:05)
[2020-04-02] MEDS ORDERED: PT OWN MED DRAWER 7, Y5N ONE ×3 (09:08→14:30)
--- NOTE | 2020-04-02 10:41 | PN ---
Teaching Attending Note Name of Resident: Asael Lawler ATTENDING PHYSICIAN STATEMENT I saw and evaluated the patient. I reviewed the resident's note and discussed the case with the resident. I agree with the resident's findings and plan as documented. SUBJECTIVE: Pt seen and examined in the ICU. Remains on HFOT 70% FiO2. No fevers recorded. Pt now DNR. OBJECTIVE: Vital Signs Period Temp Pulse Resp BP Sys/Coyne Pulse Ox Last 24 Hr 98.0 F-98.2 F 89-97 28-42 128-149/63-109 85-100 Intake & Output 03/30/20 03/31/20 04/01/20 04/02/20 23:59 23:59 23:59 23:59 Intake Total 2068 986 1074 904 Output Total 412 123 6528 700 Balance 1518 136 -326 204 Weight 58.06 kg 61.689 kg 61.008 kg Gen: mildly tachypneic on HFOT Heart: RRR Lung: bilateral rhonchi Abd: soft, nontender Ext: no edema CBC, BMP 04/02/20 06:25 04/02/20 06:25 Active Medications Albuterol Sulfate (Ventolin 0.083% Nebulizer Soln -) 1 amp NEB Q4H PRN PRN Reason: SHORT OF BREATH/WHEEZING Last Admin: 04/01/20 03:16 Dose: 1 amp Documented by: Albuterol/Ipratropium (Duoneb -) 1 amp NEB RQID [facility] Last Admin: 04/02/20 07:45 Dose: 1 amp Documented by: Chlorhexidine Gluconate (Hibiclens For Decolonization -) 1 applic TP HS [facility] Last Admin: 04/01/20 22:41 Dose: 1 applic Documented by: Heparin Sodium (Porcine) (Heparin -) 5,000 unit SQ TID [facility] Last Admin: 04/02/20 06:57 Dose: 5,000 unit Documented by: Piperacillin Sod/Tazobactam (Sod 3.375 gm/ Dextrose) 50 mls @ 100 mls/hr IVPB Q8H-IV [facility]; Protocol Last Admin: 04/02/20 09:04 Dose: 100 mls/hr Documented by: Amino Acids (Clinimix -) 1,000 mls @ 42 mls/hr IV Q24H [facility] Last Admin: 04/01/20 14:13 Dose: 42 mls/hr Documented by: Potassium Chloride (Potassium Chloride 10 Meq Premix Ivpb -) 10 meq in 100 mls @ 100 mls/hr IVPB Q60M [facility] Stop: 04/02/20 11:14 Last Admin: 04/02/20 10:12 Dose: 100 mls/hr Documented by: Insulin Aspart (Novolog Vial Sliding Scale -) 1 vial SQ Q6HPO [facility]; Protocol Last Admin: 04/02/20 06:56 Dose: Not Given Documented by: Levothyroxine Sodium (Synthroid Injection -) 25 mcg IVPUSH DAILY [facility] Last Admin: 04/02/20 09:05 Dose: 25 mcg Documented by: Mupirocin (Bactroban 2% Ointment -) 1 applic TP BID [facility] Last Admin: 04/02/20 09:05 Dose: 1 applic Documented by: ASSESSMENT AND PLAN: Acute Hypoxic Respiratory Failure Pneumonia likely Aspiration UTI CAD CHF HTN Hyperlipidemia DM h/o AVR CKD Hypothyroidism Anemia - continue antibiotics - continue clinimix - titrate HFOT to keep SpO2 >90% - aspiration precautions - DVT/GI prophylaxis - continue discussions regarding goals of care
--- NOTE | 2020-04-02 10:46 | PN ---
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, RAIL BENDER - Note 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: Selected Entries 04/01/20 04/01/20 04/01/20 00:00 02:00 04:00 Temperature Pulse Rate 99 H 99 H 91 H Respiratory 36 H 32 H 35 H Rate Blood Pressure 147/76 144/62 134/59 L 04/01/20 04/01/20 04/01/20 06:00 08:00 10:00 Temperature 97.7 F 98.4 F Pulse Rate 84 85 85 Respiratory 36 H 33 H 29 H Rate Blood Pressure 140/72 145/68 140/67 Selected Entries 04/02/20 04/02/20 04/02/20 00:00 02:00 04:00 Lunch Pulse Rate 94 H 96 H 91 H Blood Pressure 133/70 138/86 142/84 04/02/20 04/02/20 04/02/20 06:00 08:28 08:59 Lunch NPO Pulse Rate 92 H 97 H Blood Pressure 146/70 Laboratory Tests 03/30/20 03/31/20 04/02/20 06:00 06:35 00:44 WBC 11.5 H 12.6 H POC Glucometer 138 04/02/20 06:25 WBC 13.0 H POC Glucometer Remains on HFOT 70% FiO2 Secretions Clinimix, Continue strict NPO including medication End of life options reviewed with palliative care. Option of MBS, if appropriate, when off hiflo/med stable
--- NOTE | 2020-04-02 12:55 | PN ---
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, Physician History of Present Illness: REMAINS EXTUBATED ON HIGH FLOW O2 CONGESTED AFEBRILE WBC SL ELEVATED BC (-) SPUTUM KLEBSIELLA - Current Medication List Current Medications: Active Medications Albuterol Sulfate (Ventolin 0.083% Nebulizer Soln -) 1 amp NEB Q4H PRN PRN Reason: SHORT OF BREATH/WHEEZING Last Admin: 04/01/20 03:16 Dose: 1 amp Documented by: Albuterol/Ipratropium (Duoneb -) 1 amp NEB RQID [facility] Last Admin: 04/02/20 11:35 Dose: 1 amp Documented by: Chlorhexidine Gluconate (Hibiclens For Decolonization -) 1 applic TP HS [facility] Last Admin: 04/01/20 22:41 Dose: 1 applic Documented by: Heparin Sodium (Porcine) (Heparin -) 5,000 unit SQ TID [facility] Last Admin: 04/02/20 06:57 Dose: 5,000 unit Documented by: Piperacillin Sod/Tazobactam (Sod 3.375 gm/ Dextrose) 50 mls @ 100 mls/hr IVPB Q8H-IV [facility]; Protocol Last Admin: 04/02/20 09:04 Dose: 100 mls/hr Documented by: Amino Acids (Clinimix -) 1,000 mls @ 42 mls/hr IV Q24H [facility] Last Admin: 04/01/20 14:13 Dose: 42 mls/hr Documented by: Insulin Aspart (Novolog Vial Sliding Scale -) 1 vial SQ Q6HPO [facility]; Protocol Last Admin: 04/02/20 11:32 Dose: Not Given Documented by: Levothyroxine Sodium (Synthroid Injection -) 25 mcg IVPUSH DAILY [facility] Last Admin: 04/02/20 09:05 Dose: 25 mcg Documented by: Mupirocin (Bactroban 2% Ointment -) 1 applic TP BID [facility] Last Admin: 04/02/20 09:05 Dose: 1 applic Documented by: - Objective Vital Signs: Vital Signs Temperature 98.0 F 04/01/20 20:00 Pulse Rate 97 H 04/02/20 08:28 Respiratory Rate 35 H 04/02/20 09:00 Blood Pressure 146/70 04/02/20 06:00 O2 Sat by Pulse Oximetry (%) 99 04/02/20 11:53 Constitutional: Yes: No Distress Eyes: Yes: Conjunctiva Clear Cardiovascular: Yes: Regular Rate and Rhythm, S1, S2 Respiratory: Yes: Diminished Gastrointestinal: Yes: Normal Bowel Sounds, Soft Edema: No Labs: CBC, BMP 04/02/20 06:25 04/02/20 06:25 INR, PTT INR 1.28 (0.83-1.09) H 04/02/20 06:25 Assessment/Plan S/P ACUTE RESP FAILURE S/P EXTUBATION ON HIGH FLOW O2 SEPSIS PNEUMOMNIA UTI S/P TAVR CONTINUE ZOSYN RESP SUPPORT
--- NOTE | 2020-04-02 13:23 | PN ---
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 (short form) - Note 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: 85 yo female with DNR DNI pmh of PD, AD, HLD, HTN, CAD, CHF, CKD, NIDDM, aortic valve replacement coming from [facility] was brought in for resp distress on 03/28. Pt was septic/ sepsis shock due to most likely aspiration pna possibly secondary to UTI. Pt now extubated s/p 3 days and saturating well on hiflow nasal canula. Pt family has signed DNR DNI. Pt stable to be transferred to telemetry floor for further palliative care and further care of continuous infection due to aspiration pna/ uti OBJECTIVE: GENERAL: The patient is awake alert and nonverbal at baseline. HEAD: Normal with no signs of trauma. EYES: PERRL EOMI ENT: Ears normal, nares patent NECK: Trachea midline, no JVD, or lymphadenopathy LUNGS:Breath sounds mild rhonchi at bases. (improved since 03/31) HEART: Regular rate and rhythm, S1, S2 without murmur, rub or gallop. ABDOMEN: Soft, nondistendended, Nontender to palpation Hooked to grajeda cath EXTREMITIES: 2+ pulses, warm, well-perfused, no edema. SKIN: Warm, dry, normal turgor, no rashes or lesions noted
--- NOTE | 2020-04-02 13:53 | PN ---
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 (short form) - Note 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: 85 yo female with DNI pmh of PD, AD, HLD, HTN, CAD, CHF, CKD, NIDDM, aortic valve replacement coming from [facility] was brought in for resp distress on 03/28 patient was intubated then subsequently extuabted to high-flow NC and is DNI gen: at her baseline (non-responsive at baseline) slightly tahcypenic on high- flow; blinks upon painful stimuli CH: RRR s1 s1 no mrg LUNGS: rhocnhi appreciated b/l abd: soft NT NT +BS patients vital signs have remained stable and she is medically stable to go to telemetry for continuous oximtery
[2020-04-02] MEDS: AMINO ACIDS 4.25%/D5W 1,000 ML IV SCH ×2 (14:33→23:17)
--- NOTE | 2020-04-02 15:22 | PN ---
Teaching Attending Note Name of Resident: Kaycee Bernal ATTENDING PHYSICIAN STATEMENT I saw and evaluated the patient. I reviewed the resident's note and discussed the case with the resident. I agree with the resident's findings and plan as documented. SUBJECTIVE: pt seen and examined OBJECTIVE: Last Vital Signs Temp Pulse Resp BP Pulse Ox 98.1 F 84 23 H 140/83 100 04/02/20 12:00 04/02/20 12:00 04/02/20 12:00 04/02/20 12:00 04/02/20 12:00 GENERAL: lethargic, in mild/moderate respiratory distress. HEAD: Normal with no signs of trauma. EYES: Pupils equal, round and reactive to light, sclera anicteric, conjunctiva clear. LUNGS: diffuse rales bilat. No accessory muscle use. HEART: Regular rate and rhythm, normal S1 and S2 ABDOMEN: Soft, nontender, not distended UPPER EXTREMITIES: 2+ pulses, warm, well-perfused. No cyanosis. No clubbing. +2 edema. LOWER EXTREMITIES: 2+ pulses, warm, well-perfused. No calf tenderness. No peripheral edema. CBCD WBC 13.0 K/mm3 (4.0-10.0) H 04/02/20 06:25 RBC 3.46 M/mm3 (3.60-5.2) L 04/02/20 06:25 Hgb 8.9 GM/dL (10.7-15.3) L 04/02/20 06:25 Hct 28.4 % (32.4-45.2) L 04/02/20 06:25 MCV 82.0 fl (80-96) 04/02/20 06:25 MCHC 31.5 g/dl (32.0-36.0) L 04/02/20 06:25 RDW 17.8 % (11.6-15.6) H 04/02/20 06:25 Plt Count 229 K/MM3 (134-434) 04/02/20 06:25 MPV 8.4 fl (7.5-11.1) 04/02/20 06:25 CMP Sodium 146 mmol/L (136-145) H 04/02/20 06:25 Potassium 3.3 mmol/L (3.5-5.1) L 04/02/20 06:25 Chloride 117 mmol/L (98-107) H 04/02/20 06:25 Carbon Dioxide 20 mmol/L (21-32) L 04/02/20 06:25 Anion Gap 8 MMOL/L (8-16) 04/02/20 06:25 BUN 37.5 mg/dL (7-18) H 04/02/20 06:25 Creatinine 1.3 mg/dL (0.55-1.3) 04/02/20 06:25 Calcium 7.6 mg/dL (8.5-10.1) L 04/02/20 06:25 Total Bilirubin 0.5 mg/dL (0.2-1) 04/02/20 06:25 AST 16 U/L (15-37) 04/02/20 06:25 ALT 26 U/L (13-61) 04/02/20 06:25 Alkaline Phosphatase 86 U/L (45-117) 04/02/20 06:25 Total Protein 5.8 g/dl (6.4-8.2) L 04/02/20 06:25 Albumin 1.8 g/dl (3.4-5.0) L 04/02/20 06:25 Active Medications Albuterol Sulfate (Ventolin 0.083% Nebulizer Soln -) 1 amp NEB Q4H PRN PRN Reason: SHORT OF BREATH/WHEEZING Last Admin: 04/01/20 03:16 Dose: 1 amp Documented by: Albuterol/Ipratropium (Duoneb -) 1 amp NEB RQID [facility] Last Admin: 04/02/20 11:35 Dose: 1 amp Documented by: Chlorhexidine Gluconate (Hibiclens For Decolonization -) 1 applic TP HS [facility] Last Admin: 04/01/20 22:41 Dose: 1 applic Documented by: Heparin Sodium (Porcine) (Heparin -) 5,000 unit SQ TID [facility] Last Admin: 04/02/20 14:34 Dose: 5,000 unit Documented by: Piperacillin Sod/Tazobactam (Sod 3.375 gm/ Dextrose) 50 mls @ 100 mls/hr IVPB Q8H-IV [facility]; Protocol Last Admin: 04/02/20 09:04 Dose: 100 mls/hr Documented by: Amino Acids (Clinimix -) 1,000 mls @ 42 mls/hr IV Q24H [facility] Last Admin: 04/02/20 14:33 Dose: 42 mls/hr Documented by: Insulin Aspart (Novolog Vial Sliding Scale -) 1 vial SQ Q6HPO [facility]; Protocol Last Admin: 04/02/20 11:32 Dose: Not Given Documented by: Levothyroxine Sodium (Synthroid Injection -) 25 mcg IVPUSH DAILY [facility] Last Admin: 04/02/20 09:05 Dose: 25 mcg Documented by: Mupirocin (Bactroban 2% Ointment -) 1 applic TP BID [facility] Last Admin: 04/02/20 09:05 Dose: 1 applic Documented by: ASSESSMENT AND PLAN: 85 yo lady with mhx of Parkinson's Disease, Advanced Dementia, HLD, HTN, CAD, CHF, CKD, NIDDM, TAVR from [facility] brought in for resp distress. Intubated on 03/28 on field after desat and admitted for septic shock due to HCAP vs aspiration pneumonia # Acute Hypoxic Respiratory Failure, septic shock s/p extubation to HFOT, off pressors. Pneumonia likely Aspiration leukocytosis, non febrile lethargic (baseline?) GCS 4 (comatose) NPO, on TPN start low rate LR c/w ABx per ID c/w HFOT keep O2>88% keep head elevated repeat swallow eval (PEG? vs comfort care) Palliative eval UTI KYLER on CKD CAD CHF HTN HLD DM h/o TAVR Hypothyroidism Anemia GI and DVT prophylaxis
[2020-04-02 16:22] VITALS: BMI 23.0
[2020-04-03] MEDS ORDERED: PIPERACILLIN/TAZOBACTAM 3.375 GM VIAL IVPB ONE ×3 (02:17→17:27)
[2020-04-03] MEDS ORDERED: DEXTROSE 5%-WATER - 50 ML IVPB ONE ×3 (02:17→17:28)
[2020-04-03] MEDS: PIPERACILLIN/TAZOB 3.375 GM 3.375 GM in DEXTROSE 5%-WATER - 50 ML IVPB SCH ×3 (02:34→17:36)
[2020-04-03] MEDS: HEPARIN NA (PORCINE) 5,000 UNITS/ML 1ML VIAL SQ SCH ×3 (06:14→22:38)
[2020-04-03] MEDS: INSULIN SLIDING SCALE (NOVOLOG) 1 VIAL SQ SCH ×3 (06:14→17:35)
[2020-04-03] MEDS ORDERED: PT OWN MED DRAWER 7, Y5N ONE (10:21)
[2020-04-03] MEDS: LEVOTHYROXINE SODIUM 100 MCG VIAL IVPUSH SCH (10:24)
--- NOTE | 2020-04-03 12:29 | PN ---
Physical Exam: SUBJECTIVE: Patient seen this morning sleeping, no acute events overnight. OBJECTIVE: Vital Signs Period Temp Pulse Resp BP Sys/Coyne Pulse Ox Last 24 Hr 98.2 F-98.2 F 68-96 24-43 123-141/56-79 89-100 GENERAL: The patient is asleep, poor mentation EYES: PERRL, extraocular movements intact ENT: moist mucous membranes. LUNGS: Breath sounds equal, clear to auscultation bilaterally, no wheezes, no crackles, no accessory muscle use. HEART: Regular rate and rhythm, S1, S2 without murmur, rub or gallop. ABDOMEN: Soft, nontender, nondistended, normoactive bowel sounds, EXTREMITIES: 2+ pulses, warm, well-perfused, no edema. SKIN: Warm, dry, normal turgor, no rashes or lesions noted Laboratory Results - last 24 hr 03/30/20 04/02/20 04/02/20 08:20 17:07 23:14 POC Glucometer 190 141 Blood Type O POSITIVE Antibody Screen Negative Crossmatch See Detail 04/03/20 06:12 POC Glucometer 138 Blood Type Antibody Screen Crossmatch Active Medications Generic Name Dose Route Start Last Admin Trade Name Freq PRN Reason Stop Dose Admin Albuterol Sulfate 1 amp 04/02/20 21:03 Ventolin 0.083% Nebulizer Soln - NEB Q4H PRN SHORT OF BREATH/WHEEZING Heparin Sodium (Porcine) 5,000 unit 04/02/20 22:00 04/03/20 06:14 Heparin - SQ 5,000 unit TID [facility] Administration Amino Acids 1,000 mls @ 42 mls/hr 04/03/20 13:15 04/02/20 23:17 Clinimix - IV 42 mls/hr Q24H [facility] Administration Piperacillin Sod/Tazobactam 50 mls @ 100 mls/hr 04/03/20 02:00 04/03/20 10:23 Sod 3.375 gm/ Dextrose IVPB 100 mls/hr Q8H-IV [facility] Administration Protocol Insulin Aspart 1 vial 04/03/20 00:00 04/03/20 06:14 Novolog Vial Sliding Scale - SQ Not Given Q6HPO [facility] Protocol Levothyroxine Sodium 25 mcg 04/03/20 10:00 04/03/20 10:24 Synthroid Injection - IVPUSH 25 mcg DAILY [facility] Administration ASSESSMENT/PLAN: 85 yo female with pmh of PD, AD, HLD, HTN, CAD, CHF, CKD, NIDDM, aortic valve replacement who is admitted for acute respiratory failure 2/2 to PNA, s/p extubation. #Acute respiratory failure 2/2 to PNA - likely aspiration PNA, s/p extubation , now DNR/DNI - sputum positive for Klebsiella, continue Zosyn - albuterol nebs prn for wheezing - maintain oxygen > 90%, currently on high flow 78% and 40L - followed by ID #DM - BGM's - SS #AMS - likely with baseline Alzheimer's and parkinsons - since new s/p extubation will get Head CT to r/o any new bleed or ischemic event #malnutrition - currently on clinimix - patient did not tolerate speech and swallow - palliative care discussing future of PEG tube with family Dispo: continue to monitor, continue palliative care for goals of care Visit type - Emergency Visit Emergency Visit: No - New Patient This patient is new to me today: Yes Date on this admission: 04/03/20 - Critical Care Critical Care patient: No - Medication Review Med list reviewed for High Risk Meds patients 65 and older: Yes ATTENDING PHYSICIAN STATEMENT I saw and evaluated the patient. I reviewed the resident's note and discussed the case with the resident. I agree with the resident's findings and plan as documented. SUBJECTIVE: OBJECTIVE: ASSESSMENT AND PLAN:
--- NOTE | 2020-04-03 12:34 | PN ---
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 (short form) - Note 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: PULMONARY Remains on HFOT 80% FiO2. Pt nonverbal. No fevers recorded. Vital Signs Period Temp Pulse Resp BP Sys/Coyne Pulse Ox Last 24 Hr 98.2 F-98.2 F 68-96 24-43 123-141/56-79 89-100 Intake & Output 03/31/20 04/01/20 04/02/20 04/03/20 23:59 23:59 23:59 23:59 Intake Total 986 1074 1808 302 Output Total 850 1400 4200 Balance 212 -530 -1577 302 Weight 61.689 kg 61.008 kg Gen: mildly tachypneic on HFOT Heart: RRR Lung: scattered rhonchi Abd: soft, nontender Ext: no edema Active Medications Albuterol Sulfate (Ventolin 0.083% Nebulizer Soln -) 1 amp NEB Q4H PRN PRN Reason: SHORT OF BREATH/WHEEZING Heparin Sodium (Porcine) (Heparin -) 5,000 unit SQ TID MIRTA Last Admin: 04/03/20 06:14 Dose: 5,000 unit Documented by: Amino Acids (Clinimix -) 1,000 mls @ 42 mls/hr IV Q24H [facility] Last Admin: 04/02/20 23:17 Dose: 42 mls/hr Documented by: Piperacillin Sod/Tazobactam (Sod 3.375 gm/ Dextrose) 50 mls @ 100 mls/hr IVPB Q8H-IV [facility]; Protocol Last Admin: 04/03/20 10:23 Dose: 100 mls/hr Documented by: Insulin Aspart (Novolog Vial Sliding Scale -) 1 vial SQ Q6HPO [facility]; Protocol Last Admin: 04/03/20 06:14 Dose: Not Given Documented by: Levothyroxine Sodium (Synthroid Injection -) 25 mcg IVPUSH DAILY [facility] Last Admin: 04/03/20 10:24 Dose: 25 mcg Documented by: A/P Acute Hypoxic Respiratory Failure Pneumonia likely Aspiration UTI CAD CHF HTN Hyperlipidemia DM h/o AVR CKD Hypothyroidism Anemia - continue antibiotics - continue clinimix - titrate HFOT to keep SpO2 >90% - aspiration precautions - DVT/GI prophylaxis - continue discussions regarding goals of care
[2020-04-03 12:36] LABS: HEMATOCRIT 29.5 % (32.4-45.2); HEMOGLOBIN 9.2 GM/dL (10.7-15.3); MCHC 31.1 g/dl (32.0-36.0); MEAN CELL VOLUME 83.6 fl (80-96); MEAN PLT VOLUME 8.4 fl (7.5-11.1); PLATELET COUNT 234 K/MM3 (134-434); RBC 3.53 M/mm3 (3.60-5.2); RDW 18.2 % (11.6-15.6); WHITE BLOOD COUNT 11.2 K/mm3 (4.0-10.0)
[2020-04-03 13:02] LABS: ALBUMIN 1.9 g/dl (3.4-5.0); BILIRUBIN,TOTAL 0.5 mg/dL (0.2-1); BLOOD UREA NITROGEN 39.7 mg/dL (7-18); CALCIUM 7.8 mg/dL (8.5-10.1); CREATININE 1.3 mg/dL (0.55-1.3); POTASSIUM 3.7 mmol/L (3.5-5.1); TOT PROT 6.1 g/dl (6.4-8.2)
[2020-04-03] MEDS: AMINO ACIDS 4.25%/D5W 1,000 ML IV SCH (14:32)
--- NOTE | 2020-04-03 15:07 | PN ---
Teaching Attending Note Name of Resident: Jina Coreas ATTENDING PHYSICIAN STATEMENT I saw and evaluated the patient. I reviewed the resident's note and discussed the case with the resident. I agree with the resident's findings and plan as documented. SUBJECTIVE: Non-verbal, decreased responsiveness, unable to participate in medical interview. OBJECTIVE: Afebrile, Hemodynamically Stable. SpO2 100% on HFO2 at 80%FiO2 Last Vital Signs Temp Pulse Resp BP Pulse Ox 98.2 F 90 24 H 138/75 100 04/03/20 06:00 04/03/20 06:00 04/03/20 06:00 04/03/20 06:00 04/03/20 07:51 HEENT - Atraumatic. Pupils reactive Heart - S1, S2, SM Lungs - decreased air entry at bases, some wheeze Abdomen - Soft, non-tender. Bowel Sounds normal. Extremities - No calf tenderness Neuro - Decreased responsiveness, non-verbal, not following commands, difficult to asses power. Laboratory Results - last 24 hr 04/02/20 04/02/20 04/03/20 17:07 23:14 06:12 WBC RBC Hgb Hct MCV MCH MCHC RDW Plt Count MPV Sodium Potassium Chloride Carbon Dioxide Anion Gap BUN Creatinine Est GFR (CKD-EPI)AfAm Est GFR (CKD-EPI)NonAf POC Glucometer 190 141 138 Random Glucose Calcium Total Bilirubin AST ALT Alkaline Phosphatase Total Protein Albumin 04/03/20 04/03/20 04/03/20 11:50 11:50 12:36 WBC 11.2 H RBC 3.53 L Hgb 9.2 L Hct 29.5 L MCV 83.6 MCH 26.0 MCHC 31.1 L RDW 18.2 H Plt Count 234 MPV 8.4 Sodium 147 H Potassium 3.7 Chloride 116 H Carbon Dioxide 25 Anion Gap 7 L BUN 39.7 H Creatinine 1.3 Est GFR (CKD-EPI)AfAm 43.32 Est GFR (CKD-EPI)NonAf 37.38 POC Glucometer 168 Random Glucose 172 H Calcium 7.8 L Total Bilirubin 0.5 AST 23 ALT 28 Alkaline Phosphatase 92 Total Protein 6.1 L Albumin 1.9 L Current Medications Generic Name Dose Route Start Last Admin Trade Name Freq PRN Reason Stop Dose Admin Albuterol Sulfate 1 amp 04/02/20 21:03 Ventolin 0.083% Nebulizer Soln - NEB Q4H PRN SHORT OF BREATH/WHEEZING Heparin Sodium (Porcine) 5,000 unit 04/02/20 22:00 04/03/20 14:38 Heparin - SQ 5,000 unit TID MITRA Administration Amino Acids 1,000 mls @ 42 mls/hr 04/03/20 13:15 04/03/20 14:32 Clinimix - IV Not Given Q24H MITRA Piperacillin Sod/Tazobactam 50 mls @ 100 mls/hr 04/03/20 02:00 04/03/20 10:23 Sod 3.375 gm/ Dextrose IVPB 100 mls/hr Q8H-IV [facility] Administration Protocol Insulin Aspart 1 vial 04/03/20 00:00 04/03/20 12:36 Novolog Vial Sliding Scale - SQ Not Given Q6HPO [facility] Protocol Levothyroxine Sodium 25 mcg 04/03/20 10:00 04/03/20 10:24 Synthroid Injection - IVPUSH 25 mcg DAILY [facility] Administration Home Medications Medication Instructions Recorded Acetaminophen [Tylenol .Regular 650 mg PO Q6H PRN #0 tablet 09/02/13 Strength -] Levothyroxine [Synthroid -] 50 mcg PO DAILY@0700 #0 tablet 09/02/13 Allopurinol [Zyloprim -] 100 mg PO DAILY 02/12/20 Amlodipine Besylate [Norvasc -] 5 mg PO DAILY 02/12/20 Aspirin 81 mg PO DAILY 02/12/20 Atorvastatin Ca [Lipitor] 20 mg PO HS 02/12/20 Bisacodyl 5 mg PO PRN 02/12/20 Clopidogrel Bisulfate [Clopidogrel] 75 mg PO DAILY 02/12/20 Polyethylene Glycol 3350 17 gm PO BID 02/12/20 Senna Zinc Extract [Senna] 176 mg PO HS 02/12/20 Vitamin B Complex 1 each PO DAILY 02/12/20 Amox-Tr/K Cl [Augmentin 500-125mg 1 tab PO BID@0800,1730 tablet 02/19/20 Tablet -] Ascorbate Calcium [Vitamin C] 500 mg PO BID 03/28/20 Glipizide [Glipizide ER] 5 mg PO DAILY 03/28/20 Insulin Lispro [Admelog Solostar] 100 unit SQ TID 03/28/20 Memantine HCl [Namenda -] 5 mg PO HS 03/28/20 Omeprazole Pediatric Solution 10 ml PO DAILY 03/28/20 [Omeprazole Pediatric Oral Solution] Zinc 50 mg PO BID 03/28/20 ASSESSMENT AND PLAN: 85 year old female with history of Parkinson's Disease, Advanced Dementia, HLD, HTN, non-obstructive CAD, Chronic Systolic CHF, CKD 3, DM 2, s/p TAVR from [facility] brought in for resp distress, intubated on 03/28 in the field, admitted for septic shock due to HCAP vs aspiration pneumonia 1. Acute Hypoxic Respiratory Failure and Septic Shock s/p extubation to HFOT Shock resolved, off pressors. NPO due to poor mental status and inability to participate with Swallow eval - on Clinimix To discuss consideration for PEG with family. Sputum Cx positive for Klebsiella. Continue Zosyn Continue HFOT - O2 titration as per Pulmonary Palliative Care consult. DNI. 2. Acute Metabolic Encephalopathy sec to Sepsis/worsening underlying dementia - never regained full cognition s/p extubation CT Head ordered to exclude underlying cause other than metabolic encephalopathy Namenda held. 3. KYLER on CKD 3 - resolved. Creatinine at baseline. 4. CAD (non-obstructive s/p Cath 09/25) - normally on Aspirin/Plavix, Statin - held currently as patient is NPO. 5. HTN - Norvasc held. 6. HLD - Statin held. 7. DM 2 - Maintain on Novolog sliding scale. Lispro/Glipizide held. 8. Chronic Systolic CHF (EF 33% on 01/23), s/p TAVR - no evidence for decompensation. Will monitor fluid status. 9. Hypothyroidism - Continue Levothyroxine. TSH wnl 02/22. Will recheck. 10. Iron Deficiency Anemia, Iron Sat 15%. H/H 9.2/29.5 s/p 1 unit PRBC. Will need supplementation. DVT Px - Heparin SQ.
[2020-04-04] MEDS ORDERED: DEXTROSE 5%-WATER - 50 ML IVPB ONE ×3 (00:58→17:59)
[2020-04-04] MEDS ORDERED: PIPERACILLIN/TAZOBACTAM 3.375 GM VIAL IVPB ONE ×3 (00:58→17:58)
[2020-04-04] MEDS: INSULIN SLIDING SCALE (NOVOLOG) 1 VIAL SQ SCH ×4 (01:07→17:37)
[2020-04-04] MEDS: PIPERACILLIN/TAZOB 3.375 GM 3.375 GM in DEXTROSE 5%-WATER - 50 ML IVPB SCH ×3 (01:08→18:06)
[2020-04-04] MEDS: AMINO ACIDS 4.25%/D5W 1,000 ML IV SCH ×2 (02:43→15:10)
[2020-04-04] MEDS: ALBUTEROL SO4 0.083% IH SOL 2.5 MG/3 ML VIAL.NEB. NEB PRN (02:45)
[2020-04-04] MEDS: HEPARIN NA (PORCINE) 5,000 UNITS/ML 1ML VIAL SQ SCH ×3 (05:55→21:09)
[2020-04-04] MEDS ORDERED: INSULIN (NOVOLOG) ASPART 100 UNITS/ML 10ML VIAL ONE (07:11)
[2020-04-04 07:56] LABS: HEMATOCRIT 28.5 % (32.4-45.2); MCH 26.1 pg (25.7-33.7); MCHC 31.6 g/dl (32.0-36.0); MEAN CELL VOLUME 82.5 fl (80-96); MEAN PLT VOLUME 8.5 fl (7.5-11.1); PLATELET COUNT 233 K/MM3 (134-434); RBC 3.46 M/mm3 (3.60-5.2); RDW 18.6 % (11.6-15.6); WHITE BLOOD COUNT 11.4 K/mm3 (4.0-10.0)
[2020-04-04 08:16] LABS: ALBUMIN 1.8 g/dl (3.4-5.0); BILIRUBIN,TOTAL 0.4 mg/dL (0.2-1); BLOOD UREA NITROGEN 37.5 mg/dL (7-18); CALCIUM 7.9 mg/dL (8.5-10.1); CREATININE 1.2 mg/dL (0.55-1.3); MAGNESIUM 1.4 mg/dL (1.8-2.4); PHOSPHOROUS 2.2 mg/dL (2.5-4.9)
[2020-04-04] MEDS ORDERED: POTASSIUM PHOSPHATE 15 MM in SODIUM CHLORIDE 250 ML IVPB ONE (08:50)
[2020-04-04] MEDS ORDERED: MAGNESIUM SULF 50% (8.12 MEQ/2 ML-1 GM VIAL) IVPB ONE (08:50)
[2020-04-04] MEDS ORDERED: MAGNESIUM SULFATE IN WATER 2 GM/50 ML IVPB IVPB ONE (09:15)
[2020-04-04] MEDS ORDERED: PT OWN MED DRAWER 7, Y5N ONE (11:17)
--- NOTE | 2020-04-04 11:42 | PN ---
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 (short form) - Note 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: PULMONARY Remains on HFOT 80% FiO2. Pt nonverbal. No fevers recorded. Vital Signs Period Temp Pulse Resp BP Sys/Coyne Pulse Ox Last 24 Hr 96.9 F-98.4 F 91-98 16-20 143-162/73-86 92-100 Gen: mildly tachypneic on HFOT Heart: RRR Lung: scattered rhonchi Abd: soft, nontender Ext: no edema CBC, BMP 04/04/20 07:00 04/04/20 07:00 Active Medications Albuterol Sulfate (Ventolin 0.083% Nebulizer Soln -) 1 amp NEB Q4H PRN PRN Reason: SHORT OF BREATH/WHEEZING Last Admin: 04/04/20 02:45 Dose: 1 amp Documented by: Heparin Sodium (Porcine) (Heparin -) 5,000 unit SQ TID [facility] Last Admin: 04/04/20 05:55 Dose: 5,000 unit Documented by: Amino Acids (Clinimix -) 1,000 mls @ 42 mls/hr IV Q24H [facility] Last Admin: 04/04/20 02:43 Dose: 42 mls/hr Documented by: Piperacillin Sod/Tazobactam (Sod 3.375 gm/ Dextrose) 50 mls @ 100 mls/hr IVPB Q8H-IV [facility]; Protocol Last Admin: 04/04/20 10:18 Dose: 100 mls/hr Documented by: Potassium Phosphate 15 mm/ (Sodium Chloride) 255 mls @ 63.75 mls/hr IVPB ONCE ONE Stop: 04/04/20 12:49 Last Admin: 04/04/20 10:18 Dose: 63.75 mls/hr Documented by: Potassium Chloride (Potassium Chloride 10 Meq Premix Ivpb -) 10 meq in 100 mls @ 100 mls/hr IVPB Q60M [facility] Stop: 04/04/20 11:59 Insulin Aspart (Novolog Vial Sliding Scale -) 1 vial SQ Q6HPO [facility]; Protocol Last Admin: 04/04/20 05:54 Dose: Not Given Documented by: Levothyroxine Sodium (Synthroid Injection -) 25 mcg IVPUSH DAILY [facility] Last Admin: 04/03/20 10:24 Dose: 25 mcg Documented by: A/P Acute Hypoxic Respiratory Failure Pneumonia likely Aspiration UTI CAD CHF HTN Hyperlipidemia DM h/o AVR CKD Hypothyroidism Anemia - continue antibiotics - continue clinimix - titrate HFOT to keep SpO2 >90% - aspiration precautions - DVT/GI prophylaxis - continue discussions regarding goals of care
[2020-04-04] MEDS: KCL 10 MEQ IVPB 10 MEQ/100 ML INFUS.BAG IVPB SCH ×3 (11:48→15:52)
[2020-04-04] MEDS: LEVOTHYROXINE SODIUM 100 MCG VIAL IVPUSH SCH (11:53)
--- NOTE | 2020-04-04 14:37 | PN ---
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 (short form) - Note 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: SUBJECTIVE: Non-verbal, decreased responsiveness, unable to participate in medical interview. OBJECTIVE: Afebrile, Hemodynamically Stable. SpO2 99% on HFO2 at 90%FiO2 Last Vital Signs Temp Pulse Resp BP Pulse Ox 97.8 F 106 H 20 136/76 98 04/04/20 14:09 04/04/20 14:09 04/04/20 14:09 04/04/20 14:09 04/04/20 14:09 HEENT - Atraumatic. Pupils reactive Heart - S1, S2, SM Lungs - decreased air entry at bases, some wheeze Abdomen - Soft, non-tender. Bowel Sounds normal. Extremities - No calf tenderness Neuro - Decreased responsiveness, non-verbal, not following commands, difficult to asses power. Laboratory Results - last 24 hr 04/03/20 04/04/20 04/04/20 17:34 01:06 05:54 WBC RBC Hgb Hct MCV MCH MCHC RDW Plt Count MPV Sodium Potassium Chloride Carbon Dioxide Anion Gap BUN Creatinine Est GFR (CKD-EPI)AfAm Est GFR (CKD-EPI)NonAf POC Glucometer 158 150 149 Random Glucose Calcium Phosphorus Magnesium Total Bilirubin AST ALT Alkaline Phosphatase Total Protein Albumin TSH 04/04/20 04/04/20 07:00 07:00 WBC 11.4 H RBC 3.46 L Hgb 9.0 L Hct 28.5 L MCV 82.5 MCH 26.1 MCHC 31.6 L RDW 18.6 H Plt Count 233 MPV 8.5 Sodium 144 Potassium 3.0 L Chloride 115 H Carbon Dioxide 19 L Anion Gap 10 BUN 37.5 H Creatinine 1.2 Est GFR (CKD-EPI)AfAm 47.72 Est GFR (CKD-EPI)NonAf 41.18 POC Glucometer Random Glucose 178 H Calcium 7.9 L Phosphorus 2.2 L Magnesium 1.4 L Total Bilirubin 0.4 AST 33 ALT 31 Alkaline Phosphatase 101 Total Protein 6.0 L Albumin 1.8 L TSH 4.24 H Current Medications Generic Name Dose Route Start Last Admin Trade Name Freq PRN Reason Stop Dose Admin Albuterol Sulfate 1 amp 04/02/20 21:03 04/04/20 02:45 Ventolin 0.083% Nebulizer Soln - NEB 1 amp Q4H PRN Administration SHORT OF BREATH/WHEEZING Heparin Sodium (Porcine) 5,000 unit 04/02/20 22:00 04/04/20 05:55 Heparin - SQ 5,000 unit TID MITRA Administration Amino Acids 1,000 mls @ 42 mls/hr 04/03/20 13:15 04/04/20 02:43 Clinimix - IV 42 mls/hr Q24H [facility] Administration Piperacillin Sod/Tazobactam 50 mls @ 100 mls/hr 04/03/20 02:00 04/04/20 10:18 Sod 3.375 gm/ Dextrose IVPB 100 mls/hr Q8H-IV [facility] Administration Protocol Insulin Aspart 1 vial 04/03/20 00:00 04/04/20 14:14 Novolog Vial Sliding Scale - SQ Not Given Q6HPO [facility]PL[facility] Protocol Levothyroxine Sodium 25 mcg 04/03/20 10:00 04/04/20 11:53 Synthroid Injection - IVPUSH 25 mcg DAILY [facility] Administration Home Medications Medication Instructions Recorded Acetaminophen [Tylenol .Regular 650 mg PO Q6H PRN #0 tablet 09/02/13 Strength -] Levothyroxine [Synthroid -] 50 mcg PO DAILY@0700 #0 tablet 09/02/13 Allopurinol [Zyloprim -] 100 mg PO DAILY 02/12/20 Amlodipine Besylate [Norvasc -] 5 mg PO DAILY 02/12/20 Aspirin 81 mg PO DAILY 02/12/20 Atorvastatin Ca [Lipitor] 20 mg PO HS 02/12/20 Bisacodyl 5 mg PO PRN 02/12/20 Clopidogrel Bisulfate [Clopidogrel] 75 mg PO DAILY 02/12/20 Polyethylene Glycol 3350 17 gm PO BID 02/12/20 Senna [place] Extract [Senna] 176 mg PO HS 02/12/20 Vitamin B Complex 1 each PO DAILY 02/12/20 Amox-Tr/K Cl [Augmentin 500-125mg 1 tab PO BID@0800,1730 tablet 02/19/20 Tablet -] Ascorbate Calcium [Vitamin C] 500 mg PO BID 03/28/20 Glipizide [Glipizide ER] 5 mg PO DAILY 03/28/20 Insulin Lispro [Admelog Solostar] 100 unit SQ TID 03/28/20 Memantine HCl [Namenda -] 5 mg PO HS 03/28/20 Omeprazole Pediatric Solution 10 ml PO DAILY 03/28/20 [Omeprazole Pediatric Oral Solution] Zinc 50 mg PO BID 03/28/20 ASSESSMENT AND PLAN: 85 year old female with history of Parkinson's Disease, Advanced Dementia, HLD, HTN, non-obstructive CAD, Chronic Systolic CHF, CKD 3, DM 2, s/p TAVR from [facility] brought in for resp distress, intubated on 03/28 in the field, admitted for septic shock due to HCAP vs aspiration pneumonia 1. Acute Hypoxic Respiratory Failure and Septic Shock s/p extubation to HFOT Shock resolved, off pressors. NPO due to poor mental status and inability to participate with Swallow eval - on Clinimix Sputum Cx positive for Klebsiella. Continue Zosyn Continue HFOT - O2 titration as per Pulmonary Palliative Care consult for goals of care and for further discussion regarding consideration for PEG with family. DNI. 2. Acute Metabolic Encephalopathy sec to Sepsis/worsening underlying dementia/PD - never regained full cognition s/p extubation CT Head - no acute findings, cerebral atrophy, ventricular dilatation. Namenda held as she is NPO 3. KYLER on CKD 3 - resolved. Creatinine at baseline. 4. CAD (non-obstructive s/p Cath 09/25) - normally on Aspirin/Plavix, Statin - held currently as patient is NPO. 5. HTN - Norvasc held. 6. HLD - Statin held. 7. DM 2 - Maintain on Novolog sliding scale. Lispro/Glipizide held. 8. Chronic Systolic CHF (EF 33% on 01/23), s/p TAVR - no evidence for decompensation. Will monitor fluid status. 9. Hypothyroidism - Continue Levothyroxine. TSH 4.24 10. Iron Deficiency Anemia, Iron Sat 15%. H/H 9.2/29.5 s/p 1 unit PRBC. Will need supplementation. 11. Hyokalemia/Hypophosphatemia/Hypomagnesemia - repleted. DVT Px - Heparin SQ. Visit type - Emergency Visit Emergency Visit: Yes ED Registration Date: 03/28/20 Care time: The patient presented to the Emergency Department on the above date and was hospitalized for further evaluation of their emergent condition. - New Patient This patient is new to me today: No - Critical Care Critical Care patient: No - Discharge Referral Referred to [facility] Med P.C.: No - Medication Review Med list reviewed for High Risk Meds patients 65 and older: Yes
[2020-04-05] MEDS: INSULIN SLIDING SCALE (NOVOLOG) 1 VIAL SQ SCH ×4 (00:03→17:10)
[2020-04-05] MEDS ORDERED: PIPERACILLIN/TAZOBACTAM 3.375 GM VIAL IVPB ONE ×3 (00:41→17:06)
[2020-04-05] MEDS ORDERED: DEXTROSE 5%-WATER - 50 ML IVPB ONE ×3 (00:41→17:06)
[2020-04-05] MEDS: PIPERACILLIN/TAZOB 3.375 GM 3.375 GM in DEXTROSE 5%-WATER - 50 ML IVPB SCH ×3 (01:24→17:09)
[2020-04-05] MEDS: AMINO ACIDS 4.25%/D5W 1,000 ML IV SCH ×2 (02:22→14:43)
[2020-04-05] MEDS: HEPARIN NA (PORCINE) 5,000 UNITS/ML 1ML VIAL SQ SCH ×3 (06:07→22:32)
[2020-04-05] MEDS ORDERED: PT OWN MED DRAWER 7, Y5N ONE ×2 (11:32→18:36)
[2020-04-05] MEDS: LEVOTHYROXINE SODIUM 100 MCG VIAL IVPUSH SCH (11:37)
--- NOTE | 2020-04-05 11:40 | PN ---
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, FLORICULTURIST - Note 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: Selected Entries 04/04/20 04/04/20 04/04/20 02:02 04:00 05:19 Breakfast Temperature Pulse Rate Blood Pressure O2 Sat by Pulse 94 L 93 L 95 Oximetry (%) Fraction of 90 90 Inspired Oxygen (FIO2) Oxygen Flow Rate 04/04/20 04/04/20 04/04/20 07:55 09:00 14:07 Breakfast NPO Temperature Pulse Rate Blood Pressure O2 Sat by Pulse 99 98 Oximetry (%) Fraction of 90 Inspired Oxygen (FIO2) Oxygen Flow 40 Rate 04/04/20 04/04/20 04/04/20 14:09 16:26 20:19 Breakfast Temperature Pulse Rate Blood Pressure O2 Sat by Pulse 98 100 100 Oximetry (%) Fraction of 90 90 Inspired Oxygen (FIO2) Oxygen Flow Rate 04/04/20 04/04/20 04/05/20 21:00 22:00 05:37 Breakfast Temperature 98.7 F Pulse Rate 85 Blood Pressure 124/56 L O2 Sat by Pulse 100 100 Oximetry (%) Fraction of 90 Inspired Oxygen (FIO2) Oxygen Flow Rate Laboratory Tests 04/01/20 04/02/20 04/03/20 06:10 06:25 11:50 WBC Cancelled 13.0 H 11.2 H 04/04/20 07:00 WBC 11.4 H Pt suctioned as prn,high flow in use,no acute respiration distress NPO Clinimix Palliative care involved regarding GOC Eyes open, head extended, non verbal. s Suspect persistent high risk o0f aspiration
[2020-04-05] MEDS ORDERED: FUROSEMIDE 40 MG/4 ML INJECTABLE VIAL IVPUSH ONE (11:44)
[2020-04-05 13:45] LABS: BASO % 0.4 % (0-2.0); EOS % 1.1 % (0-4.5); HEMATOCRIT 29.7 % (32.4-45.2); HEMOGLOBIN 9.4 GM/dL (10.7-15.3); LYMPH % 15.8 % (8-40); MCH 26.2 pg (25.7-33.7); MCHC 31.5 g/dl (32.0-36.0); MEAN CELL VOLUME 83.1 fl (80-96); MEAN PLT VOLUME 8.4 fl (7.5-11.1); MONO % 3.9 % (3.8-10.2); NEUT % 78.8 % (42.8-82.8); PLATELET COUNT 256 K/MM3 (134-434); RBC 3.57 M/mm3 (3.60-5.2); RDW 18.4 % (11.6-15.6); WHITE BLOOD COUNT 10.7 K/mm3 (4.0-10.0)
--- NOTE | 2020-04-05 13:50 | PN ---
Physical Exam: SUBJECTIVE: Patient seen and examined at bedside, no acute events overnight. Non-verbal OBJECTIVE: Vital Signs Period Temp Pulse Resp BP Sys/Coyne Pulse Ox Last 24 Hr 97.8 F-98.7 F 85-106 20-22 122-136/56-76 98-100 GENERAL: The patient is asleep, poor mentation EYES: PERRL, extraocular movements intact ENT: moist mucous membranes. LUNGS: Breath sounds equal, clear to auscultation bilaterally, no wheezes, no crackles, no accessory muscle use. HEART: Regular rate and rhythm, S1, S2 without murmur, rub or gallop. ABDOMEN: Soft, nontender, nondistended, normoactive bowel sounds, EXTREMITIES: 2+ pulses, warm, well-perfused, no edema. Neuro: non-verbal, not following commands SKIN: Warm, dry, normal turgor, no rashes or lesions noted Laboratory Results - last 24 hr 04/04/20 04/05/20 04/05/20 17:35 00:01 06:08 POC Glucometer 171 159 147 04/05/20 11:46 POC Glucometer 142 Active Medications Generic Name Dose Route Start Last Admin Trade Name Freq PRN Reason Stop Dose Admin Albuterol Sulfate 1 amp 04/02/20 21:03 04/04/20 02:45 Ventolin 0.083% Nebulizer Soln - NEB 1 amp Q4H PRN Administration SHORT OF BREATH/WHEEZING Heparin Sodium (Porcine) 5,000 unit 04/02/20 22:00 04/05/20 06:07 Heparin - SQ 5,000 unit TID [facility]RA Administration Amino Acids 1,000 mls @ 42 mls/hr 04/03/20 13:15 04/05/20 02:22 Clinimix - IV 42 mls/hr Q24H [facility] Administration Piperacillin Sod/Tazobactam 50 mls @ 100 mls/hr 04/03/20 02:00 04/05/20 11:35 Sod 3.375 gm/ Dextrose IVPB 100 mls/hr Q8H-IV [facility] Administration Protocol Insulin Aspart 1 vial 04/03/20 00:00 04/05/20 12:00 Novolog Vial Sliding Scale - SQ Not Given Q6HPO [facility] Protocol Levothyroxine Sodium 25 mcg 04/03/20 10:00 04/05/20 11:37 Synthroid Injection - IVPUSH 25 mcg DAILY [facility] Administration ASSESSMENT/PLAN: 85 yo female with pmh of PD, AD, HLD, HTN, CAD, CHF, CKD, NIDDM, aortic valve replacement who is admitted for acute respiratory failure 2/2 to PNA, s/p extubation. #Acute respiratory failure 2/2 to PNA - likely aspiration PNA, s/p extubation , now DNR/DNI - sputum positive for Klebsiella, continue Zosyn D#9 - albuterol nebs prn for wheezing - ID on Board, Dr. Silva - Pulmonary on Board, Dr. Redding: titrate HFOT to keep SpO2 >90% - Palliative Care on Board, pending eval and recs #AMS - likely 2/2 baseline Alzheimer's and parkinsons - never regained full cognition s/p extubation - CT Head - no acute findings #DM - BGM + ISS #malnutrition - NPO due to poor mental status and inability to participate with Swallow eval - currently on clinimix - palliative care discussing future of PEG tube with family #FEN - No standing fluids - Continue to monitor electrolytes - NPO, Clinimix #Dispo - continue to monitor in [place], Pending palliative care recs for goals of care Visit type - Emergency Visit Emergency Visit: Yes ED Registration Date: 03/28/20 Care time: The patient presented to the Emergency Department on the above date and was hospitalized for further evaluation of their emergent condition. - New Patient This patient is new to me today: No - Critical Care Critical Care patient: No - Discharge Referral Referred to [facility] Med P.C.: No - Medication Review Med list reviewed for High Risk Meds patients 65 and older: Yes ATTENDING PHYSICIAN STATEMENT I saw and evaluated the patient. I reviewed the resident's note and discussed the case with the resident. I agree with the resident's findings and plan as documented. SUBJECTIVE: OBJECTIVE: ASSESSMENT AND PLAN:
[2020-04-05 14:19] LABS: ALBUMIN 1.9 g/dl (3.4-5.0); BILIRUBIN,TOTAL 0.5 mg/dL (0.2-1); BLOOD UREA NITROGEN 43.4 mg/dL (7-18); CALCIUM 7.9 mg/dL (8.5-10.1); CREATININE 1.4 mg/dL (0.55-1.3); MAGNESIUM 1.7 mg/dL (1.8-2.4); PHOSPHOROUS 3.7 mg/dL (2.5-4.9); POTASSIUM 3.5 mmol/L (3.5-5.1); TOT PROT 6.4 g/dl (6.4-8.2)
--- NOTE | 2020-04-05 14:46 | PN ---
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 (short form) - Note 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: PULMONARY Remains on HFOT 90% FiO2. Pt nonverbal. No fevers recorded. Vital Signs Period Temp Pulse Resp BP Sys/Coyne Pulse Ox Last 24 Hr 97.7 F-98.7 F 85-100 20-22 122-159/56-81 94-100 Gen: mildly tachypneic on HFOT Heart: RRR Lung: scattered rhonchi Abd: soft, nontender Ext: no edema CBC, BMP 04/05/20 12:52 04/05/20 12:52 Active Medications Albuterol Sulfate (Ventolin 0.083% Nebulizer Soln -) 1 amp NEB Q4H PRN PRN Reason: SHORT OF BREATH/WHEEZING Last Admin: 04/04/20 02:45 Dose: 1 amp Documented by: Heparin Sodium (Porcine) (Heparin -) 5,000 unit SQ TID [facility] Last Admin: 04/05/20 14:39 Dose: 5,000 unit Documented by: Amino Acids (Clinimix -) 1,000 mls @ 42 mls/hr IV Q24H [facility] Last Admin: 04/05/20 14:43 Dose: Not Given Documented by: Piperacillin Sod/Tazobactam (Sod 3.375 gm/ Dextrose) 50 mls @ 100 mls/hr IVPB Q8H-IV [facility]; Protocol Last Admin: 04/05/20 11:35 Dose: 100 mls/hr Documented by: Insulin Aspart (Novolog Vial Sliding Scale -) 1 vial SQ Q6HPO [facility]; Protocol Last Admin: 04/05/20 12:00 Dose: Not Given Documented by: Levothyroxine Sodium (Synthroid Injection -) 25 mcg IVPUSH DAILY [facility] Last Admin: 04/05/20 11:37 Dose: 25 mcg Documented by: Magnesium Sulfate/Dextrose (Magnesium 1gm/D5w -) 1 gm IVPB ONCE ONE Stop: 04/05/20 15:01 Last Admin: 04/05/20 14:39 Dose: 1 gm Documented by: A/P Acute Hypoxic Respiratory Failure Pneumonia likely Aspiration UTI CAD CHF HTN Hyperlipidemia DM h/o AVR CKD Hypothyroidism Anemia - continue antibiotics - continue clinimix - agree with lasix - titrate HFOT to keep SpO2 >90% - aspiration precautions - DVT/GI prophylaxis - continue discussions regarding goals of care
[2020-04-05] MEDS ORDERED: MAGNESIUM 1GM/D5W 100ML - 100 ML IVPB IVPB ONE (15:00)
--- NOTE | 2020-04-05 15:04 | PN ---
Teaching Attending Note Name of Resident: Joellen Blankenship ATTENDING PHYSICIAN STATEMENT I saw and evaluated the patient. I reviewed the resident's note and discussed the case with the resident. I agree with the resident's findings and plan as documented. SUBJECTIVE: Non-verbal, still displaying decreased responsiveness, unable to participate in medical interview. OBJECTIVE: Afebrile, Hemodynamically Stable. Poorly responsive. SpO2 100% on HFO2 at 90%FiO2 Last Vital Signs Temp Pulse Resp BP Pulse Ox 97.7 F 100 H 20 159/81 94 L 04/05/20 14:00 04/05/20 14:00 04/05/20 14:00 04/05/20 14:00 04/05/20 14:00 HEENT - Atraumatic. Pupils reactive. Heart - S1, S2, SM Lungs - decreased air entry at bases, with some crackles/wheeze. Abdomen - Soft, non-tender. Bowel Sounds normal. Extremities - No calf tenderness Neuro - Decreased responsiveness, non-verbal, not following commands, unable to asses power. Laboratory Results - last 24 hr 04/04/20 04/05/20 04/05/20 17:35 00:01 06:08 WBC RBC Hgb Hct MCV MCH MCHC RDW Plt Count MPV Absolute Neuts (auto) Neutrophils % Lymphocytes % Monocytes % Eosinophils % Basophils % Nucleated RBC % Sodium Potassium Chloride Carbon Dioxide Anion Gap BUN Creatinine Est GFR (CKD-EPI)AfAm Est GFR (CKD-EPI)NonAf POC Glucometer 171 159 147 Random Glucose Calcium Phosphorus Magnesium Total Bilirubin AST ALT Alkaline Phosphatase Total Protein Albumin 04/05/20 04/05/20 04/05/20 11:46 12:52 12:52 WBC 10.7 H RBC 3.57 L Hgb 9.4 L Hct 29.7 L MCV 83.1 MCH 26.2 MCHC 31.5 L RDW 18.4 H Plt Count 256 MPV 8.4 Absolute Neuts (auto) 8.4 H Neutrophils % 78.8 Lymphocytes % 15.8 D Monocytes % 3.9 Eosinophils % 1.1 Basophils % 0.4 Nucleated RBC % 0 Sodium 145 Potassium 3.5 Chloride 115 H Carbon Dioxide 21 Anion Gap 8 BUN 43.4 H Creatinine 1.4 H Est GFR (CKD-EPI)AfAm 39.61 Est GFR (CKD-EPI)NonAf 34.18 POC Glucometer 142 Random Glucose 159 H Calcium 7.9 L Phosphorus 3.7 Magnesium 1.7 L Total Bilirubin 0.5 AST 39 H ALT 39 Alkaline Phosphatase 117 Total Protein 6.4 Albumin 1.9 L Current Medications Generic Name Dose Route Start Last Admin Trade Name Freq PRN Reason Stop Dose Admin Albuterol Sulfate 1 amp 04/02/20 21:03 04/04/20 02:45 Ventolin 0.083% Nebulizer Soln - NEB 1 amp Q4H PRN Administration SHORT OF BREATH/WHEEZING Heparin Sodium (Porcine) 5,000 unit 04/02/20 22:00 04/05/20 14:39 Heparin - SQ 5,000 unit TID MITRA Administration Amino Acids 1,000 mls @ 42 mls/hr 04/03/20 13:15 04/05/20 14:43 Clinimix - IV Not Given Q24H MITRA Piperacillin Sod/Tazobactam 50 mls @ 100 mls/hr 04/03/20 02:00 04/05/20 11:35 Sod 3.375 gm/ Dextrose IVPB 100 mls/hr Q8H-IV MITRA Administration Protocol Insulin Aspart 1 vial 04/03/20 00:00 04/05/20 12:00 Novolog Vial Sliding Scale - SQ Not Given Q6HPO MITRA Protocol Levothyroxine Sodium 25 mcg 04/03/20 10:00 04/05/20 11:37 Synthroid Injection - IVPUSH 25 mcg DAILY MITRA Administration Magnesium Sulfate/Dextrose 1 gm 04/05/20 15:00 04/05/20 14:39 Magnesium 1gm/D5w - IVPB 04/05/20 15:01 1 gm ONCE ONE Administration Home Medications Medication Instructions Recorded Acetaminophen [Tylenol .Regular 650 mg PO Q6H PRN #0 tablet 09/02/13 Strength -] Levothyroxine [Synthroid -] 50 mcg PO DAILY@0700 #0 tablet 09/02/13 Allopurinol [Zyloprim -] 100 mg PO DAILY 02/12/20 Amlodipine Besylate [Norvasc -] 5 mg PO DAILY 02/12/20 Aspirin 81 mg PO DAILY 02/12/20 Atorvastatin Ca [Lipitor] 20 mg PO HS 02/12/20 Bisacodyl 5 mg PO PRN 02/12/20 Clopidogrel Bisulfate [Clopidogrel] 75 mg PO DAILY 02/12/20 Polyethylene Glycol 3350 17 gm PO BID 02/12/20 Senna Whitefish Extract [Senna] 176 mg PO HS 02/12/20 Vitamin B Complex 1 each PO DAILY 02/12/20 Amox-Tr/K Cl [Augmentin 500-125mg 1 tab PO BID@0800,1730 tablet 02/19/20 Tablet -] Ascorbate Calcium [Vitamin C] 500 mg PO BID 03/28/20 Glipizide [Glipizide ER] 5 mg PO DAILY 03/28/20 Insulin Lispro [Admelog Solostar] 100 unit SQ TID 03/28/20 Memantine HCl [Namenda -] 5 mg PO HS 03/28/20 Omeprazole Pediatric Solution 10 ml PO DAILY 03/28/20 [Omeprazole Pediatric Oral Solution] Zinc 50 mg PO BID 03/28/20 ASSESSMENT AND PLAN: 85 year old female with history of Parkinson's Disease, Advanced Dementia, HLD, HTN, non-obstructive CAD, Chronic Systolic CHF, CKD 3, DM 2, s/p TAVR from [facility] brought in for resp distress, intubated on 03/28 in the field, admitted for septic shock due to HCAP vs aspiration pneumonia 1. Acute Hypoxic Respiratory Failure and Septic Shock s/p extubation to HFOT Shock resolved, off pressors. NPO due to poor mental status and inability to participate with Swallow eval - on Clinimix Sputum Cx positive for Klebsiella. Continue Zosyn for 10 days total. Appears slightly fluid overloaded with crackles at bases - given IV Lasix 20mg IV X 1. Continue HFOT - O2 can be slowly down-titrated. Palliative Care consult for goals of care and for further discussion regarding consideration for PEG vs TPN with family. As per SW, apparently accepted to [place], but on the condition that TPN is started rather than PPN. Will consult nutrition and further discussion with family regarding PICC/central line. DNI. 2. Acute Metabolic Encephalopathy sec to Sepsis/worsening underlying dementia/PD - never regained full cognition s/p extubation CT Head - no acute findings, cerebral atrophy, ventricular dilatation. Namenda held as she is NPO 3. KYLER on CKD 3 - resolved. Monitor Creat after single lasix dose 20mg IVP x 1 today. 4. CAD (non-obstructive s/p Cath 09/25) - normally on Aspirin/Plavix, Statin - held currently as patient is NPO. 5. HTN - Norvasc held. 6. HLD - Statin held. 7. DM 2 - Maintain on Novolog sliding scale. Lispro/Glipizide held. 8. Chronic Systolic CHF (EF 33% on 01/23), s/p TAVR - few basal crackles - Lasix 20mg IV x 1 today. Will monitor fluid status. 9. Hypothyroidism - Continue Levothyroxine. TSH 4.24 10. Iron Deficiency Anemia, Iron Sat 15%. H/H 9.2/29.5 s/p 1 unit PRBC. Will need supplementation once PO intake allows. 11. Hypomagnesemia - recurrent, repleted. DVT Px - Heparin SQ.
[2020-04-05 15:18] LABS: ANISOCYTOSIS 1+; MACROCYTOSIS 1+; PLATELET ESTIMATE NORMAL
[2020-04-05] MEDS: MAGNESIUM 1GM/D5W 100ML - 100 ML IVPB IVPB ONE ×2 (16:44→18:12)
[2020-04-05] MEDS: ALBUTEROL SO4 0.083% IH SOL 2.5 MG/3 ML VIAL.NEB. NEB PRN (19:51)
[2020-04-05 21:03] LABS: MAGNESIUM 2.5 mg/dL (1.8-2.4)
[2020-04-06] MEDS: INSULIN SLIDING SCALE (NOVOLOG) 1 VIAL SQ SCH ×2 (00:53→06:40)
[2020-04-06] MEDS ORDERED: PIPERACILLIN/TAZOBACTAM 3.375 GM VIAL IVPB ONE (02:27)
[2020-04-06] MEDS ORDERED: DEXTROSE 5%-WATER - 50 ML IVPB ONE (02:27)
[2020-04-06] MEDS: PIPERACILLIN/TAZOB 3.375 GM 3.375 GM in DEXTROSE 5%-WATER - 50 ML IVPB SCH (02:33)
[2020-04-06] MEDS: HEPARIN NA (PORCINE) 5,000 UNITS/ML 1ML VIAL SQ SCH (06:40)
[2020-04-06 07:34] LABS: BASO % 0.4 % (0-2.0); EOS % 0.4 % (0-4.5); HEMATOCRIT 30.7 % (32.4-45.2); HEMOGLOBIN 9.4 GM/dL (10.7-15.3); LYMPH % 10.1 % (8-40); MCH 25.6 pg (25.7-33.7); MCHC 30.7 g/dl (32.0-36.0); MEAN CELL VOLUME 83.2 fl (80-96); MONO % 3.3 % (3.8-10.2); NEUT % 85.8 % (42.8-82.8); PLATELET COUNT 298 K/MM3 (134-434); RBC 3.69 M/mm3 (3.60-5.2); WHITE BLOOD COUNT 14.2 K/mm3 (4.0-10.0)
[2020-04-06 07:41] VITALS: BP 133/54; PULSE 111; TEMP 98.6
[2020-04-06 08:07] LABS: BILIRUBIN,TOTAL 0.5 mg/dL (0.2-1); BLOOD UREA NITROGEN 45.5 mg/dL (7-18); CALCIUM 8.2 mg/dL (8.5-10.1); CREATININE 1.5 mg/dL (0.55-1.3); MAGNESIUM 2.5 mg/dL (1.8-2.4); PHOSPHOROUS 4.5 mg/dL (2.5-4.9); POTASSIUM 3.7 mmol/L (3.5-5.1); TOT PROT 6.9 g/dl (6.4-8.2)
--- NOTE | 2020-04-06 08:46 | HOSP ---
Physical Examination Vital Signs: Vital Signs Temperature 98.6 F 04/06/20 07:40 Pulse Rate 111 H 04/06/20 07:40 Respiratory Rate 22 H 04/06/20 07:40 Blood Pressure 133/54 L 04/06/20 07:40 O2 Sat by Pulse Oximetry (%) 98 04/06/20 07:40 Labs: CBC, BMP 04/06/20 07:10 04/06/20 07:10 Hospitalist Encounter Assessment: [facility] for Dr. Canseco Called by primary RN to come see patient for unresponsiveness patient is a dnr/dni Upon exam, patient is not responsive to verbal or tactile stimuli, no response to sternal rub heart and lung sounds are absent No spontaneous cardiac or respiratory activity Pupils fixed and dilated Patient pronounced on: Date: April 06, 2020 Time: 0835 am. informed via telephone, condolences offered Primary care doctor Harleen to be informed Post mortum care per primary RN carmenza dobbins DRYCLEANER, [employer] coverage [phone]
[2020-04-06 10:34] LABS: ANISOCYTOSIS 1+; MACROCYTOSIS 0; PLATELET ESTIMATE NORMAL
== END 2020-04-06 10:00 | disposition expired | DRG 871 ==
LOC: JER 17:00 → JICU 17:48 → JER 22:00 → JICU 22:00 → JER 23:13 → J8W 04-02 20:45
PROVIDERS: ADMIT Internal Medicine Pulmonary Disease; ATTEND Family Medicine
PROC: 5A1945Z Respiratory Ventilation, 24-96 Consecutive Hours (ICD-10-PCS; principal; 2020-03-28)
PROC: 0BH17EZ Insertion of Endotracheal Airway into Trachea, Via Natural or Artificial Opening (ICD-10-PCS; 2020-03-28)
PROC: 30233N1 Transfusion of Nonautologous Red Blood Cells into Peripheral Vein, Percutaneous Approach (ICD-10-PCS; 2020-03-30)
DX: A41.59 Other Gram-negative sepsis (principal); J96.01 Acute respiratory failure with hypoxia; J69.0 Pneumonitis due to inhalation of food and vomit; G93.41 Metabolic encephalopathy; R65.21 Severe sepsis with septic shock; E87.0 Hyperosmolality and hypernatremia; N17.9 Acute kidney failure, unspecified; I50.22 Chronic systolic (congestive) heart failure; I13.0 Hypertensive heart and chronic kidney disease with heart failure and stage 1 through stage 4 chronic kidney disease, or unspecified chronic kidney disease; E46 Unspecified protein-calorie malnutrition; N39.0 Urinary tract infection, site not specified; I25.10 Atherosclerotic heart disease of native coronary artery without angina pectoris; E11.9 Type 2 diabetes mellitus without complications; E78.5 Hyperlipidemia, unspecified; E03.9 Hypothyroidism, unspecified; N18.3 Chronic kidney disease, stage 3 (moderate); E87.6 Hypokalemia; E83.39 Other disorders of phosphorus metabolism; I95.9 Hypotension, unspecified; D50.9 Iron deficiency anemia, unspecified; E83.42 Hypomagnesemia; Z68.23 Body mass index [BMI] 23.0-23.9, adult; D72.829 Elevated white blood cell count, unspecified; G30.9 Alzheimer's disease, unspecified; F02.80 Dementia in other diseases classified elsewhere, unspecified severity, without behavioral disturbance, psychotic disturbance, mood disturbance, and anxiety; G20 Parkinson's disease; E86.0 Dehydration; I44.7 Left bundle-branch block, unspecified; R00.1 Bradycardia, unspecified
CPT/HCPCS: 36415; 36430; 36511; 36600; 70450-TC; 71045-TC-FY; 80048; 80053; 81003; 82803; 82962; 83605; 83735; 84100; 84132; 84443; 84484; 85025; 85027; 85610; 85730; 86850; 86900; 86901; 86922; 87040; 87070; 87077; 87086; 87186; 87205; 93005; 93010; 94002; 94640; 99285-25; G0480; J0131; J1644; P9038; P9058; U0003